=== PATIENT | male | born 1940 | race Caucasian/White ===

== ENCOUNTER 2022-05-06 21:14 | Inpatient (IN) | payer OTHER ==
--- OUTSIDE RECORDS SUMMARY | 2022-05-06 21:21 | XMS REPORT | Continuity of Care Document ---
:1940 Author Organization [facility] t Address [address] [place] [address] Care Team Providers Name Role Phone Wagner YOO, Avi Cabrera Primary Care Physician [phone] William Young Attending Clinician Unavailable AIDAN RUIZ Attending Clinician Unavailable AIDAN RUIZ Attending Clinician Unavailable Aidan Ruiz DO Attending Clinician JASSI FONTAINE Attending Clinician Unavailable Doctor Unassigned, Chidester Attending Clinician Unavailable Nadiya Elmore Attending Clinician Unavailable Therapist, Jim Pulmonary Attending Clinician Unavailable Jassi Fontaine MD Attending Clinician Therapist, Jim Respiratory Attending Clinician Unavailable Meliton-Mbayo_A_AH Attending Clinician Unavailable Meliton-Mbayo_A_AH Admitting Clinician Unavailable Payers Payer Name Policy Type Policy Number Effective Date Expiration Date S ource HUMANA CHOICE [id number] 2021 00:00:00 [facility] [place] - [id number] [facility] 00:00:00 (MEDICARE REPLACEMENT/ADVANT AGE - HMO) Problems Condition Condition Condition Status Onset Resolution Last Treating Co mments Source Name Details Category Date Date Treatment Clinician Date [id number] 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 unspecifie Medica [facility] d COPD Center type Acute COPD with Problem Common exacerbati acute Spirit on of exacerbati - [facility] chronic on obstructiv 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, [facility] unspecifie [facility] d trigger Medical Center No known No known Disease Unive rs active active ity of problems problems [facility] Allergies, Adverse Reactions, Alerts Allergy Allergy Status Severity Reaction(s) Onset Inactive Treating Comm ents Source Name Type Date Date Clinician NO KNOWN Drug Active Univers ALLERGIE Class ity of S [facility] Social History Social Habit Start Date Stop Date Quantity Comments Source History of Tobacco Common Spirit - Use [facility] Sex Assigned At Common Sp carmen - [facility] Exposure to 2022-04-08 2022-04-18 Not sure [facility] SARS-CoV-2 (event) 00:00:00 10:53:00 [facility] Alcohol intake 2022-04-18 2022-04-18 Ex-drinker University 00:00:00 00:00:00 (finding) [facility] Tobacco use and 2022-02-11 2022-02-11 Smokeless Universit y of exposure 00:00:00 00:00:00 tobacco non-user [facility] Cigarettes smoked 2022-02-11 2022-02-11 Univers ity of current (pack per 00:00:00 00:00:00 ) - Reported Branch Cigarette 2022-02-11 2022-02-11 University of pack-years 00:00:00 00:00:00 [facility] Smoking Status Start Date Stop Date Source Former Smoker 2022-05-04 00:00:00 2022-05-04 00:00:00 [facility] S pirit [facility] Medications Ordered Filled Start Stop Current Ordering Indication Dosage Frequency Signature Comments Components Source Medication Medication Date Date Medication? Clinician (SIG) Name Name Formoterol 2021-05 Yes 20ug Inhale 20 Un norberto Fumarate 2-27 mcg 2 ity of (PERFOROMIS 00:00: (two) [place] T) 20 mcg/2 00 times Medical mL Nebu daily. Branch arformotero 2021-05 Yes [id number] 15ug Use 2 mL Univers L (BROVANA) 2-21 as ity of 15 mcg/2 [place] 00:[place] directed [place] nebulizer 00 in the Medical solution morning Branch and 2 mL in the evening. revefenacin 2021-05 Yes [id number] 175ug Inhale 175 Univers (YUPELRI) 2-21 mcg daily. ity of 175 mcg/3 00:00: [place] mL Nebu 00 [facility] Branch budesonide 2021-05 Yes [id number] .25mg Inhale 2 Univers (PULMICORT) 2-21 mL in the ity of 0.25 mg/2 00:00: morning [place] mL 00 and 2 mL Medical nebulizer in the Branch solution evening. revefenacin 2021-05 Yes [id number] 175ug Inhale 175 Univers (YUPELRI) 2-21 mcg daily. ity of 175 mcg/3 00:00: [place] mL Nebu 00 [facility] Branch budesonide 2021-05 Yes [id number] .25mg Inhale 2 Univers (PULMICORT) 2-21 mL in the ity of 0.25 mg/2 00:00: morning [place] mL 00 and 2 mL Medical nebulizer in the Branch solution evening. arformotero 2021-05- No [id number] 15ug Use 2 mL Univers L (BROVANA) 2-21 12-27 as ity of 15 mcg/2 mL 00:00: 00:00 directed [place] nebulizer 00 :00 in the Medical [facility] morning Branch and 2 mL in the evening. doxycycline 2021-05 Yes [id number] 100mg Take 1 Univers 100 mg EC 1-18 tablet by ity o f tablet 00:00: mouth in [place] [address] the [facility] morning Branch and 1 tablet in the evening. doxycycline 2021-05 Yes [id number] 100mg Take 1 Univers 100 mg EC 1-18 tablet by ity o f tablet 00:00: mouth in [place] [address] the [facility] morning Branch and 1 tablet in the evening. doxycycline 2021-05 Yes [id number] 100mg Take 1 Univers 100 mg EC 1-18 tablet by ity o f tablet 00:00: mouth in [place] [address] the [facility] morning Branch and 1 tablet in the evening. doxycycline 2021-05 Yes [id number] 100mg Take 1 Univers 100 mg EC 1-18 tablet by ity o f tablet 00:00: mouth in [place] 00 the Medical morning Branch and 1 tablet in the evening. doxycycline 2021-05 Yes [id number] 100mg Take 1 Univers 100 mg EC 1-18 tablet by ity o f tablet 00:00: mouth in [place] 00 the Medical morning Branch and 1 tablet in the evening. doxycycline 2021-05 Yes [id number] 100mg Take 1 Univers 100 mg EC 1-18 tablet by ity o f tablet 00:00: mouth in [place] 00 the Medical morning Branch and 1 tablet in the evening. doxycycline 2021-05 Yes [id number] 100mg Take 1 Univers 100 mg EC 1-18 tablet by ity o f tablet 00:00: mouth in [place] 00 the Medical morning Branch and 1 tablet in the evening. doxycycline 2021-05 Yes [id number] 100mg Take 1 Univers 100 mg EC 1-18 tablet by ity o f tablet 00:00: mouth in [place] 00 the Medical morning Branch and 1 tablet in the evening. doxycycline 2021-05 Yes [id number] 100mg Take 1 Univers 100 mg EC 1-18 tablet by ity o f tablet 00:00: mouth in [place] 00 the Medical morning Branch and 1 tablet in the evening. doxycycline 2021-05 Yes [id number] 100mg Take 1 Univers 100 mg EC 1-18 tablet by ity o f tablet 00:00: mouth in [place] 00 the Medical morning Branch and 1 tablet in the evening. doxycycline 2021-05 Yes [id number] 100mg Take 1 Univers 100 mg EC 1-18 tablet by ity o f tablet 00:00: mouth in [place] 00 the Medical morning Branch and 1 tablet in the evening. doxycycline 2021-05 Yes [id number] 100mg Take 1 Univers 100 mg EC 1-18 tablet by ity o f tablet 00:00: mouth in [place] 00 the Medical morning Branch and 1 tablet in the evening. doxycycline 2021-05 Yes [id number] 100mg Take 1 Univers 100 mg EC 1-18 tablet by ity o f tablet 00:00: mouth in [place] 00 the Medical morning Branch and 1 tablet in the evening. doxycycline 2021-05 Yes [id number] 100mg Take 1 Univers 100 mg EC 1-18 tablet by ity o f tablet 00:00: mouth in [place] 00 the Medical morning Branch and 1 tablet in the evening. doxycycline 2021-05 Yes [id number] 100mg Take 1 Univers 100 mg EC 1-18 tablet by ity o f tablet 00:00: mouth in [place] 00 the Medical morning Branch and 1 tablet in the evening. doxycycline 2021-05- Yes [id number] 100mg Take 1 Univers 100 mg EC 1-17 11-25 tablet by ity of tablet 00:00: 05:59 mouth in [place] 00 :00 the Medical morning Branch and 1 tablet in the evening. Do all this for 7 days. doxycycline 2021-05- Yes [id number] 100mg Take 1 Univers 100 mg EC 1-17 11-25 tablet by ity of tablet 00:00: 05:59 mouth in [place] 00 :00 the Medical morning Branch and 1 tablet in the evening. Do all this for 7 days. predniSONE 2021-05- Yes [id number] 40mg Take 2 Univers 20 mg 1-17 11-23 tablets by ity of tablet 00:00: 05:59 mouth in [place] 00 :00 the [facility] morning Branch for 5 days. predniSONE 2021-05- Yes [id number] 40mg Take 2 Univers 20 mg 1-17 11-23 tablets by ity of tablet 00:00: 05:59 mouth in [place] 00 :00 the [facility] morning Branch for 5 days. predniSONE 2021-05- Yes [id number] 40mg Take 2 Univers 20 mg 1-17 11-23 tablets by ity of tablet 00:00: 05:59 mouth in [place] 00 :00 the [facility] morning Branch for 5 days. predniSONE 2021-05- Yes [id number] 40mg Take 2 Univers 20 mg 1-17 11-23 tablets by ity of tablet 00:00: 05:59 mouth in [place] 00 :00 the [facility] morning Branch for 5 days. predniSONE 2021-05- Yes [id number] 40mg Take 2 Univers 20 mg 1-17 11-23 tablets by ity of tablet 00:00: 05:59 mouth in [place] 00 :00 the [facility] morning Branch for 5 days. predniSONE 2021-05- Yes [id number] 40mg Take 2 Univers 20 mg 1-17 11-23 tablets by ity of tablet 00:00: 05:59 mouth in [place] 00 :00 the Medical morning Branch for 5 days. doxycycline 2021-05- No [id number] 100mg Take 1 Univers 100 mg EC 1-17 11-18 tablet by ity of tablet 00:00: 00:00 mouth in [place] 00 :00 the Medical morning Branch and 1 tablet in the evening. Do all this for 7 days. doxycycline 2021-05- No [id number] 100mg Take 1 Univers 100 mg EC 1-17 11-18 tablet by ity of tablet 00:00: 00:00 mouth in [place] 00 :00 the Medical morning Branch and 1 tablet in the evening. Do all this for 7 days. furosemide 2021-05 Yes 10mg Take 10 mg U nivers 10 mg 0-07 by mouth ity of 15:54: weekly. [address] furosemide 2021-05 Yes 10mg Take 10 mg U nivers 10 mg 0-07 by mouth ity of 15:54: weekly. [address] furosemide 2021-05 Yes 10mg Take 10 mg U nivers 10 mg 0-07 by mouth ity of 15:54: weekly. [address] furosemide 2021-05 Yes 10mg Take 10 mg U nivers 10 mg 0-07 by mouth ity of 15:54: weekly. [address] furosemide 2021-05 Yes 10mg Take 10 mg U nivers 10 mg 0-07 by mouth ity of 15:54: weekly. [address] furosemide 2021-05 Yes 10mg Take 10 mg U nivers 10 mg 0-07 by mouth ity of 15:54: weekly. [address] furosemide 2021-05 Yes 10mg Take 10 mg U nivers 10 mg 0-07 by mouth ity of 15:54: weekly. [address] furosemide 2021-05 Yes 10mg Take 10 mg U nivers 10 mg 0-07 by mouth ity of 15:54: weekly. [address] furosemide 2021-05 Yes 10mg Take 10 mg U nivers 10 mg 0-07 by mouth ity of 15:54: weekly. [address] furosemide 2021-05 Yes 10mg Take 10 mg U nivers 10 mg 0-07 by mouth ity of 15:54: weekly. [address] furosemide 2021-05 Yes 10mg Take 10 mg U nivers 10 mg 0-07 by mouth ity of 15:54: weekly. [address] furosemide 2021-05 Yes 10mg Take 10 mg U nivers 10 mg 0-07 by mouth ity of 15:54: weekly. [address] furosemide 2021-05 Yes 10mg Take 10 mg U nivers 10 mg 0-07 by mouth ity of 15:54: weekly. [address] furosemide 2021-05 Yes 10mg Take 10 mg U nivers 10 mg 0-07 by mouth ity of 15:54: weekly. [address] furosemide 2021-05 Yes 10mg Take 10 mg U nivers 10 mg 0-07 by mouth ity of 15:54: weekly. [address] furosemide 2021-05 Yes 10mg Take 10 mg U nivers 10 mg 0-07 by mouth ity of 15:54: weekly. [address] furosemide 2021-05 Yes 10mg Take 10 mg U nivers 10 mg 0-07 by mouth ity of 15:54: weekly. [address] furosemide 2021-05 Yes 10mg Take 10 mg U nivers 10 mg 0-07 by mouth ity of 15:54: weekly. [address] furosemide 2021-05 Yes 10mg Take 10 mg U nivers 10 mg 0-07 by mouth ity of 15:54: weekly. [address] furosemide 2021-05 Yes 10mg Take 10 mg U nivers 10 mg 0-07 by mouth ity of 15:54: weekly. [address] furosemide 2021-05 Yes 10mg Take 10 mg U nivers 10 mg 0-07 by mouth ity of 15:54: weekly. [address] furosemide 2021-05 Yes 10mg Take 10 mg U nivers 10 mg 0-07 by mouth ity of 15:54: weekly. [address] furosemide 2021-05 Yes 10mg Take 10 mg U nivers 10 mg 0-07 by mouth ity of 15:54: weekly. [address] furosemide 2021-05 Yes 10mg Take 10 mg U nivers 10 mg 0-07 by mouth ity of 15:54: weekly. [address] furosemide 2021-05 Yes 10mg Take 10 mg U nivers 10 mg 0-07 by mouth ity of 15:54: weekly. [address] furosemide 2021-05 Yes 10mg Take 10 mg U nivers 10 mg 0-07 by mouth ity of 15:54: weekly. [address] furosemide 2021-05 Yes 10mg Take 10 mg U nivers 10 mg 0-07 by mouth ity of 15:54: weekly. [address] furosemide 2021-05 Yes 10mg Take 10 mg U nivers 10 mg 0-07 by mouth ity of 15:54: weekly. [address] furosemide 2021-05 Yes 10mg Take 10 mg U nivers 10 mg 0-07 by mouth ity of 15:54: weekly. [address] furosemide 2021-05 Yes 10mg Take 10 mg U nivers 10 mg 0-07 by mouth ity of 15:54: weekly. [address] furosemide 2021-05 Yes 10mg Take 10 mg U nivers 10 mg 0-07 by mouth ity of 15:54: weekly. [address] furosemide 2021-05 Yes 10mg Take 10 mg U nivers 10 mg 0-07 by mouth ity of 15:54: weekly. [address] tamsulosin Yes Take by Univ ers 0.4 mg 24 8-12 mouth ity of hr capsule 11:44: daily. [address] finasteride Yes 5mg Take 5 mg U nivers 5 mg tablet 8-12 by mouth ity of 11:44: in the [place] 03 morning. [facility] Branch albuterol Yes 2.5mg Inhale 2.5 U nivers 2.5 mg /3 8-12 mg every 4 ity of mL (0.083 11:44: (four) [place] %) 03 hours as Medical nebulizer needed for Bran ch solution Wheezing or Shortness of Breath. Fluticasone Yes 1{puff} Inhale 1 Univers -Salmeterol 8-12 Puff every it y of (ADVAIR 11:44: 12 [place] DISKUS) 03 (twelve) Medical 500-50 hours. Branch mcg/dose inhalation disk fluticasone Yes Use in Univ ers propionate 8-12 each ity of (ALLERGY 11:44: nostril 2 [place], 03 (two) Medical FLUTICASONE times Branch ,) 50 daily. mcg/actuati on nasal spray tamsulosin Yes Take by Univ ers 0.4 mg 24 8-12 mouth ity of hr capsule 11:44: daily. [address] Branch finasteride Yes 5mg Take 5 mg U nivers 5 mg tablet 8-12 by mouth ity of 11:44: in the [place] 03 morning. Medical Branch albuterol 2021-0 Yes 2.5mg Inhale 2.5 U nivers 2.5 mg /3 8-12 mg every 4 ity of mL (0.083 11:44: (four) [place] %) 03 hours as Medical nebulizer needed for Bran ch solution Wheezing or Shortness of Breath. Fluticasone 2021-0 Yes 1{puff} Inhale 1 Univers -Salmeterol 8-12 Puff every it y of (ADVAIR 11:44: 12 [place] DISKUS) 03 (twelve) Medical 500-50 hours. Branch mcg/dose inhalation disk fluticasone 0 Yes Use in Univ ers propionate 8-12 each ity of (ALLERGY 11:44: nostril 2 [place], 03 (two) Medical FLUTICASONE times [place] ,) 50 daily. mcg/actuati on nasal spray tamsulosin 0 Yes Take by [facility] ers 0.4 mg 24 8-12 mouth ity of hr capsule 11:44: daily. [place] [facility] Branch finasteride 2021-0 Yes 5mg Take 5 mg U nivers 5 mg tablet 8-12 by mouth ity of 11:44: in the [place] morning. Medical Branch albuterol 2021-0 Yes 2.5mg Inhale 2.5 U nivers 2.5 mg /3 8-12 mg every 4 ity of mL (0.083 11:44: (four) [place] %) 03 hours as Medical nebulizer needed for Bran ch solution Wheezing or Shortness of Breath. Fluticasone 2021-0 Yes 1{puff} Inhale 1 Univers -Salmeterol 8-12 Puff every it y of (ADVAIR 11:44: 12 [place] DISKUS) 03 (twelve) Medical 500-50 hours. Branch mcg/dose inhalation disk fluticasone 2021-0 Yes Use in Univ ers propionate 8-12 each ity of (ALLERGY 11:44: nostril 2 [place], 03 (two) Medical FLUTICASONE times [place] ,) 50 daily. mcg/actuati on nasal spray tamsulosin 0 Yes Take by Univ ers 0.4 mg 24 8-12 mouth ity of hr capsule 11:44: daily. [place] [facility] Branch finasteride 2021-0 Yes 5mg Take 5 mg U nivers 5 mg tablet 8-12 by mouth ity of 11:44: in the [place] 03 morning. Medical Branch albuterol 2021-0 Yes 2.5mg Inhale 2.5 U nivers 2.5 mg /3 8-12 mg every 4 ity of mL (0.083 11:44: (four) [place] %) 03 hours as Medical nebulizer needed for Bran ch solution Wheezing or Shortness of Breath. Fluticasone 0 Yes 1{puff} Inhale 1 Univers -Salmeterol 8-12 Puff every it y of (ADVAIR 11:44: 12 [place] DISKUS) 03 (twelve) Medical 500-50 hours. Branch mcg/dose inhalation disk fluticasone 0 Yes Use in Univ ers propionate 8-12 each ity of (ALLERGY 11:44: nostril 2 [place], 03 (two) Medical FLUTICASONE times [place] ,) 50 daily. mcg/actuati on nasal spray tamsulosin Yes Take by [facility] ers 0.4 mg 24 8-12 mouth ity of hr capsule 11:44: daily. [place] [facility] Branch finasteride 2021-0 Yes 5mg Take 5 mg U nivers 5 mg tablet 8-12 by mouth ity of 11:44: in the [place] morning. Medical Branch albuterol 0 Yes 2.5mg Inhale 2.5 U nivers 2.5 mg /3 8-12 mg every 4 ity of mL (0.083 11:44: (four) [place] %) 03 hours as Medical nebulizer needed for Bran ch solution Wheezing or Shortness of Breath. Fluticasone 0 Yes 1{puff} Inhale 1 Univers -Salmeterol 8-12 Puff every it y of (ADVAIR 11:44: 12 [place] DISKUS) 03 (twelve) Medical 500-50 hours. Branch mcg/dose inhalation disk fluticasone 0 Yes Use in Univ ers propionate 8-12 each ity of (ALLERGY 11:44: nostril 2 [place], 03 (two) Medical FLUTICASONE [facility] ,) 50 daily. mcg/actuati on nasal spray tamsulosin 0 Yes Take by [facility] ers 0.4 mg 24 8-12 mouth ity of hr capsule 11:44: daily. Medical Branch finasteride 2021-0 Yes 5mg Take 5 mg U nivers 5 mg tablet 8-12 by mouth ity of 11:44: in the [place] morning. Medical Branch albuterol 0 Yes 2.5mg Inhale 2.5 U nivers 2.5 mg /3 8-12 mg every 4 ity of mL (0.083 11:44: (four) [place] %) 03 hours as Medical nebulizer needed for Bran ch solution Wheezing or Shortness of Breath. Fluticasone 0 Yes 1{puff} Inhale 1 Univers -Salmeterol 8-12 Puff every it y of (ADVAIR 11:44: 12 [place] DISKUS) 03 (twelve) Medical 500-50 hours. Branch mcg/dose inhalation disk fluticasone Yes Use in [facility] ers propionate 8-12 each ity of (ALLERGY 11:44: nostril 2 [place], 03 (two) Medical FLUTICASONE times Branch ,) 50 daily. mcg/actuati on nasal spray tamsulosin Yes Take by [facility] ers 0.4 mg 24 8-12 mouth ity of hr capsule 11:44: daily. Medical Branch finasteride 0 Yes 5mg Take 5 mg U nivers 5 mg tablet 8-12 by mouth ity of 11:44: in the [place] morning. Medical Branch albuterol 0 Yes 2.5mg Inhale 2.5 U nivers 2.5 mg /3 8-12 mg every 4 ity of mL (0.083 11:44: (four) [place] %) 03 hours as Medical nebulizer needed for Bran ch solution Wheezing or Shortness of Breath. Fluticasone 0 Yes 1{puff} Inhale 1 Univers -Salmeterol 8-12 Puff every it y of (ADVAIR 11:44: 12 [place] DISKUS) 03 (twelve) Medical 500-50 hours. Branch mcg/dose inhalation disk fluticasone 2021-0 Yes Use in Univ ers propionate 8-12 each ity of (ALLERGY 11:44: nostril 2 [place], 03 (two) Medical FLUTICASONE [facility] ,) 50 daily. mcg/actuati on nasal spray tamsulosin 0 Yes Take by [facility] ers 0.4 mg 24 8-12 mouth ity of hr capsule 11:44: daily. Medical Branch finasteride 2021-0 Yes 5mg Take 5 mg U nivers 5 mg tablet 8-12 by mouth ity of 11:44: in the [place] morning. Medical Branch albuterol 0 Yes 2.5mg Inhale 2.5 U nivers 2.5 mg /3 8-12 mg every 4 ity of mL (0.083 11:44: (four) [place] %) 03 hours as Medical nebulizer needed for Bran ch solution Wheezing or Shortness of Breath. Fluticasone 0 Yes 1{puff} Inhale 1 Univers -Salmeterol 8-12 Puff every it y of (ADVAIR 11:44: 12 [place] DISKUS) 03 (twelve) Medical 500-50 hours. Branch mcg/dose inhalation disk fluticasone 0 Yes Use in [facility] ers propionate 8-12 each ity of (ALLERGY 11:44: nostril 2 [place], 03 (two) Medical FLUTICASONE [facility] ,) 50 daily. mcg/actuati on nasal spray tamsulosin 0 Yes Take by [facility] ers 0.4 mg 24 8-12 mouth ity of hr capsule 11:44: daily. Medical Branch finasteride 0 Yes 5mg Take 5 mg U nivers 5 mg tablet 8-12 by mouth ity of 11:44: in the [place] morning. Medical Branch albuterol 0 Yes 2.5mg Inhale 2.5 U nivers 2.5 mg /3 8-12 mg every 4 ity of mL (0.083 11:44: (four) [place] %) 03 hours as Medical nebulizer needed for Bran ch solution Wheezing or Shortness of Breath. Fluticasone 2021-0 Yes 1{puff} Inhale 1 Univers -Salmeterol 8-12 Puff every it y of (ADVAIR 11:44: 12 [place] DISKUS) 03 (twelve) Medical 500-50 hours. Branch mcg/dose inhalation disk fluticasone 2022-0 Yes Use in Univ ers propionate 8-12 each ity of (ALLERGY 11:44: nostril 2 [place], 03 (two) Medical FLUTICASONE [facility] ,) 50 daily. mcg/actuati on nasal spray tamsulosin 0 Yes Take by [facility] ers 0.4 mg 24 8-12 mouth ity of hr capsule 11:44: daily. Medical Branch finasteride 2021-0 Yes 5mg Take 5 mg U nivers 5 mg tablet 8-12 by mouth ity of 11:44: in the [place] morning. Medical Branch albuterol 2021-0 Yes 2.5mg Inhale 2.5 U nivers 2.5 mg /3 8-12 mg every 4 ity of mL (0.083 11:44: (four) [place] %) 03 hours as Medical nebulizer needed for Bran ch solution Wheezing or Shortness of Breath. Fluticasone 2021-0 Yes 1{puff} Inhale 1 Univers -Salmeterol 8-12 Puff every it y of (ADVAIR 11:44: 12 [place] DISKUS) 03 (twelve) Medical 500-50 hours. Branch mcg/dose inhalation disk fluticasone 0 Yes Use in [facility] ers propionate 8-12 each ity of (ALLERGY 11:44: nostril 2 [place], 03 (two) Medical FLUTICASONE [facility] ,) 50 daily. mcg/actuati on nasal spray tamsulosin 0 Yes Take by [facility] ers 0.4 mg 24 8-12 mouth ity of hr capsule 11:44: daily. [place] [facility] finasteride 2021-0 Yes 5mg Take 5 mg U nivers 5 mg tablet 8-12 by mouth ity of 11:44: in the [place] morning. Medical Branch albuterol 2021-0 Yes 2.5mg Inhale 2.5 U nivers 2.5 mg /3 8-12 mg every 4 ity of mL (0.083 11:44: (four) [place] %) 03 hours as Medical nebulizer needed for Bran ch solution Wheezing or Shortness of Breath. Fluticasone 2021-0 Yes 1{puff} Inhale 1 Univers -Salmeterol 8-12 Puff every it y of (ADVAIR 11:44: 12 [place] DISKUS) 03 (twelve) Medical 500-50 hours. Branch mcg/dose inhalation disk fluticasone 2021-0 Yes Use in [facility] ers propionate 8-12 each ity of (ALLERGY 11:44: nostril 2 [place], 03 (two) Medical FLUTICASONE times [place] ,) 50 daily. mcg/actuati on nasal spray tamsulosin 0 Yes Take by [facility] ers 0.4 mg 24 8-12 mouth ity of hr capsule 11:44: daily. [place] Medical Branch finasteride 2021-0 Yes 5mg Take 5 mg U nivers 5 mg tablet 8-12 by mouth ity of 11:44: in the [place] morning. Medical Branch albuterol 2021-0 Yes 2.5mg Inhale 2.5 U nivers 2.5 mg /3 8-12 mg every 4 ity of mL (0.083 11:44: (four) [place] %) 03 hours as Medical nebulizer needed for Bran ch solution Wheezing or Shortness of Breath. Fluticasone 2021-0 Yes 1{puff} Inhale 1 Univers -Salmeterol 8-12 Puff every it y of (ADVAIR 11:44: 12 [place] DISKUS) 03 (twelve) Medical 500-50 hours. Branch mcg/dose inhalation disk fluticasone 0 Yes Use in [facility] ers propionate 8-12 each ity of (ALLERGY 11:44: nostril 2 [place], 03 (two) Medical FLUTICASONE [facility] ,) 50 daily. mcg/actuati on nasal spray tamsulosin 0 Yes Take by [facility] ers 0.4 mg 24 8-12 mouth ity of hr capsule 11:44: daily. [place] Medical Branch finasteride 2021-0 Yes 5mg Take 5 mg U nivers 5 mg tablet 8-12 by mouth ity of 11:44: in the [place] morning. Medical Branch albuterol 2021-0 Yes 2.5mg Inhale 2.5 U nivers 2.5 mg /3 8-12 mg every 4 ity of mL (0.083 11:44: (four) [place] %) 03 hours as Medical nebulizer needed for Bran ch solution Wheezing or Shortness of Breath. Fluticasone 2021-0 Yes 1{puff} Inhale 1 Univers -Salmeterol 8-12 Puff every it y of (ADVAIR 11:44: 12 [place] DISKUS) 03 (twelve) Medical 500-50 hours. Branch mcg/dose inhalation disk fluticasone 2021-0 Yes Use in [facility] ers propionate 8-12 each ity of (ALLERGY 11:44: nostril 2 [place], 03 (two) Medical FLUTICASONE [facility] ,) 50 daily. mcg/actuati on nasal spray tamsulosin 0 Yes Take by [facility] ers 0.4 mg 24 8-12 mouth ity of hr capsule 11:44: daily. [place] [facility] finasteride 2021-0 Yes 5mg Take 5 mg U nivers 5 mg tablet 8-12 by mouth ity of 11:44: in the [place] morning. Medical [facility] albuterol 2021-0 Yes 2.5mg Inhale 2.5 U nivers 2.5 mg /3 8-12 mg every 4 ity of mL (0.083 11:44: (four) [place] %) 03 hours as Medical nebulizer needed for Bran ch solution Wheezing or Shortness of Breath. Fluticasone 0 Yes 1{puff} Inhale 1 [facility] -Salmeterol 8-12 Puff every it y of (ADVAIR 11:44: 12 [place] DISKUS) 03 (twelve) Medical 500-50 hours. Branch mcg/dose inhalation disk fluticasone 2021-0 Yes Use in [facility] ers propionate 8-12 each ity of (ALLERGY 11:44: [place] 03 (two) Medical FLUTICASONE [facility] ,) 50 daily. mcg/actuati on nasal spray tamsulosin 0 Yes Take by [facility] ers 0.4 mg 24 8-12 mouth ity of hr capsule 11:44: daily. [place] [facility] finasteride 2021-0 Yes 5mg Take 5 mg U nivers 5 mg tablet 8-12 by mouth ity of 11:44: in the [place] morning. [facility] albuterol 2021-0 Yes 2.5mg Inhale 2.5 U nivers 2.5 mg /3 8-12 mg every 4 ity of mL (0.083 11:44: (four) [place] %) 03 hours as Medical nebulizer needed for Bran ch solution Wheezing or Shortness of Breath. Fluticasone 2022-0 Yes 1{puff} Inhale 1 [facility] -Salmeterol 8-12 Puff every it y of (ADVAIR 11:44: 12 [place] DISKUS) 03 (twelve) Medical 500-50 hours. Branch mcg/dose inhalation disk fluticasone 2021-0 Yes Use in [facility] ers propionate 8-12 each ity of (ALLERGY 11:44: [place]ril [place] 03 (two) Medical FLUTICASONE [facility] ,) 50 daily. mcg/actuati on nasal spray tamsulosin 2021-0 Yes Take by [facility] ers 0.4 mg 24 8-12 mouth ity of hr capsule 11:44: daily. [place] [facility] finasteride 2021-0 Yes 5mg Take 5 mg U nivers 5 mg tablet 8-12 by mouth ity of 11:44: in the [place] 03 morning. Medical Branch albuterol 2021-0 Yes 2.5mg Inhale 2.5 U nivers 2.5 mg /3 8-12 mg every 4 ity of mL (0.083 11:44: (four) [place] %) 03 hours as Medical nebulizer needed for Bran ch solution Wheezing or Shortness of Breath. Fluticasone 2021-0 Yes 1{puff} Inhale 1 [facility] -Salmeterol 8-12 Puff every it y of (ADVAIR 11:44: 12 [place] DISKUS) 03 (twelve) Medical 500-50 hours. Branch mcg/dose inhalation disk fluticasone 2021-0 Yes Use in [facility] ers propionate 8-12 each ity of (ALLERGY 11:44: nostril [place], 03 (two) Medical FLUTICASONE [facility] ,) 50 daily. mcg/actuati on nasal spray tamsulosin 2021-0 Yes Take by [facility] ers 0.4 mg 24 8-12 mouth ity of hr capsule 11:44: daily. [place] 03 [facility] finasteride 2021-0 Yes 5mg Take 5 mg U nivers 5 mg tablet 8-12 by mouth ity of 11:44: in the [place] 03 morning. Medical Branch albuterol 2021-0 Yes 2.5mg Inhale 2.5 U nivers 2.5 mg /3 8-12 mg every 4 ity of mL (0.083 11:44: (four) [place] %) 03 hours as Medical nebulizer needed for Bran ch solution Wheezing or Shortness of Breath. Fluticasone 2-0 Yes 1{puff} Inhale 1 [facility] -Salmeterol 8-12 Puff every it y of (ADVAIR 11:44: 12 [place] DISKUS) 03 (twelve) Medical 500-50 hours. Branch mcg/dose inhalation disk fluticasone 2021-0 Yes Use in [facility] ers propionate 8-12 each ity of (ALLERGY 11:44: nostril [place], 03 (two) Medical FLUTICASONE [facility] ,) 50 daily. mcg/actuati on nasal spray tamsulosin 2021-0 Yes Take by [facility] ers 0.4 mg 24 8-12 mouth ity of hr capsule 11:44: daily. [place] [address] Medical Branch finasteride 2021-0 Yes 5mg Take 5 mg U nivers 5 mg tablet 8-12 by mouth ity of 11:44: in the [place] morning. Medical Branch albuterol 2021-0 Yes 2.5mg Inhale 2.5 U nivers 2.5 mg /3 8-12 mg every 4 ity of mL (0.083 11:44: (four) [place] %) 03 hours as Medical nebulizer needed for Bran ch solution Wheezing or Shortness of Breath. Fluticasone 2021-0 Yes 1{puff} Inhale 1 [facility] -Salmeterol 8-12 Puff every it y of (ADVAIR 11:44: 12 [place] DISKUS) 03 (twelve) Medical 500-50 hours. Branch mcg/dose inhalation disk fluticasone 2021-0 Yes Use in [facility] ers propionate 8-12 each ity of (ALLERGY 11:44: nostril 2 [place], 03 (two) Medical FLUTICASONE [facility] ,) 50 daily. mcg/actuati on nasal spray tamsulosin 2021-0 Yes Take by [facility] ers 0.4 mg 24 8-12 mouth ity of hr capsule 11:44: daily. [place] [address] Medical Branch tamsulosin 2021-0 Yes Take by [facility] ers 0.4 mg 24 8-12 mouth ity of hr capsule 11:44: daily. [place] [address] Medical Branch finasteride 2022-0 Yes 5mg Take 5 mg U nivers 5 mg tablet 8-12 by mouth ity of 11:44: in the [place] morning. Medical Branch albuterol 2021-0 Yes 2.5mg Inhale 2.5 U nivers 2.5 mg /3 8-12 mg every 4 ity of mL (0.083 11:44: (four) [place] %) 03 hours as Medical nebulizer needed for Bran ch solution Wheezing or Shortness of Breath. Fluticasone 2021-0 Yes 1{puff} Inhale 1 [facility] -Salmeterol 8-12 Puff every it y of (ADVAIR 11:44: 12 [place] DISKUS) 03 (twelve) Medical 500-50 hours. Branch mcg/dose inhalation disk fluticasone 2021-0 Yes Use in [facility] ers propionate 8-12 each ity of (ALLERGY 11:44: nostril 2 [place], 03 (two) Medical FLUTICASONE times Branch ,) 50 daily. mcg/actuati on nasal spray finasteride 2021-0 Yes 5mg Take 5 mg U nivers 5 mg tablet 8-12 by mouth ity of 11:44: in the [place] morning. Medical Branch tamsulosin 0 Yes Take by [facility] ers 0.4 mg 24 8-12 mouth ity of hr capsule 11:44: daily. [place] [facility] finasteride 2021-0 Yes 5mg Take 5 mg U nivers 5 mg tablet 8-12 by mouth ity of 11:44: in the [place] morning. [facility] Branch albuterol 2021-0 Yes 2.5mg Inhale 2.5 U nivers 2.5 mg /3 8-12 mg every 4 ity of mL (0.083 11:44: (four) [place] %) 03 hours as Medical nebulizer needed for Bran ch solution Wheezing or Shortness of Breath. Fluticasone 2021-0 Yes 1{puff} Inhale 1 [facility] -Salmeterol 8-12 Puff every it y of (ADVAIR 11:44: 12 [place] DISKUS) 03 (twelve) Medical 500-50 hours. Branch mcg/dose inhalation disk albuterol 2021-0 Yes 2.5mg Inhale 2.5 U nivers 2.5 mg /3 8-12 mg every 4 ity of mL (0.083 11:44: (four) [place] %) 03 hours as Medical nebulizer needed for Bran ch solution Wheezing or Shortness of Breath. fluticasone 2-0 Yes Use in [facility] ers propionate 8-12 each ity of (ALLERGY 11:44: nostril [place], 03 (two) Medical FLUTICASONE [facility] ,) 50 daily. mcg/actuati on nasal spray tamsulosin 2021-0 Yes Take by [facility] ers 0.4 mg 24 8-12 mouth ity of hr capsule 11:44: daily. [place] [facility] finasteride 2021-0 Yes 5mg Take 5 mg U nivers 5 mg tablet 8-12 by mouth ity of 11:44: in the [place] morning. [facility] Branch albuterol 2021-0 Yes 2.5mg Inhale 2.5 U nivers 2.5 mg /3 8-12 mg every 4 ity of mL (0.083 11:44: (four) [place] %) 03 hours as Medical nebulizer needed for Bran ch solution Wheezing or Shortness of Breath. Fluticasone 2021-0 Yes 1{puff} Inhale 1 [facility] -Salmeterol 8-12 Puff every it y of (ADVAIR 11:44: 12 [place] DISKUS) 03 (twelve) Medical 500-50 hours. Branch mcg/dose inhalation disk Fluticasone 2021-0 Yes 1{puff} Inhale 1 [facility] -Salmeterol 8-12 Puff every it y of (ADVAIR 11:44: 12 [place] DISKUS) 03 (twelve) Medical 500-50 hours. Branch mcg/dose inhalation disk fluticasone 2021-0 Yes Use in [facility] ers propionate 8-12 each ity of (ALLERGY 11:44: nostril [place], 03 (two) Medical FLUTICASONE [facility] ,) 50 daily. mcg/actuati on nasal spray tamsulosin 2021-0 Yes Take by [facility] ers 0.4 mg 24 8-12 mouth ity of hr capsule 11:44: daily. [place] [facility] finasteride 2021-0 Yes 5mg Take 5 mg U nivers 5 mg tablet 8-12 by mouth ity of 11:44: in the [place] morning. [facility] Branch albuterol 2021-0 Yes 2.5mg Inhale 2.5 U nivers 2.5 mg /3 8-12 mg every 4 ity of mL (0.083 11:44: (four) [place] %) 03 hours as Medical nebulizer needed for Bran ch solution Wheezing or Shortness of Breath. fluticasone 0 Yes Use in [facility] ers propionate 8-12 each ity of (ALLERGY 11:44: nostril 2 [place], 03 (two) Medical FLUTICASONE times [place] ,) 50 daily. mcg/actuati on nasal spray Fluticasone Yes 1{puff} Inhale 1 [facility] -Salmeterol 8-12 Puff every it y of (ADVAIR 11:44: 12 [place] DISKUS) 03 (twelve) Medical 500-50 hours. Branch mcg/dose inhalation disk fluticasone Yes Use in [facility] ers propionate 8-12 each ity of (ALLERGY 11:44: nostril 2 [place], 03 (two) Medical FLUTICASONE times [place] ,) 50 daily. mcg/actuati on nasal spray tamsulosin Yes Take by [facility] ers 0.4 mg 24 8-12 mouth ity of hr capsule 11:44: daily. [place] [facility] finasteride Yes 5mg Take 5 mg U nivers 5 mg tablet 8-12 by mouth ity of 11:44: in the morning. Medical Branch albuterol 0 Yes 2.5mg Inhale 2.5 U nivers 2.5 mg /3 8-12 mg every 4 ity of mL (0.083 11:44: (four) [place] %) 03 hours as Medical nebulizer needed for Bran ch solution Wheezing or Shortness of Breath. Fluticasone 0 Yes 1{puff} Inhale 1 [facility] -Salmeterol 8-12 Puff every it y of (ADVAIR 11:44: 12 [place] DISKUS) 03 (twelve) Medical 500-50 hours. Branch mcg/dose inhalation disk fluticasone 0 Yes Use in [facility] ers propionate 8-12 each ity of (ALLERGY 11:44: nostril 2 [place], 03 (two) Medical FLUTICASONE times [place] ,) 50 daily. mcg/actuati on nasal spray tamsulosin 0 Yes Take by [facility] ers 0.4 mg 24 8-12 mouth ity of hr capsule 11:44: daily. [place] [facility] finasteride 2021-0 Yes 5mg Take 5 mg U nivers 5 mg tablet 8-12 by mouth ity of 11:44: in the [place] morning. [facility] Branch albuterol 2021-0 Yes 2.5mg Inhale 2.5 U nivers 2.5 mg /3 8-12 mg every 4 ity of mL (0.083 11:44: (four) [place] %) 03 hours as Medical nebulizer needed for Bran ch solution Wheezing or Shortness of Breath. Fluticasone 0 Yes 1{puff} Inhale 1 [facility] -Salmeterol 8-12 Puff every it y of (ADVAIR 11:44: 12 [place] DISKUS) 03 (twelve) Medical 500-50 hours. Branch mcg/dose inhalation disk fluticasone 0 Yes Use in [facility] ers propionate 8-12 each ity of (ALLERGY 11:44: nostril 2 [place], 03 (two) Medical FLUTICASONE times Branch ,) 50 daily. mcg/actuati on nasal spray tamsulosin Yes Take by [facility] ers 0.4 mg 24 8-12 mouth ity of hr capsule 11:44: daily. [place] [facility] finasteride 2021-0 Yes 5mg Take 5 mg U nivers 5 mg tablet 8-12 by mouth ity of 11:44: in the [place] morning. [facility] Branch albuterol 0 Yes 2.5mg Inhale 2.5 U nivers 2.5 mg /3 8-12 mg every 4 ity of mL (0.083 11:44: (four) [place] %) 03 hours as Medical nebulizer needed for Bran ch solution Wheezing or Shortness of Breath. Fluticasone 2021-0 Yes 1{puff} Inhale 1 [facility] -Salmeterol 8-12 Puff every it y of (ADVAIR 11:44: 12 [place] DISKUS) 03 (twelve) Medical 500-50 hours. Branch mcg/dose inhalation disk fluticasone 2021-0 Yes Use in [facility] ers propionate 8-12 each ity of (ALLERGY 11:44: nostril 2 [place], 03 (two) Medical FLUTICASONE [facility] ,) 50 daily. mcg/actuati on nasal spray tamsulosin 0 Yes Take by [facility] ers 0.4 mg 24 8-12 mouth ity of hr capsule 11:44: daily. [facility] Branch finasteride 2021-0 Yes 5mg Take 5 mg U nivers 5 mg tablet 8-12 by mouth ity of 11:44: in the [place] morning. Medical Branch albuterol 2021-0 Yes 2.5mg Inhale 2.5 U nivers 2.5 mg /3 8-12 mg every 4 ity of mL (0.083 11:44: (four) [place] %) 03 hours as Medical nebulizer needed for Bran ch solution Wheezing or Shortness of Breath. Fluticasone 2021-0 Yes 1{puff} Inhale 1 [facility] -Salmeterol 8-12 Puff every it y of (ADVAIR 11:44: 12 [place] DISKUS) 03 (twelve) Medical 500-50 hours. Branch mcg/dose inhalation disk fluticasone 0 Yes Use in [facility] ers propionate 8-12 each ity of (ALLERGY 11:44: nostril 2 [place], 03 (two) Medical FLUTICASONE [facility] ,) 50 daily. mcg/actuati on nasal spray tamsulosin 0 Yes Take by [facility] ers 0.4 mg 24 8-12 mouth ity of hr capsule 11:44: daily. Medical Branch finasteride 2021-0 Yes 5mg Take 5 mg U nivers 5 mg tablet 8-12 by mouth ity of 11:44: in the [place] morning. [facility] Branch albuterol 2021-0 Yes 2.5mg Inhale 2.5 U nivers 2.5 mg /3 8-12 mg every 4 ity of mL (0.083 11:44: (four) [place] %) 03 hours as Medical nebulizer needed for Bran ch solution Wheezing or Shortness of Breath. Fluticasone 2021-0 Yes 1{puff} Inhale 1 [facility] -Salmeterol 8-12 Puff every it y of (ADVAIR 11:44: 12 [place] DISKUS) 03 (twelve) Medical 500-50 hours. Branch mcg/dose inhalation disk fluticasone 2022-0 Yes Use in [facility] ers propionate 8-12 each ity of (ALLERGY 11:44: nostril 2 [place], 03 (two) Medical FLUTICASONE [facility] ,) 50 daily. mcg/actuati on nasal spray tamsulosin 0 Yes Take by [facility] ers 0.4 mg 24 8-12 mouth ity of hr capsule 11:44: daily. Medical Branch finasteride 2021-0 Yes 5mg Take 5 mg U nivers 5 mg tablet 8-12 by mouth ity of 11:44: in the [place] 03 morning. Medical Branch albuterol 2021-0 Yes 2.5mg Inhale 2.5 U nivers 2.5 mg /3 8-12 mg every 4 ity of mL (0.083 11:44: (four) [place] %) 03 hours as Medical nebulizer needed for Bran ch solution Wheezing or Shortness of Breath. Fluticasone 2021-0 Yes 1{puff} Inhale 1 [facility] -Salmeterol 8-12 Puff every it y of (ADVAIR 11:44: 12 [place] DISKUS) 03 (twelve) Medical 500-50 hours. Branch mcg/dose inhalation disk fluticasone 0 Yes Use in [facility] ers propionate 8-12 each ity of (ALLERGY 11:44: nostril 2 [place], 03 (two) Medical FLUTICASONE [facility] ,) 50 daily. mcg/actuati on nasal spray tamsulosin 0 Yes Take by [facility] ers 0.4 mg 24 8-12 mouth ity of hr capsule 11:44: daily. [place] [facility] finasteride 2021-0 Yes 5mg Take 5 mg U nivers 5 mg tablet 8-12 by mouth ity of 11:44: in the [place] morning. Medical Branch albuterol 2021-0 Yes 2.5mg Inhale 2.5 U nivers 2.5 mg /3 8-12 mg every 4 ity of mL (0.083 11:44: (four) [place] %) 03 hours as Medical nebulizer needed for Bran ch solution Wheezing or Shortness of Breath. Fluticasone 2021-0 Yes 1{puff} Inhale 1 [facility] -Salmeterol 8-12 Puff every it y of (ADVAIR 11:44: 12 [place] DISKUS) 03 (twelve) Medical 500-50 hours. Branch mcg/dose inhalation disk fluticasone 2021-0 Yes Use in [facility] ers propionate 8-12 each ity of (ALLERGY 11:44: nostril 2 [place], 03 (two) Medical FLUTICASONE times [place] ,) 50 daily. mcg/actuati on nasal spray tamsulosin 0 Yes Take by [facility] ers 0.4 mg 24 8-12 mouth ity of hr capsule 11:44: daily. [place] [facility] finasteride 2021-0 Yes 5mg Take 5 mg U nivers 5 mg tablet 8-12 by mouth ity of 11:44: in the [place] morning. Medical Branch albuterol 2021-0 Yes 2.5mg Inhale 2.5 U nivers 2.5 mg /3 8-12 mg every 4 ity of mL (0.083 11:44: (four) [place] %) 03 hours as Medical nebulizer needed for Bran ch solution Wheezing or Shortness of Breath. Fluticasone 2021-0 Yes 1{puff} Inhale 1 [facility] -Salmeterol 8-12 Puff every it y of (ADVAIR 11:44: 12 [place] DISKUS) 03 (twelve) Medical 500-50 hours. Branch mcg/dose inhalation disk fluticasone 2021-0 Yes Use in [facility] ers propionate 8-12 each ity of (ALLERGY 11:44: nostril 2 [place], 03 (two) Medical FLUTICASONE [facility] ,) 50 daily. mcg/actuati on nasal spray tamsulosin 0 Yes Take by [facility] ers 0.4 mg 24 8-12 mouth ity of hr capsule 11:44: daily. [place] [facility] finasteride 2021-0 Yes 5mg Take 5 mg U nivers 5 mg tablet 8-12 by mouth ity of 11:44: in the [place] morning. [facility] albuterol 2021-0 Yes 2.5mg Inhale 2.5 U nivers 2.5 mg /3 8-12 mg every 4 ity of mL (0.083 11:44: (four) [place] %) 03 hours as Medical nebulizer needed for Bran ch solution Wheezing or Shortness of Breath. Fluticasone 2021-0 Yes 1{puff} Inhale 1 [facility] -Salmeterol 8-12 Puff every it y of (ADVAIR 11:44: 12 [place] DISKUS) 03 (twelve) Medical 500-50 hours. Branch mcg/dose inhalation disk fluticasone 0 Yes Use in [facility] ers propionate 8-12 each ity of (ALLERGY 11:44: nostril 2 [place], 03 (two) Medical FLUTICASONE [facility] ,) 50 daily. mcg/actuati on nasal spray tamsulosin 0 Yes Take by [facility] ers 0.4 mg 24 8-12 mouth ity of hr capsule 11:44: daily. [place] [facility] finasteride 2021-0 Yes 5mg Take 5 mg U nivers 5 mg tablet 8-12 by mouth ity of 11:44: in the [place] morning. [facility] Branch albuterol 2021-0 Yes 2.5mg Inhale 2.5 U nivers 2.5 mg /3 8-12 mg every 4 ity of mL (0.083 11:44: (four) [place] %) 03 hours as Medical nebulizer needed for Bran ch solution Wheezing or Shortness of Breath. Fluticasone 0 Yes 1{puff} Inhale 1 [facility] -Salmeterol 8-12 Puff every it y of (ADVAIR 11:44: 12 [place] DISKUS) 03 (twelve) Medical 500-50 hours. Branch mcg/dose inhalation disk fluticasone 0 Yes Use in [facility] ers propionate 8-12 each ity of (ALLERGY 11:44: nostril 2 [place], 03 (two) Medical FLUTICASONE [facility] ,) 50 daily. mcg/actuati on nasal spray tamsulosin 0 Yes Take by [facility] ers 0.4 mg 24 8-12 mouth ity of hr capsule 11:44: daily. [place] [facility] finasteride 2021-0 Yes 5mg Take 5 mg U nivers 5 mg tablet 8-12 by mouth ity of 11:44: in the [place] morning. [facility] Branch albuterol 2021-0 Yes 2.5mg Inhale 2.5 U nivers 2.5 mg /3 8-12 mg every 4 ity of mL (0.083 11:44: (four) [place] %) 03 hours as Medical nebulizer needed for Bran ch solution Wheezing or Shortness of Breath. Fluticasone 2-0 Yes 1{puff} Inhale 1 [facility] -Salmeterol 8-12 Puff every it y of (ADVAIR 11:44: 12 [place] DISKUS) 03 (twelve) Medical 500-50 hours. Branch mcg/dose inhalation disk fluticasone 2021-0 Yes Use in [facility] ers propionate 8-12 each ity of (ALLERGY 11:44: nostril 2 [place], 03 (two) Medical FLUTICASONE [facility] ,) 50 daily. mcg/actuati on nasal spray tamsulosin 0 Yes Take by [facility] ers 0.4 mg 24 8-12 mouth ity of hr capsule 11:44: daily. [place] [facility] finasteride 2021-0 Yes 5mg Take 5 mg U nivers 5 mg tablet 8-12 by mouth ity of 11:44: in the [place] 03 morning. Medical Branch albuterol 0 Yes 2.5mg Inhale 2.5 U nivers 2.5 mg /3 8-12 mg every 4 ity of mL (0.083 11:44: (four) [place] %) 03 hours as Medical nebulizer needed for Bran ch solution Wheezing or Shortness of Breath. Fluticasone 0 Yes 1{puff} Inhale 1 [facility] -Salmeterol 8-12 Puff every it y of (ADVAIR 11:44: 12 [place] DISKUS) 03 (twelve) Medical 500-50 hours. Branch mcg/dose inhalation disk fluticasone 0 Yes Use in [facility] ers propionate 8-12 each ity of (ALLERGY 11:44: nostril 2 [place], 03 (two) Medical FLUTICASONE [facility] ,) 50 daily. mcg/actuati on nasal spray tamsulosin 0 Yes Take by [facility] ers 0.4 mg 24 8-12 mouth ity of hr capsule 11:44: daily. [place] [facility] finasteride 2021-0 Yes 5mg Take 5 mg U nivers 5 mg tablet 8-12 by mouth ity of 11:44: in the [place] 03 morning. Medical Branch albuterol 2021-0 Yes 2.5mg Inhale 2.5 U nivers 2.5 mg /3 8-12 mg every 4 ity of mL (0.083 11:44: (four) [place] %) 03 hours as Medical nebulizer needed for Bran ch solution Wheezing or Shortness of Breath. Fluticasone 2021-0 Yes 1{puff} Inhale 1 [facility] -Salmeterol 8-12 Puff every it y of (ADVAIR 11:44: 12 [place] DISKUS) 03 (twelve) Medical 500-50 hours. Branch mcg/dose inhalation disk fluticasone 2021-0 Yes Use in [facility] ers propionate 8-12 each ity of (ALLERGY 11:44: nostril 2 [place], 03 (two) Medical FLUTICASONE [facility] ,) 50 daily. mcg/actuati on nasal spray tamsulosin Yes Take by [facility] ers 0.4 mg 24 8-12 mouth ity of hr capsule 11:44: daily. Medical Branch finasteride 0 Yes 5mg Take 5 mg U nivers 5 mg tablet 8-12 by mouth ity of 11:44: in the 03 morning. Medical Branch albuterol 0 Yes 2.5mg Inhale 2.5 U nivers 2.5 mg /3 8-12 mg every 4 ity of mL (0.083 11:44: (four) [place] %) 03 hours as Medical nebulizer needed for Bran ch solution Wheezing or Shortness of Breath. Fluticasone 2021-0 Yes 1{puff} Inhale 1 [facility] -Salmeterol 8-12 Puff every it y of (ADVAIR 11:44: 12 [place] DISKUS) 03 (twelve) Medical 500-50 hours. Branch mcg/dose inhalation disk fluticasone 2021-0 Yes Use in [facility] ers propionate 8-12 each ity of (ALLERGY 11:44: nostril 2 [place], 03 (two) Medical FLUTICASONE [facility] ,) 50 daily. mcg/actuati on nasal spray tiotropium 2021-0 Yes [id number] 18ug Inhale 1 [facility] 18 mcg 8-12 capsule in ity of inhalation 00:00: the [place] 00 morning. Medical Branch tiotropium 2021-0 Yes [id number] 18ug Inhale 1 [facility] 18 mcg 8-12 capsule in ity of inhalation 00:00: the 00 morning. Medical Branch tiotropium 2022-0 Yes [id number] 18ug Inhale 1 [facility] 18 mcg 8-12 capsule in ity of inhalation 00:00: the 00 morning. Medical Branch tiotropium 2-0 Yes [id number] 18ug Inhale 1 [facility] 18 mcg 8-12 capsule in ity of inhalation 00:00: the 00 morning. Medical Branch tiotropium 2-0 Yes [id number] 18ug Inhale 1 [facility] 18 mcg 8-12 capsule in ity of inhalation 00:00: the 00 morning. Medical Branch tiotropium 2-0 Yes [id number] 18ug Inhale 1 [facility] 18 mcg 8-12 capsule in ity of inhalation 00:00: the 00 morning. Medical Branch tiotropium 2-0 Yes [id number] 18ug Inhale 1 [facility] 18 mcg 8-12 capsule in ity of inhalation 00:00: the [place] 00 morning. [facility] tiotropium 2-0 Yes [id number] 18ug Inhale 1 [facility] 18 mcg 8-12 capsule in ity of inhalation 00:00: the morning. [facility] Branch tiotropium 2-0 Yes [id number] 18ug Inhale 1 [facility] 18 mcg 8-12 capsule in ity of inhalation 00:00: the morning. [facility] Branch tiotropium 2-0 Yes [id number] 18ug Inhale 1 [facility] 18 mcg 8-12 capsule in ity of inhalation 00:00: the 00 morning. Medical Branch tiotropium 2-0 Yes [id number] 18ug Inhale 1 [facility] 18 mcg 8-12 capsule in ity of inhalation 00:00: the 00 morning. Medical Branch tiotropium 2-0 Yes [id number] 18ug Inhale 1 [facility] 18 mcg 8-12 capsule in ity of inhalation 00:00: the 00 morning. Medical Branch tiotropium 2-0 Yes [id number] 18ug Inhale 1 [facility] 18 mcg 8-12 capsule in ity of inhalation 00:00: the 00 morning. [facility] Branch tiotropium 2022-0 Yes [id number] 18ug Inhale 1 [facility] 18 mcg 8-12 capsule in ity of inhalation 00:00: the [place] 00 morning. [facility] tiotropium 2-0 Yes [id number] 18ug Inhale 1 [facility] 18 mcg 8-12 capsule in ity of inhalation 00:00: the 00 morning. [facility] Branch tiotropium 2022-0 Yes [id number] 18ug Inhale 1 [facility] 18 mcg 8-12 capsule in ity of inhalation 00:00: the 00 morning. [facility] Branch tiotropium 2022-0 Yes [id number] 18ug Inhale 1 [facility] 18 mcg 8-12 capsule in ity of inhalation 00:00: the 00 morning. [facility] Branch tiotropium 2022-0 Yes [id number] 18ug Inhale 1 [facility] 18 mcg 8-12 capsule in ity of inhalation 00:00: the 00 morning. [facility] Branch tiotropium 2022-0 Yes [id number] 18ug Inhale 1 [facility] 18 mcg 8-12 capsule in ity of inhalation 00:00: the 00 morning. [facility] Branch tiotropium 2022-0 Yes [id number] 18ug Inhale 1 [facility] 18 mcg 8-12 capsule in ity of inhalation 00:00: the morning. [facility] Branch tiotropium 2-0 Yes [id number] 18ug Inhale 1 [facility] 18 mcg 8-12 capsule in ity of inhalation 00:00: the morning. [facility] Branch tiotropium 2-0 Yes [id number] 18ug Inhale 1 [facility] 18 mcg 8-12 capsule in ity of inhalation 00:00: the morning. Medical Branch tiotropium 2-0 Yes [id number] 18ug Inhale 1 [facility] 18 mcg 8-12 capsule in ity of inhalation 00:00: the morning. [facility] Branch tiotropium 2022-0 Yes [id number] 18ug Inhale 1 [facility] 18 mcg 8-12 capsule in ity of inhalation 00:00: the morning. Medical Branch tiotropium 2022-0 Yes [id number] 18ug Inhale 1 Univers 18 mcg 8-12 capsule in ity of inhalation 00:00: the 00 morning. [facility] Branch tiotropium 2022-0 Yes [id number] 18ug Inhale 1 Univers 18 mcg 8-12 capsule in ity of inhalation 00:00: the 00 morning. Medical Branch tiotropium 2022-0 Yes [id number] 18ug Inhale 1 Univers 18 mcg 8-12 capsule in ity of inhalation 00:00: the 00 morning. Medical Branch tiotropium 2022-0 Yes [id number] 18ug Inhale 1 Univers 18 mcg 8-12 capsule in ity of inhalation 00:00: the [place] 00 morning. [facility] tiotropium 2021-0 Yes [id number] 18ug Inhale 1 Univers 18 mcg 8-12 capsule in ity of inhalation 00:00: the [place] 00 morning. [facility] tiotropium 2021-0 Yes [id number] 18ug Inhale 1 Univers 18 mcg 8-12 capsule in ity of inhalation 00:00: the [place] 00 morning. [facility] Branch tiotropium 2021-0 Yes [id number] 18ug Inhale 1 Univers 18 mcg 8-12 capsule in ity of inhalation 00:00: the [place] 00 morning. [facility] Branch tiotropium 2021-0 Yes [id number] 18ug Inhale 1 Univers 18 mcg 8-12 capsule in ity of inhalation 00:00: the [place] 00 morning. [facility] Branch tiotropium 2021-0 Yes [id number] 18ug Inhale 1 Univers 18 mcg 8-12 capsule in ity of inhalation 00:00: the [place] 00 morning. [facility] Branch tiotropium 2021-0 Yes [id number] 18ug Inhale 1 Univers 18 mcg 8-12 capsule in ity of inhalation 00:00: the [place] morning. [facility] tiotropium 2021-0 Yes [id number] 18ug Inhale 1 Univers 18 mcg 8-12 capsule in ity of inhalation 00:00: the [place] morning. [facility] Branch tiotropium 2-0 Yes [id number] 18ug Inhale 1 Univers 18 mcg 8-12 capsule in ity of inhalation 00:00: the [place] morning. [facility] Branch tiotropium 2021-0 Yes [id number] 18ug Inhale 1 Univers 18 mcg 8-12 capsule in ity of inhalation 00:00: the [place] morning. Medical Branch Spiriva Spiriva No QD Spiriva HandiHaler HandiHaler HandiHaler 18 MCG 18 MCG 18 MCG predniSONE predniSONE No QD predniSONE 20 MG 20 MG 20 MG Fluticasone Fluticasone No QD Fluticason Furoate Furoate e Furoate 27.5 27.5 27.5 MCG/SPRAY MCG/SPRAY MCG/SPRAY Benzonatate Benzonatate No 1{capsu Benzonatat 200 MG 200 MG le_as_n e 200 MG eeded} Tamsulosin Tamsulosin No 1{capsu BID Tamsulosin HCl 0.4 MG HCl 0.4 MG le} HCl 0.4 MG Cefdinir Cefdinir No Cefdinir 300 MG 300 MG 300 MG Advair Advair No 1{puff} BID Advair Diskus Diskus Diskus 500-50 500-50 500-50 MCG/ACT MCG/ACT MCG/ACT Claritin-D Claritin-D No 1{table BID Claritin-D 12 Hour 12 Hour t_as_ne 12 Hour 5-120 MG 5-120 MG eded} 5-120 MG Finasteride Finasteride No 1{table QD Finasterid 5 MG 5 MG t} e 5 MG Lumigan Lumigan No 1{drop_ QD Lumigan 0.01 % 0.01 % into_af 0.01 % fected_ eye_in_ the_eve rosalinda} Vital Signs Vital Name Observation Time Observation Value Comments Source height 2022-05-04 68.00 [in_i] [facility] Spirit - 13:00:00 [facility] weight 2022-05-04 170.00 [lb_av] [facility] - 13:00:00 [facility] temperature 2022-05-04 98.1 [degF] [facility] - 13:00:00 [facility] bmi 2022-05-04 25.85 kg/m2 [facility] - 13:00:00 [facility] oximetry 2022-05-04 93 % [facility] - 13:00:00 [facility] respiratory rate 2022-05-04 17 /min Common Spir it - 13:00:00 [facility] blood pressure 2022-05-04 138 mm[Hg] [facility] - systolic 13:00:00 [facility] blood pressure 2022-05-04 60 mm[Hg] [facility] - diastolic 13:00:00 [facility] Systolic blood 2022-04-18 107 mm[Hg] University of pressure 17:12:00 [facility] Diastolic blood 2022-04-18 65 mm[Hg] University o f pressure 17:12:00 [facility] Heart rate 2022-04-18 103 /min University 17:12:00 [facility] Respiratory rate 2022-04-18 22 /min University 17:12:00 [facility] Body height 2022-04-18 172.7 cm University 17:12:00 [place] [facility] Body weight 2022-04-18 75.297 kg University of 17:12:00 [facility] BMI 2022-04-18 25.24 kg/m2 University of 17:12:00 [facility] Oxygen saturation 2022-04-18 90 /min 5L [place] University of in Arterial blood 17:12:00 [facility] mona by Pulse oximetry Branch Systolic blood 2022-03-08 120 mm[Hg] manual University of pressure 20:00:00 [facility] Branch Diastolic blood 2022-03-08 58 mm[Hg] manual University o f pressure 20:00:00 [facility] Branch Heart rate 2022-03-08 91 /min University of 20:00:00 [facility] Branch Respiratory rate 2022-03-08 22 /min University of 20:00:00 [facility] Body weight 2022-03-08 76.295 kg University of 20:00:00 [facility] BMI 2022-03-08 25.57 kg/m2 University of 20:00:00 [facility] Oxygen saturation 2022-03-08 94 /min arrived on 5 University of in Arterial blood 20:00:00 l/m pulsed [place]; [facility] dical by Pulse oximetry exercised on 3 Branch l/m con't [place] Systolic blood 2022-02-11 130 mm[Hg] manual;right University of pressure 18:30:00 arm BP 122/78 [place] [facility] manual Branch Diastolic blood 2022-02-11 60 mm[Hg] manual;right University o f pressure 18:30:00 arm BP 122/78 [place] Medical manual Branch Heart rate 2022-02-11 93 /min University of 18:30:00 [facility] Branch Respiratory rate 2022-02-11 22 /min University of 18:30:00 [facility] Body weight 2022-02-11 79.198 kg University of 18:30:00 [facility] BMI 2022-02-11 26.55 kg/m2 University of 18:30:00 [facility] Oxygen saturation 2022-02-11 98 /min University of in Arterial blood 18:30:00 [facility] mona by Pulse oximetry Branch Systolic blood 2021-12-17 130 mm[Hg] University of pressure 16:34:00 [facility] Branch Diastolic blood 2021-12-17 71 mm[Hg] University o f pressure 16:34:00 [facility] Heart rate 2021-12-17 100 /min University of 16:34:00 [facility] Respiratory rate 2021-12-17 22 /min [facility] 16:34:00 [facility] Body height 2021-12-17 172.7 cm [facility] 16:34:00 [facility] Body weight 2021-12-17 81.421 kg [facility] 16:34:00 [facility] BMI 2021-12-17 27.29 kg/m2 [facility] 16:34:00 [facility] Oxygen saturation 2021-12-17 86 /min 2L [place] 93% when Universi ty of in Arterial blood 16:34:00 bumped up to 3L [facility] edical by Pulse oximetry Branch Procedures Procedure Date / Time Performed Performing Clinician [facility] e PULMONARY REHAB ITP 2022-04-07 17:48:00 Doctor Unassigned, No [facility] [place] REPORT Name Medical Branch PULMONARY REHAB 2022-03-08 05:00:00 Doctor Unassigned, No Univer [facility] [place] SESSION REPORT Name Medical Branch CONSENT/REFUSAL FOR 2022-02-11 05:01:00 Doctor Unassigned, No [facility] [place] DIAGNOSIS AND Name Medical Branch TREATMENT PULMONARY FUNCTION 2022-01-19 16:09:19 Aidan Ruiz [facility] TEST (RESULTS) Medical Branch Encounters Start End Encounter Admission Attending Care Care Encounter Source Date/Time Date/Time Type Type Clinicians Facility Department ID 2022-05-04 Outpatient Young, STLMLC STLMLC [id number] Common 13:09:02 [facility] [id number] [facility] 2022-09-09 2022-09-09 Outpatient R AIDAN RUIZ [facility] [id number] [facility] 11:00:00 11:00:00 AIDAN RUIZ i ty of [facility] 2022-05-04 2022-05-04 OFFICE STLMLC STLC [id number] Co mmon 00:00:00 00:00:00 VISIT [facility] PT LEVEL 4 - [facility] 2022-05-03 2022-05-03 Telephone AMIE Ruiz [id number] Univers 00:00:00 00:00:00 Aidan LINDSEY [id number] i ty [place] [id number] Nv dicnc NAL [address] [place] [address] 2022-04-27 2022-04-27 [facility] [id number] Univers 00:00:00 00:00:00 Shiwan [place] [id number] i [place] [id number] [address] 2022-04-26 2022-04-26 [facility] [id number] Univers 00:00:00 00:00:00 Shiwan [place] [id number] i ty [facility] [id number] [id number] [facility] NAL [address] [place] [address] 2022-04-22 2022-04-22 [facility]phone [facility] [id number] Univers 00:00:00 00:00:00 Shiwan [place] 350.1.13.10 i ty [facility] [id number] [id number] Nv dicnc NAL [address] [place] [address] 2022-04-20 2022-04-20 [facility] [id number] Univers 00:00:00 00:00:00 Shiwan [place] 350.1.13.10 i ty of [place] [id number] Nv dicnc NAL [address] [place] [address] 2022-04-18 2022-04-18 Office [facility] [id number] Univers 11:00:00 11:44:10 Visit Shitrevon DIALLOTON 350.1.13.10 i ty [place] [id number] Nv dical NAL [address] [place] [address] 2022-04-18 2022-04-18 Outpatient R [facility]AN RUIZ [facility] [id number] Univers 11:00:00 11:44:[address] i [address] [facility] 2022-04-18 2022-04-18 Outpatient R [facility]IDAN RUIZ [facility] [id number] Univers 11:00:00 11:00:[address] i ty [facility] 2022-04-07 2022-04-07 Outpatient [facility] [id number] Univers 15:00:00 15:00:[address] [facility] 2022-04-07 2022-04-07 Orders Doctor DIXIE [id number] [id number] Univers 00:00:00 00:00:00 Only Unassigned, CHILO 350.1.13.10 ity [facility] 4.2.7.2.686 Keegan as [id number] [address] 2022-04-05 2022-04-05 Outpatient [facility] [id number] Univers 15:00:00 15:00:[address] [facility] 2022-04-05 2022-04-05 Telephone [facility] [id number] Univers 00:00:00 00:00:00 Nadiya C [place] 350.1.13.10 i ty [place] [id number] Nv dical NAL 296 [facility] 2022-03-29 2022-03-29 Telephone Shadi [facility] 1.2.492.515 [id number] Univers 00:00:00 00:00:00 Nadiya C [place] 350.1.13.10 i ty [place] [id number] Nv dical NAL 296 [facility] 2022-03-25 2022-03-25 [facility]phone [facility] [id number] Univers 00:00:00 00:00:00 Aidan [place] 350.1.13.10 i ty [place] [id number] Nv dical NAL 085 [facility] 2022-03-25 2022-03-25 Telephone [facility] 1.2.501.686 [id number] Univers 00:00:00 00:00:00 Shiwan [place] 350.1.13.10 i ty [place] [id number] Nv dical NAL 085 [facility] 2022-03-24 2022-03-24 [facility] 1.2.840.114 [id number] Univers 00:00:00 00:00:00 Management Shiwan [place] 350.1.13.10 ity [place] 4[place] [id number] Nv dicnc NAL [address] [place] [address] 2022-03-24 2022-03-24 Telephone [facility] 1.2.237.261 [id number] Univers 00:00:00 00:00:00 Nadiya C [place] 350.1.13.10 i ty [place] [id number] Nv dicnc NAL [address] [place] [address] 2022-03-22 2022-03-22 Telephone [facility] [id number] Univers 00:00:00 00:00:00 Nadiya C [place] 350.1.13.10 i ty of [place] [id number] Nv dical NAL [address] [place] [address] 2022-03-17 2022-03-17 Telephone [facility] [id number] Univers 00:00:00 00:00:00 Nadiya C [place] 350.1.13.10 i ty [place] [id number] Nv dical NAL [address] [place] [address] 2022-03-15 2022-03-15 Telephone [facility] 1.2.906.908 [id number] Univers 00:00:00 00:00:00 Nadiya C [place] 350.1.13.10 i ty [place] 4[place] [id number] Nv dical NAL [address] [place] [address] 2022-03-10 2022-03-10 [facility]phone [facility] [id number] Univers 00:00:00 00:00:00 Nadiya C [place] 350.1.13.10 i ty [facility] 4.2.7.2.[place] [id number] Nv dical NAL [address] [place] [address] 2022-03-08 2022-03-08 Ancillary Therapist, Jim Pulmonary [facility] 1.2.840.114 [id number] Univers 15:00:00 16:40:43 Visit Jassi Fontaine 350.1.13. 10 ity of [facility] 4.2.7.2.[place] [id number] Nv dical NAL [address] [place] [address] 2022-03-08 2022-03-08 Telephone [facility] [id number] Univers 00:00:00 00:00:00 Nadiya C [place] 350.1.13.10 i ty [facility] 4.2.7.2.[place] [id number] Nv dical NAL [address] [place] [address] 2022-03-08 2022-03-08 Orders Doctor DIXIE 1.2.840.114 [id number] Univers 00:00:00 00:00:00 Only Unassigned, CHILO 350.1.13.10 ity of [place] [facility] 4.2.7.2.686 Keegan as [id number] [address] 2022-03-03 2022-03-03 Telephone [facility] 1.2.600.508 [id number] Univers 00:00:00 00:00:00 Nadiya C [place] 350.1.13.10 i ty [place] [id number] Nv dical NAL [address] [place] [address] 2022-02-14 2022-02-14 Telephone [facility] [id number] Univers 00:00:00 00:00:00 Nadiya C [place] 350.1.13.10 i ty [place] 4[place] [id number] Nv dic[address] 2022-02-14 2022-02-14 Telephone [facility] 1.2.510.644 [id number] Univers 00:00:00 00:00:00 Nadiya C [place] 350.1.13.10 i ty [facility] 4.2.7.2.[place] [id number] [address] 2022-02-14 2022-02-14 Telephone [facility] 1.2.223.204 [id number] Univers 00:00:00 00:00:00 Nadiya C [place] 350.1.13.10 i ty [place] 4[place] [id number] [address] 2022-02-11 2022-02-11 Outpatient R [facility] [id number] Univers 13:30:00 16:07:27 JASSI hudson of [facility] 2022-02-11 2022-02-11 Ancillary Therapist, Adc Pulmonary [facility] 1.2.840.114 [id number] Univers 13:30:00 16:07:27 Visit Jassi Fontaine 350.1.13. 10 ity [facility] 4.2.7.2.[place] [id number] [address] 2022-02-11 2022-02-11 Orders Doctor DIXIE 1.2.840.114 [id number] Univers 00:00:00 00:00:00 Only Unassigned, CHILO 350.1.13.10 ity of [place] [facility] 4.2.7.2.686 Keegan as [id number] [address] 2022-01-25 2022-01-25 Telephone [facility] 1.2.734.069 [id number] Univers 00:00:00 00:00:00 Nadiya C [place] 350.1.13.10 i ty [place] 4[place] [id number] [address] 2022-01-24 2022-01-24 Telephone [facility] [id number] Univers 00:00:00 00:00:00 Nadiya LINDSEY 350.1.13.10 i ty [place] [id number] Nv dical NAL 296 [facility] 2022-01-19 2022-01-19 Tool Supervisor Therapist, Adc Respiratory [facility] 1.2.840.114 [id number] Univers 11:00:00 12:00:00 Visit Jassi Font[place] 350.1.13. 10 ity [facility] [place]2.[place] [id number] [address] 2022-01-19 2022-01-19 Outpatient R [facility] [id number] Univers 11:00:00 [facility]22-01-19 Outpatient R ZHEN [facility] [id number] Univers 11:00:00 11:00:00 [facility]22-[facility]-19 2022-01-19 Orders JULY Ruiz 1.2.412.783 [id number] Univers 00:00:00 00:00:00 Only Aidan PAWAN 350.1.13.10 i ty of [facility] 4[place]2.7.2.[place] [id number] [address] 2021-12-17 2021-12-17 Outpatient R AIDAN RUIZ [facility] [id number] Univers 11:30:00 12:04:08 AIDAN RUIZ i ty of [facility] 2021-12-17 2021-12-17 Office [facility] 1.2.840.114 [id number] Univers 11:30:00 12:04:08 Visit Aidan LINDSEY 350.1.13.10 i ty of [place] [id number] [facility] NAL 085 [facility] 2019-06-26 2019-06-26 Outpatient Meliton-Mborlandoo P VFP [id number] [facility] 07:22:00 07:22:00 _A_ [id number] Family Practic e Results Test Description Test Time Test Comments Results Result Comments Source PULMONARY FUNCTION TEST (RESULTS) 2022-01-19 16:09:19 Test Item Value Reference Range Interpretation Comme nts FVC Actual (test code = 3994) 2.31 L FEV1 Actual (test code = 3993) 0.51 L FEV1/FVC Actual (test code = 3995) 22 % [facility] [place] [facility]
[2022-05-06 21:46] LABS: Arterial Blood Carboxyhemoglob 1.2 % (0-1.5); Blood Gas Oxyhemoglobin 93.2 % (94-97); Blood O2 Saturation 95.4 % (92-98.5)
[2022-05-06 22:02] LABS: Absolute Lymphocytes (CBC) 1.3 K/uL (0.7-4.9); Hematocrit 37.5 % (39.6-49.0); Lymphocytes % 11.2 % (15.3-44.8); MCV 90.7 fL (80-100); MPV 7.3 fL (7.6-11.3); RBC Red Blood Cell Count 4.13 M/uL (4.33-5.43)
--- NOTE | 2022-05-06 22:05 | ER ---
Nurse's Notes [facility] Name: Sebastian Dennison Age: 81 yrs Sex: Male : 1940 Arrival Date: 05/06/2022 Time: 21:20 Bed 3 Private MD: Diagnosis: COPD/ Chronic obstructive pulmonary disease with (acute) exacerbation;Hypoxemia;Acute and chronic respiratory failure with hypercapnia;Pleural effusion in other conditions classified elsewhere-left moderate;Elevated white blood cell count;Hypo-osmolality and hyponatremia Presentation: 05/06 21:51 Chief complaint: Patient states: Pt was seen at Dr. Young's Office and was told that he kd3 had some wheezing. They didn't do an X-ray, they sent him home with a medication. Now he is having a really hard time breathing. Coronavirus screen: Vaccine status: Patient reports receiving the 2nd dose of the covid vaccine. Ebola Screen: No symptoms or risks identified at this time. Initial Sepsis Screen: Does the patient meet any 2 criteria? RR > 20 per min. HR > 90 bpm. Yes Does the patient have a suspected source of infection? No. Patient's initial sepsis screen is negative. Risk Assessment: Do you want to hurt yourself or someone else? Patient reports no desire to harm self or others. Onset of symptoms was May 06, 2022. 21:51 Method Of Arrival: Wheelchair kd3 21:51 Acuity: TOMAS 3 kd3 Triage Assessment: 21:53 General: Appears uncomfortable, Behavior is calm, cooperative. Pain: Denies pain. kd3 Neuro: Level of Consciousness is awake, alert, obeys commands, Oriented to person, place, time, situation. Respiratory: Reports shortness of breath at rest Airway is patent Respiratory effort is labored, Onset: The symptoms/episode began/occurred gradually, the patient has severe shortness of breath. Historical: - Allergies: 22:38 No Known Allergies; tw5 - PMHx: 21:53 COPD; kd3 - Immunization history:: Adult Immunizations up to date. - Social history:: Smoking status: unknown. - Family history:: not pertinent. Screenin:54 [facility] ED Fall Risk Assessment (Adult) History of falling in the last 3 months, kd3 including since admission No falls in past 3 months (0 pts) Confusion or Disorientation No (0 pts) Intoxicated or Sedated No (0 pts) Impaired Gait No (0 pts) Mobility Assist Device Used No (0 pt) Altered Elimination No (0 pt) Score/Fall Risk Level 0 - 2 = Low Risk. Abuse screen: Denies threats or abuse. Denies injuries from another. Nutritional screening: No deficits noted. Tuberculosis screening: No symptoms or risk factors identified. Assessment: 21:56 Respiratory: Airway is patent Trachea midline Respiratory effort is labored, Breath kd3 sounds are diminished bilaterally. the patient has moderate shortness of breath. 22:42 General: Appears ill, Behavior is calm, cooperative, appropriate for age. Pain: Denies tw5 pain. Neuro: Level of Consciousness is awake, alert, obeys commands, Oriented to person, place, time. Respiratory: Airway is patent Trachea midline Respiratory effort is labored. Derm: Skin is pale. 23:24 Cardiovascular: Rhythm is sinus tachycardia. kd3 Vital Signs: 21:46 BP 150 / 84; Pulse 113; Resp 28; Temp 97.9(A); Pulse Ox 85% on 5 lpm NC; Weight 76.2 kg;kd3 21:55 Pulse Ox 95% on BiPAP; kd3 22:42 BP 145 / 85; Pulse 103; Resp 13; Pulse Ox 99% on Nebulizer Mask; tw5 23:23 BP 144 / 79; Pulse 109; Resp 14; Pulse Ox 99% on Nebulizer Mask; kd3 ED Course: 21:20 Patient arrived in ED. vc1 21:21 Heriberto Lewis MD is Attending Physician. blake 21:46 Alana Brumfield, BRANDO is Primary Nurse. kd3 21:46 Arm band placed on right wrist. kd3 21:53 Triage completed. kd3 21:54 Patient has correct armband on for positive identification. Placed in gown. Bed in low kd3 position. 21:54 No provider procedures requiring assistance completed. Inserted saline lock: 18 gauge kd3 in right forearm, using aseptic technique. Blood collected. 21:55 Inserted saline lock: 18 gauge in left antecubital area, using aseptic technique. Blood kd3 collected. 22:01 XRAY Chest (1 view) In Process Unspecified. EDMS 22:03 Obinna De Leon MD is Hospitalizing Provider. blake 22:07 COVID-19/FLU A+B Sent. kd3 22:07 Lactate w/ 2H reflex if indic. Sent. kd3 22:07 Blood Culture Adult (2) Sent. kd3 22:07 Basic Metabolic Panel Sent. kd3 22:07 LFT's Sent. kd3 22:07 Magnesium Sent. kd3 22:07 NT PRO-BNP Sent. kd3 22:07 PT-INR Sent. kd3 22:07 Troponin HS Sent. kd3 22:29 CT Chest Wo Con In Process Unspecified. EDMS 22:42 Side rails up X2. Adult w/ patient. Client placed on continuous cardiac and pulse tw5 oximetry monitoring. NIBP monitoring applied. Door closed. Noise minimized. Moved to private room. Warm blanket given. Verbal reassurance given. 22:43 CT Abd/Pelvis - Without Contrast In Process Unspecified. EDMS 23:44 Patient admitted, IV remains in place. tw5 Administered Medications: 22:41 Drug: SOLU-Medrol (methylPrednisoLONE) 125 mg Route: IVP; Site: left antecubital; tw5 23:28 Follow up: Response: No adverse reaction; Marked relief of symptoms kd3 22:41 Drug: Zosyn (piperacillin-tazobactam) 3.375 grams Route: IVPB; Infused Over: 60 mins; tw5 Site: left antecubital; 23:27 Follow up: IV Status: Completed infusion; IV Intake: 100ml kd3 22:43 Drug: Xopenex (levalbuterol) 3.75 mg Route: Inhalation; kd3 22:43 Drug: AtroVENT (ipratropium) Aerosol 0.5 mg Route: Inhalation; kd3 Medication: 22:42 VIS not applicable for this client. tw5 Intake: 23:27 IV: 100ml; Total: 100ml. kd3 Outcome: 22:05 Decision to Hospitalize by Provider. blake 23:43 Admitted to Med/surg room 219, with oxygen, with chart, Report called to Jacquelin MICHAELS tw5 23:43 Condition: improved 23:43 Instructed on the need for admit. 23:58 Patient left the ED. rv1 Signatures: Dispatcher [employer] EDMS Heriberto Lewis MD MD cha Wood, Tiffany tw5 Alana Brumfield RN RN kd3 Corrine Claudio RN RN 1 Leonela Alexander rv1 Corrections: (The following items were deleted from the chart) 23:27 21:56 Respiratory: kd3 kd3
--- NOTE | 2022-05-06 22:05 | EDPHYS ---
Physician Documentation [facility] Name: Sebastian Dennison Age: 81 yrs Sex: Male : 1940 Arrival Date: 05/06/2022 Time: 21:20 Bed 3 Private MD: ED Physician Heriberto Lewis HPI: 05/06 21:30 This 81 yrs old Male presents to ER via Unassigned with complaints of blake Breathing Difficulty. 21:30 The patient has shortness of breath at rest, with light activity. Onset: The blake symptoms/episode began/occurred 2 day(s) ago. Duration: The symptoms are continuous, and are steadily getting worse. The patient's shortness of breath has no apparent modifying factors. Associated signs and symptoms: Pertinent positives: non-productive cough. Severity of symptoms: At their worst the symptoms were moderate in the emergency department the symptoms are unchanged. The patient has experienced similar episodes in the past, multiple times, chronically. Historical: - Allergies: 22:38 No Known Allergies; tw5 - PMHx: 21:53 COPD; kd3 - Immunization history:: Adult Immunizations up to date. - Social history:: Smoking status: unknown. - Family history:: not pertinent. ROS: 21:31 Constitutional: Negative for fever, chills, and weight loss, Eyes: Negative for injury, blake pain, redness, and discharge, ENT: Negative for injury, pain, and discharge, Neck: Negative for injury, pain, and swelling, Abdomen/GI: Negative for abdominal pain, nausea, vomiting, diarrhea, and constipation, Back: Negative for injury and pain, : Negative for injury, bleeding, discharge, and swelling, MS/Extremity: Negative for injury and deformity, Skin: Negative for injury, rash, and discoloration, Neuro: Negative for headache, weakness, numbness, tingling, and seizure, Psych: Negative for depression, anxiety, suicide ideation, homicidal ideation, and hallucinations, Allergy/Immunology: Negative for hives, rash, and allergies, Endocrine: Negative for neck swelling, polydipsia, polyuria, polyphagia, and marked weight changes, Hematologic/Lymphatic: Negative for swollen nodes, abnormal bleeding, and unusual bruising. 21:31 Cardiovascular: Positive for palpitations. 21:31 Respiratory: Positive for cough, shortness of breath, wheezing, expiratory. Exam: 21:31 Constitutional: This is a well developed, well nourished patient who is awake, alert, blake and in no acute distress. Head/Face: Normocephalic, atraumatic. Eyes: Pupils equal round and reactive to light, extra-ocular motions intact. Lids and lashes normal. Conjunctiva and sclera are non-icteric and not injected. Cornea within normal limits. Periorbital areas with no swelling, redness, or edema. ENT: Nares patent. No nasal discharge, no septal abnormalities noted. Tympanic membranes are normal and external auditory canals are clear. Oropharynx with no redness, swelling, or masses, exudates, or evidence of obstruction, uvula midline. Mucous membranes moist. Neck: Trachea midline, no thyromegaly or masses palpated, and no cervical lymphadenopathy. Supple, full range of motion without nuchal rigidity, or vertebral point tenderness. No Meningismus. Chest/axilla: Normal chest wall appearance and motion. Nontender with no deformity. No lesions are appreciated. Abdomen/GI: Soft, non-tender, with normal bowel sounds. No distension or tympany. No guarding or rebound. No evidence of tenderness throughout. Back: No spinal tenderness. No costovertebral tenderness. Full range of motion. Male : Normal genitalia with no discharge or lesions. Skin: Warm, dry with normal turgor. Normal color with no rashes, no lesions, and no evidence of cellulitis. 21:31 Cardiovascular: Rate: tachycardic, actual rate is 101 bpm, Rhythm: regular, Pulses: Pulses are 4+ in bilateral radial, brachial, femoral, popliteal, posterior tibial and and dorsalis pedis arteries.. Heart sounds: normal, normal S1and S2, no S3 or S4, no murmur, no rub, no gallop, Edema: is not appreciated, JVD: is noted bilaterally, to 2 cm. 21:44 ECG was reviewed by the Attending Physician. [facility] Vital Signs: 21:46 BP 150 / 84; Pulse 113; Resp 28; Temp 97.9(A); Pulse Ox 85% on 5 lpm NC; Weight 76.2 kg;kd3 21:55 Pulse Ox 95% on BiPAP; kd3 22:42 BP 145 / 85; Pulse 103; Resp 13; Pulse Ox 99% on Nebulizer Mask; tw5 23:23 BP 144 / 79; Pulse 109; Resp 14; Pulse Ox 99% on Nebulizer Mask; kd3 MDM: 21:21 Patient medically screened. blake 21:32 Differential diagnosis: Anemia Anxiety Reaction asthma, Bronchitis Chronic Obstructive blake Pulmonary Disease pneumonia, pulmonary edema, reactive airway disease, Sepsis Unstable Angina. Antibiotic administration: zosyn. The patient's Wells Deep Vein Thrombosis Score was calculated as follows: Heart Rate >100 BPM (1.5 Pts) Total Score: 0-2 Pts- Low Risk. Differential Diagnosis: Obstructed Airway Bronchitis Influenza Upper Respiratory Infection Sinusitis Pharyngitis Otitis Media Asthma Exacerbation Viral Syndrome Pneumonia. The patient's pulmonary embolism risk score was calculated as follows: the patients heart rate is greater than 100 beats per minute (1.5 Pts) Total Score: 0-2 points. This patient was found to be at low risk for a pulmonary embolism by using the Well's assessment criteria. Immunization status: Pneumococcal vaccine: Influenza vaccine: within last 5 years. Data reviewed: vital signs, nurses notes, old medical records, lab test result(s), cardiac enzymes, troponin i, electrolytes, Flu: hepatic panel, EKG, radiologic studies, plain films. 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 Test interpretation: by ED physician or midlevel provider: ECG, plain radiologic studies. Counseling: I had a detailed discussion with the patient and/or guardian regarding: the historical points, exam findings, and any diagnostic results supporting the discharge/admit diagnosis, lab results, radiology results, the need for further work-up and treatment in the hospital. 05/06 21:29 Order name: Basic Metabolic Panel; Complete Time: 22:51 blake 05/06 21: Order name: CBC with Diff; Complete Time: 22:12 blake 05/06 21:29 Order name: LFT's; Complete Time: 22:51 blake 05/06 21:29 Order name: Magnesium; Complete Time: 22:51 blake 05/06 21:29 Order name: NT PRO-BNP; Complete Time: 22:51 blake 05/06 21: Order name: PT-INR; Complete Time: 22:33 blake 05/06 21: Order name: Troponin HS; Complete Time: 22:51 [facility] 05/06 21: Order name: XRAY Chest (1 view); Complete Time: 22:51 [facility] 05/06 21:29 Order name: Blood Culture Adult (2) [facility] 05/06 21:29 Order name: Lactate w/ 2H reflex if indic.; Complete Time: 22:33 [facility] 05/06 21:29 Order name: ABG; Complete Time: 23:46 [facility] 05/06 21:29 Order name: BIPAP [facility] 05/06 21:29 Order name: COVID-19/FLU A+B; Complete Time: 22:51 [facility] 05/06 22:02 Order name: CT Chest Wo Con; Complete Time: 22:51 [facility] 05/06 21:29 Order name: EKG; Complete Time: 21:30 [facility] 05/06 21:29 Order name: Cardiac monitoring; Complete Time: 22:07 [facility] 05/06 21:29 Order name: EKG - Nurse/Tech; Complete Time: 22:07 [facility] 05/06 21:29 Order name: IV Saline Lock; Complete Time: 22:07 [facility] 05/06 21:29 Order name: Labs collected and sent; Complete Time: 22:07 [facility] 05/06 21:29 Order name: O2 Per Protocol; Complete Time: 22:07 [facility] 05/06 21:29 Order name: O2 Sat Monitoring; Complete Time: 22:07 [facility] 05/06 21:29 Order name: IV Saline Lock - Large Bore; Complete Time: 22:07 [facility] 05/06 22:34 Order name: CT Abd/Pelvis - Without Contrast [facility] EC:44 Rate is 118 beats/min. Rhythm is regular. QRS [place] is Normal. NC interval is normal. blake QRS interval is normal. QT interval is normal. No Q waves. T waves are Normal. No ST changes noted. Clinical impression: Sinus tachycardia. Interpreted by me. Administered Medications: 22:41 Drug: SOLU-Medrol (methylPrednisoLONE) 125 mg Route: IVP; Site: left antecubital; tw5 23:28 Follow up: Response: No adverse reaction; Marked relief of symptoms kd3 22:41 Drug: Zosyn (piperacillin-tazobactam) 3.375 grams Route: IVPB; Infused Over: 60 mins; tw5 Site: left antecubital; 23:27 Follow up: IV Status: Completed infusion; IV Intake: 100ml kd3 22:43 Drug: Xopenex (levalbuterol) 3.75 mg Route: Inhalation; kd3 22:43 Drug: AtroVENT (ipratropium) Aerosol 0.5 mg Route: Inhalation; kd3 Disposition Summary: 05/06/22 22:05 Hospitalization Ordered Hospitalization Status: Inpatient Admission blake Provider: Obinna De Leon cha Location: Telemetry/MedSurg (Inpatient) blake Condition: Fair blake Problem: new blake Symptoms: have improved blake Bed/Room Type: Standard blake Room Assignment: 219(05/06/22 23:35) mw Diagnosis - COPD/ Chronic obstructive pulmonary disease with (acute) exacerbation blake - Hypoxemia blake - Acute and chronic respiratory failure with hypercapnia blake - Pleural effusion in other conditions classified elsewhere - left moderate blake - Elevated white blood cell count blake - Hypo-osmolality and hyponatremia blake Forms: - Medication Reconciliation Form blake - SBAR form blake Signatures: Dispatcher [employer] EDAnum Roman RN RN mw Anderson, Corey, MD MD cha Wood, Tiffany tw5 Alana Brumfiled RN RN kd3 Rebeca Ryan PA-C PA-C sb4 Corrections: (The following items were deleted from the chart) 23:35 22:05 blake mw
[2022-05-06] MEDS ORDERED: METHYLPREDNISOLONE 125 MG INJ ONE (22:15)
[2022-05-06] MEDS ORDERED: NA CHLORIDE 0.9% 100 ML IV ONE (22:16)
[2022-05-06] MEDS ORDERED: PIPERACIL/TAZO 3.375 GM VIAL IV ONE (22:16)
[2022-05-06] MEDS ORDERED: IPRATROPIUM BROM 0.5MG/2.5ML ONE (22:16)
[2022-05-06] MEDS ORDERED: LEVALBUTEROL 1.25 MG/3 ML NEB ONE (22:16)
[2022-05-06 22:19] LABS: Protime INR 0.94
[2022-05-06 22:37] LABS: ALT/SGPT 34 U/L (16-61); AST/SGOT 17 U/L (15-37); Albumin 3.3 g/dL (3.4-5.0); Alkaline Phosphatase 102 U/L (45-117); BUN Blood Urea Nitrogen 13 mg/dL (7-18); Bilirubin Total 0.3 mg/dL (0.2-1.0); Glomerular Filtration Rate 103 ml/min (=/>90); Glucose Level 140 mg/dL (74-106); Magnesium 2.4 mg/dL (1.6-2.4); NT PRO-BNP 220 pg/mL (<450); Potassium 4.8 mmol/L (3.5-5.1); Protein, Total 7.5 g/dL (6.4-8.2); Sodium Level 129 mmol/L (136-145); Troponin High Sensitivity 9.3 pg/mL (<58.9)
[2022-05-06 22:38] LABS: SARS-COV-2 RT PCR NEGATIVE (NEGATIVE)
[2022-05-06 22:39] LABS: Bilirubin Direct < 0.1 mg/dL (0-0.2)
[2022-05-06 22:40] LABS: Bicarbonate > 45 mmol/L (21-32)
--- NOTE | 2022-05-06 22:45 | RAD REPORT ---
EXAM DESCRIPTION: Nikolas Single View05/06/2022 9:59 pm CLINICAL HISTORY: Cough COMPARISON: August 2021 FINDINGS: Moderate to large left pleural effusion with basilar atelectasis Right lung appears clear. Heart is normal size. Lungs are hyperaerated IMPRESSION: Moderate to large loculated left pleural effusion COPD
--- NOTE | 2022-05-06 22:45 | RAD REPORT ---
EXAM DESCRIPTION: CT - Thorax Wo Con - 05/06/2022 10:27 pm CLINICAL HISTORY: sob COMPARISON: none TECHNIQUE: Computed axial tomography of the chest was obtained. Contrast was not requested. All CT scans are performed using dose optimization technique as appropriate and may include automated exposure control or mA/KV adjustment according to patient size. FINDINGS: The evaluation of mediastinum, brenda and vessels is limited secondary to lack of IV contras t administration. 1.6 centimeter opacity right upper lobe. Mild scarring left upper lobe. Marked COPD No mediastinal or hilar lymphadenopathy is seen. A moderate to large loculated left pleural effusion. No pericardial effusion IMPRESSION: Moderate to large loculated left pleural effusion 1.6 opacity right upper lobe probably scarring. However, a mass has a similar appearance. Followup CT in 3 months recommended
--- NOTE | 2022-05-06 23:36 | P.HP ---
Certification for Inpatient Patient admitted to: Inpatient With expected LOS: >2 Midnights Patient will require the following post-hospital care: None Practitioner: I am a practitioner with admitting privileges, knowledge of patient current condition, hospital course, and medical plan of care. Services: Services provided to patient in accordance with Admission requirements found in Title 42 Section 412.3 of the Code of Federal Regulations <Rebeca Ryan - Last Filed: 05/06/22 23:50> Patient History Date of Service: 05/06/22 Primary Care Provider: Hector Reason for admission: Acute Respiratory Failure History of Present Illness: Patient is a 81 year old male with past medical history of COPD who presented to the emergency department with complaints of shortness of breath. Patient states that he saw his PCP for this today and prescribed with prednisone and cefdinir. Upon arrival to the emergency department, labored breathing/accessory muscle use noted, saturating 85% on 5L. He was put on BiPAP, given breathing treatment, Solu-Medrol, and Zosyn. His chest x-ray and chest CT showed a "Moderate to large loculated left pleural effusion and 1.6 opacity right upper lobe probably scarring." Patient reports minimal improvement in symptoms. ABG with pH 7.34, CO2 89.2, bicarb 46.3. Labs significant for sodium 129, chloride 83, CO2 greater than 45, WBC 12. Lactate within normal limits. COVID/flu negative. Patient is admitted for further management. Home medications list reviewed: Yes - Past Medical/Surgical History Diabetic: No -: COPD -: BPH -: appy -: tonsillectomy, adenoids removed -: catarect sx Psychosocial/ Personal History: Patient is . - Family History Mother -: Diabetes - Social History Smoking Status: Former smoker Alcohol use: Yes CD- Drugs: No Caffeine use: Yes Place of Residence: Home <Rebeca Ryan - Last Filed: 05/06/22 23:50> Date of Service: 05/07/22 <Tom Gtz - Last Filed: 05/07/22 11:11> Allergies No Known Allergies Allergy (Verified 05/07/22 00:23) Home Medications: Finasteride [Proscar*] 5 mg PO BEDTIME 07/11/16 Fluticasone/Salmeterol [Advair 500/50 Diskus*] 1 puff IH BID 07/11/16 Tamsulosin [Flomax*] 0.4 mg PO BID 07/11/16 Bimatoprost [[place] Opthalmic Drops*] 1 drop OPTH DAILY 05/07/22 Fluticasone Propionate [Flovent Diskus] 1 inh PO DAILY 05/07/22 Tiotropium [place] [Spiriva] 1 inh PO DAILY 05/07/22 Review of Systems Respiratory: Shortness of Breath <Rebeca Ryan - Last Filed: 05/06/22 23:50> Physical Examination - Vital Signs Temperature: 97.9 F Blood Pressure: 144/79 Pulse: 109 Respirations: 14 Pulse Ox (%): 99 (nebulizer mask) - Physical Exam General: Alert, Oriented x3, Mild distress HEENT: Atraumatic, PERRLA, EOMI, Sclerae nonicteric Neck: Supple, 2+ carotid pulse no bruit Respiratory: Diminished Cardiovascular: Edema, Irregular heart rate/rhythm (Tachycardic) Gastrointestinal: Normal bowel sounds, No tenderness Musculoskeletal: No tenderness Integumentary: No rashes Neurological: Normal speech, Normal strength at 5/5 x4 extr, Normal affect - Studies Laboratory Data (last 24 hrs) 05/06/22 21:40: PT 10.3, INR 0.94 05/06/22 21:40: WBC 12.00 H, Hgb 12.2 L, Hct 37.5 L, Plt Count 447 H 05/06/22 21:40: Sodium 129 L, Potassium 4.8, BUN 13, Creatinine 0.52 L, Glucose 140 H, Magnesium 2.4, Total Bilirubin 0.3, AST 17, ALT 34, Alkaline Phosphatase 102 <Rebeca Ryan - Last Filed: 05/06/22 23:50> - Physical Exam Neck: 2+ carotid pulse no bruit - Studies Laboratory Data (last 24 hrs) 05/06/22 21:40: PT 10.3, INR 0.94 05/06/22 21:40: WBC 12.00 H, Hgb 12.2 L, Hct 37.5 L, Plt Count 447 H 05/06/22 21:40: Sodium 129 L, Potassium 4.8, BUN 13, Creatinine 0.52 L, Glucose 140 H, Magnesium 2.4, Total Bilirubin 0.3, AST 17, ALT 34, Alkaline Phosphatase 102 <Tom Gtz - Last Filed: 05/07/22 11:11> Assessment and Plan - Problems (Diagnosis) (1) Acute respiratory failure with hypoxia and hypercapnia Current Visit: Yes Status: Acute (2) Pleural effusion Current Visit: Yes Status: Acute (3) COPD (chronic obstructive pulmonary disease) Current Visit: Yes Status: Chronic Qualifiers: COPD type: emphysema (4) BPH (benign prostatic hyperplasia) Current Visit: Yes Status: Chronic Qualifiers: Lower urinary tract symptom presence: unspecified whether lower urinary tract symptoms present Qualified Code(s): N40.0 - Benign prostatic hyperplasia without lower urinary tract symptoms - Plan Patient is admitted for acute hypoxic and hypercapnic respiratory failure secondary to large left-sided pleural effusion. Pulmonology consult. Spoke with patient and family about likely potential of thoracentesis. Received Zosyn in the ED. Will hold off on additional antibiotics at this time. Continue IV Solu-Medrol, breathing treatments, supplemental oxygen, incentive spirometry. He has been weaned off BiPAP to 4L NC but will likely require bipap while sleeping. 2+ pitting edema on bilateral ankles however patient had negative cardiac work- up. Cardiology did not recommend any further treatment. Repeat ABG and chest x-ray in the morning. Monitor and replete electrolytes per protocol. Reconcile and continue home medications. Lovenox for VTE prophylaxis. Full code. Discharge Plan: Home Plan to discharge in: Greater than 2 days - Advance Directives Does patient have a Living Will: Yes Does patient have a Durable POA for Healthcare: Yes - Code Status/Comfort Care Code Status Assessed: Yes Code Status: Full Code Physician Review: Patient Assessed, Agree with Above Assessment and Plan Critical Care: No Time Spent Managing Pts Care (In Minutes): 50 <Rebeca Ryan - Last Filed: 05/06/22 23:50> - Problems (Diagnosis) (1) Acute respiratory failure with hypoxia and hypercapnia Current Visit: Yes Status: Acute (2) Loculated pleural effusion Current Visit: Yes Status: Acute <Majo Gtzy Jean-Claude - Last Filed: 05/07/22 11:11>
[2022-05-06] MEDS ORDERED: ALBUTEROL 2.5 MG/3 ML NEB SOL NEB PRN (23:43)
[2022-05-06] MEDS ORDERED: ONDANSETRON 4 MG/2 ML VIAL IV PRN (23:43)
[2022-05-06] MEDS ORDERED: IPRATROPIUM BROM 0.5MG/2.5ML NEB PRN (23:43)
[2022-05-07] MEDS: METHYLPREDNISOLONE 40 MG INJ IV SCH ×3 (01:00→17:01)
[2022-05-07] MEDS: ALPRAZOLAM 0.25 MG TABLET PO PRN ×2 (01:01→23:27)
[2022-05-07 01:13] VITALS: BMI 25.2
[2022-05-07] MEDS: GUAIFENESIN 600 MG SA TAB PO PRN ×2 (02:42→21:39)
[2022-05-07 06:30] LABS: Absolute Lymphocytes (CBC) 0.7 K/uL (0.7-4.9); Hematocrit 36.7 % (39.6-49.0); Lymphocytes % 10.8 % (15.3-44.8); MCV 90.7 fL (80-100); MPV 7.1 fL (7.6-11.3); RBC Red Blood Cell Count 4.04 M/uL (4.33-5.43)
[2022-05-07 07:06] LABS: Potassium 4.5 mmol/L (3.5-5.1)
[2022-05-07 07:07] LABS: Magnesium 2.2 mg/dL (1.6-2.4); Phosphorus 3.7 mg/dL (2.5-4.9); Thyroid Stimulating Hormone 0.165 uIU/mL (0.358-3.740)
[2022-05-07] MEDS: ENOXAPARIN 40 MG/0.4 ML SQ SCH (08:45)
--- NOTE | 2022-05-07 09:25 | RAD REPORT ---
EXAM DESCRIPTION: RAD - Chest Pa And Lat (2 Views) - 05/07/2022 9:02 am CLINICAL HISTORY: pleural effusion COMPARISON: Chest Single View dated 05/06/2022; Chest Pa And Lat (2 Views) dated 08/26/2021; Chest Si ngle View dated 07/11/2016; CHEST PA AND LAT 2 VIEW dated 06/15/2015; Abdomen Pelvis Wo Contrast dated 05/06/2022; Thorax Wo Con dated 05/06/2022 FINDINGS: Lines: None. Lungs: Likely atelectasis as a result of the effusion. Left upper lobe nodule as noted on yesterday's chest CT. Apical scarring and emphysema. Pleural: Slight decrease in size of the moderate left pleural effusion. Cardiac: Partially obscured. Mediastinum: Within normal limits. Bones: No acute fractures. Other: None IMPRESSION: Moderate left effusion that appears modestly smaller compared with 05/06/2022. Backgroun d of emphysema and scarring.
--- NOTE | 2022-05-07 11:04 | P.PN ---
Subjective Date of Service: 05/07/22 Primary Care Provider: Hector Chief Complaint: Acute on chronic respiratory failure Patient is 81 years of age with a history of COPD admitted with worsening dyspnea admitted with acute on chronic respiratory failure based on BiPAP this morning he just woke up a little disoriented was able to ambulate to the bathroom was also found to have an effusion Review of Systems is unable to be obtained Physical Examination - Vital Signs Temperature: 97.5 F Blood Pressure: 138/76 Pulse: 110 Respirations: 20 Pulse Ox (%): 94 - Physical Exam General: Alert, Oriented x1 Respiratory: Clear to auscultation bilaterally, Diminished (Condition at the left base) Cardiovascular: Edema Gastrointestinal: Normal bowel sounds, Soft and benign - Studies Laboratory Data (last 24 hrs) 05/06/22 21:40: PT 10.3, INR 0.94 05/06/22 21:40: WBC 12.00 H, Hgb 12.2 L, Hct 37.5 L, Plt Count 447 H 05/06/22 21:40: Sodium 129 L, Potassium 4.8, BUN 13, Creatinine 0.52 L, Glucose 140 H, Magnesium 2.4, Total Bilirubin 0.3, AST 17, ALT 34, Alkaline Phosphatase 102 Assessment And Plan - Current Problems (Diagnosis) (1) Acute respiratory failure with hypoxia and hypercapnia Current Visit: Yes Status: Acute Plan: Patient admitted with acute on chronic respiratory failure chest CT shows severe COPD patient's bicarb is elevated continue with steroids bronchodilators also add Diamox and some IV fluids for his bicarbonate most likely he has chronic cor pulmonale (2) Loculated pleural effusion Current Visit: Yes Status: Acute Plan: Patient appears to have a loculated pleural effusion at the left base to do an ultrasound possible thoracentesis patient on Zosyn and vancomycin white count is also elevated with the possibility of infected pleural effusion Physician Review: Patient Assessed, Agree with Above Assessment and Plan
[2022-05-07] MEDS: acetaZOLAMIDE 250 MG TAB PO SCH ×2 (11:08→21:39)
[2022-05-07] MEDS: PIPER TAZO 4.5 GM in NA CHLORIDE 0.9% 100 ML IV SCH ×2 (11:25→17:01)
[2022-05-07] MEDS ORDERED: VANCOMYCIN 1 GM in NA CHLORIDE 0.9% 250 ML IVPB SCH (12:00)
[2022-05-07] MEDS: VANCOMYCIN 1.25 GM in NA CHLORIDE 0.9% 250 ML IVPB SCH ×2 (12:29→23:27)
[2022-05-07] MEDS: IPRATROPIUM BROM 0.5MG/2.5ML NEB SCH ×2 (14:20→21:40)
--- NOTE | 2022-05-07 21:32 | RAD REPORT ---
EXAM DESCRIPTION: CT - Abdomen Pelvis Wo Contrast - 05/07/2022 6:34 am CLINICAL HISTORY: The patient is 81 years old and is Male; Abdominal pain, acute, nonlocalized TECHNIQUE: Axial computed tomography images of the abdomen and pelvis without intravenous contrast. Sagittal and coronal reformatted images were created and reviewed. This CT exam was performed usi ng one or more of the following dose reduction techniques: automated exposure control, adjustment o f the mA and/or kV according to patient size, and/or use of iterative reconstruction technique. COMPARISON: No relevant prior studies available. FINDINGS: LUNG BASES: Unremarkable. No mass. No consolidation. PLEURAL SPACE: Partially visualized large left pleural effusion is present. ABDOMEN: LIVER: Homogeneous without focal mass. GALLBLADDER AND BILE DUCTS: High density material distending the gallbladder. PANCREAS: Unremarkable. No ductal dilation. SPLEEN: Unremarkable. ADRENALS: Unremarkable. No mass. KIDNEYS AND URETERS: No obstructing stones. No hydronephrosis. No perinephric fluid. STOMACH AND BOWEL: The stomach is distended with fluid and air. The small bowel is relatively no rmal in caliber. A moderate amount stool is present throughout colon, which appears to be liquid. The re is no mucosal thickening or evidence of bowel obstruction. PELVIS: APPENDIX: No findings to suggest acute appendicitis. BLADDER: The bladder is well distended. No stones. REPRODUCTIVE: Unremarkable as visualized. ABDOMEN and PELVIS: INTRAPERITONEAL SPACE: Unremarkable. No free air. No significant fluid collection. BONES/JOINTS: The bones are diffusely osteopenic. No acute fracture. SOFT TISSUES: The soft tissues are normal. VASCULATURE: Atherosclerosis of the aorta is present. No abdominal aortic aneurysm. LYMPH NODES: Unremarkable. No enlarged lymph nodes. IMPRESSION: 1. High density material is present within the gallbladder which may be gallstones. No gallbladder wall thickening. 2. Moderate stool burden without obstruction. 3. Partially visualized large left pleural effusion. Electronically signed by: Flavia Joseph MD 05/06/2022 11:32 PM WHEEL POLISHER Due to temporary technical issues with the PACS/Fluency reporting system, reports are being signed by the in house radiologists without review as a courtesy to insure prompt reporting. The interpreting radiologist is fully responsible for the content of the report.
[2022-05-07] MEDS: FINASTERIDE 5 MG TAB PO SCH (21:39)
[2022-05-07] MEDS: TAMSULOSIN 0.4 MG SR CAP PO SCH (21:39)
[2022-05-07] MEDS: ARFORMOTEROL TARTRATE 15 MCG/2 ML VIAL.NEB NEB SCH (21:40)
[2022-05-08] MEDS: METHYLPREDNISOLONE 40 MG INJ IV SCH ×2 (00:55→08:49)
[2022-05-08] MEDS: PIPER TAZO 4.5 GM in NA CHLORIDE 0.9% 100 ML IV SCH ×3 (00:55→16:00)
[2022-05-08] MEDS: IPRATROPIUM BROM 0.5MG/2.5ML NEB SCH ×4 (02:10→19:30)
[2022-05-08 05:47] LABS: Absolute Lymphocytes (CBC) 0.9 K/uL (0.7-4.9); Hematocrit 38.5 % (39.6-49.0); Lymphocytes % 8.3 % (15.3-44.8); MCV 90.5 fL (80-100); MPV 7.9 fL (7.6-11.3); RBC Red Blood Cell Count 4.26 M/uL (4.33-5.43)
[2022-05-08 05:59] LABS: Potassium 4.3 mmol/L (3.5-5.1)
[2022-05-08] MEDS: ARFORMOTEROL TARTRATE 15 MCG/2 ML VIAL.NEB NEB SCH ×2 (08:30→19:30)
[2022-05-08] MEDS: ENOXAPARIN 40 MG/0.4 ML SQ SCH (08:48)
[2022-05-08] MEDS: TAMSULOSIN 0.4 MG SR CAP PO SCH ×2 (08:49→20:35)
[2022-05-08] MEDS: acetaZOLAMIDE 250 MG TAB PO SCH ×2 (09:00→20:38)
[2022-05-08] MEDS: BIMATOPROST OPTH SCH (09:00)
[2022-05-08] MEDS: VANCOMYCIN 1.25 GM in NA CHLORIDE 0.9% 250 ML IVPB SCH (11:17)
--- NOTE | 2022-05-08 11:46 | P.PN ---
Subjective Date of Service: 05/08/22 Primary Care Provider: Hector Chief Complaint: Acute on chronic respiratory failure/loculated pleural effusion Patient is doing better today he is more alert responsive at the bedside denies any chest pain ReSound of the chest is pending Review of Systems General: Weakness Respiratory: Shortness of Breath Physical Examination - Vital Signs Temperature: 97.6 F Blood Pressure: 117/82 Pulse: 98 Respirations: 20 Pulse Ox (%): 92 - Physical Exam General: Alert, Oriented x3, Cachectic Neck: Supple Respiratory: Diminished (Diminished on the left side) Cardiovascular: No edema, Regular rate/rhythm Assessment And Plan - Current Problems (Diagnosis) (1) Acute respiratory failure with hypoxia and hypercapnia Current Visit: Yes Status: Acute Plan: Patient is improving currently on nasal cannula titrate sat to 90% carbonate has declined labs reviewed bicarbonate corrected changed to p.o. prednisone (2) Loculated pleural effusion Current Visit: Yes Status: Acute Plan: Condition stable white count declining awaiting thoracentesis and ultrasound of the chest possible transfer if unable to do thoracentesis Physician Review: Patient Assessed, Agree with Above Assessment and Plan
[2022-05-08 12:52] LABS: Blood Gas Oxyhemoglobin 71.2 % (94-97); Blood O2 Saturation 72.9 % (92-98.5)
--- NOTE | 2022-05-08 19:07 | EKG ---
Test Date: 2022-05-06 Test Time: 21:30:47 Sales Host: RV MEASUREMENT RESULTS: Intervals: Rate: 118 [place]: 156 QRSD: 60 QT: 264 QTc: 370 [place]: P: 56 [place]: 156 QRS: 32 T: 30 INTERPRETIVE STATEMENTS: Sinus tachycardia with premature supraventricular complexes Low voltage QRS Nonspecific T wave abnormality Abnormal ECG Compared to ECG 07/14/2016 12:43:49 Atrial premature complex(es) now present Low QRS voltage now present T-wave abnormality still present Electronically Signed On 05-08-22 19:06:42 SCRAPER TENDER by Michael Rogel
[2022-05-08] MEDS: FINASTERIDE 5 MG TAB PO SCH (20:35)
[2022-05-08] MEDS: predniSONE 20 MG TAB PO SCH (20:35)
[2022-05-08] MEDS: ALPRAZOLAM 0.25 MG TABLET PO PRN (20:36)
[2022-05-08] MEDS: GUAIFENESIN 600 MG SA TAB PO PRN (20:36)
[2022-05-09] MEDS: VANCOMYCIN 1.25 GM in NA CHLORIDE 0.9% 250 ML IVPB SCH ×2 (00:24→12:35)
[2022-05-09] MEDS: ALPRAZOLAM 0.25 MG TABLET PO PRN ×2 (00:52→21:04)
[2022-05-09] MEDS: FAMOTIDINE 20 MG TAB PO PRN (00:52)
[2022-05-09] MEDS: IPRATROPIUM BROM 0.5MG/2.5ML NEB SCH ×4 (01:50→18:40)
[2022-05-09 06:12] LABS: Absolute Lymphocytes (CBC) 1.6 K/uL (0.7-4.9); MCV 92.1 fL (80-100); MPV 7.5 fL (7.6-11.3); RBC Red Blood Cell Count 4.23 M/uL (4.33-5.43)
[2022-05-09 06:30] LABS: Potassium 4.4 mmol/L (3.5-5.1)
[2022-05-09] MEDS: ARFORMOTEROL TARTRATE 15 MCG/2 ML VIAL.NEB NEB SCH ×2 (08:15→18:40)
[2022-05-09] MEDS: BIMATOPROST OPTH SCH (09:00)
--- NOTE | 2022-05-09 09:41 | RAD REPORT ---
EXAM DESCRIPTION: CT - Head Brain Wo Cont - 05/09/2022 9:31 am CLINICAL HISTORY: AMS COMPARISON: No comparisons TECHNIQUE: Axial 5 mm thick images of the head were obtained without IV contrast. All CT scans are performed using dose optimization technique as appropriate and may include automated exposure control or mA/KV adjustment according to patient size. FINDINGS: No intracranial hemorrhage, mass, edema or shift of mid-line structures. No acute infarcti on changes seen. No abnormal extra-axial fluid collections. Patient has minimal atrophy and chronic i schemic change. Ventricles normal size. Arterial calcifications are present. Asymmetry is created by head tilt within the scanner. No globe or orbital content acute finding seen. Paranasal sinuses are clear. The left side mastoid air cells are clear. There is complete opacificati on of the right-side mastoid air cells. No acute bony findings. IMPRESSION: No acute intracranial finding identified. The patient has minimal atrophy and chronic is chemic change. Complete opacification of the right-side mastoid air cells.
[2022-05-09] MEDS: PIPER TAZO 4.5 GM in NA CHLORIDE 0.9% 100 ML IV SCH ×4 (10:25→16:29)
[2022-05-09] MEDS: ENOXAPARIN 40 MG/0.4 ML SQ SCH (10:26)
[2022-05-09 11:20] LABS: Arterial Blood Carboxyhemoglob 0.7 % (0-1.5); Blood Gas Oxyhemoglobin 95.3 % (94-97); Blood O2 Saturation 97.1 % (92-98.5)
[2022-05-09] MEDS: acetaZOLAMIDE 250 MG TAB PO SCH ×2 (12:35→21:05)
[2022-05-09] MEDS: TAMSULOSIN 0.4 MG SR CAP PO SCH ×2 (12:35→21:04)
[2022-05-09] MEDS: predniSONE 20 MG TAB PO SCH ×2 (12:35→21:05)
[2022-05-09 13:19] LABS: Blood O2 Saturation 98.2 % (92-98.5)
[2022-05-09] MEDS: GUAIFENESIN 600 MG SA TAB PO PRN (14:02)
--- NOTE | 2022-05-09 14:16 | P.PN ---
Subjective Date of Service: 05/09/22 Primary Care Provider: Hector Chief Complaint: Acute on chronic respiratory failure/loculated pleural effusion Rapid Response called this morning around 09:05 AM due to decreased responsiveness. Upon arrival, his eyes were open, but he was not tracking or following commands. His blood pressure and POC glucose were checked, and were satisfactory. He was placed on BiPAP and STAT ABG was obtained. ABG notable for pH of 7.161, PCO2 of 121, and PO2 of 117. CT head revealed, "no acute intracranial finding identified. The patient has minimal atrophy and chronic ischemic change." He was maintained on BiPAP and repeat ABG revealed a pH of 7.32, a PCO2 of 76.2, and a PO2 of 112. Per nursing, his mentation has improved significantly. Review of Systems is unable to be obtained Physical Examination - Vital Signs Temperature: 97.7 F Blood Pressure: 115/69 Pulse: 120 Respirations: 25 Pulse Ox (%): 96 - Physical Exam General: Other (unresponsive) HEENT: Atraumatic Respiratory: Diminished Cardiovascular: No edema, Regular rate/rhythm, Normal S1 S2, No gallops, No rubs, No murmurs Gastrointestinal: Normal bowel sounds, Soft and benign, Non-distended, No tenderness, No rebound, No guarding Musculoskeletal: No clubbing Integumentary: No rashes Neurological: Other (unresponsive) Assessment And Plan - Plan # Acute Hypercapnic Respiratory Failure - likely secondary to Chronic Obstructiv e Pulmonary Disease and Moderate-Large Left Loculated Pleural Effusion # Acute Toxic Metabolic Encephalopathy secondary to above # Right Upper Lung Opacity (1.6 cm) - Evaluation thus far: - ABG during rapid response = pH 7.16, PCO2 121, PO2 117 - Chest x-ray = "moderate to large loculated left pleural effusion. COPD." - CT chest = "moderate to large loculated left pleural effusion. 1.6 opacity right upper lobe probably scarring. However, a mass has a similar appearance. Followup CT in 3 months recommended." - CT head = "no acute intracranial finding identified. The patient has minimal atrophy and chronic ischemic change. Complete opacification of the right-side mastoid air cells." - Management plan: - Consulted Pulmonary Medicine - recommendations appreciated - Bronchodilators and steroids per Pulm - Plan for thoracentesis tomorrow - Consulted Respiratory Therapy - Supplemental oxygen to maintain SpO2 > 92% - Continue empiric vancomycin + piperacillin-tazobactam - Encourage incentive spirometry - Follow-up 1.6 RUL opacity with PCP/Pulm # Benign Prostatic Hyperplasia - Continue home tamsulosin, finasteride # Cholelithiasis - CT abdomen/pelvis = "1. High density material is present within the gallbladder which may be gallstones. No gallbladder wall thickening. 2. Moderate stool burden without obstruction. 3. Partially visualized large left pleural effusion." - Currently not exhibiting abdominal pain or guarding - Follow-up with PCP # Subclinical Hyperthyroidism - TSH 0.165, Free T4 1.05 I spoke with his , Mrs. Naik, who stated that he has expressed multiple times verbally, as well as written, that he would like to be a DNAR. His chart has been updated. Ron Guo M.D.
[2022-05-09] MEDS: FINASTERIDE 5 MG TAB PO SCH (21:05)
[2022-05-10] MEDS: IPRATROPIUM BROM 0.5MG/2.5ML NEB SCH ×4 (00:40→20:10)
[2022-05-10] MEDS: GUAIFENESIN 600 MG SA TAB PO PRN ×2 (00:41→16:03)
[2022-05-10] MEDS: VANCOMYCIN 1.25 GM in NA CHLORIDE 0.9% 250 ML IVPB SCH ×2 (00:41→12:13)
[2022-05-10] MEDS: PIPER TAZO 4.5 GM in NA CHLORIDE 0.9% 100 ML IV SCH ×3 (02:47→16:03)
[2022-05-10 06:05] LABS: Absolute Lymphocytes (CBC) 1.2 K/uL (0.7-4.9); Hematocrit 36.7 % (39.6-49.0); Lymphocytes % 11.8 % (15.3-44.8); MCV 92.3 fL (80-100); MPV 7.8 fL (7.6-11.3); RBC Red Blood Cell Count 3.98 M/uL (4.33-5.43)
[2022-05-10 06:21] LABS: Potassium 4.1 mmol/L (3.5-5.1)
[2022-05-10] MEDS: BIMATOPROST OPTH SCH (07:45)
[2022-05-10] MEDS: TAMSULOSIN 0.4 MG SR CAP PO SCH ×2 (07:46→21:10)
[2022-05-10] MEDS: acetaZOLAMIDE 250 MG TAB PO SCH ×2 (07:46→21:10)
[2022-05-10] MEDS: predniSONE 20 MG TAB PO SCH ×2 (07:46→21:09)
[2022-05-10] MEDS: ENOXAPARIN 40 MG/0.4 ML SQ SCH (07:47)
[2022-05-10] MEDS: ARFORMOTEROL TARTRATE 15 MCG/2 ML VIAL.NEB NEB SCH ×2 (09:52→20:10)
--- NOTE | 2022-05-10 11:37 | RAD REPORT ---
EXAM DESCRIPTION: US - Chest - 05/10/2022 10:46 am CLINICAL HISTORY: Pleural effusion FINDINGS: Moderate to large left pleural effusion is present. Significant loculation not present IMPRESSION: Moderate to large left pleural effusion
--- NOTE | 2022-05-10 12:15 | RAD REPORT ---
EXAM DESCRIPTION: Nikolas Single View05/10/2022 11:48 am CLINICAL HISTORY: Thoracentesis IMPRESSION: Left pneumothorax is not seen status post thoracentesis
--- NOTE | 2022-05-10 12:42 | RAD REPORT ---
EXAM DESCRIPTION: US - Thoracentesis w/ US Guide - 05/10/2022 12:30 pm CLINICAL HISTORY: Left pleural effusion TECHNIQUE: The risks, benefits alternatives to the procedure were explained to the patient and infor med consent obtained. Skiin ,subcutaneous tissues and pleura anesthetized with lidocaine. Under sonographic guidance, an 8 Greek catheter was placed into the posterior lower left pleural spa ce. 1.5 liters yellow fluid removed. Fluid given to the lab. Patient experienced no immediate complication IMPRESSION: Thoracentesis
[2022-05-10 14:47] LABS: Body Fluid Source PLEURAL
[2022-05-10 14:48] LABS: Appearance SLT. TURBID (CLEAR); Body Fluid WBC 410 /mm^3; Color of fluid Yellow (COLORLESS)
[2022-05-10] MEDS ORDERED: ALBUTEROL 2.5 MG/3 ML NEB SOL NEB PRN (16:00)
[2022-05-10] MEDS: ACETAMINOPHEN 500 MG TAB PO PRN (16:03)
--- NOTE | 2022-05-10 20:04 | P.PN ---
Subjective Date of Service: 05/10/22 Primary Care Provider: Hector Chief Complaint: Acute on chronic respiratory failure/loculated pleural effusion This morning, he appears significantly improved compared to yesterday. He is now alert and oriented x 3. He is experiencing shortness of breath and dry cough. He is eager for the thoracentesis scheduled today. Review of Systems 10-point ROS is otherwise unremarkable Respiratory: Cough, Shortness of Breath Physical Examination - Vital Signs Temperature: 98.2 F Blood Pressure: 99/63 Pulse: 102 Respirations: 14 Pulse Ox (%): 97 - Physical Exam General: Alert, In no apparent distress, Oriented x3 HEENT: Atraumatic, Mucous membr. moist/pink, EOMI, Sclerae nonicteric Neck: JVD not distended Respiratory: Diminished, Rhonchi/gurgles (faint) Cardiovascular: No edema, Regular rate/rhythm, Normal S1 S2, No gallops, No rubs, No murmurs Gastrointestinal: Normal bowel sounds, Soft and benign, Non-distended, No tenderness, No rebound, No guarding Musculoskeletal: No clubbing Integumentary: No rashes Neurological: Normal speech, Cranial nerves 3-12 intact, Normal affect Assessment And Plan - Plan # Acute Hypercapnic Respiratory Failure - likely secondary to Chronic Obstructive Pulmonary Disease and Moderate-Large Left Loculated Pleural Effusion # Acute Toxic Metabolic Encephalopathy secondary to above (resolved) # Right Upper Lung Opacity (1.6 cm) - Evaluation thus far: - ABG during rapid response = pH 7.16, PCO2 121, PO2 117 - Repeat: pH 7.32, PCO2 76.2, PO2 112 - Chest x-ray = "moderate to large loculated left pleural effusion. COPD." - CT chest = "moderate to large loculated left pleural effusion. 1.6 opacity right upper lobe probably scarring. However, a mass has a similar appearance. Followup CT in 3 months recommended." - CT head = "no acute intracranial finding identified. The patient has minimal atrophy and chronic ischemic change. Complete opacification of the right-side mastoid air cells." - Management plan: - Consulted Pulmonary Medicine - recommendations appreciated - Bronchodilators and steroids per Pulm - Plan for thoracentesis today with Interventional Radiology - Consulted Respiratory Therapy - Supplemental oxygen to maintain SpO2 > 92% - Continue empiric vancomycin + piperacillin-tazobactam - Encourage incentive spirometry - Follow-up 1.6 RUL opacity with PCP/Pulm # Benign Prostatic Hyperplasia - Continue home tamsulosin, finasteride # Cholelithiasis - CT abdomen/pelvis = "1. High density material is present within the gallbladder which may be gallstones. No gallbladder wall thickening. 2. Moderate stool burden without obstruction. 3. Partially visualized large left pleural effusion." - Currently not exhibiting abdominal pain or guarding - Follow-up with PCP # Subclinical Hyperthyroidism - TSH 0.165, Free T4 1.05 Ron Guo M.D.
[2022-05-10] MEDS: FINASTERIDE 5 MG TAB PO SCH (21:10)
[2022-05-10] MEDS: ALPRAZOLAM 0.25 MG TABLET PO PRN (21:10)
[2022-05-11] MEDS ORDERED: NA CHLORIDE 0.9% 100 ML ONE (00:58)
[2022-05-11] MEDS: GUAIFENESIN 600 MG SA TAB PO PRN ×2 (01:01→13:00)
[2022-05-11] MEDS: PIPER TAZO 4.5 GM in NA CHLORIDE 0.9% 100 ML IV SCH (01:06)
[2022-05-11] MEDS: VANCOMYCIN 1.25 GM in NA CHLORIDE 0.9% 250 ML IVPB SCH (01:06)
[2022-05-11] MEDS: IPRATROPIUM BROM 0.5MG/2.5ML NEB SCH ×4 (02:00→20:00)
[2022-05-11 04:01] LABS: Absolute Lymphocytes (CBC) 1.1 K/uL (0.7-4.9); Hematocrit 37.7 % (39.6-49.0); Lymphocytes % 8.4 % (15.3-44.8); MCV 92.4 fL (80-100); MPV 7.8 fL (7.6-11.3); RBC Red Blood Cell Count 4.08 M/uL (4.33-5.43)
[2022-05-11 04:08] LABS: Potassium 3.9 mmol/L (3.5-5.1)
--- NOTE | 2022-05-11 06:58 | ECHO ---
HEIGHT: 5 ft 8 in WEIGHT: 166 lb 4 oz DATE OF STUDY: 05/10/[address]: Tom Gtz MD 2-DIMENSIONAL: YES M.MODE: YES DOPPLER: YES COLOR FLOW: YES TDS: PORTABLE: YES DEFINITY: BUBBLE STUDY: DIAGNOSIS: CHRONIC RESPIRATORY FAILURE CARDIAC HISTORY: CATHERIZATION: YES SURGERY: NO PROSTHETIC VALVE: NO PACEMAKER: NO MEASUREMENTS (cm) DIASTOLIC (NORMALS) SYSTOLIC (NORMALS) IVSd (0.6-1.2) LA Diam (1.9-4.0) LVEF % LVIDd (3.5-5.7) LVIDs (2.0-3.5) %FS % LVPWd (0.6-1.2) Ao Diam (2.0-3.7) 2 DIMENSIONAL ASSESSMENT: RIGHT ATRIUM: LEFT ATRIUM: RIGHT VENTRICLE: LEFT VENTRICLE: TRICUSPID VALVE: MITRAL VALVE: PULMONIC VALVE: AORTIC VALVE: PERICARDIAL EFFUSION: AORTIC ROOT: LEFT VENTRICULAR WALL MOTION: DOPPLER/COLOR FLOW: COMMENTS: 1. VERY POOR WINDOWS 2. UNABLE TO EVALUATE HEART ON THE POOR STUDY 3. POSSIBLE PERICARIDAL EFFUSION TECHNOLOGIST: SULAIMAN URBANO
[2022-05-11 07:16] LABS: Arterial Blood Carboxyhemoglob 0.9 % (0-1.5); Blood Gas Oxyhemoglobin 94.8 % (94-97); Blood O2 Saturation 97.1 % (92-98.5)
--- NOTE | 2022-05-11 07:41 | P.PN ---
Subjective Date of Service: 05/11/22 Primary Care Provider: Hector Chief Complaint: c resp failure S/p thoracentesis very weak still SOBOE. Review of Systems General: Weakness Respiratory: Shortness of Breath Physical Examination - Vital Signs Temperature: 97.7 F Blood Pressure: 103/54 Pulse: 107 Respirations: 16 Pulse Ox (%): 95 - Physical Exam General: Alert, Mild distress Respiratory: Clear to auscultation bilaterally, Diminished Cardiovascular: No edema, Regular rate/rhythm, Normal S1 S2 Assessment And Plan - Current Problems (Diagnosis) (1) Loculated pleural effusion Current Visit: Yes Status: Acute Plan: S/p thoracentesis Doubt infection. DC Antibiotics. CXRY sevre CODP changes (2) Chronic respiratory failure with hypoxia and hypercapnia Current Visit: Yes Status: Acute Plan: Pt has chronic stable resp failure sec to COPD. will benefit from NIV to prevent hosp readmissions. BIPAP not suitable/ Reduce pred Physician Review: Patient Assessed, Agree with Above Assessment and Plan
[2022-05-11] MEDS ORDERED: POTASSIUM 25 MEQ EFFERV TAB PO ONE (08:00)
[2022-05-11] MEDS: ARFORMOTEROL TARTRATE 15 MCG/2 ML VIAL.NEB NEB SCH ×2 (08:35→20:00)
[2022-05-11] MEDS: BIMATOPROST OPTH SCH (09:00)
[2022-05-11] MEDS: predniSONE 10 MG TAB PO SCH ×2 (09:21→22:24)
[2022-05-11] MEDS: acetaZOLAMIDE 250 MG TAB PO SCH (09:21)
[2022-05-11] MEDS: ENOXAPARIN 40 MG/0.4 ML SQ SCH (09:22)
[2022-05-11] MEDS: TAMSULOSIN 0.4 MG SR CAP PO SCH ×2 (09:22→22:23)
--- NOTE | 2022-05-11 16:09 | EKG ---
Test Date: 2022-05-08 Test Time: 11:55:19 Digester Operator: EVON MEASUREMENT RESULTS: Intervals: Rate: 129 [place]: 166 QRSD: 54 QT: 268 QTc: 392 [place]: P: 35 [place]: 166 QRS: -17 T: 36 INTERPRETIVE STATEMENTS: Sinus tachycardia Low voltage QRS Nonspecific ST and T wave abnormality Abnormal ECG Compared to ECG 05/06/2022 21:30:47 ST (T wave) deviation now present Atrial premature complex(es) no longer present T-wave abnormality no longer present Electronically Signed On 05-11-22 16:06:39 RESTORATIVE COORDINATOR by Michael Rogel
--- NOTE | 2022-05-11 19:45 | P.PN ---
Subjective Date of Service: 05/11/22 Primary Care Provider: Hector Chief Complaint: c resp failure POD# 1 thoracentesis. He is doing well post-operatively and his breathing has improved. We are awaiting arrangement for a non-invasive ventilator. Appreciate CM assistance. Review of Systems 10-point ROS is otherwise unremarkable Respiratory: Shortness of Breath Physical Examination - Vital Signs Temperature: 98.3 F Blood Pressure: 108/61 Pulse: 111 Respirations: 14 Pulse Ox (%): 96 Assessment And Plan - Plan - Physical Exam General: Alert, In no apparent distress, Oriented x3 HEENT: Atraumatic, Mucous membr. moist/pink, EOMI, Sclerae nonicteric Neck: JVD not distended Respiratory: Diminished, with scattered rhonchi/gurgles (faint) Cardiovascular: No edema, Regular rate/rhythm, Normal S1 S2, No gallops, No rubs, No murmurs Gastrointestinal: Normal bowel sounds, Soft and benign, Non-distended, No tenderness, No rebound, No guarding Musculoskeletal: No clubbing Integumentary: No rashes Neurological: Normal speech, Cranial nerves 3-12 intact, Normal affect # Acute Hypercapnic Respiratory Failure - likely secondary to Chronic Obstructive Pulmonary Disease and Moderate-Large Left Loculated Pleural Effusion # Acute Toxic Metabolic Encephalopathy secondary to above (resolved) # Right Upper Lung Opacity (1.6 cm) - Evaluation thus far: - ABG during rapid response = pH 7.16, PCO2 121, PO2 117 - Repeat: pH 7.32, PCO2 76.2, PO2 112 - Chest x-ray = "moderate to large loculated left pleural effusion. COPD." - CT chest = "moderate to large loculated left pleural effusion. 1.6 opacity right upper lobe probably scarring. However, a mass has a similar appearance. Followup CT in 3 months recommended." - CT head = "no acute intracranial finding identified. The patient has minimal atrophy and chronic ischemic change. Complete opacification of the right-side mastoid air cells." - Management plan: - Consulted Pulmonary Medicine - recommendations appreciated - Bronchodilators and steroids per Pulm - CM consulted to assist with non-invasive ventilator - S/P thoracentesis on 05/10 - tolerated procedure well, without apparent complication - Consulted Respiratory Therapy - Supplemental oxygen to maintain SpO2 > 92% - Continue empiric vancomycin + piperacillin-tazobactam - Encourage incentive spirometry - Follow-up 1.6 RUL opacity with PCP/Pulm # Benign Prostatic Hyperplasia - Continue home tamsulosin, finasteride # Cholelithiasis - CT abdomen/pelvis = "1. High density material is present within the g allbladder which may be gallstones. No gallbladder wall thickening. 2. Moderate stool burden without obstruction. 3. Partially visualized large left pleural effusion." - Currently not exhibiting abdominal pain or guarding - Follow-up with PCP # Subclinical Hyperthyroidism - TSH 0.165, Free T4 1.05 Ron Guo M.D.
[2022-05-11] MEDS: ALPRAZOLAM 0.25 MG TABLET PO PRN (22:24)
[2022-05-11] MEDS: FINASTERIDE 5 MG TAB PO SCH (22:24)
[2022-05-12] MEDS: IPRATROPIUM BROM 0.5MG/2.5ML NEB SCH ×4 (02:35→19:25)
[2022-05-12] MEDS: HYDROCODONE/CHLORPHEN 5 ML/OSYR PO PRN (03:13)
[2022-05-12 05:43] LABS: Absolute Lymphocytes (CBC) 1.8 K/uL (0.7-4.9); Hematocrit 37.7 % (39.6-49.0); Lymphocytes % 13.6 % (15.3-44.8); MCV 91.8 fL (80-100); MPV 7.6 fL (7.6-11.3); RBC Red Blood Cell Count 4.11 M/uL (4.33-5.43)
[2022-05-12 05:51] LABS: Potassium 4.2 mmol/L (3.5-5.1)
[2022-05-12] MEDS: ARFORMOTEROL TARTRATE 15 MCG/2 ML VIAL.NEB NEB SCH ×2 (08:21→19:25)
[2022-05-12] MEDS: BIMATOPROST OPTH SCH (09:00)
[2022-05-12] MEDS: TAMSULOSIN 0.4 MG SR CAP PO SCH ×2 (09:50→21:21)
[2022-05-12] MEDS: predniSONE 10 MG TAB PO SCH ×2 (09:50→21:22)
[2022-05-12] MEDS: ENOXAPARIN 40 MG/0.4 ML SQ SCH (09:50)
[2022-05-12] MEDS: acetaZOLAMIDE 250 MG TAB PO SCH (09:50)
[2022-05-12 10:06] LABS: Arterial Blood Carboxyhemoglob 1.2 % (0-1.5); Blood Gas Oxyhemoglobin 95.2 % (94-97); Blood O2 Saturation 97.8 % (92-98.5)
[2022-05-12] MEDS: POLYETHYL GLY 3350 17 GM/DOSE PO PRN (10:54)
--- NOTE | 2022-05-12 12:38 | P.PN ---
Subjective Date of Service: 05/12/22 Primary Care Provider: Hector Chief Complaint: c resp failure Patient is complaining of some left-sided chest pain very weak for him to the he was ambulatory active at home has deteriorated since his hospital admission Review of Systems General: Weakness Respiratory: Shortness of Breath Physical Examination - Vital Signs Temperature: 97.9 F Blood Pressure: 113/71 Pulse: 111 Respirations: 18 Pulse Ox (%): 94 - Physical Exam General: Alert, Mild distress Respiratory: Clear to auscultation bilaterally, Diminished Cardiovascular: No edema, Regular rate/rhythm, Normal S1 S2 - Studies Microbiology Data (last 24 hrs): 05/06/22 21:40 Blood - Blood Aerobic Blood Culture - Final No growth in 5 days. 05/06/22 21:40 Blood - Blood Anaerobic Blood Culture - Final No growth in 5 days. 05/06/22 21:45 Blood - Blood Aerobic Blood Culture - Final No growth in 5 days. 05/06/22 21:45 Blood - Blood Anaerobic Blood Culture - Final No growth in 5 days. Assessment And Plan - Current Problems (Diagnosis) (1) Loculated pleural effusion Current Visit: Yes Status: Acute Plan: S/p thoracentesis Doubt infection. Some atypical cells isolated from the pleural fluid pathology has sent off for further studies (2) Chronic respiratory failure with hypoxia and hypercapnia Current Visit: Yes Status: Acute Plan: Patient has appears to have very severe COPD on the chest x-ray very weak physical therapy also ordered a noninvasive ventilator prognosis is very poor Physician Review: Patient Assessed, Agree with Above Assessment and Plan
--- NOTE | 2022-05-12 13:26 | RAD REPORT ---
EXAM DESCRIPTION: RAD - Chest Single View - 05/12/2022 1:09 pm CLINICAL HISTORY: History of chronic respiratory failure s/p thorace Chest pain. COMPARISON: Chest Single View dated 05/10/2022; Chest Pa And Lat (2 Views) dated 05/07/2022; Chest Sin gle View dated 05/06/2022; Chest Pa And Lat (2 Views) dated 08/26/2021 FINDINGS: Portable technique limits examination quality. Prominent emphysematous changes are noted. Hazy opacity in the left lung base may represent atelectas is or an infiltrate/pneumonia. It appears mildly more prominent than on the comparative study. Small left pleural effusion. No measurable pneumothorax evident.
--- NOTE | 2022-05-12 15:20 | EKG ---
Test Date: 2022-05-12 Test Time: 09:02:29 Systems Protection Technician: SMITA MEASUREMENT RESULTS: Intervals: Rate: 98 CO: 100 QRSD: 76 QT: 336 QTc: 428 [place]: P: 77 CO: 100 QRS: 65 T: 74 INTERPRETIVE STATEMENTS: Sinus rhythm with short CO with fusion complexes Otherwise normal ECG Compared to ECG 05/08/2022 11:55:19 Fusion complex(es) now present Short CO interval now present Sinus tachycardia no longer present ST (T wave) deviation no longer present Electronically Signed On 05-12-22 15:20:06 PLATE PREPARER by Michael Rogel
--- NOTE | 2022-05-12 19:35 | P.PN ---
Subjective Date of Service: 05/12/22 Primary Care Provider: Hector Chief Complaint: c resp failure POD# 2 thoracentesis. Although his breathing has improved, he continues to demonstrate significant weakness. Discussed with Dr. Gtz, he feels that he would be most appropriate for SNF. Appreciate CM assistance. Review of Systems 10-point ROS is otherwise unremarkable General: Weakness (generalized) Physical Examination - Vital Signs Temperature: 98.3 F Blood Pressure: 114/66 Pulse: 98 Respirations: 16 Pulse Ox (%): 97 - Studies Microbiology Data (last 24 hrs): 05/06/22 21:40 Blood - Blood Aerobic Blood Culture - Final No growth in 5 days. 05/06/22 21:40 Blood - Blood Anaerobic Blood Culture - Final No growth in 5 days. 05/06/22 21:45 Blood - Blood Aerobic Blood Culture - Final No growth in 5 days. 05/06/22 21:45 Blood - Blood Anaerobic Blood Culture - Final No growth in 5 days. Assessment And Plan - Plan - Physical Exam General: Alert, In no apparent distress, Oriented x3 HEENT: Atraumatic, Mucous membr. moist/pink, EOMI, Sclerae nonicteric Neck: JVD not distended Respiratory: Diminished, with scattered rhonchi/gurgles (faint) Cardiovascular: No edema, Regular rate/rhythm, Normal S1 S2, No gallops, No rubs, No murmurs Gastrointestinal: Normal bowel sounds, Soft and benign, Non-distended, No tenderness, No rebound, No guarding Musculoskeletal: No clubbing Integumentary: No rashes Neurological: Normal speech, Cranial nerves 3-12 intact, Normal affect # Acute Hypercapnic Respiratory Failure - likely secondary to Chronic Obstructive Pulmonary Disease and Moderate-Large Left Loculated Pleural Effusion # Acute Toxic Metabolic Encephalopathy secondary to above (resolved) # Right Upper Lung Opacity (1.6 cm) - Evaluation thus far: - ABG during rapid response = pH 7.16, PCO2 121, PO2 117 - Repeat: pH 7.32, PCO2 76.2, PO2 112 - Chest x-ray = "moderate to large loculated left pleural effusion. COPD." - CT chest = "moderate to large loculated left pleural effusion. 1.6 opacity right upper lobe probably scarring. However, a mass has a similar appearance. Followup CT in 3 months recommended." - CT head = "no acute intracranial finding identified. The patient has minimal atrophy and chronic ischemic change. Complete opacification of the right-side mastoid air cells." - Management plan: - Consulted Pulmonary Medicine and spoke with Dr. Gtz - recommendations appreciated - Bronchodilators and steroids per Pulm - CM consulted to assist with non-invasive ventilator - Antibiotics discontinued per Pulm - S/P thoracentesis on 05/10 - tolerated procedure well, without apparent complication - Consulted Respiratory Therapy - Supplemental oxygen to maintain SpO2 > 92% - Encourage incentive spirometry - Follow-up 1.6 RUL opacity with PCP/Pulm # Deconditioning - Consulted PT - Appreciate CM assistance with placement # Benign Prostatic Hyperplasia - Continue home tamsulosin, finasteride # Cholelithiasis - CT abdomen/pelvis = "1. High density material is present within the gallbladder which may be gallstones. No gallbladder wall thickening. 2. Moderate stool burden without obstruction. 3. Partially visualized large left pleural effusion." - Currently not exhibiting abdominal pain or guarding - Follow-up with PCP # Subclinical Hyperthyroidism - TSH 0.165, Free T4 1.05 Ron Guo M.D.
[2022-05-12] MEDS: DOCUSATE NA 100 MG CAP PO SCH (21:21)
[2022-05-12] MEDS: FINASTERIDE 5 MG TAB PO SCH (21:22)
[2022-05-12] MEDS: ENSURE ENLIVE 237 ML CAN PO SCH (21:27)
[2022-05-12] MEDS: GUAIFENESIN 600 MG SA TAB PO PRN (21:35)
[2022-05-13] MEDS: IPRATROPIUM BROM 0.5MG/2.5ML NEB SCH ×4 (01:35→20:00)
[2022-05-13] MEDS: FAMOTIDINE 20 MG TAB PO PRN (02:50)
[2022-05-13 06:03] LABS: Potassium 4.1 mmol/L (3.5-5.1)
[2022-05-13] MEDS: ARFORMOTEROL TARTRATE 15 MCG/2 ML VIAL.NEB NEB SCH ×2 (08:00→20:00)
[2022-05-13] MEDS: BIMATOPROST OPTH SCH (09:00)
[2022-05-13] MEDS: TAMSULOSIN 0.4 MG SR CAP PO SCH ×2 (10:20→20:21)
[2022-05-13] MEDS: ACETAMINOPHEN 500 MG TAB PO PRN ×2 (10:20→20:21)
[2022-05-13] MEDS: acetaZOLAMIDE 250 MG TAB PO SCH (10:20)
[2022-05-13] MEDS: predniSONE 10 MG TAB PO SCH ×2 (10:20→20:21)
[2022-05-13] MEDS: ENOXAPARIN 40 MG/0.4 ML SQ SCH (10:20)
[2022-05-13] MEDS: DOCUSATE NA 100 MG CAP PO SCH ×2 (10:20→20:22)
[2022-05-13] MEDS: ENSURE ENLIVE 237 ML CAN PO SCH ×2 (10:21→20:22)
[2022-05-13] MEDS ORDERED: MAGNESIUM HYDROXIDE 8% 30 ML PO ONE (11:04)
[2022-05-13] MEDS: FINASTERIDE 5 MG TAB PO SCH (20:22)
[2022-05-13] MEDS: GUAIFENESIN 600 MG SA TAB PO PRN (20:27)
--- NOTE | 2022-05-13 20:55 | P.PN ---
Subjective Date of Service: 05/13/22 Primary Care Provider: Hector Chief Complaint: c resp failure POD# 3 thoracentesis. Although his breathing has returned to baseline, he continues to demonstrate significant weakness. Working on SNF placement. Appreciate CM assistance. Review of Systems 10-point ROS is otherwise unremarkable General: Weakness (generalized) Physical Examination - Vital Signs Temperature: 97.8 F Blood Pressure: 97/60 Pulse: 96 Respirations: 17 Pulse Ox (%): 92 Assessment And Plan - Plan - Physical Exam General: Alert, In no apparent distress, Oriented x3 HEENT: Atraumatic, Mucous membr. moist/pink, EOMI, Sclerae nonicteric Neck: JVD not distended Respiratory: Diminished, with scattered rhonchi/gurgles (faint) Cardiovascular: No edema, Regular rate/rhythm, Normal S1 S2, No gallops, No rubs, No murmurs Gastrointestinal: Normal bowel sounds, Soft and benign, Non-distended, No tenderness, No rebound, No guarding Musculoskeletal: No clubbing Integumentary: No rashes Neurological: Normal speech, Normal affect # Acute Hypercapnic Respiratory Failure - likely secondary to Chronic Obstructive Pulmonary Disease and Moderate-Large Left Loculated Pleural Effusion # Acute Toxic Metabolic Encephalopathy secondary to above (resolved) # Right Upper Lung Opacity (1.6 cm) - Evaluation thus far: - ABG during rapid response = pH 7.16, PCO2 121, PO2 117 - Repeat: pH 7.32, PCO2 76.2, PO2 112 - Chest x-ray = "moderate to large loculated left pleural effusion. COPD." - CT chest = "moderate to large loculated left pleural effusion. 1.6 opacity right upper lobe probably scarring. However, a mass has a similar appearance. Followup CT in 3 months recommended." - CT head = "no acute intracranial finding identified. The patient has minimal atrophy and chronic ischemic change. Complete opacification of the right-side mastoid air cells." - Management plan: - Consulted Pulmonary Medicine and spoke with Dr. Gtz - recommendations appreciated - Bronchodilators and steroids per Pulm - CM consulted to assist with non-invasive ventilator - Antibiotics discontinued per Pulm - S/P thoracentesis on 05/10 - tolerated procedure well, without apparent compl ication - Consulted Respiratory Therapy - Supplemental oxygen to maintain SpO2 > 92% - Encourage incentive spirometry - Follow-up 1.6 RUL opacity with PCP/Pulm # Deconditioning - Consulted PT - Appreciate CM assistance with placement # Benign Prostatic Hyperplasia - Continue home tamsulosin, finasteride # Cholelithiasis - CT abdomen/pelvis = "1. High density material is present within the gallbladder which may be gallstones. No gallbladder wall thickening. 2. Moderate stool burden without obstruction. 3. Partially visualized large left pleural effusion." - Currently not exhibiting abdominal pain or guarding - Follow-up with PCP # Subclinical Hyperthyroidism - TSH 0.165, Free T4 1.05 Noninvasive ventilator has been delivered. [facility]. Ron Guo M.D.
[2022-05-13 21:36] LABS: TOTAL PROTEIN, PLEURAL FLUID 4.3 g/dL
[2022-05-14] MEDS: IPRATROPIUM BROM 0.5MG/2.5ML NEB SCH ×4 (01:57→19:15)
[2022-05-14] MEDS: ACETAMINOPHEN 500 MG TAB PO PRN ×2 (04:38→20:59)
[2022-05-14] MEDS ORDERED: HYDROCODONE/APAP 5/325 MG TAB PO ONE (05:42)
[2022-05-14] MEDS: KETOROLAC 30 MG/ML INJ IV ONE (05:49)
[2022-05-14] MEDS ORDERED: KETOROLAC 30 MG/ML INJ IV ONE (05:49)
--- NOTE | 2022-05-14 07:39 | RAD REPORT ---
EXAM DESCRIPTION: RAD - Chest Single View - 05/14/2022 7:11 am CLINICAL HISTORY: follow up pleural effusion COMPARISON: Chest Single View dated 05/12/2022; Chest Single View dated 05/10/2022; Chest Pa And Lat (2 Views) dated 05/07/2022; Chest Single View dated 05/06/2022; Thoracentesis w/ US Guide dated 05/10/2022 ; Thorax Wo Con dated 05/06/2022 FINDINGS: Lines: None. Lungs: The right lung is clear. Increased volume loss at the left lung areas of consolidation. Pleural: The pleural effusion has increased in size from prior. Cardiac: Partially obscured. Mediastinum: Within normal limits. Bones: No acute fractures. Other: None IMPRESSION: Re- accumulation of some of the left pleural fluid noted. Increasing left mid lung and l eft basilar airspace disease that may reflect atelectasis as result in increasing pleural fluid or de veloping consolidation.
[2022-05-14] MEDS: ENOXAPARIN 40 MG/0.4 ML SQ SCH (08:23)
[2022-05-14] MEDS: predniSONE 10 MG TAB PO SCH ×2 (08:23→20:59)
[2022-05-14] MEDS: ENSURE ENLIVE 237 ML CAN PO SCH ×2 (08:23→21:02)
[2022-05-14] MEDS: DOCUSATE NA 100 MG CAP PO SCH ×2 (08:23→20:59)
[2022-05-14] MEDS: acetaZOLAMIDE 250 MG TAB PO SCH (08:23)
[2022-05-14] MEDS: TAMSULOSIN 0.4 MG SR CAP PO SCH ×2 (08:23→21:00)
[2022-05-14] MEDS: BIMATOPROST OPTH SCH (08:23)
[2022-05-14] MEDS: ARFORMOTEROL TARTRATE 15 MCG/2 ML VIAL.NEB NEB SCH ×2 (09:38→19:15)
--- NOTE | 2022-05-14 09:55 | P.PN ---
Subjective Date of Service: 05/14/22 Primary Care Provider: Hector Chief Complaint: Respiratory failure possible atelectasis of the left side Patient did ambulate still very weak some discomfort on the left side Review of Systems General: Weakness Respiratory: Shortness of Breath Physical Examination - Vital Signs Temperature: 97.9 F Blood Pressure: 133/70 Pulse: 96 Respirations: 16 Pulse Ox (%): 94 - Physical Exam General: Alert, Oriented x3, Mild distress Respiratory: Diminished (The left side) Cardiovascular: No edema, Normal S1 S2 Assessment And Plan - Current Problems (Diagnosis) (1) Chronic respiratory failure with hypoxia and hypercapnia Current Visit: Yes Status: Acute Plan: Patient has terminal COPD hypoxic hypercapnic NIV has been arranged chest x-ray shows some volume loss on the left side most likely atelectasis we will plan to do some chest percussion for now some mild pleural effusion labs chemistries all reviewed continue with physical therapy otherwise no change in the treatment Physician Review: Patient Assessed, Agree with Above Assessment and Plan
--- NOTE | 2022-05-14 17:53 | P.PN ---
Subjective Date of Service: 05/14/22 Primary Care Provider: Hector Chief Complaint: Respiratory failure possible atelectasis of the left side POD# 4 thoracentesis. He reports that his breathing has improved and he worked well with physical therapy today. Discussed with physical therapy, who now feels that he would be a good candidate for inpatient rehab. Chest x-ray is concerning for potential of reaccumulation of fluid. Appreciated Pulmonary assistance. Consulted case management for assistance with inpatient rehab placement. Review of Systems 10-point ROS is otherwise unremarkable General: Weakness (generalized) Respiratory: Shortness of Breath Physical Examination - Vital Signs Temperature: 96.9 F Blood Pressure: 118/63 Pulse: 105 Respirations: 16 Pulse Ox (%): 94 Assessment And Plan - Plan - Physical Exam General: Alert, In no apparent distress, Oriented x3 HEENT: Atraumatic, Mucous membr. moist/pink, EOMI, Sclerae nonicteric Neck: JVD not distended Respiratory: Diminished, with scattered rhonchi/gurgles (faint) Cardiovascular: No edema, Regular rate/rhythm, Normal S1 S2, No gallops, No rubs, No murmurs Gastrointestinal: Normal bowel sounds, Soft and benign, Non-distended, No tenderness, No rebound, No guarding Musculoskeletal: No clubbing Integumentary: No rashes Neurological: Normal speech, Normal affect # Acute Hypercapnic Respiratory Failure - likely secondary to Chronic Obstructive Pulmonary Disease and Moderate-Large Left Loculated Pleural Effusion # Acute Toxic Metabolic Encephalopathy secondary to above (resolved) # Right Upper Lung Opacity (1.6 cm) - Evaluation thus far: - ABG during rapid response = pH 7.16, PCO2 121, PO2 117 - Repeat: pH 7.32, PCO2 76.2, PO2 112 - Chest x-ray = "moderate to large loculated left pleural effusion. COPD." - CT chest = "moderate to large loculated left pleural effusion. 1.6 opacity right upper lobe probably scarring. However, a mass has a similar appearance. Followup CT in 3 months recommended." - CT head = "no acute intracranial finding identified. The patient has minimal atrophy and chronic ischemic change. Complete opacification of the right-side mastoid air cells." - Chest x-ray (05/14)= "Re- accumulation of some of the left pleural fluid noted. Increasing left mid lung and left basilar airspace disease that may reflect atelectasis as result in increasing pleural fluid or developing consolidation." - Management plan: - Consulted Pulmonary Medicine and spoke with Dr. Gtz - recommendations appreciated - Bronchodilators and steroids per Pulm - CM consulted to assist with non-invasive ventilator - Antibiotics discontinued per Pulm - S/P thoracentesis on 05/10 - tolerated procedure well, without apparent complication - Consulted Respiratory Therapy - Supplemental oxygen to maintain SpO2 > 92% - Encourage incentive spirometry - Follow-up 1.6 RUL opacity with PCP/Pulm # Deconditioning - Consulted PT - Appreciate CM assistance with placement # Benign Prostatic Hyperplasia - Continue home tamsulosin, finasteride # Cholelithiasis - CT abdomen/pelvis = "1. High density material is present within the gallbladder which may be gallstones. No gallbladder wall thickening. 2. Moderate stool burden without obstruction. 3. Partially visualized large left pleural effusion." - Currently not exhibiting abdominal pain or guarding - Follow-up with PCP # Subclinical Hyperthyroidism - TSH 0.165, Free T4 1.05 Noninvasive ventilator has been delivered. Awaiting placement into inpatient rehab. Ron Guo M.D.
[2022-05-14] MEDS: GUAIFENESIN 600 MG SA TAB PO PRN (20:59)
[2022-05-14] MEDS: FINASTERIDE 5 MG TAB PO SCH (21:00)
[2022-05-14] MEDS: BUSPIRONE HCL 5 MG TABLET PO PRN (23:58)
[2022-05-15] MEDS: IPRATROPIUM BROM 0.5MG/2.5ML NEB SCH ×4 (01:35→19:40)
[2022-05-15 06:22] LABS: Absolute Lymphocytes (CBC) 1.3 K/uL (0.7-4.9); Hematocrit 37.1 % (39.6-49.0); Lymphocytes % 9.2 % (15.3-44.8); MCV 90.7 fL (80-100); MPV 7.9 fL (7.6-11.3); RBC Red Blood Cell Count 4.09 M/uL (4.33-5.43)
--- NOTE | 2022-05-15 08:42 | RAD REPORT ---
EXAM DESCRIPTION: RAD - Chest Single View - 05/15/2022 6:46 am CLINICAL HISTORY: Atelectasis Chest pain. COMPARISON: Chest Single View dated 05/14/2022; Chest Single View dated 05/12/2022; Chest Single View da orion 05/10/2022; Chest Pa And Lat (2 Views) dated 05/07/2022 FINDINGS: Portable technique limits examination quality. Moderate left pleural effusion is seen. Moderate opacity is also noted in the inferior right lung. So me of this likely represents areas of atelectasis of the well. Right lung is emphysematous but clear. The heart is mildly enlarged in size.
[2022-05-15] MEDS: BIMATOPROST OPTH SCH (09:00)
[2022-05-15] MEDS: ARFORMOTEROL TARTRATE 15 MCG/2 ML VIAL.NEB NEB SCH ×2 (09:00→19:40)
[2022-05-15] MEDS: acetaZOLAMIDE 250 MG TAB PO SCH (09:38)
[2022-05-15] MEDS: GUAIFENESIN 600 MG SA TAB PO PRN ×2 (09:38→21:27)
[2022-05-15] MEDS: predniSONE 10 MG TAB PO SCH ×2 (09:39→21:27)
[2022-05-15] MEDS: DOCUSATE NA 100 MG CAP PO SCH ×2 (09:39→21:27)
[2022-05-15] MEDS: TAMSULOSIN 0.4 MG SR CAP PO SCH ×2 (09:39→21:27)
[2022-05-15] MEDS: ENOXAPARIN 40 MG/0.4 ML SQ SCH (09:39)
[2022-05-15] MEDS: ENSURE ENLIVE 237 ML CAN PO SCH ×2 (09:40→21:00)
--- NOTE | 2022-05-15 16:17 | P.PN ---
Subjective Date of Service: 05/15/22 Primary Care Provider: Hector Chief Complaint: Respiratory failure possible atelectasis of the left side POD# 5 thoracentesis. He reports that his breathing has improved. This morning, his only concern was a persistent wet cough. He is requesting an additional PRN cough medicine. Physical Therapy recommended inpatient rehab. Appreciate case management assistance with inpatient rehab placement. Review of Systems 10-point ROS is otherwise unremarkable General: Weakness (generalized) Physical Examination - Vital Signs Temperature: 97.4 F Blood Pressure: 97/60 Pulse: 99 Respirations: 18 Pulse Ox (%): 95 Assessment And Plan - Plan - Physical Exam General: Alert, In no apparent distress, Oriented x3 HEENT: Atraumatic, Mucous membr. moist/pink, Sclerae nonicteric Neck: JVD not distended Respiratory: Diminished, with scattered rhonchi/gurgles (faint) Cardiovascular: No edema, Regular rate/rhythm, Normal S1 S2, No gallops, No rubs, No murmurs Gastrointestinal: Normal bowel sounds, Soft and benign, Non-distended, No tenderness, No rebound, No guarding Musculoskeletal: No clubbing Integumentary: No rashes Neurological: Normal speech, Normal affect # Acute Hypercapnic Respiratory Failure - likely secondary to Chronic Obstructive Pulmonary Disease and Moderate-Large Left Loculated Pleural Effusion # Acute Toxic Metabolic Encephalopathy secondary to above (resolved) # Right Upper Lung Opacity (1.6 cm) - Evaluation thus far: - ABG during rapid response = pH 7.16, PCO2 121, PO2 117 - Repeat: pH 7.32, PCO2 76.2, PO2 112 - Chest x-ray = "moderate to large loculated left pleural effusion. COPD." - CT chest = "moderate to large loculated left pleural effusion. 1.6 opacity right upper lobe probably scarring. However, a mass has a similar appearance. Followup CT in 3 months recommended." - CT head = "no acute intracranial finding identified. The patient has minimal atrophy and chronic ischemic change. Complete opacification of the right-side mastoid air cells." - Chest x-ray (05/14)= "Re- accumulation of some of the left pleural fluid noted. Increasing left mid lung and left basilar airspace disease that may reflect atelectasis as result in increasing pleural fluid or developing consolidation." - Management plan: - Consulted Pulmonary Medicine and spoke with Dr. Gtz - recommendations appreciated - Bronchodilators and steroids per Pulm - CM consulted to assist with non-invasive ventilator - Antibiotics discontinued per Pulm - S/P thoracentesis on 05/10 - tolerated procedure well, without apparent complication - Consulted Respiratory Therapy - Supplemental oxygen to maintain SpO2 > 92% - Encourage incentive spirometry - Follow-up 1.6 RUL opacity with PCP/Pulm # Deconditioning - Consulted PT - Appreciate CM assistance with placement # Benign Prostatic Hyperplasia - Continue home tamsulosin, finasteride # Cholelithiasis - CT abdomen/pelvis = "1. High density material is present within the gallbladder which may be gallstones. No gallbladder wall thickening. 2. Moderate stool burden without obstruction. 3. Partially visualized large left pleural effusion." - Currently not exhibiting abdominal pain or guarding - Follow-up with PCP # Subclinical Hyperthyroidism - TSH 0.165, Free T4 1.05 Noninvasive ventilator has been delivered. Awaiting placement into inpatient rehab. Appreciate CM assistance. Ron Guo M.D.
[2022-05-15] MEDS: FINASTERIDE 5 MG TAB PO SCH (21:27)
[2022-05-16] MEDS: ACETAMINOPHEN 500 MG TAB PO PRN (01:55)
[2022-05-16] MEDS: IPRATROPIUM BROM 0.5MG/2.5ML NEB SCH ×4 (02:20→19:22)
[2022-05-16 05:54] LABS: Absolute Lymphocytes (CBC) 1.6 K/uL (0.7-4.9); Hematocrit 34.7 % (39.6-49.0); Lymphocytes % 12.9 % (15.3-44.8); MCV 90.6 fL (80-100); MPV 7.8 fL (7.6-11.3); RBC Red Blood Cell Count 3.83 M/uL (4.33-5.43)
--- NOTE | 2022-05-16 07:16 | RAD REPORT ---
EXAM DESCRIPTION: RAD - Chest Single View - 05/16/2022 5:21 am CLINICAL HISTORY: Atelectasis COMPARISON: Portable 05/15/2022 and 05/14/2022 TECHNIQUE: AP portable chest image was obtained 05/16/2022 5:21 am . FINDINGS: Underlying fibrotic lung pattern again noted. Right lung field is clear of acute infiltrat e or mass. Left base pleural effusion may be slightly improved from the prior examination. Any differ ential is minimal. Left base atelectasis abuts the pleural fluid collection. Heart and vasculature are normal. No measurable pleural effusion and no pneumothorax. No acute bony abnormality seen. No acute aortic findings suspected. IMPRESSION: Stable or fractionally improved left pleural effusion and lung base atelectasis.
[2022-05-16] MEDS: BIMATOPROST OPTH SCH (07:53)
[2022-05-16] MEDS: ARFORMOTEROL TARTRATE 15 MCG/2 ML VIAL.NEB NEB SCH ×2 (08:00→19:22)
[2022-05-16] MEDS: TAMSULOSIN 0.4 MG SR CAP PO SCH ×2 (08:30→21:10)
[2022-05-16] MEDS: acetaZOLAMIDE 250 MG TAB PO SCH (08:30)
[2022-05-16] MEDS: predniSONE 10 MG TAB PO SCH ×2 (08:30→21:09)
[2022-05-16] MEDS: DOCUSATE NA 100 MG CAP PO SCH ×2 (08:30→21:09)
[2022-05-16] MEDS: ENSURE ENLIVE 237 ML CAN PO SCH ×2 (08:31→21:00)
[2022-05-16] MEDS: ENOXAPARIN 40 MG/0.4 ML SQ SCH (08:31)
[2022-05-16] MEDS: MAGNESIUM HYDROXIDE 8% 30 ML PO SCH ×2 (12:16→21:10)
--- NOTE | 2022-05-16 12:32 | P.PN ---
Subjective Date of Service: 05/16/22 Primary Care Provider: Hector Chief Complaint: COPD lung cancer malignant effusion P patient has improved significantly his breathing is better his weakness is improved Review of Systems 10-point ROS is otherwise unremarkable General: Weakness Respiratory: Shortness of Breath Physical Examination - Vital Signs Temperature: 97.5 F Blood Pressure: 109/59 Pulse: 91 Respirations: 18 Pulse Ox (%): 97 - Physical Exam General: Alert, In no apparent distress, Mild distress Respiratory: Clear to auscultation bilaterally, Diminished (On the left side) Cardiovascular: No edema, Regular rate/rhythm Assessment And Plan - Current Problems (Diagnosis) (1) Chronic respiratory failure with hypoxia and hypercapnia Current Visit: Yes Status: Acute Plan: Patient has improved has chronic hypoxic hypercapnic respiratory failure NIV is also improved still to go to rehab continue with present medication titrate sat to 90% (2) Lung cancer Current Visit: Yes Status: Acute Plan: Patient presented with a loculated pleural effusion status postthoracentesis diagnosis of non-small cell cancer lung primary he does have a left upper lobe opacity/lung mass prognosis poor not going to be a candidate for biopsy or any treatment due to poor functional status chest x-ray shows a recurrence of pleural effusion on the left side and up with a Pleurx catheter if his effusion versus Qualifiers: Laterality: left Physician Review: Patient Assessed, Agree with Above Assessment and Plan
--- NOTE | 2022-05-16 15:46 | P.PN ---
Date of Service: 05/16/22 Subjective POD# 6 thoracentesis. Pathology of pleural effusion with adenocarcinoma of the lungs; awaiting for transfer to rehab Review of Systems 10-point ROS is otherwise unremarkable General: Weakness (generalized) Physical Examination - Vital Signs reviewed - Physical Exam General: Alert, In no apparent distress, Oriented x3 Respiratory: Diminished, with scattered rhonchi/gurgles (faint) Cardiovascular: No edema, Regular rate/rhythm, Normal S1 S2, No gallops, No rubs, No murmurs Gastrointestinal: Normal bowel sounds, Soft and benign, Non-distended, No tenderness, No rebound, No guarding Musculoskeletal: No clubbing Neurological: No focal deficits Assessment And Plan - Assessment 1. Acute Hypercapnic Respiratory Failure 2. Chronic Obstructive Pulmonary Disease and Moderate-Large Left Loculated Pleural Effusion 3. Acute Toxic Metabolic Encephalopathy secondary to above (resolved) 4. Right Upper Lung Opacity (1.6 cm) 5. Critical care myopathy 6. Benign Prostatic Hyperplasia 7. Cholelithiasis 8. Subclinical Hyperthyroidism - Plan 1. Continue with IV antibiotics 2. Cx negative 3. Repeat chest x-ray Alirio 4. Outpt Oncology follow-up may be needed; 5. Rehab evaluatiob 6. Continue with nebs as needed 7. O2 per protocol 8. Heplock IV 9. Repeat labs 10. GI and DVT prophylaxis
[2022-05-16] MEDS: GUAIFENESIN 600 MG SA TAB PO PRN (21:10)
[2022-05-16] MEDS: FINASTERIDE 5 MG TAB PO SCH (21:10)
[2022-05-17] MEDS: ACETAMINOPHEN 500 MG TAB PO PRN ×2 (00:15→21:07)
[2022-05-17] MEDS: BUSPIRONE HCL 5 MG TABLET PO PRN (00:16)
[2022-05-17] MEDS: BENZONATATE 100 MG CAP PO PRN (00:17)
[2022-05-17] MEDS: IPRATROPIUM BROM 0.5MG/2.5ML NEB SCH ×4 (02:00→20:55)
--- NOTE | 2022-05-17 06:25 | RAD REPORT ---
EXAM DESCRIPTION: Nikolas Single View05/17/2022 5:20 am CLINICAL HISTORY: Shortness of breath/atelectasis COMPARISON: May 16, 2022 FINDINGS: Mild worsening in moderate left atelectasis. Left pleural effusion probably relatively sm all Right lung appears clear of acute infiltrate heart is normal size
[2022-05-17] MEDS: acetaZOLAMIDE 250 MG TAB PO SCH (08:07)
[2022-05-17] MEDS: ENOXAPARIN 40 MG/0.4 ML SQ SCH (08:07)
[2022-05-17] MEDS: DOCUSATE NA 100 MG CAP PO SCH ×2 (08:08→21:07)
[2022-05-17] MEDS: TAMSULOSIN 0.4 MG SR CAP PO SCH ×2 (08:08→21:07)
[2022-05-17] MEDS: predniSONE 10 MG TAB PO SCH ×2 (08:08→21:06)
[2022-05-17] MEDS: ENSURE ENLIVE 237 ML CAN PO SCH ×2 (08:09→21:00)
[2022-05-17] MEDS: MAGNESIUM HYDROXIDE 8% 30 ML PO SCH ×2 (08:09→21:06)
[2022-05-17] MEDS: BIMATOPROST OPTH SCH (09:00)
[2022-05-17] MEDS: ARFORMOTEROL TARTRATE 15 MCG/2 ML VIAL.NEB NEB SCH ×2 (09:15→20:55)
[2022-05-17] MEDS: FINASTERIDE 5 MG TAB PO SCH (21:07)
[2022-05-17] MEDS: POLYETHYL GLY 3350 17 GM/DOSE PO PRN (21:21)
--- NOTE | 2022-05-17 21:26 | P.PN ---
Date of Service: 05/17/22 Subjective Pathology of pleural effusion with adenocarcinoma of the lungs; patient participating actively with physical therapy-walk about 100 ft today. Arranging for peer to peer for possible rehab placement Physical Examination - Vital Signs reviewed - Physical Exam General: Alert, In no apparent distress, Oriented x3 Respiratory: Diminished, with basilar rhonchi (faint) Cardiovascular: Regular rate/rhythm, Normal S1 S2, No murmurs Gastrointestinal: Normal bowel sounds, Soft and benign, Non-distended, No tenderness Musculoskeletal: No clubbing Neurological: No focal deficits Assessment And Plan - Assessment 1. Acute Hypercapnic Respiratory Failure 2. Chronic Obstructive Pulmonary Disease and Moderate-Large Left Loculated Pleural Effusion 3. Acute Toxic Metabolic Encephalopathy 4. Right Upper Lung Opacity (1.6 cm) 5. Critical care myopathy 6. Benign Prostatic Hyperplasia 7. Cholelithiasis 8. Subclinical Hyperthyroidism - Plan 1. Continue with IV antibiotics; nebs prn; outpt NIV arranged 2. Cx negative 3. Repeat chest x-ray in AM 4. Outpt Oncology follow-up may be needed; 5. Rehab evaluation 6. Continue with nebs as needed 7. O2 per protocol 8. Heplock IV 9. Repeat labs 10. Mental status is stable 11. GI and DVT prophylaxis
[2022-05-18] MEDS: IPRATROPIUM BROM 0.5MG/2.5ML NEB SCH ×4 (02:15→20:00)
[2022-05-18] MEDS: ARFORMOTEROL TARTRATE 15 MCG/2 ML VIAL.NEB NEB SCH ×2 (08:05→20:00)
[2022-05-18] MEDS: TAMSULOSIN 0.4 MG SR CAP PO SCH ×2 (08:40→19:32)
[2022-05-18] MEDS: MAGNESIUM HYDROXIDE 8% 30 ML PO SCH ×2 (08:40→19:32)
[2022-05-18] MEDS: acetaZOLAMIDE 250 MG TAB PO SCH (08:40)
[2022-05-18] MEDS: predniSONE 10 MG TAB PO SCH ×2 (08:41→19:32)
[2022-05-18] MEDS: BIMATOPROST OPTH SCH (08:41)
[2022-05-18] MEDS: DOCUSATE NA 100 MG CAP PO SCH ×2 (08:41→19:32)
[2022-05-18] MEDS: ENOXAPARIN 40 MG/0.4 ML SQ SCH (08:41)
[2022-05-18] MEDS: ENSURE ENLIVE 237 ML CAN PO SCH ×2 (08:42→19:33)
[2022-05-18 14:30] LABS: Absolute Lymphocytes (CBC) 1.7 K/uL (0.7-4.9); Hematocrit 35.3 % (39.6-49.0); Lymphocytes % 14.3 % (15.3-44.8); MCV 91.5 fL (80-100); MPV 7.4 fL (7.6-11.3); RBC Red Blood Cell Count 3.86 M/uL (4.33-5.43)
[2022-05-18 14:37] LABS: Magnesium 2.7 mg/dL (1.6-2.4); Potassium 4.3 mmol/L (3.5-5.1)
[2022-05-18] MEDS: FINASTERIDE 5 MG TAB PO SCH (19:32)
[2022-05-18] MEDS: POLYETHYL GLY 3350 17 GM/DOSE PO PRN (19:32)
[2022-05-18] MEDS: ACETAMINOPHEN 500 MG TAB PO PRN (19:39)
[2022-05-18] MEDS: BENZONATATE 100 MG CAP PO PRN (23:33)
[2022-05-19] MEDS: IPRATROPIUM BROM 0.5MG/2.5ML NEB SCH ×4 (02:30→19:35)
[2022-05-19] MEDS: ARFORMOTEROL TARTRATE 15 MCG/2 ML VIAL.NEB NEB SCH ×2 (08:00→19:35)
[2022-05-19] MEDS: acetaZOLAMIDE 250 MG TAB PO SCH (08:36)
[2022-05-19] MEDS: TAMSULOSIN 0.4 MG SR CAP PO SCH ×2 (08:36→20:43)
[2022-05-19] MEDS: ENOXAPARIN 40 MG/0.4 ML SQ SCH (08:36)
[2022-05-19] MEDS: DOCUSATE NA 100 MG CAP PO SCH ×2 (08:36→20:43)
[2022-05-19] MEDS: MAGNESIUM HYDROXIDE 8% 30 ML PO SCH ×2 (08:36→20:44)
[2022-05-19] MEDS: predniSONE 10 MG TAB PO SCH ×2 (08:37→20:44)
[2022-05-19] MEDS: ENSURE ENLIVE 237 ML CAN PO SCH ×2 (08:37→20:44)
[2022-05-19] MEDS: BIMATOPROST OPTH SCH (09:00)
[2022-05-19] MEDS: FINASTERIDE 5 MG TAB PO SCH (20:43)
[2022-05-19] MEDS: BENZONATATE 100 MG CAP PO PRN (20:43)
[2022-05-19] MEDS: ACETAMINOPHEN 500 MG TAB PO PRN (20:43)
[2022-05-19] MEDS: POLYETHYL GLY 3350 17 GM/DOSE PO PRN (20:44)
[2022-05-20] MEDS: IPRATROPIUM BROM 0.5MG/2.5ML NEB SCH ×4 (01:30→20:15)
[2022-05-20] MEDS: ARFORMOTEROL TARTRATE 15 MCG/2 ML VIAL.NEB NEB SCH ×2 (08:09→20:15)
[2022-05-20] MEDS: ENSURE ENLIVE 237 ML CAN PO SCH ×2 (09:00→20:16)
[2022-05-20] MEDS: BIMATOPROST OPTH SCH (09:00)
[2022-05-20] MEDS: MAGNESIUM HYDROXIDE 8% 30 ML PO SCH ×2 (10:09→20:16)
[2022-05-20] MEDS: TAMSULOSIN 0.4 MG SR CAP PO SCH ×2 (10:10→20:16)
[2022-05-20] MEDS: DOCUSATE NA 100 MG CAP PO SCH ×2 (10:10→20:16)
[2022-05-20] MEDS: ENOXAPARIN 40 MG/0.4 ML SQ SCH (10:10)
[2022-05-20] MEDS: acetaZOLAMIDE 250 MG TAB PO SCH (10:10)
[2022-05-20] MEDS: predniSONE 10 MG TAB PO SCH ×2 (10:10→20:20)
[2022-05-20] MEDS: FINASTERIDE 5 MG TAB PO SCH (20:16)
[2022-05-20] MEDS: ACETAMINOPHEN 500 MG TAB PO PRN (20:20)
[2022-05-20] MEDS: POLYETHYL GLY 3350 17 GM/DOSE PO PRN (20:24)
[2022-05-20] MEDS: HYDROCODONE/CHLORPHEN 5 ML/OSYR PO PRN (23:07)
[2022-05-21] MEDS: IPRATROPIUM BROM 0.5MG/2.5ML NEB SCH ×4 (01:10→19:15)
[2022-05-21] MEDS: ARFORMOTEROL TARTRATE 15 MCG/2 ML VIAL.NEB NEB SCH ×2 (08:54→19:15)
[2022-05-21] MEDS: ENSURE ENLIVE 237 ML CAN PO SCH ×2 (09:00→20:53)
[2022-05-21] MEDS: BIMATOPROST OPTH SCH (09:00)
[2022-05-21] MEDS: ENOXAPARIN 40 MG/0.4 ML SQ SCH (09:12)
[2022-05-21] MEDS: DOCUSATE NA 100 MG CAP PO SCH ×2 (09:13→20:53)
[2022-05-21] MEDS: acetaZOLAMIDE 250 MG TAB PO SCH (09:13)
[2022-05-21] MEDS: predniSONE 10 MG TAB PO SCH ×2 (09:13→20:52)
[2022-05-21] MEDS: MAGNESIUM HYDROXIDE 8% 30 ML PO SCH ×2 (09:13→20:53)
[2022-05-21] MEDS: TAMSULOSIN 0.4 MG SR CAP PO SCH ×2 (09:13→20:52)
[2022-05-21] MEDS: GUAIFENESIN 600 MG SA TAB PO PRN (13:48)
--- NOTE | 2022-05-21 18:10 | P.PN ---
Date of Service: 05/18/22 Subjective Patient continues to improve. Clinical symptoms are much better. Patient discharged to work with physical therapy. We are working on arrangements for inpatient rehab placement. Physical Examination - Vital Signs reviewed - Physical Exam General: Alert, In no apparent distress, Oriented x3 Respiratory: Clear bilaterally except for left basilar crackles but otherwise clear; end-expiratory wheezing Cardiovascular: Regular rate/rhythm, Normal S1 S2, No murmurs Gastrointestinal: Normal bowel sounds, Soft and benign, Non-distended, No tenderness Musculoskeletal: No clubbing; no edema Neurological: No focal deficits Assessment And Plan - Assessment 1. Acute Hypercapnic Respiratory Failure 2. Chronic Obstructive Pulmonary Disease and Moderate-Large Left Loculated Pleural Effusion; metastatic lung adenocarcinoma 3. Acute Toxic Metabolic Encephalopathy-resolved 4. Right Upper Lung Opacity (1.6 cm); lung adenocarcinoma 5. Critical care myopathy 6. Benign Prostatic Hyperplasia 7. Cholelithiasis 8. Subclinical Hyperthyroidism - Plan 1. Continue with IV antibiotics; nebs prn; outpt NIV arranged 2. Cx negative( 3. outpatient chest x-ray follow-up 4. Outpt Oncology follow-up 5. Rehab evaluation; awaiting for insurance approval 6. Continue with nebs as needed 7. O2 per protocol 8. Heplock IV 9. Repeat labs 10. Mental status is stable 11. GI and DVT prophylaxis
--- NOTE | 2022-05-21 18:11 | P.PN ---
Date of Service: 05/19/22 Subjective Patient is stable. Feeling a little weaker today. Waiting for rehab placement. Physical Examination - Vital Signs reviewed - Physical Exam General: Alert, In no apparent distress, Oriented x3 Respiratory: Clear bilaterally except for left basilar crackles but otherwise clear; end-expiratory wheezing Cardiovascular: Regular rate/rhythm, Normal S1 S2, No murmurs Gastrointestinal: Normal bowel sounds, Soft and benign, Non-distended, No tenderness Musculoskeletal: No clubbing; no edema Neurological: No focal deficits Assessment And Plan - Assessment 1. Acute Hypercapnic Respiratory Failure 2. Chronic Obstructive Pulmonary Disease and Moderate-Large Left Loculated Pleural Effusion; metastatic lung adenocarcinoma 3. Acute Toxic Metabolic Encephalopathy-resolved 4. Right Upper Lung Opacity (1.6 cm); lung adenocarcinoma 5. Critical care myopathy 6. Benign Prostatic Hyperplasia 7. Cholelithiasis 8. Subclinical Hyperthyroidism - Plan Continue plan care while we wait for inpatient rehab acceptance: 1. Continue with IV antibiotics; nebs prn; outpt NIV arranged 2. Cx negative 3. Continue with aggressive physical therapy 4. Outpt Oncology follow-up 5. Rehab evaluation; awaiting for insurance approval 6. Continue with nebs as needed 7. O2 per protocol 8. Heplock IV 9. GI and DVT prophylaxis
--- NOTE | 2022-05-21 18:14 | P.PN ---
Date of Service: 05/20/22 Subjective Patient continues to improve. Clinical symptoms are improving. No new complaints. Awaiting for inpatient rehab approval by insurance company. Expedited appeal pending Physical Examination - Vital Signs reviewed - Physical Exam General: Alert, In no apparent distress, Oriented x3 Respiratory: Clear bilaterally except for left basilar crackles but otherwise clear; end-expiratory wheezing Cardiovascular: Regular rate/rhythm, Normal S1 S2, No murmurs Gastrointestinal: Normal bowel sounds, Soft and benign, Non-distended, No tenderness Musculoskeletal: No clubbing; no edema Neurological: No focal deficits Assessment And Plan - Assessment 1. Acute Hypercapnic Respiratory Failure 2. Chronic Obstructive Pulmonary Disease and Moderate-Large Left Loculated Pleural Effusion; metastatic lung adenocarcinoma 3. Acute Toxic Metabolic Encephalopathy-resolved 4. Right Upper Lung Opacity (1.6 cm); lung adenocarcinoma 5. Critical care myopathy 6. Benign Prostatic Hyperplasia 7. Cholelithiasis 8. Subclinical Hyperthyroidism - Plan Continue plan care while we wait for inpatient rehab acceptance: 1. Continue with IV antibiotics; nebs prn; outpt NIV arranged 2. pain control as needed 3. Continue with aggressive physical therapy 4. Outpt Oncology follow-up 5. Rehab evaluation; awaiting for insurance approval 6. Continue with nebs as needed 7. O2 per protocol 8. Heplock IV 9. GI and DVT prophylaxis
--- NOTE | 2022-05-21 18:15 | P.PN ---
Date of Service: 05/21/22 Subjective Patient is doing well with no new complaints. Clinical symptoms continue to improve. Patient denies any abnormalities. Physical Examination - Vital Signs reviewed - Physical Exam General: Alert, In no apparent distress, Oriented x3 Respiratory: Clear bilaterally except for left basilar crackles but otherwise clear; end-expiratory wheezing Cardiovascular: Regular rate/rhythm, Normal S1 S2, No murmurs Gastrointestinal: Normal bowel sounds, Soft and benign, Non-distended, No tenderness Musculoskeletal: No clubbing; no edema Neurological: No focal deficits Assessment And Plan - Assessment 1. Acute Hypercapnic Respiratory Failure 2. Chronic Obstructive Pulmonary Disease and Moderate-Large Left Loculated Pleural Effusion; metastatic lung adenocarcinoma 3. Acute Toxic Metabolic Encephalopathy-resolved 4. Right Upper Lung Opacity (1.6 cm); lung adenocarcinoma 5. Critical care myopathy 6. Benign Prostatic Hyperplasia 7. Cholelithiasis 8. Subclinical Hyperthyroidism - Plan Continue plan care while we wait for inpatient rehab acceptance: 1. Oral antibiotics; nebs prn; outpt NIV arranged 2. pain control as needed 3. Continue with aggressive physical therapy 4. Outpt Oncology follow-up 5. Rehab evaluation; awaiting for insurance approval 6. Continue with nebs as needed 7. O2 per protocol 8. Heplock IV 9. GI and DVT prophylaxis
--- NOTE | 2022-05-21 18:24 | P.DS ---
Discharge Date: 05/21/22 Primary Care Provider: Hector Reason for Admission: COPD lung cancer malignant effusion Brief History of Present Illness: Patient is a 81 year old male with past medical history of COPD who presented to the emergency department with complaints of shortness of breath. Patient states that he saw his PCP for this today and prescribed with prednisone and cefdinir. Upon arrival to the emergency department, labored breathing/accessory muscle use noted, saturating 85% on 5L. He was put on BiPAP, given breathing treatment, Solu-Medrol, and Zosyn. His chest x-ray and chest CT showed a "Moderate to large loculated left pleural effusion and 1.6 opacity right upper lobe probably scarring." Patient reports minimal improvement in symptoms. ABG with pH 7.34, CO2 89.2, bicarb 46.3. Labs significant for sodium 129, chloride 83, CO2 greater than 45, WBC 12. Lactate within normal limits. COVID/flu negative. Patient is admitted for further management. Hospital Course: Patient had a prolonged hospitalization. Thoracentesis was performed. Pleural fluid revealed lung adenocarcinoma. We are trying to get patient set up for inpatient rehab. However patient was denied inpatient rehab. We did appear to be here and patient was denied rehab once again. We did an expedited appeal and insurance denied inpatient rehab once again. We recommended outpatient follow-up with Oncology. Outpatient PCP follow-up with Dr. Young. Return to hospital if clinical symptoms worsen. Patient will need repeat chest x-ray in 1-2 weeks to make sure fluid is not reaccumulating. Repeat lab data would be suggested as well. We did arrange for a noninvasive ventilator and will go ahead and arrange for home oxygen and nebulizer therapy. Patient is stable for discharge home. Vital Signs/Physical Exam: Temp Pulse Resp BP Pulse Ox 98.1 F 100 H 16 123/63 93 05/21/22 15:36 05/21/22 15:36 05/21/22 15:36 05/21/22 15:36 05/21/22 15:36 General: Alert, In no apparent distress, Oriented x3 Respiratory: Clear to auscultation bilaterally ( Except for left basilar crackles which are minimal; end-expiratory wheezing) Laboratory Data at Discharge: WBC 11.80 K/uL (4.3-10.9) H 05/18/22 14:10 Hgb 11.3 g/dL (13.6-17.9) L 05/18/22 14:10 Hct 35.3 % (39.6-49.0) L 05/18/22 14:10 Plt Count 330 K/uL (152-406) 05/18/22 14:10 PT 10.3 SECONDS (9.5-12.5) 05/06/22 21:40 INR 0.94 05/06/22 21:40 Sodium 142 mmol/L (136-145) 05/18/22 14:10 Potassium 4.3 mmol/L (3.5-5.1) 05/18/22 14:10 BUN 20 mg/dL (7-18) H 05/18/22 14:10 Creatinine 0.54 mg/dL (0.70-1.30) L 05/18/22 14:10 Glucose 102 mg/dL (74-106) 05/18/22 14:10 Phosphorus 3.7 mg/dL (2.5-4.9) 05/07/22 06:21 Magnesium 2.7 mg/dL (1.6-2.4) H 05/18/22 14:10 Total Bilirubin 0.3 mg/dL (0.2-1.0) 05/06/22 21:40 AST 17 U/L (15-37) 05/06/22 21:40 ALT 34 U/L (16-61) 05/06/22 21:40 Alkaline Phosphatase 102 U/L (45-117) 05/06/22 21:40 Triglycerides 62 mg/dL (<150) 05/07/22 06:21 Cholesterol Cancelled 05/10/22 10:00 HDL Cholesterol 101 mg/dL (40-60) H 05/07/22 06:21 Cholesterol/HDL Ratio 1.97 05/07/22 06:21 Home Medications: Finasteride [Proscar*] 5 mg PO BEDTIME 07/11/16 Fluticasone/Salmeterol [Advair 500/50 Diskus*] 1 puff IH BID 07/11/16 Tamsulosin [Flomax*] 0.4 mg PO BID 07/11/16 Bimatoprost [[place] Opthalmic Drops*] 1 drop OPTH DAILY 05/07/22 Fluticasone Propionate [Flovent Diskus] 1 inh PO DAILY 05/07/22 Tiotropium [place] [Spiriva] 1 inh PO DAILY 05/07/22 Albuterol Neb [Proventil 0.083% Neb Soln] 2.5 mg NEB [id number] PRN #60 amp 05/21/22 Arformoterol Tartrate [Brovana] 15 mcg NEB BIDRESP #60 vial.neb 05/21/22 Benzonatate [Tessalon Perle*] 100 mg PO TID PRN #60 cap 05/21/22 Buspirone HCl [Buspar*] 10 mg PO TID PRN #120 tab 05/21/22 Docusate [Colace Cap*] 100 mg PO BID #60 cap 05/21/22 Ensure Enlive 237 ml PO BID #60 can 05/21/22 Famotidine [Pepcid*] 20 mg PO BID PRN #60 tab 05/21/22 Hydrocodone/Chlorphen Polis [Tussionex Oral Susp*] 5 ml PO BID PRN #100 ml 05/21/22 Ipratropium Neb [Atrovent*] 0.5 mg NEB [id number] #60 amp 05/21/22 acetaZOLAMIDE [Diamox*] 250 mg PO DAILY #30 tab 05/21/22 predniSONE [Deltasone*] 10 mg PO BID #20 tab 05/21/22 New Medications: Ipratropium Neb [Atrovent*] 0.5 mg NEB [id number] #60 amp Arformoterol Tartrate [Brovana] 15 mcg NEB BIDRESP #60 vial.neb Buspirone HCl [Buspar*] 10 mg PO TID PRN #120 tab PRN Reason: Anxiety Docusate [Colace Cap*] 100 mg PO BID #60 cap predniSONE [Deltasone*] 10 mg PO BID #20 tab acetaZOLAMIDE [Diamox*] 250 mg PO DAILY #30 tab Ensure Enlive 237 ml PO BID #60 can Famotidine [Pepcid*] 20 mg PO BID PRN #60 tab PRN Reason: Indigestion Albuterol Neb [Proventil 0.083% Neb Soln] 2.5 mg NEB [id number] PRN #60 amp PRN Reason: Shortness Of Breath Benzonatate [Tessalon Perle*] 100 mg PO TID PRN #60 cap PRN Reason: Cough Hydrocodone/Chlorphen Polis [Tussionex Oral Susp*] 5 ml PO BID PRN #100 ml PRN Reason: Cough Physician Discharge Instructions: OK TO DC IV AND DC HOME FOLLOW-UP WITH PRIMARY CARE PROVIDER IN 1-2 WEEKS FOLLOW-UP WITH PULMONARY IN 1-2 WEEKS FOLLOW-UP WITH ONCOLOGY IN 1-2 WEEKS RETURN TO THE ER IF SYMPTOMS WORSENS CALL DR. WALTERS AT [phone] IF ANY QUESTIONS REGARDING HOSPITAL STAY. PLEASE CALL THE FLOOR AT [phone] IF ANY MEDICATION OR NURSING QUESTIONS. PLEASE MAKE SURE HOME HEALTH IS ARRANGED PRIOR TO DISCHARGE. PATIENT WILL NEED PHYSICAL THERAPY AND NURSING CARE PATIENT SHOULD HAVE NONINVASIVE VENTILATOR AT HOME; PLEASE MAKE SURE PATIENT ALSO HAS TRANSPORTATION SET UP AT DISCHARGE Diet: Regular Activity: Fall precautions Followup: William Young DO [Primary Care Provider] -
[2022-05-21] MEDS: FINASTERIDE 5 MG TAB PO SCH (20:52)
[2022-05-21] MEDS: ACETAMINOPHEN 500 MG TAB PO PRN (20:52)
[2022-05-21] MEDS: POLYETHYL GLY 3350 17 GM/DOSE PO PRN (20:53)
[2022-05-22] MEDS: IPRATROPIUM BROM 0.5MG/2.5ML NEB SCH ×2 (01:20→09:23)
[2022-05-22] MEDS: HYDROCODONE/CHLORPHEN 5 ML/OSYR PO PRN (01:33)
[2022-05-22] MEDS: ENSURE ENLIVE 237 ML CAN PO SCH (08:19)
[2022-05-22] MEDS: ENOXAPARIN 40 MG/0.4 ML SQ SCH (08:19)
[2022-05-22] MEDS: DOCUSATE NA 100 MG CAP PO SCH (08:19)
[2022-05-22] MEDS: BIMATOPROST OPTH SCH (08:19)
[2022-05-22] MEDS: predniSONE 10 MG TAB PO SCH (08:19)
[2022-05-22] MEDS: acetaZOLAMIDE 250 MG TAB PO SCH (08:19)
[2022-05-22] MEDS: MAGNESIUM HYDROXIDE 8% 30 ML PO SCH (08:19)
[2022-05-22] MEDS: TAMSULOSIN 0.4 MG SR CAP PO SCH (08:19)
[2022-05-22] MEDS: ARFORMOTEROL TARTRATE 15 MCG/2 ML VIAL.NEB NEB SCH (09:23)
[2022-05-22 09:52] VITALS: O2SAT 95
[2022-05-22 11:49] VITALS: BP 116/60; TEMP 97.9
== END 2022-05-22 14:00 | disposition home health service (06) | DRG 180 ==
LOC: ER 21:14 → ERHOLD 23:24 → 2ND 23:45
PROVIDERS: ADMIT Hospitalist; ATTEND Hospitalist
PROC: 5A09557 Assistance with Respiratory Ventilation, Greater than 96 Consecutive Hours, Continuous Positive Airway Pressure (ICD-10-PCS; 2022-05-07)
PROC: 0W9B3ZX Drainage of Left Pleural Cavity, Percutaneous Approach, Diagnostic (ICD-10-PCS; principal; 2022-05-10)
DX: C34.90 Malignant neoplasm of unspecified part of unspecified bronchus or lung (principal); G92.8 Other toxic encephalopathy; J96.21 Acute and chronic respiratory failure with hypoxia; J96.22 Acute and chronic respiratory failure with hypercapnia; E87.1 Hypo-osmolality and hyponatremia; J90 Pleural effusion, not elsewhere classified; G72.81 Critical illness myopathy; R64 Cachexia; N40.0 Benign prostatic hyperplasia without lower urinary tract symptoms; J44.9 Chronic obstructive pulmonary disease, unspecified; K80.20 Calculus of gallbladder without cholecystitis without obstruction; E05.90 Thyrotoxicosis, unspecified without thyrotoxic crisis or storm; D72.829 Elevated white blood cell count, unspecified; Z66 Do not resuscitate; Z68.25 Body mass index [BMI] 25.0-25.9, adult; Z79.52 Long term (current) use of systemic steroids; Z79.899 Other long term (current) drug therapy; Z20.822 Contact with and (suspected) exposure to COVID-19
CPT/HCPCS: 0240U; 32555; 36415; 70450; 71045; 71046; 71250; 74176; 76604; 80048; 80061; 80076; 80202; 82805; 82945; 82947; 83605; 83615; 83735; 83880; 84100; 84157; 84311; 84439; 84443; 84484; 85025; 85610; 87015; 87040; 87102; 87116; 87205; 87206; 88108; 88305; 89050; 93005; 93306; 94010; 94660; 94668; 94760; 96365; 96375; 97110; 97116; 97161; 97165; 97530; 99285; J1650; J2543; J2920; J2930; J3370; J7050; J7512; J7605; J7613; J7614; J7644

== ENCOUNTER 2022-06-16 18:03 | Emergency (ER) | payer OTHER ==
--- OUTSIDE RECORDS SUMMARY | 2022-06-16 18:09 | XMS REPORT | Continuity of Care Document ---
:1940 Author Organization [facility] t Address [address] [place] [address] Care Team Providers Name Role Phone Wagner YOO, Avi Cabrera Primary Care Physician [phone] William Young Attending Clinician Unavailable AIDAN RUIZ Attending Clinician Unavailable AIDAN RUIZ Attending Clinician Unavailable Aidan Ruiz DO Attending Clinician Doctor Unassigned, [place] Attending Clinician Unavailable JASSI FONTAINE Attending Clinician Unavailable Nadiya Elmore Attending Clinician Unavailable Therapist, Jim Pulmonary Attending Clinician Unavailable Jassi Fontaine MD Attending Clinician Therapist, Jim Respiratory Attending Clinician Unavailable Meliton-Mbayo_A_AH Attending Clinician Unavailable Meliton-Mbayo_A_AH Admitting Clinician Unavailable Payers Payer Name Policy Type Policy Number Effective Date Expiration Date S ource HUMANA CHOICE [id number] 2021 00:00:00 [facility] [facility] [place] - [id number] [facility] (MEDICARE REPLACEMENT/ADVANT AGE - HMO) Problems Condition Condition Condition Status Onset Resolution Last Treating Co mments Source Name Details Category Date Date Treatment Clinician Date [id number] 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, - [facility] [id number] Benign Problem Commo n 101 prostatic [facility] hyperplasi - [facility] symptoms 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, [facility] trigger [facility] No known No known Disease Unive rs active active ity of problems problems [facility] Allergies, Adverse Reactions, Alerts Allergy Allergy Status Severity Reaction(s) Onset Inactive Treating Comm ents Source Name Type Date Date Clinician NO KNOWN Drug Active Univers ALLERGIE Class ity of S [facility] Social History Social Habit Start Date Stop Date Quantity Comments Source History of Tobacco Common [facility] - Use [facility] Sex Assigned At Common Sp carmen - [facility] Exposure to 2022-04-08 2022-04-18 Not sure [facility] SARS-CoV-2 (event) 00:00:00 10:53:00 [facility] Alcohol intake 2022-04-18 2022-04-18 Ex-drinker University 00:00:00 00:00:00 (finding) [facility] Tobacco use and 2022-02-11 2022-02-11 Smokeless Universit y of exposure 00:00:00 00:00:00 tobacco non-user [facility] dical Branch Cigarettes smoked 2022-02-11 2022-02-11 Univers ity of current (pack per 00:00:00 00:00:00 ) - Reported Branch Cigarette 2022-02-11 2022-02-11 University of pack-years 00:00:00 00:00:00 [facility] Smoking Status Start Date Stop Date Source Former Smoker 2022-05-04 00:00:00 2022-05-04 00:00:00 Common S pirit - [facility] Medications Ordered Filled Start Stop Current Ordering Indication Dosage Frequency Signature Comments Components Source Medication Medication Date Date Medication? Clinician (SIG) Name Name Formoterol 2021-05 Yes 20ug Inhale 20 Un norberto Fumarate 2-27 mcg 2 ity of (PERFOROMIS 00:00: (two) [place] T) 20 mcg/2 00 times Medical mL Nebu daily. Branch arformotero 2021-05 Yes [id number] 15ug Use 2 mL Univers L (BROVANA) 2-21 as ity of 15 mcg/2 mL 00:[place] nebulizer 00 in the Medical solution morning Branch and 2 mL in the evening. revefenacin 2021-05 Yes [id number] 175ug Inhale 175 Univers (YUPELRI) 2-21 mcg daily. ity of 175 mcg/3 00:00: [place] mL Nebu 00 Medical Branch budesonide 2021-05 Yes [id number] .25mg Inhale 2 Univers (PULMICORT) 2-21 mL in the ity of 0.25 mg/2 00:00: morning [place] mL 00 and 2 mL Medical nebulizer in the Branch solution evening. revefenacin 2021-05 Yes [id number] 175ug Inhale 175 Univers (YUPELRI) 2-21 mcg daily. ity of 175 mcg/3 00:00: [place] mL Nebu 00 Medical Branch budesonide 2021-05 Yes [id number] .25mg Inhale 2 Univers (PULMICORT) 2-21 mL in the it y of 0.25 mg/2 00:00: morning [place] mL 00 and 2 mL Medical nebulizer in the Branch solution evening. revefenacin 2021-05 Yes [id number] 175ug Inhale 175 Univers (YUPELRI) 2-21 mcg daily. ity of 175 mcg/3 00:00: [place] mL Nebu 00 Medical Branch budesonide 2021-05 Yes [id number] .25mg Inhale 2 Univers (PULMICORT) 2-21 mL in the ity of 0.25 mg/2 00:00: morning [place] mL 00 and 2 mL Medical nebulizer in the Branch solution evening. arformotero 2021-05- No [id number] 15ug Use 2 mL Univers L (BROVANA) 2-21 12-27 as ity of 15 mcg/2 mL 00:00: 00:00 directed [place] nebulizer 00 :00 in the Medical solution morning Branch and 2 mL in the evening. doxycycline 2021-05 Yes [id number] 100mg Take 1 Univers 100 mg EC 1-18 tablet by ity o f tablet 00:00: mouth in [place] 00 the Medical morning Branch and 1 tablet in the evening. doxycycline 2021-05 Yes [id number] 100mg Take 1 Univers 100 mg EC 1-18 tablet by ity o f tablet 00:00: mouth in [place] 00 the Medical morning Branch and 1 tablet in the evening. doxycycline 2021-05 Yes [id number] 100mg Take 1 Univers 100 mg EC 1-18 tablet by ity o f tablet 00:00: mouth in [place] 00 the Medical morning Branch and 1 tablet in the evening. doxycycline 2021-05 Yes [id number] 100mg Take 1 Univers 100 mg EC 1-18 tablet by ity o f tablet 00:00: mouth in [place] [address] the Medical morning Branch and 1 tablet in the evening. doxycycline 2021-05 Yes [id number] 100mg Take 1 Univers 100 mg EC 1-18 tablet by ity o f tablet 00:00: mouth in [place] 00 the Medical morning Branch and 1 tablet in the evening. doxycycline 2021-05 Yes [id number] 100mg Take 1 Univers 100 mg EC 1-18 tablet by ity o f tablet 00:00: mouth in [place] 00 the Medical morning Branch and 1 tablet in the evening. doxycycline 2021-05 Yes [id number] 100mg Take 1 Univers 100 mg EC 1-18 tablet by ity o f tablet 00:00: mouth in [place] [address] the Medical morning Branch and 1 tablet in the evening. doxycycline 2021-05 Yes [id number] 100mg Take 1 Univers 100 mg EC 1-18 tablet by ity o f tablet 00:00: mouth in [place] 00 the Medical morning Branch and 1 tablet in the evening. doxycycline 2021-05 Yes [id number] 100mg Take 1 Univers 100 mg EC 1-18 tablet by ity o f tablet 00:00: mouth in [place] [address] the Medical morning Branch and 1 tablet in the evening. doxycycline 2021-05 Yes [id number] 100mg Take 1 Univers 100 mg EC 1-18 tablet by ity o f tablet 00:00: mouth in [place] 00 the Medical morning Branch and 1 tablet in the evening. doxycycline 2021-05 Yes [id number] 100mg Take 1 Univers 100 mg EC 1-18 tablet by ity o f tablet 00:00: mouth in [place] 00 the Medical morning Branch and 1 tablet in the evening. doxycycline 2021-05 Yes [id number] 100mg Take 1 Univers 100 mg EC 1-18 tablet by ity o f tablet 00:00: mouth in [place] 00 the Medical morning Branch and 1 tablet in the evening. doxycycline 2021-05 Yes [id number] 100mg Take 1 Univers 100 mg EC 1-18 tablet by ity o f tablet 00:00: mouth in [place] 00 the Medical morning Branch and 1 tablet in the evening. doxycycline 2021-05 Yes [id number] 100mg Take 1 Univers 100 mg EC 1-18 tablet by ity o f tablet 00:00: mouth in [place] 00 the Medical morning Branch and 1 tablet in the evening. doxycycline 2021-05 Yes [id number] 100mg Take 1 Univers 100 mg EC 1-18 tablet by ity o f tablet 00:00: mouth in [place] 00 the Medical morning Branch and 1 tablet in the evening. doxycycline 2021-05 Yes [id number] 100mg Take 1 Univers 100 mg EC 1-18 tablet by ity o f tablet 00:00: mouth in [place] 00 the Medical morning Branch and 1 tablet in the evening. doxycycline 2021-05 Yes [id number] 100mg Take 1 Univers 100 mg EC 1-18 tablet by ity o f tablet 00:00: mouth in [place] 00 the Medical morning Branch and 1 tablet in the evening. doxycycline 2021-05- Yes [id number] 100mg Take 1 Univers 100 mg EC 1-17 11-25 tablet by ity of tablet 00:00: 05:59 mouth in [place] 00 :00 the Medical morning Branch and 1 tablet in the evening. Do all this for 7 days. doxycycline 2021-05- Yes [id number] 100mg Take 1 Univers 100 mg EC 1-17 11-25 tablet by ity of tablet 00:00: 05:59 mouth in [place] 00 :00 the Medical morning Branch and 1 tablet in the evening. Do all this for 7 days. predniSONE 2021-05- Yes [id number] 40mg Take 2 Univers 20 mg 1-17 11-23 tablets by ity of tablet 00:00: 05:59 mouth in [place] 00 :00 the Medical morning Branch for 5 days. predniSONE 2021-05- Yes [id number] 40mg Take 2 Univers 20 mg 1-17 11-23 tablets by ity of tablet 00:00: 05:59 mouth in [place] 00 :00 the Medical morning Branch for 5 days. predniSONE 2021-05- Yes [id number] 40mg Take 2 Univers 20 mg 1-17 11-23 tablets by ity of tablet 00:00: 05:59 mouth in [place] 00 :00 the [facility] Branch for 5 days. predniSONE 2021-05- Yes [id number] 40mg Take 2 Univers 20 mg 1-17 11-23 tablets by ity of tablet 00:00: 05:59 mouth in [place] 00 :00 the [facility] Branch for 5 days. predniSONE 2021-05- Yes [id number] 40mg Take 2 Univers 20 mg 1-17 11-23 tablets by ity of tablet 00:00: 05:59 mouth in [place] 00 :00 the [facility] for 5 days. predniSONE 2021-05- Yes [id number] 40mg Take 2 Univers 20 mg 1-17 11-23 tablets by ity of tablet 00:00: 05:59 mouth in [place] 00 :00 the [facility] for 5 days. doxycycline 2021-05- No [id number] 100mg Take 1 Univers 100 mg EC 1-17 11-18 tablet by ity of tablet 00:00: 00:00 mouth in [place] 00 :00 the [facility] morning Branch and 1 tablet in the evening. Do all this for 7 days. doxycycline 2021-05- No [id number] 100mg Take 1 Univers 100 mg EC 1-17 11-18 tablet by ity of tablet 00:00: 00:00 mouth in [place] 00 :00 the [facility] morning [place] and 1 tablet in the evening. Do all this for 7 days. furosemide 2021-05 Yes 10mg Take 10 mg U nivers 10 mg 0-07 by mouth ity of 15:54: weekly. [address] furosemide 2021-05 Yes 10mg Take 10 mg U nivers 10 mg 0-07 by mouth ity of 15:54: weekly. [address] furosemide 2021-05 Yes 10mg Take 10 mg U nivers 10 mg 0-07 by mouth ity of 15:54: weekly. [address] furosemide 2021-05 Yes 10mg Take 10 mg U nivers 10 mg 0-07 by mouth ity of 15:54: weekly. [address] furosemide 2021-05 Yes 10mg Take 10 mg U nivers 10 mg 0-07 by mouth ity of 15:54: weekly. [address] furosemide 2021-05 Yes 10mg Take 10 mg U nivers 10 mg 0-07 by mouth ity of 15:54: weekly. [address] furosemide 2021-05 Yes 10mg Take 10 mg U nivers 10 mg 0-07 by mouth ity of 15:54: weekly. [address] furosemide 2021-05 Yes 10mg Take 10 mg U nivers 10 mg 0-07 by mouth ity of 15:54: weekly. [address] furosemide 2021-05 Yes 10mg Take 10 mg U nivers 10 mg 0-07 by mouth ity of 15:54: weekly. [address] furosemide 2021-05 Yes 10mg Take 10 mg U nivers 10 mg 0-07 by mouth ity of 15:54: weekly. [address] furosemide 2021-05 Yes 10mg Take 10 mg U nivers 10 mg 0-07 by mouth ity of 15:54: weekly. [address] furosemide 2021-05 Yes 10mg Take 10 mg U nivers 10 mg 0-07 by mouth ity of 15:54: weekly. [address] furosemide 2021-05 Yes 10mg Take 10 mg U nivers 10 mg 0-07 by mouth ity of 15:54: weekly. [address] furosemide 2021-05 Yes 10mg Take 10 mg U nivers 10 mg 0-07 by mouth ity of 15:54: weekly. [address] furosemide 2021-05 Yes 10mg Take 10 mg U nivers 10 mg 0-07 by mouth ity of 15:54: weekly. [address] furosemide 2021-05 Yes 10mg Take 10 mg U nivers 10 mg 0-07 by mouth ity of 15:54: weekly. [address] furosemide 2021-05 Yes 10mg Take 10 mg U nivers 10 mg 0-07 by mouth ity of 15:54: weekly. [address] furosemide 2021-05 Yes 10mg Take 10 mg U nivers 10 mg 0-07 by mouth ity of 15:54: weekly. [address] furosemide 2021-05 Yes 10mg Take 10 mg U nivers 10 mg 0-07 by mouth ity of 15:54: weekly. [address] furosemide 2021-05 Yes 10mg Take 10 mg U nivers 10 mg 0-07 by mouth ity of 15:54: weekly. [address] furosemide 2021-05 Yes 10mg Take 10 mg U nivers 10 mg 0-07 by mouth ity of 15:54: weekly. [address] furosemide 2021-05 Yes 10mg Take 10 mg U nivers 10 mg 0-07 by mouth ity of 15:54: weekly. [address] furosemide 2021-05 Yes 10mg Take 10 mg U nivers 10 mg 0-07 by mouth ity of 15:54: weekly. [address] furosemide 2021-05 Yes 10mg Take 10 mg U nivers 10 mg 0-07 by mouth ity of 15:54: weekly. [address] furosemide 2021-05 Yes 10mg Take 10 mg U nivers 10 mg 0-07 by mouth ity of 15:54: weekly. [address] furosemide 2021-05 Yes 10mg Take 10 mg U nivers 10 mg 0-07 by mouth ity of 15:54: weekly. [address] furosemide 2021-05 Yes 10mg Take 10 mg U nivers 10 mg 0-07 by mouth ity of 15:54: weekly. [address] furosemide 2021-05 Yes 10mg Take 10 mg U nivers 10 mg 0-07 by mouth ity of 15:54: weekly. [address] furosemide 2021-05 Yes 10mg Take 10 mg U nivers 10 mg 0-07 by mouth ity of 15:54: weekly. [address] furosemide 2021-05 Yes 10mg Take 10 mg U nivers 10 mg 0-07 by mouth ity of 15:54: weekly. [address] furosemide 2021-05 Yes 10mg Take 10 mg U nivers 10 mg 0-07 by mouth ity of 15:54: weekly. [address] furosemide 2021-05 Yes 10mg Take 10 mg U nivers 10 mg 0-07 by mouth ity of 15:54: weekly. [address] furosemide 2021-05 Yes 10mg Take 10 mg U nivers 10 mg 0-07 by mouth ity of 15:54: weekly. [place] [address] Medical Branch furosemide 2021-05 Yes 10mg Take 10 mg U nivers 10 mg 0-07 by mouth ity of 15:54: weekly. [place] [address] Medical Branch tamsulosin Yes Take by [facility] ers 0.4 mg 24 8-12 mouth ity of hr capsule 11:44: daily. [place] [address] Medical Branch finasteride Yes 5mg Take 5 mg U nivers 5 mg tablet 8-12 by mouth ity of 11:44: in the [place] morning. Medical Branch albuterol Yes 2.5mg Inhale 2.5 U [...] mcg/dose inhalation disk fluticasone Yes Use in [facility] ers propionate 8-12 each ity of (ALLERGY 11:44: [place]ril 2 [place] 03 (two) Medical FLUTICASONE times Branch ,) 50 daily. mcg/actuati on nasal spray tamsulosin Yes Take by [facility] ers 0.4 mg 24 8-12 mouth ity of hr capsule 11:44: daily. [place] [address] Medical Branch finasteride Yes 5mg Take 5 mg U nivers 5 mg tablet 8-12 by mouth ity of 11:44: in the [place] morning. Medical Branch albuterol Yes 2.5mg Inhale 2.5 U [...] inhalation disk fluticasone 2021-0 Yes Use in [facility] ers propionate 8-12 each ity of (ALLERGY 11:44: nostril 2 [place] 03 (two) Medical FLUTICASONE times [place] ,) 50 daily. mcg/actuati on nasal spray tamsulosin 2021-0 Yes Take by [facility] ers 0.4 mg 24 8-12 mouth ity [...] inhalation disk fluticasone 2021-0 Yes Use in [facility] ers propionate 8-12 each ity of (ALLERGY 11:44: nostril 2 [place], 03 (two) Medical FLUTICASONE times [place] ,) 50 daily. mcg/actuati on nasal spray tamsulosin 0 Yes Take by [facility] ers 0.4 mg 24 8-12 mouth ity [...] inhalation disk fluticasone 0 Yes Use in [facility] ers propionate 8-12 each ity of (ALLERGY 11:44: nostril 2 [place] 03 (two) Medical FLUTICASONE [facility] ,) 50 daily. mcg/actuati on nasal spray tamsulosin Yes Take by [facility] ers 0.4 mg 24 8-12 mouth ity of hr capsule 11:44: daily. [place] Medical Branch finasteride 0 Yes 5mg Take 5 mg U nivers 5 mg tablet 8-12 by mouth ity of 11:44: in the [place] 03 morning. Medical Branch albuterol Yes 2.5mg Inhale 2.5 U [...] mcg/dose inhalation disk fluticasone Yes Use in [facility] ers propionate 8-12 each ity of (ALLERGY 11:44: nostril 2 [place], 03 (two) Medical FLUTICASONE [facility] ,) 50 daily. mcg/actuati on nasal spray tamsulosin Yes Take by [facility] ers 0.4 mg 24 8-12 mouth ity of hr capsule 11:44: daily. [place] Medical Branch finasteride 0 Yes 5mg Take 5 mg U nivers 5 mg tablet 8-12 by mouth ity of 11:44: in the [place] 03 morning. Medical Branch albuterol 0 Yes [...] inhalation disk fluticasone 2021-0 Yes Use in [facility] ers propionate 8-12 each ity of (ALLERGY 11:44: nostril 2 [place] 03 (two) Medical FLUTICASONE [facility] ,) 50 daily. mcg/actuati on nasal spray tamsulosin 2021-0 Yes Take by [facility] ers 0.4 mg 24 8-12 mouth ity [...] inhalation disk fluticasone 2021-0 Yes Use in [facility] ers propionate 8-12 each ity of (ALLERGY 11:44: nostril 2 [place], 03 (two) Medical FLUTICASONE [facility] ,) 50 daily. mcg/actuati on nasal spray tamsulosin 2021-0 Yes Take by [facility] ers 0.4 mg 24 8-12 mouth ity of hr capsule 11:44: daily. [place] 03 Medical Branch finasteride 2021-0 Yes 5mg Take 5 mg U nivers 5 mg tablet 8-12 by mouth ity of 11:44: in the morning. Medical Branch albuterol 2021-0 Yes 2.5mg [...] inhalation disk fluticasone 2021-0 Yes Use in [facility] ers propionate 8-12 each ity of (ALLERGY 11:44: nostril 2 [place] 03 (two) Medical FLUTICASONE [facility] ,) 50 daily. mcg/actuati on nasal spray tamsulosin 0 Yes Take by [facility] ers 0.4 mg 24 8-12 mouth ity [...] inhalation disk fluticasone 0 Yes Use in [facility] ers propionate 8-12 each ity of (ALLERGY 11:44: nostril 2 [place], 03 (two) Medical FLUTICASONE times [place] ,) 50 daily. mcg/actuati on nasal spray tamsulosin 0 Yes Take by [facility] ers 0.4 mg 24 8-12 mouth ity [...] [place] 03 (two) Medical FLUTICASONE [facility] ,) 50 daily. mcg/actuati on nasal spray tamsulosin 0 Yes Take by Univ ers 0.4 mg 24 8-12 mouth ity of hr capsule 11:44: daily. Medical Branch finasteride 0 Yes 5mg Take 5 mg U nivers 5 mg tablet 8-12 by mouth ity of 11:44: in the [place] morning. Medical Branch albuterol 0 Yes 2.5mg [...] [place] 03 (two) Medical FLUTICASONE [facility] ,) 50 daily. mcg/actuati on nasal spray tamsulosin 2021-0 Yes Take by Univ ers 0.4 mg [...] s RELIEF, 03 (two) Medical FLUTICASONE times [place] ,) 50 daily. mcg/actuati on nasal spray [...] s RELIEF, 03 (two) Medical FLUTICASONE times [place] ,) 50 daily. mcg/actuati on nasal spray [...] [place] (two) Medical FLUTICASONE [facility] ,) 50 daily. mcg/actuati on nasal spray tamsulosin 0 Yes Take by [facility] ers 0.4 mg 24 8-12 mouth ity [...] [place] 03 (two) Medical FLUTICASONE [facility] ,) 50 daily. mcg/actuati on nasal spray tamsulosin 0 Yes Take by [facility] ers 0.4 mg 24 8-12 mouth ity [...] inhalation disk fluticasone 0 Yes Use in [facility] ers propionate 8-12 each ity of (ALLERGY 11:44: nostril 2 [place] 03 (two) Medical FLUTICASONE times Branch ,) 50 daily. mcg/actuati on nasal spray tamsulosin Yes Take by [facility] ers 0.4 mg 24 8-12 mouth ity [...] [place] 03 (two) Medical FLUTICASONE [facility] ,) 50 daily. mcg/actuati on nasal spray tamsulosin 2021-0 Yes Take by [facility] ers 0.4 mg 24 8-12 mouth ity [...] inhalation disk fluticasone 0 Yes Use in [facility] ers propionate 8-12 each ity of (ALLERGY 11:44: nostril 2 [place], 03 (two) Medical FLUTICASONE [facility] ,) 50 daily. mcg/actuati on nasal spray tamsulosin 0 Yes Take by [facility] ers 0.4 mg 24 8-12 mouth ity of hr capsule 11:44: daily. [place] Medical Branch tamsulosin 2021-0 Yes Take by [facility] ers 0.4 mg 24 8-12 mouth ity [...] s RELIEF, 03 (two) Medical FLUTICASONE times [place] ,) 50 daily. mcg/actuati on nasal spray finasteride 2021-0 Yes 5mg Take 5 mg U nivers 5 mg tablet 8-12 by mouth ity of 11:44: in the [place] 03 morning. Medical Branch tamsulosin 2021-0 Yes Take by Univ ers 0.4 mg 24 8-12 mouth ity of hr capsule 11:44: daily. [place] [address] Medical Branch finasteride 2021-0 Yes 5mg Take [...] solution Wheezing or Shortness of Breath. fluticasone 2021-0 Yes Use in Univ ers propionate 8-12 each ity of (ALLERGY 11:44: nostril 2 [place], 03 (two) Medical FLUTICASONE times [place] ,) 50 daily. mcg/actuati on nasal spray tamsulosin 2021-0 Yes Take by Univ ers 0.4 mg 24 8-12 mouth ity of hr capsule 11:44: daily. [place] [address] Medical Branch finasteride Yes 5mg Take 5 [...] 500-50 hours. Branch mcg/dose inhalation disk Fluticasone Yes 1{puff} Inhale 1 Univers -Salmeterol 8-12 Puff every it y of (ADVAIR 11:44: 12 [place] DISKUS) 03 (twelve) Medical 500-50 hours. Branch mcg/dose inhalation disk fluticasone Yes Use in [facility] ers propionate 8-12 each ity of (ALLERGY 11:44: nostril 2 [place] 03 (two) Medical FLUTICASONE [facility] ,) 50 daily. mcg/actuati on nasal spray tamsulosin Yes Take by [facility] ers 0.4 mg 24 8-12 mouth ity of hr capsule 11:44: daily. [place] Medical Branch finasteride Yes 5mg Take 5 mg U nivers 5 mg tablet 8-12 by mouth ity of 11:44: in the [place] morning. Medical Branch albuterol Yes 2.5mg Inhale 2.5 U nivers 2.5 mg /3 8-12 mg every 4 ity of mL (0.083 11:44: (four) [place] %) 03 hours as Medical nebulizer needed for Bran ch solution Wheezing or Shortness of Breath. fluticasone 0 Yes Use in [facility] ers propionate 8-12 each ity of (ALLERGY 11:44: nostril 2 [place] 03 (two) Medical FLUTICASONE [facility] ,) 50 daily. mcg/actuati on nasal spray Fluticasone 2022-0 Yes 1{puff} Inhale 1 Univers -Salmeterol 8-12 Puff every it y of (ADVAIR 11:44: 12 [place] DISKUS) 03 (twelve) Medical 500-50 hours. Branch mcg/dose inhalation disk fluticasone 2021-0 Yes Use in [facility] ers propionate 8-12 each ity of (ALLERGY 11:44: nostril 2 [place] 03 (two) Medical FLUTICASONE [facility] ,) 50 daily. mcg/actuati on nasal spray tamsulosin 0 Yes Take by [facility] ers 0.4 mg 24 8-12 mouth ity [...] inhalation disk fluticasone 0 Yes Use in [facility] ers propionate 8-12 each ity of (ALLERGY 11:44: nostril 2 [place] 03 (two) Medical FLUTICASONE [facility] ,) 50 daily. mcg/actuati on nasal spray tamsulosin 0 Yes Take by [facility] ers 0.4 mg 24 8-12 mouth ity [...] inhalation disk fluticasone 2021-0 Yes Use in [facility] ers propionate 8-12 each ity of (ALLERGY 11:44: nostril 2 [place] 03 (two) Medical FLUTICASONE [facility] ,) 50 daily. mcg/actuati on nasal spray tamsulosin 2021-0 Yes Take by [facility] ers 0.4 mg 24 8-12 mouth ity [...] inhalation disk fluticasone 2021-0 Yes Use in [facility] ers propionate 8-12 each ity of (ALLERGY 11:44: nostril 2 [place], 03 (two) Medical FLUTICASONE [facility] ,) 50 daily. mcg/actuati on nasal spray tamsulosin 2021-0 Yes Take by [facility] ers 0.4 mg 24 8-12 mouth ity [...] inhalation disk fluticasone 2021-0 Yes Use in [facility] ers propionate 8-12 each ity of (ALLERGY 11:44[place] 2 [place] 03 (two[place] Medical FLUTICASONE [facility] ,) 50 daily. mcg/actuati on nasal spray tamsulosin 2021-0 Yes Take by [facility] ers 0.4 mg 24 8-12 mouth ity [...] inhalation disk fluticasone 2021-0 Yes Use in [facility] ers propionate 8-12 each ity of (ALLERGY 11:44: [place]ril [place] 03 (two) Medical FLUTICASONE [facility] ,) 50 daily. mcg/actuati on nasal spray tamsulosin 2021-0 Yes Take by [facility] ers 0.4 mg 24 8-12 mouth ity [...] [place] 03 (two) Medical FLUTICASONE [facility] ,) 50 daily. mcg/actuati on nasal spray tamsulosin Yes Take by Univ ers 0.4 mg 24 8-12 mouth ity of hr capsule 11:44: daily. Medical Branch finasteride 0 Yes 5mg Take 5 mg U nivers 5 mg tablet 8-12 by mouth ity of 11:44: in the [place] morning. Medical Branch albuterol 0 Yes 2.5mg [...] [place] 03 (two[place] Medical FLUTICASONE [facility] ,) 50 daily. mcg/actuati on nasal spray [...] s RELIEF, 03 (two) Medical FLUTICASONE [facility] [place] ,) 50 daily. mcg/actuati on nasal spray tamsulosin 0 Yes Take by [facility] ers 0.4 mg 24 8-12 mouth ity [...] s RELIEF, 03 (two) Medical FLUTICASONE [facility] [place] ,) 50 daily. mcg/actuati on nasal spray [...] s RELIEF, 03 (two) Medical FLUTICASONE times [place] ,) 50 daily. mcg/actuati on nasal spray tamsulosin Yes Take by [facility] ers 0.4 mg 24 8-12 mouth ity [...] [place] 03 (two) Medical FLUTICASONE [facility] ,) 50 daily. mcg/actuati on nasal spray tamsulosin 0 Yes Take by [facility] ers 0.4 mg 24 8-12 mouth ity [...] mcg/dose inhalation disk fluticasone Yes Use in [facility] ers propionate 8-12 each ity of (ALLERGY 11:44: nostril [place] 03 (two) Medical FLUTICASONE times Branch ,) 50 daily. mcg/actuati on nasal spray tamsulosin Yes Take by [facility] ers 0.4 mg 24 8-12 mouth ity [...] [place] 03 (two) Medical FLUTICASONE [facility] ,) 50 daily. mcg/actuati on nasal spray tamsulosin 0 Yes Take by [facility] ers 0.4 mg 24 8-12 mouth ity [...] inhalation disk fluticasone 0 Yes Use in [facility] ers propionate 8-12 each ity of (ALLERGY 11:44: nostril [place] 03 (two) Medical FLUTICASONE [facility] ,) 50 daily. mcg/actuati on nasal spray tamsulosin 0 Yes Take by [facility] ers 0.4 mg 24 8-12 mouth ity [...] [place] 03 (two) Medical FLUTICASONE [facility] ,) 50 daily. mcg/actuati on nasal spray tamsulosin Yes Take by [facility] ers 0.4 mg 24 8-12 mouth ity of hr capsule 11:44: daily. [place] [facility] finasteride Yes 5mg Take 5 mg U nivers 5 mg tablet 8-12 by mouth ity of 11:44: in the [place] 03 morning. Medical Branch albuterol Yes 2.5mg Inhale 2.5 U [...] mcg/dose inhalation disk fluticasone Yes Use in [facility] ers propionate 8-12 each ity of (ALLERGY 11:44: nostril [place] 03 (two) Medical FLUTICASONE [facility] ,) 50 daily. mcg/actuati on nasal spray tiotropium Yes [id number] 18ug Inhale 1 Univers 18 mcg 8-12 capsule in ity of inhalation 00:00: the 00 morning. Medical Branch tiotropium 0 Yes [id number] 18ug Inhale 1 Univers 18 mcg 8-12 capsule in ity of inhalation 00:00: the [place] 00 morning. Medical Branch tiotropium 0 Yes [id number] 18ug Inhale 1 Univers 18 mcg 8-12 capsule in ity of inhalation 00:00: the 00 morning. Medical Branch tiotropium 0 Yes [id number] 18ug Inhale 1 Univers 18 mcg 8-12 capsule in ity of inhalation 00:00: the [place] 00 morning. Medical Branch tiotropium 0 Yes [id number] 18ug Inhale 1 Univers 18 mcg 8-12 capsule in ity of inhalation 00:00: the 00 morning. Medical Branch tiotropium 2022-0 Yes [id number] 18ug Inhale 1 Univers 18 mcg 8-12 capsule in ity of inhalation 00:00: the 00 morning. Medical Branch tiotropium 2022-0 Yes [id number] 18ug Inhale 1 Univers 18 mcg 8-12 capsule in ity of inhalation 00:00: the 00 morning. Medical Branch tiotropium 2022-0 Yes [id number] 18ug Inhale 1 Univers 18 mcg 8-12 capsule in ity of inhalation 00:00: the 00 morning. Medical Branch tiotropium 2022-0 Yes [id number] 18ug Inhale 1 Univers 18 mcg 8-12 capsule in ity of inhalation 00:00: the [place] 00 morning. Medical Branch tiotropium 2022-0 Yes [id number] 18ug Inhale 1 Univers 18 mcg 8-12 capsule in ity of inhalation 00:00: the [place] 00 morning. Medical Branch tiotropium 2022-0 Yes [id number] 18ug Inhale 1 Univers 18 mcg 8-12 capsule in ity of inhalation 00:00: the morning. Medical Branch tiotropium 2-0 Yes [id number] 18ug Inhale 1 Univers 18 mcg 8-12 capsule in ity of inhalation 00:00: the [place] 00 morning. Medical Branch tiotropium 2-0 Yes [id number] 18ug Inhale 1 Univers 18 mcg 8-12 capsule in ity of inhalation 00:00: the [place] 00 morning. Medical Branch tiotropium 2022-0 Yes [id number] 18ug Inhale 1 Univers 18 mcg 8-12 capsule in ity of inhalation 00:00: the morning. Medical Branch tiotropium 2022-0 Yes [id number] 18ug Inhale 1 Univers 18 mcg 8-12 capsule in ity of inhalation 00:00: the [place] 00 morning. Medical Branch tiotropium 2022-0 Yes [id number] 18ug Inhale 1 Univers 18 mcg 8-12 capsule in ity of inhalation 00:00: the [place] 00 morning. Medical Branch tiotropium 2022-0 Yes [id number] 18ug Inhale 1 Univers 18 mcg 8-12 capsule in ity of inhalation 00:00: the [place] 00 morning. Medical Branch tiotropium 2022-0 Yes [id number] 18ug Inhale 1 Univers 18 mcg 8-12 capsule in ity of inhalation 00:00: the 00 morning. Medical Branch tiotropium 2-0 Yes [id number] 18ug Inhale 1 Univers 18 mcg 8-12 capsule in ity of inhalation 00:00: the 00 morning. Medical Branch tiotropium 2-0 Yes [id number] 18ug Inhale 1 Univers 18 mcg 8-12 capsule in ity of inhalation 00:00: the 00 morning. Medical Branch tiotropium 2022-0 Yes [id number] 18ug Inhale 1 Univers 18 mcg 8-12 capsule in ity of inhalation 00:00: the 00 morning. Medical Branch tiotropium 2-0 Yes [id number] 18ug Inhale 1 Univers 18 mcg 8-12 capsule in ity of inhalation 00:00: the 00 morning. Medical Branch tiotropium 2-0 Yes [id number] 18ug Inhale 1 Univers 18 mcg 8-12 capsule in ity of inhalation 00:00: the 00 morning. Medical Branch tiotropium 2-0 Yes [id number] 18ug Inhale 1 Univers 18 mcg 8-12 capsule in ity of inhalation 00:00: the morning. Medical Branch tiotropium 2-0 Yes [id number] 18ug Inhale 1 Univers 18 mcg 8-12 capsule in ity of inhalation 00:00: the morning. Medical Branch tiotropium 2-0 Yes [id number] 18ug Inhale 1 Univers 18 mcg 8-12 capsule in ity of inhalation 00:00: the 00 morning. Medical Branch tiotropium 2-0 Yes [id number] 18ug Inhale 1 Univers 18 mcg 8-12 capsule in ity of inhalation 00:00: the morning. Medical Branch tiotropium 2-0 Yes [id number] 18ug Inhale 1 Univers 18 mcg 8-12 capsule in ity of inhalation 00:00: the 00 morning. Medical Branch tiotropium 2022-0 Yes [id number] 18ug Inhale 1 Univers 18 mcg 8-12 capsule in ity of inhalation 00:00: the 00 morning. Medical Branch tiotropium 2022-0 Yes [id number] 18ug Inhale 1 Univers 18 mcg 8-12 capsule in ity of inhalation 00:00: the [place] 00 morning. Medical Branch tiotropium 2-0 Yes [id number] 18ug Inhale 1 Univers 18 mcg 8-12 capsule in ity of inhalation 00:00: the [place] 00 morning. Medical Branch tiotropium 2021-0 Yes [id number] 18ug Inhale 1 Univers 18 mcg 8-12 capsule in ity of inhalation 00:00: the [place] 00 morning. Medical Branch tiotropium 2021-0 Yes [id number] 18ug Inhale 1 Univers 18 mcg 8-12 capsule in ity of inhalation 00:00: the [place] 00 morning. Medical Branch tiotropium 2021-0 Yes [id number] 18ug Inhale 1 Univers 18 mcg 8-12 capsule in ity of inhalation 00:00: the [place] 00 morning. Medical Branch tiotropium 2021-0 Yes [id number] 18ug Inhale 1 Univers 18 mcg 8-12 capsule in ity of inhalation 00:00: the [place] 00 morning. Medical Branch tiotropium 2021-0 Yes [id number] 18ug Inhale 1 Univers 18 mcg 8-12 capsule in ity of inhalation 00:00: the [place] morning. Medical Branch tiotropium 2021-0 Yes [id number] 18ug Inhale 1 Univers 18 mcg 8-12 capsule in ity of inhalation 00:00: the [place] morning. Medical Branch tiotropium 2021-0 Yes [id number] 18ug Inhale 1 Univers 18 mcg 8-12 capsule in ity of inhalation 00:00: the [place] morning. Medical Branch tiotropium 2021-0 Yes [id number] 18ug Inhale 1 Univers 18 mcg 8-12 [...] into_af 0.01 % fected_ eye_in_ the_eve rosalinda} Spiriva Spiriva No QD Spiriva HandiHaler HandiHaler [...] Value Comments Source height 2022-05-04 68.00 [in_i] [facility] 13:[facility]:00 [facility] weight 2022-05-04 170.00 [lb_av] [facility] - 13:00:00 [facility] temperature 2022-05-04 98.1 [degF] [facility] - 13:00:00 [facility] bmi 2022-05-04 25.85 kg/m2 [facility] - 13:00:00 [facility] oximetry 2022-05-04 93 % [facility] - 13:00:00 [facility] respiratory rate 2022-05-04 17 /min [facility] - 13:[facility]00 [facility] blood pressure 2022-05-04 138 mm[Hg] [facility] - systolic 13:00:00 [facility] blood pressure 2022-05-04 60 mm[Hg] [facility] - diastolic 13:00:00 [facility] Systolic blood 2022-04-18 107 mm[Hg] University of pressure 17:12:00 [facility] Diastolic blood 2022-04-18 65 mm[Hg] University o f pressure 17:12:00 [facility] Heart rate 2022-04-18 103 /min University of 17:12:00 [facility] Respiratory rate 2022-04-18 22 /min University of 17:12:00 [facility] Body height 2022-04-18 172.7 cm University of 17:12:00 [facility] Body weight 2022-04-18 75.297 kg University of 17:12:00 [facility] BMI 2022-04-18 25.24 kg/m2 University of 17:12:00 [facility] Oxygen saturation 2022-04-18 90 /min 5L [facility] in Arterial blood 17:12:00 [facility] Pulse oximetry Branch Systolic blood 2022-03-08 120 mm[Hg] manual University of pressure 20:00:00 [facility] Diastolic blood 2022-03-08 58 mm[Hg] manual University o f pressure 20:00:00 [facility] Heart rate 2022-03-08 91 /min University of 20:00:00 [facility] Respiratory rate 2022-03-08 22 /min University of 20:00:00 [facility] Body weight 2022-03-08 76.295 kg University of 20:00:00 [facility] BMI 2022-03-08 25.57 kg/m2 University of 20:00:00 [facility] Oxygen saturation 2022-03-08 94 /min arrived on 5 University of in Arterial blood 20:00:00 l/m pulsed [place]; [place] Me dical by Pulse oximetry exercised on 3 Branch l/m con't [place] Systolic blood 2022-02-11 130 mm[Hg] manual;right University of pressure 18:30:00 arm BP 122/78 [facility] manual Branch Diastolic blood 2022-02-11 60 mm[Hg] manual;right University o f pressure 18:30:00 arm BP 122/78 [place] Medical manual Branch Heart rate 2022-02-11 93 /min University of 18:30:00 [facility] Respiratory rate 2022-02-11 22 /min University of 18:30:00 [facility] Body weight 2022-02-11 79.198 kg University of 18:30:00 [facility] BMI 2022-02-11 26.55 kg/m2 University of 18:30:00 [facility] Oxygen saturation 2022-02-11 98 /min [facility] in Arterial blood 18:30:00 [facility] by Pulse oximetry Branch Systolic blood 2021-12-17 130 mm[Hg] University of pressure 16:34:00 [facility] Diastolic blood 2021-12-17 71 mm[Hg] University o f pressure 16:34:00 [facility] Heart rate 2021-12-17 100 /min University of 16:34:00 [facility] Respiratory rate 2021-12-17 22 /min University of 16:34:00 [facility] Body height 2021-12-17 172.7 cm University of 16:34:00 [facility] Body weight 2021-12-17 81.421 kg University of 16:34:00 [facility] BMI 2021-12-17 27.29 kg/m2 University of 16:34:00 [facility] Oxygen saturation 2021-12-17 86 /min 2L [place] 93% when Universi ty of in Arterial blood 16:34:00 bumped up to 3L [place] edical by Pulse oximetry Branch Procedures Procedure Date / Time Performing Clinician Source Performed MEDICATION CORRESPONDENCE 2022-04-27 06:01:00 Doctor Unassigned, [facility] [place] DME/SUPPLY JUSTIFICATION 2022-04-18 06:01:00 Doctor Unassigned, [facility] PULMONARY REHAB ITP 2022-04-07 17:48:00 Doctor Unassigned, [facility] REPORT [facility] PULMONARY REHAB SESSION 2022-03-08 05:00:00 Therese Alston [facility] REPORT [facility] CONSENT/REFUSAL FOR 2022-02-11 05:01:00 January Alston [facility] DIAGNOSIS AND TREATMENT [facility] PULMONARY FUNCTION TEST 2022-01-19 16:09:19 Aidan Ruiz [facility] (RESULTS) Medical Branch Encounters Start End Encounter Admission Attending Care Care Encounter Source Date/Time Date/Time Type Type Clinicians Facility Department ID 2022-05-04 Outpatient Young, STLMLC STLMLC [id number] Common 13:09:02 [facility] [id number] [facility] 2022-09-09 2022-09-09 Outpatient R AIDAN RUIZ [facility] 10 [id number] Univers 11:00:00 11:00:00 AIDAN RUIZ i ty of [facility] 2022-05-30 2022-05-30 (TEL) STLMLC STLMLC [id number] Co mmon 00:00:00 00:00:00 [facility] 2022-05-04 2022-05-04 OFFICE STLMLC STLMLC [id number] Co mmon 00:00:00 00:00:00 VISIT [facility] it PT LEVEL 4 [facility] 2022-05-03 2022-05-03 Telephone AMIE Ruiz [id number] Univers 00:00:00 00:00:00 Aidan LINDSEY 350.1.13.10 i ty of [place] [phone] Or dical NAL [address] [place] [address] 2022-04-27 2022-04-27 Telephone Joseph WYSAMIRA 1.2.414.654 [id number] Univers 00:00:00 00:00:00 Aidan LINDSEY 350.1.13.10 i ty of [place] 4[place] [phone] Or dical NAL [address] [place] [address] 2022-04-27 2022-04-27 Orders Doctor COLIN 1.2.840.114 [id number] Univers 00:00:00 00:00:00 Only Unassigned, CHILO 350.1.13.10 ity of [place] [facility] 4.2.7.2.686 Keegan as [phone] [address] 2022-04-26 2022-04-26 [facility] 1.2.661.049 [id number] Univers 00:00:00 00:00:00 Shiwan [place] 350.1.13.10 i ty of [place] 4[place] [id number] Or dic[address] 2022-04-22 2022-04-22 [facility]phone [facility] 1.2.325.342 [id number] Univers 00:00:00 00:00:00 Shiwan [place] 350.1.13.10 i ty [place] 4[place].2.[place] [id number] Or dic[address] 2022-04-20 2022-04-20 [facility] 1.2.261.891 [id number] Univers 00:00:00 00:00:00 Shiwan [place] 350.1.13.10 i ty [place] 4[place]2.[place].2.[place] [phone] Or dic[address] 2022-04-18 2022-04-18 [facility] 1.2.840.114 [id number] Univers 11:00:00 11:44:10 Visit Aidan DIALLOTON 350.1.13.10 i ty of [place] 4[place]2.7.2.[place] [phone] Or dic[address] 2022-04-18 2022-04-18 Outpatient R AIDAN RUIZ [facility] 10 [id number] Univers 11:00:00 11:44:10 AIDAN RUIZ i ty of [facility] 2022-04-18 2022-04-18 Outpatient R AIDAN RUIZ [facility] 10 [id number] Univers 11:00:00 11:00:00 AIDAN RUIZ i ty of [facility] 2022-04-18 2022-04-18 Orders Doctor DIXIE 1.2.840.114 [id number] Univers 00:00:00 00:00:00 Only Unassigned, [place] 350.1.13.[address] [facility] 4.2.7.2.686 Keegan as [phone] [address] 2022-04-07 2022-04-07 [facility]patient [facility] [id number] Univers 15:00:00 15:00:00 JASSI ity [facility] 2022-04-07 2022-04-07 Orders Doctor DIXIE 1.2.840.114 [id number] Univers 00:00:00 00:00:00 Only Unassigned, CHILO 350.1.13.[address] [facility] 4.2.7.2.686 Keegan as [phone] [address] 2022-04-05 2022-04-05 Outpatient Rick FONTAINE [facility] [id number] Univers 15:00:00 15:00:00 [facility] 2022-04-05 2022-04-05 Telephone [facility] 1.2.372.950 [id number] Univers 00:00:00 00:00:00 Nadiya C [place] 350.1.13.10 i ty [place] [phone] Or dical NAL 296 [facility] 2022-03-29 2022-03-29 Telephone [facility] 1.2.501.523 [id number] Univers 00:00:00 00:00:00 Nadiya C [place] 350.1.13.10 i ty [place] 4[place] [phone] Or dical NAL 296 [facility] 2022-03-25 2022-03-25 Telephone [facility] [id number] Univers 00:00:00 00:00:00 Маринаwan [place] 350.1.13.10 i ty [place] 4[place]2.[place] [id number] Me dical [address] 2022-03-25 2022-03-25 Telephone [facility] 1.2.206.584 [id number] Univers 00:00:00 00:00:00 Shiwan [place] 350.1.13.10 i ty of [place] 4[place] [phone] [address] 2022-03-24 2022-03-24 Case [facility] 1.2.840.114 [id number] Univers 00:00:00 00:00:00 Management Shiwan [place] 350.1.13.10 ity of [place] 4[place] [phone] [address] 2022-03-24 2022-03-24 Telephone [facility] 1.2.683.739 [id number] Univers 00:00:00 00:00:00 Nadiya C [place] 350.1.13.10 i ty of [place] 4.2.[place].2.[place] [phone] [address] 2022-03-22 2022-03-22 Telephone [facility] 1.2.918.974 [id number] Univers 00:00:00 00:00:00 Nadiya C [place] 350.1.13.10 i ty of [place] 4[place]2.[place].2.[place] [phone] [facility] [address] 2022-03-17 2022-03-17 Telephone [facility] 1.2.458.092 [id number] Univers 00:00:00 00:00:00 Nadiya C [place] 350.1.13.10 i ty of [place] 4.2.[place].2.[place] [phone] Or dical NAL [address] [place] [address] 2022-03-15 2022-03-15 Telephone [facility] 1.2.038.006 [id number] Univers 00:00:00 00:00:00 Nadiya C [place] 350.1.13.10 i ty of [place] 4[place]2.7.2.[place] [phone] Or dical [address] 2022-03-10 2022-03-10 Telephone [facility] [id number] Univers 00:00:00 00:00:00 Nadiya C [place] 350.1.13.10 i ty [place] 4[place] [id number] Or dic[address] 2022-03-08 2022-03-08 Ancillary Therapist, Adc Pulmonary [facility] 1.2.840.114 [id number] Univers 15:00:00 16:40:43 Visit Jassi Fontaine 350.1.13. 10 ity of [place] 4[place] [phone] [address] 2022-03-08 2022-03-08 Telephone [facility] 1.2.855.434 [id number] Univers 00:00:00 00:00:00 Nadiya C [place] 350.1.13.10 i ty [place] 4[place] [id number] [address] 2022-03-08 2022-03-08 Orders Doctor DIXIE 1.2.840.114 [id number] Univers 00:00:00 00:00:00 Only Unassigned, CHILO 350.1.13.10 ity of [place] [facility] 4.2.7.2.686 Keegan as [phone] [address] 2022-03-03 2022-03-03 Telephone [facility] 1.2.736.096 [id number] Univers 00:00:00 00:00:00 Nadiya C [place] 350.1.13.10 i ty [facility] 4.2.7.2.[place] [phone] Or dic[address] 2022-02-14 2022-02-14 Telephone [facility] 1.2.236.907 [id number] Univers 00:00:00 00:00:00 Nadiya C [place] 350.1.13.10 i ty of [place] 4[place]2.[place].2.[place] [id number] Or dical NAL [address] [place] [address] 2022-02-14 2022-02-14 Telephone [facility] 1.2.011.241 [id number] Univers 00:00:00 00:00:00 Nadiya C [place] 350.1.13.10 i ty of [facility] 4.2.7.2.[place] [phone] Or dical [address] 2022-02-14 2022-02-14 Telephone [facility] 1.2.407.501 [id number] Univers 00:00:00 00:00:00 Nadiya C [place] 350.1.13.10 i ty [place] 4[place] [phone] Or dic[address] 2022-02-11 2022-02-11 Outpatient R ZHEN [facility] [id number] Univers 13:30:00 16:07:27 JASSI itjong of [facility] 2022-02-11 2022-02-11 Ancillary Therapist, Adc Pulmonary [facility] 1.2.840.114 [id number] Univers 13:30:00 16:07:27 Visit Jassi Fontaine 350.1.13. 10 ity of [facility] 4.2.7.2.[place] [phone] Or dic[address] 2022-02-11 2022-02-11 Orders Doctor DIXIE 1.2.840.114 [id number] Univers 00:00:00 00:00:00 Only Unassigned, CHIL[place] 350.1.13.10 ity of [place] [facility] 4.2.7.2.686 Keegan as [phone] [address] 2022-01-25 2022-01-25 Telephone [facility] 1.2.566.749 [id number] Univers 00:00:00 00:00:00 Nadiya C [place] 350.1.13.10 i ty of [place] 4[place]2.[place].2.[place] [id number] Or dical NAL 296 [facility] 2022-01-24 2022-01-24 Telephone Shadi [facility] 1.2.927.384 [id number] Univers 00:00:00 00:00:00 Nadiya LINDSE[place] 350.1.13.10 i ty of [place] 4[place] [phone] Or dical NAL 296 [facility] 2022-01-19 2022-01-19 Instrument Tester Therapist, Adc Respiratory [facility] 1.2.840.114 [id number] Univers 11:00:00 12:00:00 Visit Jassi Fontaine 350.1.13. 10 ity [place] [id number] [address] 2022-01-19 2022-01-19 Outpatient R [facility] [id number] Univers 11:00:00 11:00:00 ity [facility] 2022-01-19 2022-01-19 [facility] [id number] Univers 11:00:00 11:00:00 [facility] 2022-01-19 Orders YESICA Ruiz 1.2.825.998 [id number] Univers 00:00:00 00:00:00 Only [facility] 350.1.13.10 i ty of [facility] 4.2.7.2.[place] [id number] [address] 2021-12-17 2021-12-17 Outpatient R AIDAN RUIZ [facility] 10 [id number] Univers 11:30:00 12:04:08 AIDAN RUIZ i ty of [facility] 2021-12-17 2021-12-17 Office Joseph [facility] 1.2.840.114 [id number] Univers 11:30:00 12:04:08 Visit Aidan LINDSEY 350.1.13.10 i ty of [place] [phone] Or dical NAL 085 [facility] 2019-06-26 2019-06-26 Outpatient Meliton-Mbayo VFP VFP [id number] [facility] 07:22:00 07:22:00 _A_ [id number] Family Practic e Results Test Description Test Time Test Comments Results Result Comments Source PULMONARY FUNCTION TEST (RESULTS) 2022-01-19 16:09:19 Test Item Value Reference Range Interpretation Comme nts FVC Actual (test code = 3994) 2.31 L FEV1 Actual (test code = 3993) 0.51 L FEV1/FVC Actual (test code = 3995) 22 % [facility]
[2022-06-16 18:53] LABS: Arterial Blood Carboxyhemoglob 1.1 % (0-1.5); Blood Gas Oxyhemoglobin 88.8 % (94-97)
[2022-06-16 19:10] LABS: Absolute Lymphocytes (CBC) 1.1 K/uL (0.7-4.9); Hematocrit 33.8 % (39.6-49.0); MCV 92.8 fL (80-100); MPV 7.1 fL (7.6-11.3); RBC Red Blood Cell Count 3.64 M/uL (4.33-5.43)
[2022-06-16] MEDS ORDERED: LEVALBUTEROL 1.25 MG/3 ML NEB ONE (19:12)
[2022-06-16 19:18] LABS: Protime INR 0.99
--- NOTE | 2022-06-16 19:18 | RAD REPORT ---
EXAM DESCRIPTION: RAD - Chest Single View - 06/16/2022 6:57 pm CLINICAL HISTORY: SOB Chest pain. COMPARISON: Chest Single View dated 05/17/2022; Chest Single View dated 05/16/2022; Chest Single View d ated 05/15/2022; Chest Single View dated 05/14/2022; Ct Skull/Thigh dated 06/02/2022 FINDINGS: Portable technique limits examination quality. Left lung volume loss is noted. Large left pleural effusion likely present. Emphysematous changes vag ue areas of nodularity seen right apex.Cardiac size cannot be accurately evaluated.
[2022-06-16 19:29] LABS: Magnesium 2.1 mg/dL (1.6-2.4); Potassium 3.9 mmol/L (3.5-5.1); Troponin High Sensitivity 11.4 pg/mL (<58.9)
--- NOTE | 2022-06-16 20:01 | EDPHYS ---
Physician Documentation [facility] Name: Sebastian Dennison Age: 81 yrs Sex: Male : 1940 Arrival Date: 06/16/2022 Time: 18:14 Bed 17 Private MD: ED Physician Regis Ramsay HPI: 06/16 19:00 This 81 yrs old Male presents to ER via EMS with complaints of Shortness Of Breath. cp 19:00 The patient has shortness of breath at rest. Onset: The symptoms/episode began/occurred cp gradually, and became worse today. Duration: The symptoms are continuous, and are steadily getting worse. Associated signs and symptoms: Pertinent positives: chest pain, Pertinent negatives: fever. 19:00 Severity of symptoms: in the emergency department the symptoms are unchanged despite EMS interventions. Historical: - Allergies: 18:20 No Known Allergies; ll1 - PMHx: 18:20 COPD; ll1 18:36 stage 4 lung CA; ll1 - Immunization history:: Client reports receiving the 2nd dose of the Covid vaccine. - Social history:: Smoking status: Patient/guardian denies using tobacco. ROS: 19:05 Constitutional: Negative for body aches, chills, fever, poor PO intake. cp 19:05 Eyes: Negative for injury, pain, redness, and discharge. cp 19:05 ENT: Negative for drainage from ear(s), ear pain, sore throat, difficulty swallowing, difficulty handling secretions. 19:05 Cardiovascular: Positive for chest pain, Negative for palpitations. 19:05 Respiratory: Positive for shortness of breath, at rest. Negative for cough, wheezing. 19:05 Abdomen/GI: Negative for abdominal pain, vomiting, diarrhea, constipation. 19:05 Skin: Negative for rash. 19:05 Neuro: Negative for altered mental status, dizziness, headache, loss of consciousness, syncope, weakness. 19:05 All other systems are negative. Exam: 18:42 ECG was reviewed by the Attending Physician. cp 19:10 Constitutional: The patient appears in no acute distress, alert, awake, cp non-diaphoretic, non-toxic, well developed, well nourished. 19:10 Head/Face: Normocephalic, atraumatic. cp 19:10 Eyes: Periorbital structures: appear normal, Conjunctiva: normal, no exudate, no injection, Sclera: no appreciated abnormality, Lids and lashes: appear normal, bilaterally. 19:10 ENT: External ear(s): are unremarkable, Nose: is normal, Mouth: Lips: moist, Oral mucosa: pink and intact, moist, Posterior pharynx: is normal, airway is patent, no erythema, no exudate. 19:10 Neck: ROM/movement: is normal, is supple, without pain, no range of motions limitations, no meningismus. 19:10 Chest/axilla: Inspection: normal, Palpation: is normal, no crepitus, no tenderness. 19:10 Cardiovascular: Rate: tachycardic, Rhythm: regular, Edema: ankle edema, that is mild, JVD: is not appreciated. 19:10 Respiratory: the patient does not display signs of respiratory distress, Respirations: labored breathing, that is mild, Breath sounds: decreased breath sounds, that are severe, are heard in the left posterior upper lobe and left posterior lower lobe, stridor, is not appreciated, wheezing: is not appreciated. 19:10 Abdomen/GI: Inspection: abdomen appears normal, Bowel sounds: active, all quadrants, Palpation: abdomen is soft and non-tender, in all quadrants. 19:10 Back: pain, is absent, ROM is normal. 19:10 Neuro: Orientation: to person, place \T\ time. Mentation: able to follow commands, slow to respond, Motor: moves all fours, strength is normal, Sensation: is normal. Vital Signs: 18:31 BP 125 / 68; Pulse 114; Resp 22; Temp 98.3; Pulse Ox 96% on 5 lpm NC; Weight 74.84 kg; ll1 Height 5 ft. 8 in. (172.72 cm); Pain 0/10; 19:48 BP 132 / 88; Pulse 119; Resp 18 S; Pulse Ox 100% on Nebulizer Mask; aa9 20:27 BP 134 / 71; Pulse 130; Resp 22 S; Pulse Ox 92% on 4 lpm NC; aa9 06/17 00:18 BP 116 / 70; Pulse 115; Resp 20 S; Pulse Ox 92% on 4 lpm NC; aa9 06/16 18:31 Body Mass Index 25.09 (74.84 kg, 172.72 cm) ll1 MDM: 06/16 18:32 Patient medically screened. cp 21:53 Differential diagnosis: pneumonia, Pneumothorax pulmonary edema, Pulmonary Embolism rn reactive airway disease, Sepsis loculated pleural effusion, atelectasis. Data reviewed: vital signs, nurses notes, lab test result(s), EKG, radiologic studies, CT scan, plain films, and as a result, I will admit patient. Counseling: I had a detailed discussion with the patient and/or guardian regarding: the historical points, exam findings, and any diagnostic results supporting the discharge/admit diagnosis, lab results, radiology results, the need to transfer to another facility, for higher level of care, [facility] does not immediately have the required specialist. Response to treatment: the patient's symptoms have mildly improved after treatment, and as a result, I will admit patient. ED course: Pt's CT shows loculated pleural effusion with lung entrapment, consulted with Dr. Gtz, states patient will need to be transferred. Transfer initiated. . 06/16 18:41 Order name: Basic Metabolic Panel; Complete Time: 19:51 cp 06/16 19:51 Interpretation: Normal except: CL 95; CO2 40; GLUC 139; CRE 0.56. cp 06/16 18:41 Order name: CBC with Diff; Complete Time: 19:51 cp 06/16 19:51 Interpretation: Normal except: RBC 3.64; HGB 10.9; HCT 33.8; MPV 7.1; JATINDER% 81.6; LYM% cp 10.0; NEUT A 8.7. 06/16 18:41 Order name: Magnesium; Complete Time: 19:51 cp 06/16 18:41 Order name: NT PRO-BNP; Complete Time: 19:51 cp 06/16 18:41 Order name: PT-INR; Complete Time: 19:51 cp 06/16 18:41 Order name: Troponin HS; Complete Time: 19:51 cp 06/16 18:30 Order name: EKG; Complete Time: 18:31 ll1 06/16 18:41 Order name: XRAY Chest (1 view); Complete Time: 19:51 cp 06/16 18:41 Order name: ABG; Complete Time: 19:51 cp 06/16 19:57 Order name: CT Chest For PE Angio cp 06/16 20:14 Order name: SARS RAPID; Complete Time: 21:19 kl 06/16 20:55 Order name: CT; Complete Time: 21:19 EDMS 06/16 18:30 Order name: EKG - Nurse/Tech; Complete Time: 18:30 ll1 06/16 18:41 Order name: Cardiac monitoring; Complete Time: 19:18 cp 06/16 18:41 Order name: IV Saline Lock; Complete Time: 18:55 cp 06/16 18:41 Order name: Labs collected and sent; Complete Time: 18:55 cp 06/16 18:41 Order name: O2 Per Protocol; Complete Time: 18:55 cp 06/16 18:41 Order name: O2 Sat Monitoring; Complete Time: 18:55 cp EC:42 Rate is 114 beats/min. Rhythm is regular. HI interval is normal. QRS interval is cp normal. QT interval is normal. Interpreted by me. Reviewed by me. Administered Medications: 19:18 Drug: Xopenex (levalbuterol) (3) 1.25 mg Route: Inhalation; aa9 20:12 Drug: Lasix (furosemide) 40 mg Route: IVP; Site: right antecubital; aa9 02 00:30 Follow up: Response: No adverse reaction aa9 Disposition: 05:03 Co-signature as Attending Physician, Regis Ramsay MD. 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 rn - Dyspnea, unspecified rn Forms: - Medication Reconciliation Form rn - SBAR form rn Signatures: Dispatcher [employer] EDME Vonnie Alejandre RN RN kl Nieto, Roman, MD MD rn Page, Corey, PA PA cp Lewis, Lynsay, RN RN ll1 Anaid Castillo RN RN aa9 Rebeca Ryan PAMarcie PA-C sb4 Corrections: (The following items were deleted from the chart) 06/16 21:00 20:00 jairon walden 21:55 20:00 Inpatient Admission cp rn 21:55 20:00 Obinna De Leon cp rn :55 20:00 Telemetry/MedSurg (Inpatient) cp rn 21:55 20:00 Fair cp rn 21: 20:00 an acute exacerbation cp rn 21: 20:00 are unchanged cp rn : 20:00 Standard cp rn 21: 20:00 Respiratory failure, unspecified with hypercapnia cp rn : 20:00 Pleural effusion, not elsewhere classified cp rn : 21:00 409 kl rn 06/17 00:30 06/16 21:56 rn aa9
--- NOTE | 2022-06-16 20:01 | ER ---
Nurse's Notes [facility] Name: Sebastian Dennison Age: 81 yrs Sex: Male : 1940 Arrival Date: 06/16/2022 Time: 18:14 Bed 17 Private MD: Diagnosis: Malignant pleural effusion-Loculated with lung entrapment;Dyspnea, unspecified Presentation: 06/16 18:18 Chief complaint: Patient states: SOB. Stage 4 lung CA diagnosed recently. O2 84% 5L NC ll1 long tubing. 95% 6L NC A\T\A en route. 18 R AC. Solu-Medrol 125 mg IV, sinus tach on monitor. Coronavirus screen: Client denies travel out of the [place] in the last 14 days. congestion, cough unrelated to allergies, Client presents with at least one sign or symptom that may indicate coronavirus-19. Standard/surgical mask placed on the client. Ebola Screen: Patient denies travel to an Ebola-affected area in the 21 days before illness onset. Initial Sepsis Screen: Does the patient meet any 2 criteria? No. Patient's initial sepsis screen is negative. Does the patient have a suspected source of infection? Yes: Productive cough/pneumonia. Risk Assessment: Do you want to hurt yourself or someone else? Patient reports no desire to harm self or others. Onset of symptoms was June 16, 2022. 18:18 Method Of Arrival: EMS: [facility] ll1 18:18 Acuity: TOMAS 3 ll1 18:36 Chief complaint: Patient states: SOB and malaise. ll1 Triage Assessment: 18:21 General: Appears ill, Behavior is calm, cooperative, appropriate for age. Pain: Denies ll1 pain. Neuro: Reports weakness. Cardiovascular: Reports fatigue, shortness of breath. Respiratory: Reports shortness of breath labored breathing. Historical: - Allergies: 18:20 No Known Allergies; ll1 - PMHx: 18:20 COPD; ll1 18:36 stage 4 lung CA; ll1 - Immunization history:: Client reports receiving the 2nd dose of the Covid vaccine. - Social history:: Smoking status: Patient/guardian denies using tobacco. Screenin:57 [facility] ED Fall Risk Assessment (Adult) Impaired Gait Yes (1 pt) Score/Fall Risk Level ll1 3 or more points = High Risk Oriented to surroundings, Maintained a safe environment, Educated pt \T\ family on fall prevention, incl call for assistance when getting out of bed, Provided non-skid footwear, Hourly rounding (assess needs \T\ fall precautionary measures) done, Used ambulatory aids as needed (educated on \T\ assisted with). Abuse screen: Denies threats or abuse. Nutritional screening: No deficits noted. Tuberculosis screening: No symptoms or risk factors identified. Assessment: 18:57 Reassessment: No changes from previously documented assessment. Patient and/or family ll1 updated on plan of care and expected duration. Pain level reassessed. Patient is alert, oriented x 3, equal unlabored respirations, skin warm/dry/pink. 19:19 General: Appears uncomfortable, Behavior is calm, cooperative. Pain: Denies pain. aa9 Neuro: Level of Consciousness is awake, alert, obeys commands, Oriented to person, place, time, situation. Respiratory: Reports chest congestion Airway is patent Respiratory effort is even. GI: Abdomen is round distended. Derm: Skin is intact, is fragile. 23:44 Reassessment: Ana M Dennison, [place]; . aa9 23:45 Reassessment: Report called to Martha MICHAELS. 9 06/17 00:14 Reassessment: Patient appears in no apparent distress at this time. [facility] aa9 Service EMT received report, EMT at bedside. Cardiovascular: Patient's skin is warm and dry. Respiratory: Airway is patent Respiratory effort is even, labored. Derm: Skin is intact, is fragile, Skin is clammy. Vital Signs: 06/16 18:31 BP 125 / 68; Pulse 114; Resp 22; Temp 98.3; Pulse Ox 96% on 5 lpm NC; Weight 74.84 kg; ll1 Height 5 ft. 8 in. (172.72 cm); Pain 0/10; 19:48 BP 132 / 88; Pulse 119; Resp 18 S; Pulse Ox 100% on Nebulizer Mask; aa9 20:27 BP 134 / 71; Pulse 130; Resp 22 S; Pulse Ox 92% on 4 lpm NC; aa9 06/17 00:18 BP 116 / 70; Pulse 115; Resp 20 S; Pulse Ox 92% on 4 lpm NC; aa9 06/16 18:31 Body Mass Index 25.09 (74.84 kg, 172.72 cm) ll1 ED Course: 06/16 18:14 Patient arrived in ED. em1 18:20 Triage completed. ll1 18:20 Arm band placed on Patient placed in an exam room, on a stretcher. ll1 18:20 Maintain EMS IV. Dressing intact. Good blood return noted. Site clean \T\ dry. Gauge \T\ ll 1 site: 18 G R FA. Oxygen administration via nasal cannula \T\ 5L/min. 18:28 Heriberto Whittington PA is PHCP. cp 18:28 Fabricio Multani MD is Attending Physician. cp 18:30 Hakeem Alejandre RN is Primary Nurse. ll1 18:57 Patient has correct armband on for positive identification. Bed in low position. Call ll1 light in reach. Client placed on continuous cardiac and pulse oximetry monitoring. NIBP monitoring applied. secured entrance monitor on. 18:59 XRAY Chest (1 view) In Process Unspecified. EDMS 19:57 Obinna De Leon MD is Hospitalizing Provider. cp 20:26 SARS RAPID Sent. aa9 21:40 Attending Physician role handed off by Fabricio Multani MD rn 21:40 Regis Ramsay MD is Attending Physician. rn 22:00 Initiated transfer to [facility], spoke with Arian Anderson. wm 23:09 Accepted for transfer by Dr. Clayton Levin \T\ [id number] per Arian Anderson. wm 23:33 No provider procedures requiring assistance completed. Patient transferred, IV remains aa9 in place. 06/17 00:14 Inserted saline lock: 20 gauge in left forearm, using aseptic technique. aa9 Administered Medications: 06/16 19:18 Drug: Xopenex (levalbuterol) (3) 1.25 mg Route: Inhalation; aa9 20:12 Drug: Lasix (furosemide) 40 mg Route: IVP; Site: right antecubital; aa9 06/17 00:30 Follow up: Response: No adverse reaction aa9 Medication: 06/16 18:57 VIS not applicable for this client. ll1 Output: 06/17 00:18 Urine: 1300ml (Voided); Total: 1300ml. aa9 Outcome: 06/16 20:00 Decision to Hospitalize by Provider. cp 21:56 ER care complete, transfer ordered by . rn 23:45 Condition: stable aa9 06/17 00:14 Transferred by ground EMS to [facility], Transfer form completed. aa9 Instructed on the need for transfer. 00:30 Patient left the ED. aa9 Signatures: Dispatcher [employer] EDMS Regis Ramsay MD MD rn Martinez, Eric 1 Heriberto Whittington PA PA Hakeem Vickers RN RN 1 Glenda Arroyo Aylin, RN RN aa9 Corrections: (The following items were deleted from the chart) 06/16 18:32 18:31 BP 125 / 68; Pulse 114bpm; Resp 22bpm; Pulse Ox 96% 5 lpm Nasal Cannula; Temp ll1 98.3F; ll1
[2022-06-16] MEDS ORDERED: FUROSEMIDE 40 MG/4 ML VIAL ONE (20:06)
--- NOTE | 2022-06-16 20:36 | P.HP ---
Certification for Inpatient Patient admitted to: Inpatient With expected LOS: >2 Midnights Patient will require the following post-hospital care: None Practitioner: I am a practitioner with admitting privileges, knowledge of patient current condition, hospital course, and medical plan of care. Services: Services provided to patient in accordance with Admission requirements found in Title 42 Section 412.3 of the Code of Federal Regulations Patient History Date of Service: 06/16/22 Reason for admission: Acute Respiratory Failure Allergies No Known Allergies Allergy (Verified 05/07/22 00:23) Home medications list reviewed: Yes Home Medications: Finasteride [Proscar*] 5 mg PO BEDTIME 07/11/16 Fluticasone/Salmeterol [Advair 500/50 Diskus*] 1 puff IH BID 07/11/16 Tamsulosin [Flomax*] 0.4 mg PO BID 07/11/16 Bimatoprost [[place] Opthalmic Drops*] 1 drop OPTH DAILY 05/07/22 Fluticasone Propionate [Flovent Diskus] 1 inh PO DAILY 05/07/22 Tiotropium [place] [Spiriva] 1 inh PO DAILY 05/07/22 Albuterol Neb [Proventil 0.083% Neb Soln] 2.5 mg NEB [id number] PRN #60 amp 05/21/22 Arformoterol Tartrate [Brovana] 15 mcg NEB BIDRESP #60 vial.neb 05/21/22 Benzonatate [Tessalon Perle*] 100 mg PO TID PRN #60 cap 05/21/22 Buspirone HCl [Buspar*] 10 mg PO TID PRN #120 tab 05/21/22 Docusate [Colace Cap*] 100 mg PO BID #60 cap 05/21/22 Ensure Enlive 237 ml PO BID #60 can 05/21/22 Famotidine [Pepcid*] 20 mg PO BID PRN #60 tab 05/21/22 Hydrocodone/Chlorphen Polis [Tussionex Oral Susp*] 5 ml PO BID PRN #100 ml 05/21/22 Hydrocodone/Chlorphen Polis [Tussionex Oral Susp] 5 ml PO Q12HR PRN 30 Days #100 ml 05/21/22 Ipratropium Neb [Atrovent*] 0.5 mg NEB [id number] #60 amp 05/21/22 acetaZOLAMIDE [Diamox*] 250 mg PO DAILY #30 tab 05/21/22 predniSONE [Deltasone*] 10 mg PO BID #20 tab 05/21/22 - Past Medical/Surgical History Diabetic: No -: COPD -: BPH -: Metastatic Lung Cancer -: appy -: tonsillectomy, adenoids removed -: catarect sx Psychosocial/ Personal History: Patient is . - Family History Mother -: Diabetes - Social History Smoking Status: Current every day smoker Alcohol use: Yes CD- Drugs: No Caffeine use: Yes Place of Residence: Home Review of Systems Respiratory: Shortness of Breath Physical Examination - Physical Exam General: Alert, In no apparent distress HEENT: Atraumatic, PERRLA, EOMI, Sclerae nonicteric Neck: Supple, 2+ carotid pulse no bruit, No LAD, Without JVD or thyroid abnormality Respiratory: Crackles/rales, Expiratory wheezes Cardiovascular: Regular rate/rhythm, Normal S1 S2 Gastrointestinal: Normal bowel sounds, No tenderness Musculoskeletal: No tenderness Integumentary: No rashes Neurological: Normal speech, Normal affect - Studies Laboratory Data (last 24 hrs) 06/16/22 18:50: PT 10.9, INR 0.99 06/16/22 18:50: WBC 10.70, Hgb 10.9 L, Hct 33.8 L, Plt Count 356 06/16/22 18:50: Sodium 138, Potassium 3.9, BUN 13, Creatinine 0.56 L, Glucose 1 39 H, Magnesium 2.1 Assessment and Plan - Problems (Diagnosis) (1) Acute respiratory failure with hypoxia and hypercapnia Current Visit: Yes Status: Acute (2) Chronic respiratory failure with hypoxia and hypercapnia Current Visit: Yes Status: Chronic (3) Lung cancer Current Visit: Yes Status: Chronic (4) BPH (benign prostatic hyperplasia) Current Visit: Yes Status: Chronic Qualifiers: Lower urinary tract symptom presence: unspecified whether lower urinary tract symptoms present (5) COPD (chronic obstructive pulmonary disease) Current Visit: Yes Status: Chronic Qualifiers: COPD type: unspecified COPD Qualified Code(s): J44.9 - Chronic obstructive pulmonary disease, unspecified (6) Hypertension Current Visit: No Status: Chronic Qualifiers: Discharge Plan: Home Plan to discharge in: Greater than 2 days - Advance Directives Does patient have a Living Will: No Does patient have a Durable POA for Healthcare: Yes - Code Status/Comfort Care Code Status Assessed: Yes Code Status: Full Code Physician Review: Patient Assessed, Agree with Above Assessment and Plan Critical Care: No Time Spent Managing Pts Care (In Minutes): 50
[2022-06-16 20:37] LABS: SARS-CoV-2 Antigen Rapid Res Negative (Negative)
--- NOTE | 2022-06-16 20:54 | RAD REPORT ---
EXAM DESCRIPTION: CT - Chest For Pe Angio - 06/16/2022 8:39 pm CLINICAL HISTORY: Chest pain. SOB COMPARISON: Chest Single View dated 05/15/2022; Thorax Wo Con dated 05/06/2022 TECHNIQUE: CT angiogram of the pulmonary arteries was performed with MIP. All CT scans are performed using dose optimization technique as appropriate and may include automated exposure control or mA/KV adjustment according to patient size. FINDINGS: No evidence of pulmonary thromboembolism. No acute aortic finding demonstrated. Right lung is significantly emphysematous. 14 mm spiculated area of nodularity posterior right upper lobe is unchanged since prior study. Large loculated left pleural effusion is seen with significant left lung atelectasis present, particu larly in the left lower lobe. This may indicate lung entrapment. No significant pericardial effusion. No right-sided pleural effusion. No concerning bony finding. IMPRESSION: No evidence of pulmonary thromboembolism. Loculated large left pleural effusion is seen with significant left lung atelectasis present. This dotson ggests lung entrapment.
[2022-06-17] MEDS ORDERED: DIPHENHYDRAMINE 50 MG/ML VIAL ONE (00:44)
[2022-06-17] MEDS ORDERED: PROMETHAZINE INJ 25 MG/ML AMP ONE (00:44)
[2022-06-17 00:45] VITALS: TEMP 98.3
[2022-06-17] MEDS ORDERED: NA CHLORIDE 0.9% 1,000 ML ONE (00:45)
[2022-06-17] MEDS ORDERED: KETOROLAC 30 MG/ML INJ ONE (00:45)
[2022-06-17 00:57] VITALS: O2SAT 92
[2022-06-17 00:58] VITALS: BP 116/70
== END 2022-06-17 00:30 | disposition short-term general hospital (02) ==
LOC: ER 18:03 → UNDOADMIN 20:18 → ERHOLD 20:18 → 4TH 21:19 → ERHOLD 21:19 → 4TH 21:58 → ER 06-17 00:30
DX: C34.91 Malignant neoplasm of unspecified part of right bronchus or lung (principal); J91.0 Malignant pleural effusion; J44.9 Chronic obstructive pulmonary disease, unspecified; Z20.822 Contact with and (suspected) exposure to COVID-19
CPT/HCPCS: 93005 ×2; 85025; 80048; 36415; 83735; 85610; 84484; 83880; 71275; 71045; 82805; 96374; 99285; 87811; Q9967; J2550; J1200; J7614; J1940; J7030

== ENCOUNTER 2022-10-13 10:50 | Inpatient (IN) | payer OTHER ==
--- OUTSIDE RECORDS SUMMARY | 2022-10-13 10:57 | XMS REPORT | Continuity of Care Document ---
:1940 Author Organization [facility] t Address [address] [place] [address] [address] [place] [address] Care Team Providers Name Role Phone PUJA CISNEROS Primary Care Physician Unavailable William Young Attending Clinician Unavailable AIDAN WEBB Attending Clinician Unavailable AIDAN WEBB Attending Clinician Unavailable CELENA BRICEÑO Attending Clinician Unavailable JUAN DELGADO Attending Clinician Unavailable Aidan Webb DO Attending Clinician Doctor Unassigned, [place] Attending Clinician Unavailable JASSI FONTAINE Attending Clinician Unavailable Nadiya Elmore Attending Clinician Unavailable Therapist, Jim Pulmonary Attending Clinician Unavailable Jassi Fontaine MD Attending Clinician Therapist, Jim Respiratory Attending Clinician Unavailable Meliton-Radha_A_AH Attending Clinician Unavailable JUAN DELGADO Admitting Clinician Unavailable Christiana_Paula_ROSEMARY Admitting Clinician Unavailable Payers Payer Name Policy Type Policy Number Effective Date Expiration Date S ource HUMANA CHOICE [id number] 2021 00:00:00 HU[employer]NA MEDICARE [id number] 2022 ADV 00:00:00 [place] [place] - [id number] [place] 00:00:00 (MEDICARE REPLACEMENT/ADVANT AGE - HMO) Problems Condition Condition Condition Status Onset Resolution Last Treating Co mments Source Name Details Category Date Date Treatment Clinician Date No known No known Disease Unive rs active active ity of problems problems [facility] [id number] 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, - [facility] un[facility] glaucoma [facility] [id number] Benign Problem Commo n 101 prostatic Spirit hyperplasi - [facility] a with lower 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 obstructio urinary Medic al n tract Center symptoms [id number] Chronic Problem Common obstructiv Spirit e - [facility] pulmonary [facility] disease, kes unspecifie Medica l d COPD Center type Acute COPD with Problem Common exacerbati acute Spirit on of exacerbati - [facility] chronic on obstructiv 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 d trigger Medical Center Allergies, Adverse Reactions, Alerts Allergy Allergy Status Severity Reaction(s) Onset Inactive Treating Comm ents Source Name Type Date Date Clinician NO KNOWN Drug Active Univers ALLERGIE Class ity of [facility] NO KNOWN Allergy [facility] Social History Social Habit Start Date Stop Date Quantity Comments Source History of Tobacco Common Spirit - Use [facility] Sex Assigned At Common Sp carmen - [facility] Exposure to 2022-04-08 2022-04-18 Not sure [facility] SARS-CoV-2 (event) 00:00:00 10:53:00 [facility] Alcohol intake 2022-04-18 2022-04-18 Ex-drinker [facility] 00:00:00 00:00:00 (finding) [facility] Tobacco use and 2022-02-11 2022-02-11 Smokeless Universit y of exposure 00:00:00 00:00:00 tobacco non-user [facility] Cigarettes smoked 2022-02-11 2022-02-11 Univers ity of current (pack per 00:00:00 00:00:00 [facility] [place] [facility] ) - Reported [place] Cigarette 2022-02-11 2022-02-11 University of pack-years 00:00:00 00:00:00 [facility] Smoking Status Start Date Stop Date Source Former Smoker 2022-05-04 00:00:00 2022-05-04 00:00:00 Common S pirit - [facility] Medications Ordered Filled Start Stop Current Ordering Indication Dosage Frequency Signature Comments Components Source Medication Medication Date Date Medication? Clinician (SIG) Name Name Formoterol 2021-05 Yes 20ug Inhale 20 Un norberto Fumarate 2-27 mcg 2 ity of (PERFOROMIS 00:00: (two) [place] T) 20 mcg/2 00 times Medical mL Nebu daily. [place] arformotero 2021-05 Yes [id number] 15ug Use 2 mL Univers L (BROVANA) 2-21 as ity of 15 mcg/2 [place] 00:[place] nebulizer 00 in the Medical solution morning Branch and 2 mL in the evening. revefenacin 2021-05 Yes [id number] 175ug Inhale 175 Univers (YUPELRI) 2-21 mcg daily. ity of 175 mcg/3 00:00: [place] mL Nebu 00 [facility] budesonide 2021-05 Yes [id number] .25mg Inhale 2 Univers (PULMICORT) 2-21 mL in the ity of 0.25 mg/2 00:00: morning [place] mL 00 and 2 mL Medical nebulizer in the Branch solution evening. revefenacin 2021-05 Yes [id number] 175ug Inhale 175 Univers (YUPELRI) 2-21 mcg daily. ity of 175 mcg/3 00:00: [place] mL Nebu 00 [facility] budesonide 2021-05 Yes [id number] .25mg Inhale 2 Univers (PULMICORT) 2-21 mL in the ity of 0.25 mg/2 00:00: morning [place] mL 00 and 2 mL Medical nebulizer in the Branch solution evening. revefenacin 2021-05 Yes [id number] 175ug Inhale 175 Univers (YUPELRI) 2-21 mcg daily. ity of 175 mcg/3 00:00: [place] mL Nebu 00 [facility] budesonide 2021-05 Yes [id number] .25mg Inhale 2 Univers (PULMICORT) 2-21 mL in the ity of 0.25 mg/2 00:00: morning [place] mL 00 and 2 mL Medical nebulizer in the Branch solution evening. arformotero 2021-05- No [id number] 15ug Use 2 mL Univers L (BROVANA) 2-21 05-03 as ity of 15 mcg/2 mL 00:00: 00:00 directed [place] nebulizer 00 :00 in the Medical solution morning Branch and 2 mL in the evening. doxycycline 2021-05 Yes [id number] 100mg Take 1 Univers 100 mg EC 1-18 tablet by ity o f tablet 00:00: mouth in [place] 00 the Medical morning Branch and 1 tablet in the evening. doxycycline 2021-05 Yes [id number] 100mg Take 1 Univers 100 mg EC 1-18 tablet by ity o f tablet 00:00: mouth in [place] 00 the Medical morning Branch and 1 tablet in the evening. doxycycline 2021-05 Yes [id number] 100mg Take 1 Univers 100 mg EC 1-18 tablet by ity o f tablet 00:00: mouth in [place] 00 the Medical morning Branch and 1 tablet in the evening. doxycycline 2021-05 Yes [id number] 100mg Take 1 Univers 100 mg EC 1-18 tablet by ity o f tablet 00:00: mouth in [place] 00 the Medical morning Branch and 1 tablet in the evening. doxycycline 2021-05 Yes [id number] 100mg Take 1 Univers 100 mg EC 1-18 tablet by ity o f tablet 00:00: mouth in [place] 00 the Medical morning Branch and 1 tablet in the evening. doxycycline 2021-05 Yes [id number] 100mg Take 1 Univers 100 mg EC 1-18 tablet by ity o f tablet 00:00: mouth in [place] 00 the Medical morning Branch and 1 tablet in the evening. doxycycline 2021-05 Yes [id number] 100mg Take 1 Univers 100 mg EC 1-18 tablet by ity o f tablet 00:00: mouth in [place] 00 the Medical morning Branch and 1 tablet in the evening. doxycycline 2021-05 Yes [id number] 100mg Take 1 Univers 100 mg EC 1-18 tablet by ity o f tablet 00:00: mouth in [place] 00 the Medical morning Branch and 1 tablet in the evening. doxycycline 2021-05 Yes [id number] 100mg Take 1 Univers 100 mg EC 1-18 tablet by ity o f tablet 00:00: mouth in [place] 00 the Medical morning Branch and 1 tablet in the evening. doxycycline 2021-05 Yes [id number] 100mg Take 1 Univers 100 mg EC 1-18 tablet by ity o f tablet 00:00: mouth in [place] 00 the Medical morning Branch and 1 tablet in the evening. doxycycline 2021-05 Yes [id number] 100mg Take 1 Univers 100 mg EC 1-18 tablet by ity o f tablet 00:00: mouth in [place] 00 the Medical morning Branch and 1 tablet in the evening. doxycycline 2021-05 Yes [id number] 100mg Take 1 Univers 100 mg EC 1-18 tablet by ity o f tablet 00:00: mouth in [place] 00 the Medical morning Branch and 1 tablet in the evening. doxycycline 2021-05 Yes [id number] 100mg Take 1 Univers 100 mg EC 1-18 tablet by ity o f tablet 00:00: mouth in [place] 00 the Medical morning Branch and 1 tablet in the evening. doxycycline 2021-05 Yes [id number] 100mg Take 1 Univers 100 mg EC 1-18 tablet by ity o f tablet 00:00: mouth in [place] 00 the Medical morning Branch and 1 tablet in the evening. doxycycline 2021-05 Yes [id number] 100mg Take 1 Univers 100 mg EC 1-18 tablet by ity o f tablet 00:00: mouth in [place] 00 the Medical morning Branch and 1 tablet in the evening. doxycycline 2021-05 Yes [id number] 100mg Take 1 Univers 100 mg EC 1-18 tablet by ity o f tablet 00:00: mouth in [place] 00 the Medical morning Branch and 1 tablet in the evening. doxycycline 2021-05 Yes [id number] 100mg Take 1 Univers 100 mg EC 1-18 tablet by ity o f tablet 00:00: mouth in [place] 00 the Medical morning Branch and 1 tablet in the evening. doxycycline 2021-05- No [id number] 100mg Take 1 Univers 100 mg EC 1-17 11-25 tablet by ity of tablet 00:00: 05:59 mouth in [place] 00 :00 the Medical morning Branch and 1 tablet in the evening. Do all this for 7 days. doxycycline 2021-05- No [id number] 100mg Take 1 Univers 100 mg EC 1-17 11-25 tablet by ity of tablet 00:00: 05:59 mouth in [place] 00 :00 the Medical morning Branch and 1 tablet in the evening. Do all this for 7 days. predniSONE 2021-05- No [id number] 40mg Take 2 Univers 20 mg 1-17 11-23 tablets by ity of tablet 00:00: 05:59 mouth in [place] 00 :00 the [facility] morning [place] for 5 days. predniSONE 2021-05- No [id number] 40mg Take 2 Univers 20 mg 1-17 11-23 tablets by ity of tablet 00:00: 05:59 mouth in [place] 00 :00 the [facility] for 5 days. predniSONE 2021-05- No [id number] 40mg Take 2 Univers 20 mg 1-17 11-23 tablets by ity of tablet 00:00: 05:59 mouth in [place] 00 :00 the [facility] for 5 days. predniSONE 2021-05- No [id number] 40mg Take 2 Univers 20 mg 1-17 11-23 tablets by ity of tablet 00:00: 05:59 mouth in [place] 00 :00 the [facility] for 5 days. predniSONE 2021-05- No [id number] 40mg Take 2 Univers 20 mg 1-17 11-23 tablets by ity of tablet 00:00: 05:59 mouth in [place] 00 :00 the [facility] for 5 days. predniSONE 2021-05- No [id number] 40mg Take 2 Univers 20 mg 1-17 11-23 tablets by ity of tablet 00:00: 05:59 mouth in [place] 00 :00 the [facility] for 5 days. doxycycline 2021-05- No [id number] 100mg Take 1 Univers 100 mg EC 1-17 11-18 tablet by ity of tablet 00:00: 00:00 mouth in [place] 00 :00 the [facility] Branch and 1 tablet in the evening. Do all this for 7 days. doxycycline 2021-05- No [id number] 100mg Take 1 Univers 100 mg EC 1-17 11-18 tablet by ity of tablet 00:00: 00:00 mouth in [place] 00 :00 the [facility] and 1 tablet in the evening. Do all this for 7 days. furosemide 2021-05 Yes 10mg Take 10 mg U nivers 10 mg 0-07 by mouth ity of 15:54: weekly. [address] furosemide 2021-05 Yes 10mg Take 10 mg U nivers 10 mg 0-07 by mouth ity of 15:54: weekly. [address] furosemide 2021-05 Yes 10mg Take 10 mg U nivers 10 mg 0-07 by mouth ity of 15:54: weekly. [address] furosemide 2021-05 Yes 10mg Take 10 mg U nivers 10 mg 0-07 by mouth ity of 15:54: weekly. [address] furosemide 2021-05 Yes 10mg Take 10 mg U nivers 10 mg 0-07 by mouth ity of 15:54: weekly. [address] furosemide 2021-05 Yes 10mg Take 10 mg U nivers 10 mg 0-07 by mouth ity of 15:54: weekly. [address] furosemide 2021-05 Yes 10mg Take 10 mg U nivers 10 mg 0-07 by mouth ity of 15:54: weekly. [address] furosemide 2021-05 Yes 10mg Take 10 mg U nivers 10 mg 0-07 by mouth ity of 15:54: weekly. [address] furosemide 2021-05 Yes 10mg Take 10 mg U nivers 10 mg 0-07 by mouth ity of 15:54: weekly. [address] furosemide 2021-05 Yes 10mg Take 10 mg U nivers 10 mg 0-07 by mouth ity of 15:54: weekly. [address] furosemide 2021-05 Yes 10mg Take 10 mg U nivers 10 mg 0-07 by mouth ity of 15:54: weekly. [address] furosemide 2021-05 Yes 10mg Take 10 mg U nivers 10 mg 0-07 by mouth ity of 15:54: weekly. [address] furosemide 2021-05 Yes 10mg Take 10 mg U nivers 10 mg 0-07 by mouth ity of 15:54: weekly. [address] furosemide 2021-05 Yes 10mg Take 10 mg U nivers 10 mg 0-07 by mouth ity of 15:54: weekly. [address] furosemide 2021-05 Yes 10mg Take 10 mg U nivers 10 mg 0-07 by mouth ity of 15:54: weekly. [address] furosemide 2021-05 Yes 10mg Take 10 mg U nivers 10 mg 0-07 by mouth ity of 15:54: weekly. [address] furosemide 2021-05 Yes 10mg Take 10 mg U nivers 10 mg 0-07 by mouth ity of 15:54: weekly. [address] furosemide 2021-05 Yes 10mg Take 10 mg U nivers 10 mg 0-07 by mouth ity of 15:54: weekly. [address] furosemide 2021-05 Yes 10mg Take 10 mg U nivers 10 mg 0-07 by mouth ity of 15:54: weekly. [address] furosemide 2021-05 Yes 10mg Take 10 mg U nivers 10 mg 0-07 by mouth ity of 15:54: weekly. [address] furosemide 2021-05 Yes 10mg Take 10 mg U nivers 10 mg 0-07 by mouth ity of 15:54: weekly. [address] furosemide 2021-05 Yes 10mg Take 10 mg U nivers 10 mg 0-07 by mouth ity of 15:54: weekly. [address] furosemide 2021-05 Yes 10mg Take 10 mg U nivers 10 mg 0-07 by mouth ity of 15:54: weekly. [address] furosemide 2021-05 Yes 10mg Take 10 mg U nivers 10 mg 0-07 by mouth ity of 15:54: weekly. [address] furosemide 2021-05 Yes 10mg Take 10 mg U nivers 10 mg 0-07 by mouth ity of 15:54: weekly. [address] furosemide 2021-05 Yes 10mg Take 10 mg U nivers 10 mg 0-07 by mouth ity of 15:54: weekly. [address] furosemide 2021-05 Yes 10mg Take 10 mg U nivers 10 mg 0-07 by mouth ity of 15:54: weekly. [address] furosemide 2021-05 Yes 10mg Take 10 mg U nivers 10 mg 0-07 by mouth ity of 15:54: weekly. [address] furosemide 2021-05 Yes 10mg Take 10 mg U nivers 10 mg 0-07 by mouth ity of 15:54: weekly. [address] furosemide 2021-05 Yes 10mg Take 10 mg U nivers 10 mg 0-07 by mouth ity of 15:54: weekly. [address] furosemide 2021-05 Yes 10mg Take 10 mg U nivers 10 mg 0-07 by mouth ity of 15:54: weekly. [address] furosemide 2021-05 Yes 10mg Take 10 mg U nivers 10 mg 0-07 by mouth ity of 15:54: weekly. [address] Branch furosemide 2021-05 Yes 10mg Take 10 mg U nivers 10 mg 0-07 by mouth ity of 15:54: weekly. [address] furosemide 2021-05 Yes 10mg Take 10 mg U nivers 10 mg 0-07 by mouth ity of 15:54: weekly. [address] Branch tamsulosin Yes Take by [facility] ers 0.4 mg 24 8-12 mouth ity of hr capsule 11:44: daily. [address] Branch finasteride Yes 5mg Take 5 mg U nivers 5 mg tablet 8-12 by mouth ity of 11:44: in the [place] morning. Medical Branch albuterol Yes 2.5mg Inhale [...] mcg/dose inhalation disk fluticasone Yes Use in [facility] ers propionate 8-12 each ity of (ALLERGY 11:44: nostril 2 [place] (two) Medical FLUTICASONE times Branch ,) 50 daily. mcg/actuati on nasal spray tamsulosin Yes Take by [facility] ers 0.4 mg 24 8-12 mouth ity of hr capsule 11:44: daily. [place] [address] Medical Branch finasteride Yes 5mg Take 5 mg U nivers 5 mg tablet 8-12 by mouth ity of 11:44: in the [place] 03 morning. Medical Branch albuterol Yes 2.5mg [...] inhalation disk fluticasone 2021-0 Yes Use in [facility] ers propionate 8-12 each ity of (ALLERGY 11:44: nostril 2 [place] 03 (two) Medical FLUTICASONE [facility] ,) 50 daily. mcg/actuati on nasal spray tamsulosin 2021-0 Yes Take by [facility] ers 0.4 mg 24 8-12 mouth ity of hr capsule 11:44: daily. [place] Medical Branch finasteride 2021-0 Yes 5mg Take 5 mg U nivers 5 mg tablet 8-12 by mouth ity of 11:44: in the [place] 03 morning. Medical Branch albuterol 2021-0 Yes [...] inhalation disk fluticasone 2021-0 Yes Use in [facility] ers propionate 8-12 each ity of (ALLERGY 11:44: nostril 2 [place] 03 (two) Medical FLUTICASONE [facility] ,) 50 daily. mcg/actuati on nasal spray tamsulosin 2021-0 Yes Take by [facility] ers 0.4 mg 24 8-12 mouth ity of hr capsule 11:44: daily. [place] 03 Medical Branch finasteride 2021-0 Yes 5mg [...] inhalation disk fluticasone 2021-0 Yes Use in [facility] ers propionate 8-12 each ity of (ALLERGY 11:44: nostril 2 [place], 03 (two) Medical FLUTICASONE [facility] ,) 50 daily. mcg/actuati on nasal spray tamsulosin 2021-0 Yes Take by [facility] ers 0.4 mg 24 8-12 mouth ity of hr capsule 11:44: daily. Medical Branch finasteride 2021-0 Yes 5mg Take 5 mg U nivers 5 mg tablet 8-12 by mouth ity of 11:44: in the [place] morning. Medical Branch albuterol 2021-0 Yes 2.5mg [...] inhalation disk fluticasone 2021-0 Yes Use in [facility] ers propionate 8-12 each ity of (ALLERGY 11:44: nostril 2 [place], 03 (two) Medical FLUTICASONE [facility] ,) 50 daily. mcg/actuati on nasal spray tamsulosin 2021-0 Yes Take by [facility] ers 0.4 mg 24 8-12 mouth ity of hr capsule 11:44: daily. [place] Medical Branch finasteride 2021-0 Yes 5mg Take 5 mg U nivers 5 mg tablet 8-12 by mouth ity of 11:44: in the morning. Medical Branch albuterol 2022-0 Yes 2.5mg Inhale 2.5 U nivers 2.5 [...] [place] (two) Medical FLUTICASONE [facility] ,) 50 daily. mcg/actuati on nasal spray tamsulosin 0 Yes Take by Univ ers 0.4 mg 24 8-12 mouth ity of hr capsule 11:44: daily. Medical Branch finasteride 2021-0 Yes 5mg Take 5 mg U nivers 5 mg tablet 8-12 by mouth ity of 11:44: in the [place] morning. Medical Branch albuterol 2021-0 Yes 2.5mg [...] [place] 03 (two) Medical FLUTICASONE [facility] ,) 50 daily. mcg/actuati on nasal spray tamsulosin 2021-0 Yes Take by Univ ers 0.4 mg 24 8-12 mouth ity of hr capsule 11:44: daily. Medical Branch finasteride 2021-0 Yes 5mg Take 5 mg U nivers 5 mg tablet 8-12 by mouth ity of 11:44: in the [place] 03 morning. Medical Branch albuterol 2021-0 Yes [...] s RELIEF, 03 (two) Medical FLUTICASONE times [place] ,) 50 daily. mcg/actuati on nasal spray tamsulosin 0 Yes Take by Univ ers 0.4 mg 24 8-12 mouth ity of hr capsule 11:44: daily. [place] Medical Branch finasteride 2021-0 Yes 5mg Take 5 mg U nivers 5 mg tablet 8-12 by mouth ity of 11:44: in the [place] morning. Medical Branch albuterol 2021-0 Yes 2.5mg [...] mouth ity of hr capsule 11:44: daily. [place] Medical Branch finasteride 2021-0 Yes 5mg Take 5 mg U nivers 5 mg tablet 8-12 by mouth ity of 11:44: in the [place] 03 morning. Medical Branch albuterol 2021-0 Yes [...] s RELIEF, 03 (two) Medical FLUTICASONE times [place] ,) 50 daily. mcg/actuati on nasal spray tamsulosin 0 Yes Take by Univ ers 0.4 mg 24 8-12 mouth ity of hr capsule 11:44: daily. [place] Medical Branch finasteride 2021-0 Yes 5mg Take 5 mg U nivers 5 mg tablet 8-12 by mouth ity of 11:44: in the [place] morning. Medical Branch albuterol 2021-0 Yes 2.5mg [...] [place] (two) Medical FLUTICASONE [facility] ,) 50 daily. mcg/actuati on nasal spray tamsulosin Yes Take by [facility] ers 0.4 mg 24 8-12 mouth ity of hr capsule 11:44: daily. [place] Medical Branch finasteride 2021-0 Yes 5mg Take 5 mg U nivers 5 mg tablet 8-12 by mouth ity of 11:44: in the [place] morning. Medical Branch albuterol 0 Yes 2.5mg [...] mcg/dose inhalation disk fluticasone Yes Use in [facility] ers propionate 8-12 each ity of (ALLERGY 11:44: nostril 2 [place] 03 (two) Medical FLUTICASONE times Branch ,) 50 daily. mcg/actuati on nasal spray tamsulosin Yes Take by [facility] ers 0.4 mg 24 8-12 mouth ity of hr capsule 11:44: daily. [place] Medical Branch finasteride Yes 5mg Take 5 mg U nivers 5 mg tablet 8-12 by mouth ity of 11:44: in the [place] morning. Medical Branch albuterol 0 Yes 2.5mg [...] [place] 03 (two) Medical FLUTICASONE [facility] ,) 50 daily. mcg/actuati on nasal spray tamsulosin 0 Yes Take by [facility] ers 0.4 mg 24 8-12 mouth ity of hr capsule 11:44: daily. Medical Branch finasteride 2021-0 Yes 5mg Take 5 mg U nivers 5 mg tablet 8-12 by mouth ity of 11:44: in the [place] morning. Medical Branch albuterol 2021-0 Yes 2.5mg [...] inhalation disk fluticasone 0 Yes Use in [facility] ers propionate 8-12 each ity of (ALLERGY 11:44: nostril 2 [place] 03 (two) Medical FLUTICASONE [facility] ,) 50 daily. mcg/actuati on nasal spray tamsulosin 0 Yes Take by [facility] ers 0.4 mg 24 8-12 mouth ity of hr capsule 11:44: daily. Medical Branch finasteride 2021-0 Yes 5mg Take 5 mg U nivers 5 mg tablet 8-12 by mouth ity of 11:44: in the [place] morning. Medical Branch albuterol 2021-0 Yes 2.5mg [...] inhalation disk fluticasone 2022-0 Yes Use in [facility] ers propionate 8-12 each ity of (ALLERGY 11:44: nostril 2 [place] 03 (two) Medical FLUTICASONE [facility] ,) 50 daily. mcg/actuati on nasal spray tamsulosin 0 Yes Take by [facility] ers 0.4 mg 24 8-12 mouth [...] mcg/dose inhalation disk fluticasone Yes Use in [facility] ers propionate 8-12 each ity of (ALLERGY 11:44: nostril 2 [place] 03 (two) Medical FLUTICASONE [facility] ,) 50 daily. mcg/actuati on nasal spray tamsulosin Yes Take by [facility] ers 0.4 mg 24 8-12 mouth [...] inhalation disk fluticasone 2021-0 Yes Use in [facility] ers propionate 8-12 each ity of (ALLERGY 11:44: nostril 2 [place] 03 (two) Medical FLUTICASONE times [place] ,) 50 daily. mcg/actuati on nasal spray tamsulosin 2021-0 Yes Take by [facility] ers 0.4 mg 24 8-12 mouth ity of hr capsule 11:44: daily. [place] [address] Medical Branch finasteride 2021-0 Yes 5mg Take 5 mg U nivers 5 mg tablet 8-12 by mouth ity of 11:44: in the [place] morning. Medical Branch albuterol 2021-0 Yes 2.5mg [...] inhalation disk fluticasone 2021-0 Yes Use in [facility] ers propionate 8-12 each ity of (ALLERGY 11:44: nostril 2 [place] 03 (two) Medical FLUTICASONE times [place] ,) 50 daily. mcg/actuati on nasal spray tamsulosin 0 Yes Take by [facility] ers 0.4 mg 24 8-12 mouth ity of hr capsule 11:44: daily. [place] Medical Branch tamsulosin 2021-0 Yes Take by [facility] ers 0.4 mg 24 8-12 mouth ity of hr capsule 11:44: daily. [place] [address] Medical Branch finasteride 2021-0 Yes 5mg Take 5 mg U nivers 5 mg tablet 8-12 by mouth ity of 11:44: in the [place] morning. Medical Branch albuterol 2021-0 Yes 2.5mg [...] [place] 03 (two) Medical FLUTICASONE [facility] ,) 50 daily. mcg/actuati on nasal spray finasteride 2021-0 Yes 5mg Take 5 mg U nivers 5 mg tablet 8-12 by mouth ity of 11:44: in the [place] morning. Medical Branch tamsulosin 2021-0 Yes Take by [facility] ers 0.4 mg 24 8-12 mouth ity of hr capsule 11:44: daily. Medical Branch finasteride 2021-0 Yes 5mg Take 5 mg U nivers 5 mg tablet 8-12 by mouth ity of 11:44: in the [place] morning. Medical Branch albuterol 2021-0 Yes 2.5mg [...] [place] 03 (two) Medical FLUTICASONE [facility] ,) 50 daily. mcg/actuati on nasal spray tamsulosin 2021-0 Yes Take by [facility] ers 0.4 mg 24 8-12 mouth ity of hr capsule 11:44: daily. [place] Medical Branch finasteride 2021-0 Yes 5mg Take 5 mg U nivers 5 mg tablet 8-12 by mouth ity of 11:44: in the [place] 03 morning. Medical Branch albuterol 2021-0 Yes [...] inhalation disk fluticasone 2021-0 Yes Use in [facility] ers propionate 8-12 each ity of (ALLERGY 11:44: nostril 2 [place] 03 (two) Medical FLUTICASONE times [place] ,) 50 daily. mcg/actuati on nasal spray tamsulosin 0 Yes Take by [facility] ers 0.4 mg 24 8-12 mouth ity of hr capsule 11:44: daily. [place] [facility] finasteride 2021-0 Yes 5mg Take 5 mg U nivers 5 mg tablet 8-12 by mouth ity of 11:44: in the [place] morning. Medical Branch albuterol 2021-0 Yes 2.5mg Inhale 2.5 U nivers 2.5 mg /3 8-12 mg every 4 ity of mL (0.083 11:44: (four) [place] %) 03 hours as Medical nebulizer needed for Bran ch solution Wheezing or Shortness of Breath. fluticasone 2021-0 Yes Use in [facility] ers propionate 8-12 each ity of (ALLERGY 11:44: [place]ril [place] 03 (two) Medical FLUTICASONE [facility] ,) 50 daily. mcg/actuati on nasal spray Fluticasone 0 Yes 1{puff} Inhale 1 Univers -Salmeterol 8-12 Puff every it y of (ADVAIR 11:44: 12 [place] DISKUS) 03 (twelve) Medical 500-50 hours. Branch mcg/dose inhalation disk fluticasone 0 Yes Use in [facility] ers propionate 8-12 each ity of (ALLERGY 11:44: nostril [place] 03 (two) Medical FLUTICASONE [facility] ,) 50 daily. mcg/actuati on nasal spray tamsulosin 0 Yes Take by [facility] ers 0.4 mg 24 8-12 mouth [...] inhalation disk fluticasone 0 Yes Use in [facility] ers propionate 8-12 each ity of (ALLERGY 11:44: [place]ril [place] 03 (two) Medical FLUTICASONE [facility] ,) 50 daily. mcg/actuati on nasal spray tamsulosin 0 Yes Take by [facility] ers 0.4 mg 24 8-12 mouth ity of hr capsule 11:44: daily. [place] [facility] finasteride 2021-0 Yes 5mg Take [...] inhalation disk fluticasone 0 Yes Use in [facility] ers propionate 8-12 each ity of (ALLERGY 11:44: nostril [place] 03 (two) Medical FLUTICASONE [facility] ,) 50 daily. mcg/actuati on nasal spray tamsulosin 0 Yes Take by [facility] ers 0.4 mg 24 8-12 mouth [...] [place] 03 (two) Medical FLUTICASONE [facility] ,) 50 daily. mcg/actuati on nasal spray tamsulosin 0 Yes Take by Univ ers 0.4 mg 24 8-12 mouth ity of hr capsule 11:44: daily. [place] [facility] finasteride 2021-0 Yes 5mg Take 5 mg U nivers 5 mg tablet 8-12 by mouth ity of 11:44: in the [place] morning. Medical Branch albuterol 2021-0 Yes 2.5mg [...] s RELIEF, 03 (two) Medical FLUTICASONE times [facility] ,) 50 daily. mcg/actuati on nasal spray tamsulosin Yes Take by [facility] ers 0.4 mg 24 8-12 mouth ity of hr capsule 11:44: daily. [place] [facility] finasteride 0 Yes 5mg Take 5 mg U nivers 5 mg tablet 8-12 by mouth ity of 11:44: in the [place] morning. Medical Branch albuterol 0 Yes 2.5mg [...] s RELIEF, 03 (two) Medical FLUTICASONE times [place] ,) 50 daily. mcg/actuati on nasal spray tamsulosin 0 Yes Take by Univ ers 0.4 mg 24 8-12 mouth ity of hr capsule 11:44: daily. [place] [facility] finasteride 2021-0 Yes 5mg Take 5 mg U nivers 5 mg tablet 8-12 by mouth ity of 11:44: in the [place] morning. Medical Branch albuterol 2021-0 Yes 2.5mg [...] s RELIEF, 03 (two) Medical FLUTICASONE times [place] ,) 50 daily. mcg/actuati on nasal spray tamsulosin Yes Take by [facility] ers 0.4 mg 24 8-12 mouth ity of hr capsule 11:44: daily. [place] [facility] finasteride 2021-0 Yes 5mg Take 5 mg U nivers 5 mg tablet 8-12 by mouth ity of 11:44: in the [place] morning. Medical Branch albuterol 0 Yes 2.5mg [...] s RELIEF, 03 (two) Medical FLUTICASONE times [place] ,) 50 daily. mcg/actuati on nasal spray tamsulosin 0 Yes Take by [facility] ers 0.4 mg 24 8-12 mouth ity of hr capsule 11:44: daily. [place] [facility] finasteride 2021-0 Yes 5mg Take 5 mg U nivers 5 mg tablet 8-12 by mouth ity of 11:44: in the [place] morning. Medical Branch albuterol 2021-0 Yes 2.5mg [...] inhalation disk fluticasone 0 Yes Use in [facility] ers propionate 8-12 each ity of (ALLERGY 11:44: [place]ril [place] 03 (two) Medical FLUTICASONE times Branch ,) 50 daily. mcg/actuati on nasal spray tamsulosin 0 Yes Take by [facility] ers 0.4 mg 24 8-12 mouth ity of hr capsule 11:44: daily. [place] [facility] finasteride 2021-0 Yes 5mg Take 5 mg U nivers 5 mg tablet 8-12 by mouth ity of 11:44: in the [place] morning. [facility] albuterol 0 Yes 2.5mg [...] [place] 03 (two) Medical FLUTICASONE [facility] ,) 50 daily. mcg/actuati on nasal spray tamsulosin 0 Yes Take by [facility] ers 0.4 mg 24 8-12 mouth ity of hr capsule 11:44: daily. Medical Branch finasteride 2021-0 Yes 5mg Take 5 mg U nivers 5 mg tablet 8-12 by mouth ity of 11:44: in the [place] morning. Medical Branch albuterol 2021-0 Yes 2.5mg [...] inhalation disk fluticasone 0 Yes Use in [facility] ers propionate 8-12 each ity of (ALLERGY 11:44: nostril [place] 03 (two) Medical FLUTICASONE [facility] ,) 50 daily. mcg/actuati on nasal spray tamsulosin 0 Yes Take by [facility] ers 0.4 mg 24 8-12 mouth ity of hr capsule 11:44: daily. Medical Branch finasteride 2021-0 Yes 5mg Take 5 mg U nivers 5 mg tablet 8-12 by mouth ity of 11:44: in the [place] morning. Medical Branch albuterol 2021-0 Yes 2.5mg [...] inhalation disk fluticasone 2021-0 Yes Use in [facility] ers propionate 8-12 each ity of (ALLERGY 11:44: nostril [place] 03 (two) Medical FLUTICASONE [facility] ,) 50 daily. mcg/actuati on nasal spray tamsulosin 0 Yes Take by [facility] ers 0.4 mg 24 8-12 mouth ity of hr capsule 11:44: daily. [place] [facility] finasteride 2021-0 Yes 5mg Take [...] inhalation disk fluticasone 0 Yes Use in [facility] ers propionate 8-12 each ity of (ALLERGY 11:44: nostril 2 [place] 03 (two) Medical FLUTICASONE [facility] ,) 50 daily. mcg/actuati on nasal spray tamsulosin 0 Yes Take by [facility] ers 0.4 mg 24 8-12 mouth ity of hr capsule 11:44: daily. [place] [facility] finasteride 2021-0 Yes 5mg Take 5 mg U nivers 5 mg tablet 8-12 by mouth ity of 11:44: in the [place] morning. Medical Branch albuterol 2021-0 Yes 2.5mg [...] inhalation disk fluticasone 2021-0 Yes Use in [facility] ers propionate 8-12 each ity of (ALLERGY 11:44: nostril [place], 03 (two) Medical FLUTICASONE times [place] ,) 50 daily. mcg/actuati on nasal spray tamsulosin 2021-0 Yes Take by [facility] ers 0.4 mg 24 8-12 mouth ity of hr capsule 11:44: daily. [place] [facility] finasteride 2021-0 Yes 5mg Take 5 mg U nivers 5 mg tablet 8-12 by mouth ity of 11:44: in the [place] morning. Medical Branch albuterol 2021-0 Yes 2.5mg [...] inhalation disk fluticasone 2021-0 Yes Use in [facility] ers propionate 8-12 each ity of (ALLERGY 11:44: nostril [place], 03 (two) Medical FLUTICASONE times [place] ,) 50 daily. mcg/actuati on nasal spray tamsulosin 0 Yes Take by [facility] ers 0.4 mg 24 8-12 mouth ity of hr capsule 11:44: daily. [place] [facility] finasteride 2021-0 Yes 5mg Take 5 mg U nivers 5 mg tablet 8-12 by mouth ity of 11:44: in the [place] 03 morning. Medical Branch albuterol 2021-0 Yes [...] mcg/dose inhalation disk fluticasone Yes Use in [facility] ers propionate 8-12 each ity of (ALLERGY 11:44: nostril [place], 03 (two) Medical FLUTICASONE [facility] ,) 50 daily. mcg/actuati on nasal spray tamsulosin Yes Take by [facility] ers 0.4 mg 24 8-12 mouth ity of hr capsule 11:44: daily. [place] [facility] finasteride Yes 5mg Take 5 mg U nivers 5 mg tablet 8-12 by mouth ity of 11:44: in the morning. Medical Branch albuterol Yes 2.5mg Inhale [...] mcg/dose inhalation disk fluticasone Yes Use in [facility] ers propionate 8-12 each ity of (ALLERGY 11:44: nostril [place] 03 (two) Medical FLUTICASONE [facility] ,) 50 daily. mcg/actuati on nasal spray tiotropium Yes [id number] 18ug Inhale 1 Univers 18 mcg 8-12 capsule in ity of inhalation 00:00: the [place] 00 morning. Medical Branch tiotropium 0 Yes [id number] 18ug Inhale 1 Univers 18 mcg 8-12 capsule in ity of inhalation 00:00: the 00 morning. Medical Branch tiotropium 0 Yes [id number] 18ug Inhale 1 Univers 18 mcg 8-12 capsule in ity of inhalation 00:00: the [place] 00 morning. Medical Branch tiotropium 0 Yes [id number] 18ug Inhale 1 Univers 18 mcg 8-12 capsule ity of inhalation 00:00: in the 00 morning. Medical Branch tiotropium 2-0 Yes [id number] 18ug Inhale 1 Univers 18 mcg 8-12 capsule in ity of inhalation 00:00: the 00 morning. Medical Branch tiotropium 2-0 Yes [id number] 18ug Inhale 1 Univers 18 mcg 8-12 capsule in ity of inhalation 00:00: the 00 morning. Medical Branch tiotropium 2022-0 Yes [id number] 18ug Inhale 1 Univers 18 mcg 8-12 capsule in ity of inhalation 00:00: the 00 morning. Medical Branch tiotropium 2021-0 Yes [id number] 18ug Inhale 1 Univers 18 mcg 8-12 capsule in ity of inhalation 00:00: the [place] 00 morning. Medical Branch tiotropium 2021-0 Yes [id number] 18ug Inhale 1 Univers 18 mcg 8-12 capsule in ity of inhalation 00:00: the [place] 00 morning. Medical Branch tiotropium 2-0 Yes [id number] 18ug Inhale 1 Univers 18 mcg 8-12 capsule in ity of inhalation 00:00: the [place] morning. [facility] Branch tiotropium 2-0 Yes [id number] 18ug Inhale 1 Univers 18 mcg 8-12 capsule in ity of inhalation 00:00: the [place] 00 morning. Medical Branch tiotropium 2-0 Yes [id number] 18ug Inhale 1 Univers 18 mcg 8-12 capsule in ity of inhalation 00:00: the [place] 00 morning. Medical Branch tiotropium 2-0 Yes [id number] 18ug Inhale 1 Univers 18 mcg 8-12 capsule in ity of inhalation 00:00: the 00 morning. Medical Branch tiotropium 2-0 Yes [id number] 18ug Inhale 1 Univers 18 mcg 8-12 capsule in ity of inhalation 00:00: the [place] 00 morning. Medical Branch tiotropium 2022-0 Yes [id number] 18ug Inhale 1 Univers 18 mcg 8-12 capsule in ity of inhalation 00:00: the [place] 00 morning. Medical Branch tiotropium 2022-0 Yes [id number] 18ug Inhale 1 Univers 18 mcg 8-12 capsule in ity of inhalation 00:00: the [place] 00 morning. Medical Branch tiotropium 2-0 Yes [id number] 18ug Inhale 1 Univers 18 mcg 8-12 capsule in ity of inhalation 00:00: the 00 morning. Medical Branch tiotropium 2-0 Yes [id number] 18ug Inhale 1 Univers 18 mcg 8-12 capsule in ity of inhalation 00:00: the 00 morning. Medical Branch tiotropium 2-0 Yes [id number] 18ug Inhale 1 Univers 18 mcg 8-12 capsule in ity of inhalation 00:00: the 00 morning. Medical Branch tiotropium 2-0 Yes [id number] 18ug Inhale 1 Univers 18 mcg 8-12 capsule in ity of inhalation 00:00: the 00 morning. Medical Branch tiotropium 2-0 Yes [id number] 18ug Inhale 1 Univers 18 mcg 8-12 capsule in ity of inhalation 00:00: the 00 morning. Medical Branch tiotropium 2-0 Yes [id number] 18ug Inhale 1 Univers 18 mcg 8-12 capsule in ity of inhalation 00:00: the 00 morning. Medical Branch tiotropium 2-0 Yes [id number] 18ug Inhale 1 Univers 18 mcg 8-12 capsule in ity of inhalation 00:00: the morning. Medical Branch tiotropium 2-0 Yes [id number] 18ug Inhale 1 Univers 18 mcg 8-12 capsule in ity of inhalation 00:00: the morning. Medical Branch tiotropium 2-0 Yes [id number] 18ug Inhale 1 Univers 18 mcg 8-12 capsule in ity of inhalation 00:00: the 00 morning. Medical Branch tiotropium 2-0 Yes [id number] 18ug Inhale 1 Univers 18 mcg 8-12 capsule in ity of inhalation 00:00: the morning. Medical Branch tiotropium 2-0 Yes [id number] 18ug Inhale 1 Univers 18 mcg 8-12 capsule in ity of inhalation 00:00: the 00 morning. Medical Branch tiotropium 2022-0 Yes [id number] 18ug Inhale 1 Univers 18 mcg 8-12 capsule in ity of inhalation 00:00: the [place] 00 morning. [facility] Branch tiotropium 2-0 Yes [id number] 18ug Inhale 1 Univers 18 mcg 8-12 capsule in ity of inhalation 00:00: the 00 morning. Medical Branch tiotropium 2022-0 Yes [id number] 18ug Inhale 1 Univers 18 mcg 8-12 capsule in ity of inhalation 00:00: the [place] 00 morning. Medical Branch tiotropium 2021-0 Yes [id number] 18ug Inhale 1 Univers 18 mcg 8-12 capsule in ity of inhalation 00:00: the [place] 00 morning. Medical Branch tiotropium 2021-0 Yes [id number] 18ug Inhale 1 Univers 18 mcg 8-12 capsule in ity of inhalation 00:00: the [place] 00 morning. Medical Branch tiotropium 2021-0 Yes [id number] 18ug Inhale 1 Univers 18 mcg 8-12 capsule in ity of inhalation 00:00: the [place] 00 morning. Medical Branch tiotropium 2021-0 Yes [id number] 18ug Inhale 1 Univers 18 mcg 8-12 capsule in ity of inhalation 00:00: the [place] morning. [facility] Branch tiotropium 2021-0 Yes [id number] 18ug Inhale 1 Univers 18 mcg 8-12 capsule in ity of inhalation 00:00: the [place] morning. [facility] Branch tiotropium 2021-0 Yes [id number] 18ug Inhale 1 Univers 18 mcg 8-12 capsule in ity of inhalation 00:00: the [place] morning. [facility] Branch tiotropium 2021-0 Yes [id number] 18ug Inhale 1 Univers 18 mcg 8-12 capsule in ity of inhalation 00:00: the [place] morning. [facility] Branch tiotropium 2021-0 Yes [id number] 18ug Inhale 1 Univers 18 mcg 8-12 capsule in ity of inhalation 00:00: the [place] morning. [facility] Branch tiotropium 2021-0 Yes [id number] 18ug Inhale 1 Univers 18 mcg 8-12 capsule in ity of inhalation 00:00: the [place] morning. Medical Branch Spiriva Spiriva No QD [...] Name Observation Time Observation Value Comments Source WEIGHT 2022-06-23 70.9 kg 06:00:00 WEIGHT 2022-06-22 69.1 kg 05:41:00 WEIGHT 2022-06-21 68.1 kg 06:00:00 WEIGHT 2022-06-18 67 kg 06:00:00 WEIGHT 2022-06-17 69.4 kg 06:00:00 HEIGHT 2022-06-17 172.7 cm 02:00:00 WEIGHT 2022-06-17 69.4 kg 02:00:00 WEIGHT 2022-06-23 70.9 kg 06:00:00 WEIGHT 2022-06-22 69.1 kg 05:41:00 WEIGHT 2022-06-21 68.1 kg 06:00:00 WEIGHT 2022-06-18 67 kg 06:00:00 WEIGHT 2022-06-17 69.4 kg 06:00:00 HEIGHT 2022-06-17 172.7 cm 02:00:00 WEIGHT 2022-06-17 69.4 kg 02:00:00 height 2022-05-04 68.00 [in_i] [facility] 13:00:00 [facility] weight 2022-05-04 170.00 [lb_av] [facility] - 13:00:00 [facility] temperature 2022-05-04 98.1 [degF] [facility] - 13:00:00 [facility] bmi 2022-05-04 25.85 kg/m2 [facility] - 13:00:00 [facility] oximetry 2022-05-04 93 % [facility] - 13:00:00 [facility] respiratory rate 2022-05-04 17 /min [facility] - 13:00:00 [facility] blood pressure 2022-05-04 138 mm[Hg] [facility] - systolic 13:00:00 [facility] blood pressure 2022-05-04 60 mm[Hg] [facility] - diastolic 13:00:00 [facility] Systolic blood 2022-04-18 107 mm[Hg] University of pressure 17:12:00 [facility] Diastolic blood 2022-04-18 65 mm[Hg] University o f pressure 17:12:00 [facility] Heart rate 2022-04-18 103 /min University of 17:12:00 [facility] Respiratory rate 2022-04-18 22 /min University of 17:12:00 [facility] Body height 2022-04-18 172.7 cm University of 17:12:00 [facility] Body weight 2022-04-18 75.297 kg University of 17:12:00 [facility] BMI 2022-04-18 25.24 kg/m2 University of 17:12:00 [facility] Oxygen saturation 2022-04-18 90 /min 5L [place] University of in Arterial blood 17:12:00 [place] [facility] by Pulse oximetry Branch Systolic blood 2022-03-08 120 mm[Hg] manual University of pressure 20:00:00 [facility] Branch Diastolic blood 2022-03-08 58 mm[Hg] manual University o f pressure 20:00:00 [facility] Heart rate 2022-03-08 91 /min University of 20:00:00 [facility] Respiratory rate 2022-03-08 22 /min University of 20:00:00 [facility] Body weight 2022-03-08 76.295 kg University of 20:00:00 [facility] BMI 2022-03-08 25.57 kg/m2 University of 20:00:00 [facility] Oxygen saturation 2022-03-08 94 /min arrived on 5 University of in Arterial blood 20:00:00 l/m pulsed [place]; [facility] dical by Pulse oximetry exercised on 3 Branch l/m con't [place] Systolic blood 2022-02-11 130 mm[Hg] manual;right University of pressure 18:30:00 arm BP 122/78 [place] [facility] manual Branch Diastolic blood 2022-02-11 60 mm[Hg] manual;right University o f pressure 18:30:00 arm BP 122/78 [place] [facility] manual Branch Heart rate 2022-02-11 93 /min University of 18:30:00 [facility] Branch Respiratory rate 2022-02-11 22 /min University of 18:30:00 [facility] Body weight 2022-02-11 79.198 kg University of 18:30:00 [facility] BMI 2022-02-11 26.55 kg/m2 University of 18:30:00 [facility] Oxygen saturation 2022-02-11 98 /min University of in Arterial blood 18:30:00 [place] [facility] by Pulse oximetry Branch Systolic blood 2021-12-17 130 mm[Hg] University of pressure 16:34:00 [facility] Diastolic blood 2021-12-17 71 mm[Hg] University o f pressure 16:34:00 [facility] Heart rate 2021-12-17 100 /min [facility] 16:34:00 [facility] Respiratory rate 2021-12-17 22 /min [facility] 16:34:00 [facility] Body height 2021-12-17 172.7 cm [facility] 16:34:00 [facility] Body weight 2021-12-17 81.421 kg [facility] 16:34:00 [facility] BMI 2021-12-17 27.29 kg/m2 [facility] 16:34:00 [facility] Oxygen saturation 2021-12-17 86 /min 2L [place] 93% when Universi ty of in Arterial blood 16:34:00 bumped up to 3L [facility] by Pulse oximetry Branch Procedures Procedure Date / Time Performing Clinician Source Performed MEDICATION CORRESPONDENCE 2022-04-27 06:01:00 Doctor Linda, [facility] DME/SUPPLY JUSTIFICATION 2022-04-18 06:01:00 Doctor Linda [facility] PULMONARY REHAB ITP 2022-04-07 17:48:00 Doctor Linda, [facility] REPORT [facility] PULMONARY REHAB SESSION 2022-03-08 05:00:00 Doctor Linda [facility] REPORT [facility] CONSENT/REFUSAL FOR 2022-02-11 05:01:00 Doctor Linda [facility] DIAGNOSIS AND TREATMENT [facility] PULMONARY FUNCTION TEST 2022-01-19 16:09:19 Aidan Webb [facility] (RESULTS) Medical Branch Encounters Start End Encounter Admission Attending Care Care Encounter Source Date/Time Date/Time Type Type Clinicians Facility Department ID 2022-06-20 Outpatient Young, STLMLC STLC [id number] Common 14:47:01 William [id number] [facility] 2022-05-04 Outpatient Young, STLMLC STLMLC [id number] Common 13:09:02 William [id number] [facility] 2022-09-09 2022-09-09 Outpatient R AIDAN WEBB [facility] [id number] Univers 11:00:00 11:00:00 AIDAN WEBB i ty of [facility] 2022-06-17 2022-06-24 Inpatient ER [facility] Medical ICU 2 [id number] [facility] 01:27:00 12:17:00 CELENA 2022-05-30 2022-05-30 (TEL) STLMLC STLMLC [id number] Co mmon 00:00:00 00:00:00 [facility] - [facility] 2022-05-04 2022-05-04 OFFICE STLMLC STLMLC [id number] Co mmon 00:00:00 00:00:00 VISIT [facility] PT LEVEL 4 - [facility] 2022-05-03 2022-05-03 Telephone AMIE Webb [id number] Univers 00:00:00 00:00:00 Aidan LINDSEY [id number] i ty of [id number] [phone] Co dical NAL [address] [place] [address] 2022-04-27 2022-04-27 Telephone AMEI eWbb [id number] Univers 00:00:00 00:00:00 Aidan LINDSEY [id number] i ty of [id number] [id number] Co dical NAL [address] [place] [address] 2022-04-27 2022-04-27 Orders Doctor DIXIE [id number] Univers 00:00:00 00:00:00 Only Unassigned, CHILO [id number] ity of [place] [facility] [id number] [place] as [phone] [address] 2022-04-26 2022-04-26 Telephone AMIE Webb [id number] Univers 00:00:00 00:00:00 Aidan LINDSEY [id number] i ty of [id number] [id number] Co dical NAL [address] [place] [address] 2022-04-22 2022-04-22 Telephone Joseph [facility] [id number] Univers 00:00:00 00:00:00 Aidan LINDSEY [id number] i ty [id number] [phone] Co dical NAL [address] [place] [address] 2022-04-20 2022-04-20 [facility] [id number] Univers 00:00:00 00:00:00 Aidan LINDSEY [id number] i ty [id number] [id number] Co dicnh NAL [address] [place] [address] 2022-04-18 2022-04-18 [facility] [id number] Univers 11:00:00 11:44:10 Visit Aidan LINDSEY [id number] i ty [id number] [id number] Co dicnh NAL [address] [place] [address] 2022-04-18 2022-04-18 Outpatient R AIDAN WEBB [facility] [id number] Univers 11:00:00 11:44:10 AIDAN WEBB i ty [facility] 2022-04-18 2022-04-18 Outpatient R AIDAN WEBB [facility] 10 [id number] Univers 11:00:00 11:00:00 AIDAN WEBB i ty [facility] 2022-04-18 2022-04-18 Orders Doctor DIXIE [id number] Univers 00:00:00 00:00:00 Only Unassigned, CHILO [id number] ity of [place] [facility] [id number] [place] as [phone] [address] 2022-04-07 2022-04-07 Outpatient R ZHEN [facility] [id number] Univers 15:00:00 15:00:00 JASSI h[place] of [facility] 2022-04-07 2022-04-07 Orders Doctor COLIN [id number] Univers 00:00:00 00:00:00 Only Unassigned, CHILO 350.1.13.10 ity of [place] [facility] [id number] [place] as [id number] [address] 2022-04-05 2022-04-05 Outpatient R ZHEN [facility] [id number] Univers 15:00:00 15:00:00 JSASI ity of [facility] 2022-04-05 2022-04-05 Telephone [facility] [id number] Univers 00:00:00 00:00:00 Nadiya C [place] [id number] i ty [facility] [id number] [phone] Co dic[address] 2022-03-29 2022-03-29 [facility] [id number] Univers 00:00:00 00:00:00 Nadiya C [place] [id number] i ty [id number] [id number] Co dical NAL [address] [place] [address] 2022-03-25 2022-03-25 Telephone [facility] [id number] Univers 00:00:00 00:00:00 Shiwan [place] [id number] i ty [id number] [id number] Co dical NAL [address] [place] [address] 2022-03-25 2022-03-25 Telephone [facility] [id number] Univers 00:00:00 00:00:00 Shiwan [place] [id number] i ty of [id number] [id number] Co dical NAL [address] [place] [address] 2022-03-24 2022-03-24 Case [facility] [id number] Univers 00:00:00 00:00:00 Management Shiwan [place] [id number] [facility] [id number] [id number] Co dicnh NAL [address] [facility] 2022-03-24 2022-03-24 Telephone [facility] [id number] Univers 00:00:00 00:00:00 Nadiya C [place] [id number] i ty of [id number] [id number] Co dical NAL [address] [place] [address] 2022-03-22 2022-03-22 Telephone [facility] [id number] Univers 00:00:00 00:00:00 Nadiya C [place] 350.1.13.10 i [place] of [place] [phone] Co dical NAL [address] [place] [address] 2022-03-17 2022-03-17 Telephone [facility] [id number] Univers 00:00:00 00:00:00 Nadiya C [place] 350.1.13.10 i ty of [place] [id number] Co dical NAL [address] [place] [address] 2022-03-15 2022-03-15 Telephone [facility] 1.2.856.444 [id number] Univers 00:00:00 00:00:00 Nadiya C [place] 350.1.13.10 i ty of [place] [id number] Co dical NAL [address] [place] [address] 2022-03-10 2022-03-10 Telephone [facility] 1.2.338.552 [id number] Univers 00:00:00 00:00:00 Nadiya C [place] 350.1.13.10 i [place] [id number] Co dical NAL [address] [place] [address] 2022-03-08 2022-03-08 Ancillary Therapist, Jim Castelan [facility] 1.2.840.114 [id number] Univers 15:00:00 16:40:43 Visit Jassi Fontaine 350.1.13. 10 [facility] [place] [phone] Co dic[address] 2022-03-08 2022-03-08 Telephone [facility] 1.2.026.505 [id number] Univers 00:00:00 00:00:00 Nadiya C [place] 350.1.13.10 i ty [facility] [place] [id number] [address] 2022-03-08 2022-03-08 Orders Doctor DIXIE 1.2.840.114 [id number] Univers 00:00:00 00:00:00 Only Unassigned, CHILO 350.1.13.10 ity [place] [facility] 4.2.7.2.686 Keegan as [phone] [address] 2022-03-03 2022-03-03 Telephone [facility] 1.2.454.742 [id number] Univers 00:00:00 00:00:00 Nadiya C [place] 350.1.13.10 i ty [facility] [place] [id number] Co dic[address] 2022-02-14 2022-02-14 Telephone [facility] [id number] [id number] Univers 00:00:00 00:00:00 Nadiya C [place] 350.1.13.10 i [place] [id number] Co dic[address] 2022-02-14 2022-02-14 Telephone [facility] 1.2.862.106 [id number] Univers 00:00:00 00:00:00 Nadiya C [place] 350.1.13.10 i [place] [id number] Co dic[address] 2022-02-14 2022-02-14 Telephone [facility] 1.2.650.160 [id number] Univers 00:00:00 00:00:00 Nadiya C [place] 350.1.13.10 i ty [facility] 4[place] [id number] [address] 2022-02-11 2022-02-11 Outpatient R ZHEN [facility] [id number] [facility] 13:30:00 16:07:27 JASSI ity of [facility] 2022-02-11 2022-02-11 Ancillary Therapist, [facility] Pulmonary [facility] 1.2.840.114 [id number] [facility] 13:30:00 16:07:27 Visit Jassi Fontaine 350.1.13. 10 ity of [place] [id number] [address] 2022-02-11 2022-02-11 Orders Doctor DIXIE 1.2.840.114 [id number] Univers 00:00:00 00:00:00 Only Unassigned, CHILO 350.1.13.10 ity of [place] [facility] 4.2.7.2.686 Keegan as [phone] [address] 2022-01-25 2022-01-25 Telephone [facility] 1.2.742.567 [id number] [facility] 00:00:00 00:00:00 Nadiya C [place] 350.1.13.10 i ty of [place] [id number] [address] 2022-01-24 2022-01-24 Telephone [facility] 1.2.720.899 [id number] Univers 00:00:00 00:00:00 Nadiya C [place] 350.1.13.10 i ty of [place] [id number] [address] 2022-01-19 2022-01-19 Circle [place]er Therapist, [facility] Respiratory [facility] 1.2.840.114 [id number] Univers 11:00:00 12:00:00 Visit Jassi Fontaine 350.1.13. 10 ity [facility] [place]7.2.[place] [id number] [place] [id number] [place] 2022-01-19 2022-01-19 Outpatient R [facility] [id number] Univers 11:00:00 11:00:00 ity [facility] 2022-01-19 2022-01-19 [facility] [id number] Univers 11:00:00 11:00:00 JASSI ity [facility] 2022-01-19 2022-01-19 Orders YESICA Webb 1.2.330.828 [id number] Univers 00:00:00 00:00:00 Only [facility] 350.1.13.10 i ty of [facility] 4[place]2.[place].2.[place] [id number] [address] 2021-12-17 2021-12-17 Outpatient R AIDAN WEBB [facility] 10 [id number] Univers 11:30:00 12:04:08 AIDAN WEBB i ty of [facility] 2021-12-17 2021-12-17 [facility] 1.2.840.114 [id number] Univers 11:30:00 12:04:08 Visit [facility] 350.1.13.10 i ty of [place] [id number] [address] 2019-06-26 2019-06-26 [facility]patient [facility]202 [facility] 07:22:00 07:22:00 _A_ 45701 Family Practic e Results Test Description Test Time Test Comments Results Result Comments Source AFB CULTURE + SMEAR (NON-SPUTUM) 2022-08-04 09:13:50 Test Item Value Reference Range Interpretation Comme nts CULTURE (BEAKER) (test code = 1095) No acid-fast bacilli isolated i n 42 days AFB SMEAR (BEAKER) (test code = 994) No acid fast bacilli seen FUNGUS CULTURE + [id number] 09:37:53 Test Item Value Reference Range Interpretation Comments CULTURE (BEAKER) (test No fungus isolated in code = 1095) 28 days FUNGUS SMEAR (BEAKER) No fungi seen (test code = 1406) RAD, CHEST, 1 VIEW, NON [id number] 06:44:00Reason for exam:->post pleurexShould this be performed at the bedside?->Yes [facility] : 1940 Sex: MFINALREPORT RAD, CHEST, 1 VIEW, NON DEPT INDICATION: post pleurex COMPARISON: 06/20/2022 TECHNIQUE: Portable frontal view(s) of the chest. FINDINGS: Support Lines and Devices: A left-sided pleural drainage catheter is present. Lungs and pleura: Unchanged airspace and pleural opacities. No pneumothorax identified. Heart and mediastinum: Stable contours. Stable surgical changes. Additional findings: None. IMPRESSION: 1.Small left pleural effusion with left-sided pleural drainage catheter in place.2.Bilateral interstitial and airspace opacities, which may represent pneumonia, pulmonary edema, or pneumonitis/fibrotic changes. Signed: Don Bishop [facility] Verified Date/Time: 306:44:23 Reading Location: [address] Reading Room [id number] 05:32:57 Test Item Value Reference Range Interpretation Comments MAGNESIUM (BEAKER) 2.1 mg/dL 1.6-2.6 Specimen slightly (test code = 627) hemolyzed Technical Specialist ID - MARCOBASIC METABOLIC [id number] 05:32:57 Test Item Value Reference Range Interpretation Comments SODIUM (BEAKER) 136 meq/L 136-145 (test code = 381) POTASSIUM 5.0 meq/L 3.5-5.1 Specimen slight ly (BEAKER) (test hemolyzed code = 379) CHLORIDE (BEAKER) 101 meq/L 98-107 (test code = 382) CO2 (BEAKER) 29 meq/L 22-29 (test code = 355) BLOOD UREA 15 mg/dL 7-21 NITROGEN (BEAKER) (test code = 354) CREATININE 0.51 mg/dL 0.57-1.25 L Specimen slight ly (BEAKER) (test hemolyzed code = 358) GLUCOSE RANDOM 87 mg/dL 70-105 (BEAKER) (test code = 652) CALCIUM (BEAKER) 8.2 mg/dL 8.4-10.2 L (test code = 697) EGFR (BEAKER) 101 Interpretatio n of eGFR (test code = mL/min/1.73 values Stage D escription 1092) sq m Result G1 Sindhu l or high >=90 G2 Mildly decreased 60-89 G3a Mildl y to moderately 45-5 9 G3b Moderately to s everely 30-44 G4 Severl y decreased 15-29 G5 Kidney failure <15Reported eGF R is based on the CKD-EPI 2020 equation that d oes not use a race coefficientEsti mated GFR is not as accur ate as Creatinine Joan cook in predicting glom erular filtration rate . Estimated GFR is not appl icable for dialysis patien ts Technical Specialist ID - MARCOPOCT-GLUCOSE [id number] 21:51:24 Test Item Value Reference Range Interpretation Comments POC-GLUCOSE METER 118 mg/dL 70-110 H : TESTED A T [facility] 6720 ([employer]) (test code = [facility], 1538) 21493: Technical Specialist/Techni wiyl ID = [id number] for Ar enmoy, Isaiah POCT-GLUCOSE [id number] 18:24:50 Test Item Value Reference Range Interpretation Comments POC-GLUCOSE METER 187 mg/dL 70-110 H : TESTED A T [facility] 6720 (BEAKER) (test code = [facility], 1538) 55867: Technical Specialist/Techni wily ID = [id number] for Pe Cristina anderson POCT-GLUCOSE [id number] 07:55:32 Test Item Value Reference Range Interpretation Comments POC-GLUCOSE METER 94 mg/dL 70-110 : TESTED A T [facility] 6720 (BEAKER) (test code = [facility] [place], 1538) 22791: Technical Specialist/Techni wily ID = [id number] for Cristina Reina (CELLAVISION MANUAL DIFF)2022-06-23 07:22:19 Test Item Value Reference Range Interpretation Comments NEUTROPHILS - REL 82 % (CELLAVISION)(BEAKER) (test code = 2816) LYMPHOCYTES - REL 10 % (CELLAVISION)(BEAKER) (test code = 2817) MONOCYTES - REL 7 % (CELLAVISION)(BEAKER) (test code = 2818) MYELOCYTES - REL 1 % 0-0 H (CELLAVISION)(BEAKER) (test code = 2822) NEUTROPHILS - ABS 13.28 K/ul 1.78-5.38 H (CELLAVISION)(BEAKER) (test code = 2830) LYMPHOCYTES - ABS 1.62 K/ul 1.32-3.57 (CELLAVISION)(BEAKER) (test code = 2831) MONOCYTES - ABS 1.13 K/uL 0.30-0.82 H (CELLAVISION)(BEAKER) (test code = 2832) MYELOCYTES-ABS 0.16 K/uL 0.00-0.00 H (CELLAVISION)(BEAKER) (test code = 2837) TOTAL COUNTED (BEAKER) (test code 100 = 1351) WBC MORPHOLOGY (BEAKER) (test code Normal = 487) PLT MORPHOLOGY (BEAKER) (test code Normal = 486) POIKILOCYTES (BEAKER) (test code = 1+ few 966) OVALOCYTES (BEAKER) (test code = 1+ few 477) ARTIFACT (CELLAVISION)(BEAKER) Present (test code = 3432) PLATELET CONCENTRATION Adequate (CELLAVISION)(BEAKER) (test code = 3438) Technical Specialist ID - namnguyenUser comments: Slide comments:CBC W/PLT COUNT & AUTO [id number] 07:22:18 Test Item Value Reference Range Interpretation Comments WHITE BLOOD CELL COUNT (BEAKER) 16.2 K/ L 3.5-10.5 H (test code = 775) RED BLOOD CELL COUNT (BEAKER) 3.76 M/ L 4.63-6.08 L (test code = 761) HEMOGLOBIN (BEAKER) (test code = 11.0 GM/DL 13.7-17.5 L 410) HEMATOCRIT (BEAKER) (test code = 35.7 % 40.1-51.0 L 411) MEAN CORPUSCULAR VOLUME (BEAKER) 95 fL 79-92 H (test code = 753) MEAN CORPUSCULAR HEMOGLOBIN 29.3 pg 25.7-32.2 (BEAKER) (test code = 751) MEAN CORPUSCULAR HEMOGLOBIN CONC 30.8 GM/DL 32.3-36.5 L (BEAKER) (test code = 752) RED CELL DISTRIBUTION WIDTH 15.1 % 11.6-14.4 H (BEAKER) (test code = 412) PLATELET COUNT (BEAKER) (test 373 K/CU MM 150-450 code = 756) MEAN PLATELET VOLUME (BEAKER) 9.6 fL 9.4-12.4 (test code = 754) NUCLEATED RED BLOOD CELLS 0 /100 WBC 0-0 (BEAKER) (test code = 413) BASIC METABOLIC [id number] 05:06:36 Test Item Value Reference Range Interpretation Comments SODIUM (BEAKER) 137 meq/L 136-145 (test code = 381) POTASSIUM 4.3 meq/L 3.5-5.1 (BEAKER) (test code = 379) CHLORIDE (BEAKER) 99 meq/L 98-107 (test code = 382) CO2 (BEAKER) 32 meq/L 22-29 H (test code = 355) BLOOD UREA 19 mg/dL 7-21 NITROGEN (BEAKER) (test code = 354) CREATININE 0.57 mg/dL 0.57-1.25 (BEAKER) (test code = 358) GLUCOSE RANDOM 128 mg/dL 70-105 H (BEAKER) (test code = 652) CALCIUM (BEAKER) 8.7 mg/dL 8.4-10.2 (test code = 697) EGFR (BEAKER) 98 Interpretatio n of eGFR (test code = mL/min/1.73 values Stage De scription 1092) sq m Result G1 Sindhu l or high >=90 G2 Mildly decreased 60-89 G3a Mildl y to moderately 45-5 9 G3b Moderately to s everely 30-44 G4 Severl y decreased 15-29 G5 Kidney failure <15Reported eGF R is based on the CKD-EPI 2020 equation that d oes not use a race coefficientEsti mated GFR is not as accur ate as Creatinine Joan joyce in predicting glom erular filtration rate . Estimated GFR is not appl icable for dialysis patien ts Technical Specialist ID - [id number] 05:06:36 Test Item Value Reference Range Interpretation Comments MAGNESIUM (BEAKER) (test code = 1.9 mg/dL 1.6-2.6 627) Technical Specialist ID - MARCOPOCT-GLUCOSE [id number] 22:07:12 Test Item Value Reference Range Interpretation Comments POC-GLUCOSE METER 122 mg/dL 70-110 H : TESTED A T [facility] 6720 (BEAKER) (test code = [facility], 1538) 77428: Technical Specialist/Techni wily ID = [id number] for CONSTANZA MARTÍNEZ BLOOD [id number] 20:01:10 Test Item Value Reference Range Interpretation Comments CULTURE (BEAKER) (test No growth in 5 days code = 1095) BLOOD [id number] 20:01:10 Test Item Value Reference Range Interpretation Comments CULTURE (BEAKER) (test No growth in 5 days code = 1095) POCT-GLUCOSE [id number] 17:14:15 Test Item Value Reference Range Interpretation Comments POC-GLUCOSE METER 159 mg/dL 70-110 H : TESTED A T [facility] 6720 (BEAKER) (test code = [facility], 1538) 70977: Technical Specialist/Techni wily ID = [id number] for FE RNANDO, LAMONT POCT-GLUCOSE [id number] 11:44:49 Test Item Value Reference Range Interpretation Comments POC-GLUCOSE METER 149 mg/dL 70-110 H : TESTED A T [facility] 6720 (BEAKER) (test code = [facility], 1538) 55199: Technical Specialist/Techni wily ID = [id number] for FE RNANDO, LAMONT POCT-GLUCOSE [id number] 08:27:43 Test Item Value Reference Range Interpretation Comments POC-GLUCOSE METER 90 mg/dL 70-110 : [facility] (BE[facility]ER[facility] (test code = [facility] [place], 1538) 61881: Technical Specialist/Techni wily ID = [id number] for LAMONT HARTLEY (CELLAVISION MANUAL DIFF)2022-06-22 07:17:54 Test Item Value Reference Range Interpretation Comments NEUTROPHILS - REL 73 % (CELLAVISION)(BEAKER) (test code = 2816) LYMPHOCYTES - REL 17 % (CELLAVISION)(BEAKER) (test code = 2817) MONOCYTES - REL 9 % (CELLAVISION)(BEAKER) (test code = 2818) MYELOCYTES - REL 1 % 0-0 H (CELLAVISION)(BEAKER) (test code = 2822) NEUTROPHILS - ABS 8.25 K/ul 1.78-5.38 H (CELLAVISION)(BEAKER) (test code = 2830) LYMPHOCYTES - ABS 1.92 K/ul 1.32-3.57 (CELLAVISION)(BEAKER) (test code = 2831) MONOCYTES - ABS 1.02 K/uL 0.30-0.82 H (CELLAVISION)(BEAKER) (test code = 2832) MYELOCYTES-ABS 0.11 K/uL 0.00-0.00 H (CELLAVISION)(BEAKER) (test code = 2837) TOTAL COUNTED (BEAKER) (test code 100 = 1351) WBC MORPHOLOGY (BEAKER) (test Normal code = 487) CLUMPED PLATELETS (BEAKER) (test Present code = 436) GIANT PLATELETS (BEAKER) (test Present code = 313) ANISOCYTOSIS (BEAKER) (test code 1+ few = 961) POIKILOCYTES (BEAKER) (test code 2+ moderate = 966) ELLIPTOCYTES (BEAKER) (test code 1+ few = 962) OVALOCYTES (BEAKER) (test code = 1+ few 477) ARTIFACT (CELLAVISION)(BEAKER) Present (test code = 3432) PLATELET CONCENTRATION Adequate (CELLAVISION)(BEAKER) (test code = 3438) Technical Specialist ID - shannon Almazan comments: Slide comments:[id number] 05:06:18 Test Item Value Reference Range Interpretation Comments MAGNESIUM (BEAKER) 1.9 mg/dL 1.6-2.6 Specimen slightly (test code = 627) hemolyzed Technical Specialist ID - YADIEL GBASIC METABOLIC [id number] 05:06:18 Test Item Value Reference Range Interpretation Comments SODIUM (BEAKER) 135 meq/L 136-145 L (test code = 381) POTASSIUM 4.3 meq/L 3.5-5.1 Specimen slight ly (BEAKER) (test hemolyzed code = 379) CHLORIDE (BEAKER) 98 meq/L 98-107 (test code = 382) CO2 (BEAKER) 33 meq/L 22-29 H (test code = 355) BLOOD UREA 20 mg/dL 7-21 NITROGEN (BEAKER) (test code = 354) CREATININE 0.55 mg/dL 0.57-1.25 L Specimen slight ly (BEAKER) (test hemolyzed code = 358) GLUCOSE RANDOM 82 mg/dL 70-105 (BEAKER) (test code = 652) CALCIUM (BEAKER) 8.5 mg/dL 8.4-10.2 (test code = 697) EGFR (BEAKER) 99 Interpretatio n of eGFR (test code = mL/min/1.73 values Stage De scription 1092) sq m Result G1 Sindhu l or high >=90 G2 Mildly decreased 60-89 G3a Mildl y to moderately 45-5 9 G3b Moderately to s everely 30-44 G4 Severl y decreased 15-29 G5 Kidney failure <15Reported eGF R is based on the CKD-EPI 2020 equation that d oes not use a race coefficientEsti mated GFR is not as accur ate as Creatinine Joan joyce in predicting glom erular filtration rate . Estimated GFR is not appl icable for dialysis patien ts Technical Specialist ID - YADIEL GCBC W/PLT COUNT & AUTO [id number] 04:26:05 Test Item Value Reference Range Interpretation Comments WHITE BLOOD CELL COUNT (BEAKER) 11.3 K/ L 3.5-10.5 H (test code = 775) RED BLOOD CELL COUNT (BEAKER) 3.58 M/ L 4.63-6.08 L (test code = 761) HEMOGLOBIN (BEAKER) (test code = 10.5 GM/DL 13.7-17.5 L 410) HEMATOCRIT (BEAKER) (test code = 33.3 % 40.1-51.0 L 411) MEAN CORPUSCULAR VOLUME (BEAKER) 93 fL 79-92 H (test code = 753) MEAN CORPUSCULAR HEMOGLOBIN 29.3 pg 25.7-32.2 (BEAKER) (test code = 751) MEAN CORPUSCULAR HEMOGLOBIN CONC 31.5 GM/DL 32.3-36.5 L (BEAKER) (test code = 752) RED CELL DISTRIBUTION WIDTH 15.3 % 11.6-14.4 H (BEAKER) (test code = 412) PLATELET COUNT (BEAKER) (test 344 K/CU MM 150-450 code = 756) MEAN PLATELET VOLUME (BEAKER) 9.6 fL 9.4-12.4 (test code = 754) NUCLEATED RED BLOOD CELLS 0 /100 WBC 0-0 (AKER) (test code = 413) POCT-GLUCOSE [id number] 21:50:32 Test Item Value Reference Range Interpretation Comments POC-GLUCOSE METER 127 mg/dL 70-110 H : Notified RN/MD: ([facility]) (test code = TESTED AT [facility] 6720 1538) [facility], [address]: Technical Specialist/Techni wily ID = [id number] for Vianney Barrett POCT-GLUCOSE [id number] 13:28:09 Test Item Value Reference Range Interpretation Comments POC-GLUCOSE METER 191 mg/dL 70-110 H : TESTED A T [facility] 6720 ([facility]) ([facility], 1538) [address]: Technical Specialist/Techni wily ID = [id number] for Pe Cristina anderson [id number] 11:26:17Medical Cytology Report Case: [id number] Authorizing Provider: Leonardo Leblanc MD Collected: 06/17/2022 01:09 PM Ordering Location: [place] [address] ICU Received: 06/17/2022 02:26 PM Pathologist: Alex Saldaña MD Specimen: Pleural, Left LEFT PLEURAL FLUID (CYTOSPINS AND CELL BLOCK): - POSITIVE FOR MALIGNANT CELLS. - ADENOCARCINOMA, CONSISTENT WITH LUNG PRIMARY. Signing Pathologist Direct PhoneLine: [phone] signed by Alex Saldaña MD on 06/21/2022 at 11:26 AMTumor cells are positive for CK7, TTF-1, Napsin A and MOC-31. This immunoprofile supports the above diagnosis.94924, 36777, 51465, 07701 x 89 yo M with recently diagnosed NSCLC, L sided pleural effusion. Underwent thoracentesis which had cytology positive for NSCLC., imaging shows recurrence of pleural effusion. Now appears loculated.LEFT PLEURAL FLUIDA. Pleural, Left.Received 1200 mls bloody fluid; prepared 4 cytospins and cell block(A2)(collodion bag) was fixed in formalin at 15:33 on 3Performed.SatisfactoryThe interpretation of this case included the use of immunohistochemistry or special stains.Control Slides Examined: In-house known positive controls were evaluated along with the test tissue. These control slides run alongside of the patients sample show appropriate staining. Internal positive and negative controls when available are evaluated Immunohistochemistry technical testing was performedat [facility], Pathology Laboratory where it was developed and its performancecharacteristics were determined. It has not been cleared or approved by the U.S. Food and Drug Administration. The FDA has determined that such clearance or approval is not necessary. The test is used for clinical purposes. It should not be regarded as investigational or for research. This laboratory is certified under the Clinical Laboratory Improvement Amendments of 1988 (CLIA- 88) as qualified to perform high complexity clinical laboratory testing.[facility], Department of Pathology, [address] [place] [address], [facility], [address] [place] [address], [facility], Department of [facility], [address] [place] [address], (CELLAVISION MANUAL DIFF)2022-06-21 07:11:11 Test Item Value Reference Range Interpretation Comments NEUTROPHILS - REL 77 % (CELLAVISION)(BEAKER) (test code = 2816) LYMPHOCYTES - REL 13 % (CELLAVISION)(BEAKER) (test code = 2817) MONOCYTES - REL 10 % (CELLAVISION)(BEAKER) (test code = 2818) NEUTROPHILS - ABS 9.47 K/ul 1.78-5.38 H (CELLAVISION)(BEAKER) (test code = 2830) LYMPHOCYTES - ABS 1.60 K/ul 1.32-3.57 (CELLAVISION)(BEAKER) (test code = 2831) MONOCYTES - ABS 1.23 K/uL 0.30-0.82 H (CELLAVISION)(BEAKER) (test code = 2832) TOTAL COUNTED (BEAKER) (test code = 100 1351) RBC MORPHOLOGY (BEAKER) (test code Normal = 762) WBC MORPHOLOGY (BEAKER) (test code Normal = 487) PLT MORPHOLOGY (BEAKER) (test code Normal = 486) ARTIFACT (CELLAVISION)(BEAKER) Present (test code = 3432) PLATELET CONCENTRATION Adequate (CELLAVISION)(BEAKER) (test code = 3438) Technical Specialist ID - Jane Polanco comments: Slide comments:CBC W/PLT COUNT & AUTO [id number] 07:11:10 Test Item Value Reference Range Interpretation Comments WHITE BLOOD CELL COUNT (BEAKER) 12.3 K/ L 3.5-10.5 H (test code = 775) RED BLOOD CELL COUNT (BEAKER) 3.48 M/ L 4.63-6.08 L (test code = 761) HEMOGLOBIN (BEAKER) (test code = 10.5 GM/DL 13.7-17.5 L 410) HEMATOCRIT (BEAKER) (test code = 32.8 % 40.1-51.0 L 411) MEAN CORPUSCULAR VOLUME (BEAKER) 94 fL 79-92 H (test code = 753) MEAN CORPUSCULAR HEMOGLOBIN 30.2 pg 25.7-32.2 (BEAKER) (test code = 751) MEAN CORPUSCULAR HEMOGLOBIN CONC 32.0 GM/DL 32.3-36.5 L (BEAKER) (test code = 752) RED CELL DISTRIBUTION WIDTH 15.5 % 11.6-14.4 H (BEAKER) (test code = 412) PLATELET COUNT (BEAKER) (test 338 K/CU MM 150-450 code = 756) MEAN PLATELET VOLUME (BEAKER) 9.7 fL 9.4-12.4 (test code = 754) NUCLEATED RED BLOOD CELLS 0 /100 WBC 0-0 (BEAKER) (test code = 413) BASIC METABOLIC [id number] 04:40:24 Test Item Value Reference Range Interpretation Comments SODIUM (BEAKER) 134 meq/L 136-145 L (test code = 381) POTASSIUM 3.9 meq/L 3.5-5.1 (BEAKER) (test code = 379) CHLORIDE (BEAKER) 96 meq/L 98-107 L (test code = 382) CO2 (BEAKER) 34 meq/L 22-29 H (test code = 355) BLOOD UREA 22 mg/dL 7-21 H NITROGEN (BEAKER) (test code = 354) CREATININE 0.62 mg/dL 0.57-1.25 (BEAKER) (test code = 358) GLUCOSE RANDOM 86 mg/dL 70-105 (BEAKER) (test code = 652) CALCIUM (BEAKER) 8.4 mg/dL 8.4-10.2 (test code = 697) EGFR (BEAKER) 96 Interpretatio n of eGFR (test code = mL/min/1.73 values Stage De scription 1092) sq m Result G1 Sindhu l or high >=90 G2 Mildly decreased 60-89 G3a Mildl y to moderately 45-5 9 G3b Moderately to s everely 30-44 G4 Sever ly decreased 15-29 G5 Kidney failure <15Repo rted eGFR is based on the CKD-EPI 2020 equation t hat does not use a race coefficientEsti mated GFR is not as accur ate as Creatinine Joan cook in predicting glom erular filtration rate . Estimated GFR is not appl icable for dialysis patien ts Technical Specialist ID - [id number] 04:40:24 Test Item Value Reference Range Interpretation Comments MAGNESIUM (BEAKER) (test code = 1.8 mg/dL 1.6-2.6 627) Technical Specialist ID - MARCOPOCT-GLUCOSE [id number] 22:59:28 Test Item Value Reference Range Interpretation Comments POC-GLUCOSE METER 113 mg/dL 70-110 H : Notified RN/MD: (BRIANNA) (test code = TESTED AT [facility] [id number]) [facility], [address]: Technical Specialist/Techni wily ID = [id number] for Vianney Barrett POCT-GLUCOSE [id number] 16:31:50 Test Item Value Reference Range Interpretation Comments POC-GLUCOSE METER 203 mg/dL 70-110 H : TESTED A T [facility] 6720 ([facility]) (test code = [facility], 1538) [id number]: Technical Specialist/Techni wily ID = [id number] for Rufus(contract )Faith MRSA [id number] 12:14:37 Test Item Value Reference Range Interpretation Comments CULTURE ([facility]) (test code No MRSA isolated = 1095) POCT-GLUCOSE [id number] 11:56:23 Test Item Value Reference Range Interpretation Comments POC-GLUCOSE METER 123 mg/dL 70-110 H : [facility] (test code = YVONNE Cabrera [facility], 1538) [address]: Technical Specialist/Techni wily ID = [id number] for Rufus(contract )Faith RAD, CHEST, 1 VIEW, NON [id number] 10:46:00Reason for exam:->f/u effusionShould this be performed at the bedside?->Yes [facility] 1940 Sex: MFINALREPORT RAD, CHEST, 1 VIEW, NON DEPT INDICATION: f/u effusion COMPARISON: 06/18/2022 TECHNIQUE: Portable frontal view(s) of the chest. FINDINGS: Support Lines and Devices: Stable. Lungs and pleura: Unchanged airspace and pleural opacities. No pneumothorax identified. Heart and mediastinum: Stable contours. Stable surgical changes. Additional findings: None. IMPRESSION: 1.No significant change from prior exam.2. Volume loss in the left lung.3.Left retrocardiac opacity, representingsingly or in combination pneumonia, atelectasis, or pleural effusion. Signed: Don Bishop MDReportVerified Date/Time: 06/20/2022 10:46:02 Reading Location: [address] Reading Room POCT-GLUCOSE [id number] 09:31:28 Test Item Value Reference Range Interpretation Comments POC-GLUCOSE METER 97 mg/dL 70-110 : TESTED A T [facility] 6720 (BEAKER) (test code = Y[place]ONNE [place], 1538) [address]: Technical Specialist/Techni wily ID = [id number] for Rufus(contract ) Faith (CELLAVISION MANUAL DIFF)2022-06-20 05:32:00 Test Item Value Reference Range Interpretation Comments NEUTROPHILS - REL 81 % (CELLAVISION)(BEAKER) (test code = 2816) LYMPHOCYTES - REL 13 % (CELLAVISION)(BEAKER) (test code = 2817) MONOCYTES - REL 6 % (CELLAVISION)(BEAKER) (test code = 2818) NEUTROPHILS - ABS 13.28 K/ul 1.78-5.38 H (CELLAVISION)(BEAKER) (test code = 2830) LYMPHOCYTES - ABS 2.13 K/ul 1.32-3.57 (CELLAVISION)(BEAKER) (test code = 2831) MONOCYTES - ABS 0.98 K/uL 0.30-0.82 H (CELLAVISION)(BEAKER) (test code = 2832) TOTAL COUNTED (BEAKER) (test code 100 = 1351) RBC MORPHOLOGY (BEAKER) (test code Normal = 762) PLT MORPHOLOGY (BEAKER) (test code Normal = 486) SMUDGE CELLS (BEAKER) (test code = Present 1371) ARTIFACT (CELLAVISION)(BEAKER) Present (test code = 3432) PLATELET CONCENTRATION Adequate (CELLAVISION)(BEAKER) (test code = 3438) Technical Specialist ID - Kailey comments: Slide comments:CBC W/PLT COUNT & AUTO [id number] 05:31:50 Test Item Value Reference Range Interpretation Comments WHITE BLOOD CELL COUNT (BEAKER) 16.4 K/ L 3.5-10.5 H (test code = 775) RED BLOOD CELL COUNT (BEAKER) 3.78 M/ L 4.63-6.08 L (test code = 761) HEMOGLOBIN (BEAKER) (test code = 11.4 GM/DL 13.7-17.5 L 410) HEMATOCRIT (BEAKER) (test code = 35.2 % 40.1-51.0 L 411) MEAN CORPUSCULAR VOLUME (BEAKER) 93 fL 79-92 H (test code = 753) MEAN CORPUSCULAR HEMOGLOBIN 30.2 pg 25.7-32.2 (BEAKER) (test code = 751) MEAN CORPUSCULAR HEMOGLOBIN CONC 32.4 GM/DL 32.3-36.5 (BEAKER) (test code = 752) RED CELL DISTRIBUTION WIDTH 15.2 % 11.6-14.4 H (BEAKER) (test code = 412) PLATELET COUNT (BEAKER) (test 381 K/CU MM 150-450 code = 756) MEAN PLATELET VOLUME (BEAKER) 9.9 fL 9.4-12.4 (test code = 754) NUCLEATED RED BLOOD CELLS 0 /100 WBC 0-0 (BEAKER) (test code = 413) [id number] 04:22:47 Test Item Value Reference Range Interpretation Comments PHOSPHORUS (BEAKER) 1.6 mg/dL 2.3-4.7 L Specimen slightly (test code = 604) hemolyzed Technical Specialist MARY Roman CORTEZ LBASIC METABOLIC [id number] 04:22:47 Test Item Value Reference Range Interpretation Comments SODIUM (BEAKER) 137 meq/L 136-145 (test code = 381) POTASSIUM 3.8 meq/L 3.5-5.1 Specimen slight ly (BEAKER) (test hemolyzed code = 379) CHLORIDE (BEAKER) 93 meq/L 98-107 L (test code = 382) CO2 (BEAKER) 39 meq/L 22-29 H (test code = 355) BLOOD UREA 20 mg/dL 7-21 NITROGEN (BEAKER) (test code = 354) CREATININE 0.60 mg/dL 0.57-1.25 Specimen slight ly (BEAKER) (test hemolyzed code = 358) GLUCOSE RANDOM 91 mg/dL 70-105 (BEAKER) (test code = 652) CALCIUM (BEAKER) 9.1 mg/dL 8.4-10.2 (test code = 697) EGFR (BEAKER) 97 Interpretatio n of eGFR (test code = mL/min/1.73 values Stage D escription 1092) sq m Result G1 Sindhu l or high >=90 G2 Mildly decreased 60-89 G3a Mildl y to moderately 45-5 9 G3b Moderately to s everely 30-44 G4 Severl y decreased 15-29 G5 Kidney failure <15Reported eGF R is based on the CKD-EPI 2020 equation that d oes not use a race coefficientEsti mated GFR is not as accur ate as Creatinine Joan joyce in predicting glom erular filtration rate . Estimated GFR is not appl icable for dialysis patien ts Technical Specialist ID - DIEGO [id number] 04:22:46 Test Item Value Reference Range Interpretation Comments MAGNESIUM (BEAKER) 1.9 mg/dL 1.6-2.6 Specimen slightly (test code = 627) hemolyzed Technical Specialist ID - DIEGO LPOCT-GLUCOSE [id number] 22:55:10 Test Item Value Reference Range Interpretation Comments POC-GLUCOSE METER 112 mg/dL 70-110 H : TESTED A T [facility] 6720 (BEAKER) (test code = [facility], 1538) [address]: Technical Specialist/Techni wily ID = [id number] for Gilbert hillman Brittany [id number] 16:49:23 Test Item Value Reference Range Interpretation Comments MAGNESIUM (BEAKER) (test code = 2.2 mg/dL 1.6-2.6 627) Technical Specialist ID - DIEGO LBASIC METABOLIC [id number] 16:47:04 Test Item Value Reference Range Interpretation Comments SODIUM (BEAKER) 139 meq/L 136-145 (test code = 381) POTASSIUM 3.9 meq/L 3.5-5.1 (BEAKER) (test code = 379) CHLORIDE (BEAKER) 94 meq/L 98-107 L (test code = 382) CO2 (BEAKER) 41 meq/L 22-29 HH (test code = 355) BLOOD UREA 19 mg/dL 7-21 NITROGEN (BEAKER) (test code = 354) CREATININE 0.61 mg/dL 0.57-1.25 (BEAKER) (test code = 358) GLUCOSE RANDOM 97 mg/dL 70-105 (BEAKER) (test code = 652) CALCIUM (BEAKER) 9.2 mg/dL 8.4-10.2 (test code = 697) EGFR (BEAKER) 97 Interpretatio n of eGFR (test code = mL/min/1.73 values Stage De scription 1092) sq m Result G1 Sindhu l or high >=90 G2 Mildly decreased 60-89 G3a Mildl y to moderately 45-5 9 G3b Moderately to s everely 30-44 G4 Severl y decreased 15-29 G5 Kidney failure <15Reported eGF R is based on the CKD-EPI 2020 equation that d oes not use a race coefficientEsti mated GFR is not as accur ate as Creatinine Joan joyce in predicting glom erular filtration rate . Estimated GFR is not appl icable for dialysis patien ts Technical Specialist ID - PIALANNA [id number] 16:46:05 Test Item Value Reference Range Interpretation Comments PHOSPHORUS (BRIANNA) (test code = 1.2 mg/dL 2.3-4.7 LL 604) Technical Specialist ID - DIEGO LPOCT-GLUCOSE [id number] 15:43:29 Test Item Value Reference Range Interpretation Comments POC-GLUCOSE METER 99 mg/dL 70-110 : TESTED A T [facility] 6720 ([facility]) (test code = [facility] [employer] [facility], 153) [address]: Technical Specialist/Techni wily ID = [id number] for TANJA ARMSTRONG BODY FLUID CULTURE + GRAM [id number] 12:53:27 Test Item Value Reference Range Interpretation Comments CULTURE ([facility]) (test code = 1095) No growth POCT-GLUCOSE [id number] 11:02:54 Test Item Value Reference Range Interpretation Comments POC-GLUCOSE METER 227 mg/dL 70-110 H : TESTED A T [facility] 6720 ([employer]) (test code = [facility], 153) [address]: Technical Specialist/Techni wily ID = [id number] for AG UILAR, TANJA POCT-GLUCOSE [id number] 08:07:03 Test Item Value Reference Range Interpretation Comments POC-GLUCOSE METER 138 mg/dL 70-110 H : TESTED A T [facility] 6720 (BEAKER) (test code = [place], 1538) [address]: Technical Specialist/Techni wily ID = [id number] for AG UILAR, TANJA VANCOMYCIN LEVEL, [id number] 05:37:34 Test Item Value Reference Range Interpretation Comments VANCOMYCIN TROUGH (BEAKER) (test 10.3 ug/mL 10.0-20.0 code = 522) Technical Specialist ID - PIALANNA LT4, [id number] 03:34:43 Test Item Value Reference Range Interpretation Comments FREE T4 (BEAKER) (test code = 655) 0.93 ng/dL 0.70-1.48 Technical Specialist ID - DIEGO [id number] 03:34:02 Test Item Value Reference Range Interpretation Comments MAGNESIUM (BEAKER) 1.7 mg/dL 1.6-2.6 Specimen slightly (test code = 627) hemolyzed Technical Specialist ID - DIEGO [id number] 03:34:02 Test Item Value Reference Range Interpretation Comments PHOSPHORUS (BEAKER) 2.3 mg/dL 2.3-4.7 Specimen slightly (test code = 604) hemolyzed Technical Specialist ID - DIEGO LBASIC METABOLIC [id number] 03:34:02 Test Item Value Reference Range Interpretation Comments SODIUM (BEAKER) 135 meq/L 136-145 L (test code = 381) POTASSIUM 4.2 meq/L 3.5-5.1 Specimen slight ly (BEAKER) (test hemolyzed code = 379) CHLORIDE (BEAKER) 91 meq/L 98-107 L (test code = 382) CO2 (BEAKER) 35 meq/L 22-29 H (test code = 355) BLOOD UREA 19 mg/dL 7-21 NITROGEN (BEAKER) (test code = 354) CREATININE 0.53 mg/dL 0.57-1.25 L Specimen slight ly (BEAKER) (test hemolyzed code = 358) GLUCOSE RANDOM 148 mg/dL 70-105 H (BEAKER) (test code = 652) CALCIUM (BEAKER) 8.9 mg/dL 8.4-10.2 (test code = 697) EGFR (BEAKER) 100 Interpretati on of eGFR (test code = mL/min/1.73 values Stage De scription 1092) sq m Result G1 Sindhu l or high >=90 G2 Mildly decreased 60-89 G3a Mildl y to moderately 45- 59 G3b Moderately to s everely 30-44 G4 Severl y decreased 15-29 G5 Kidney failure <15Reported eGF R is based on the CKD-EPI 2020 equation that d oes not use a race coefficientEsti mated GFR is not as accur ate as Creatinine Joan joyce in predicting glom erular filtration rate . Estimated GFR is not appl icable for dialysis patien ts Technical Specialist ID - PIAYA LCBC W/PLT COUNT & AUTO [id number] 02:44:06 Test Item Value Reference Range Interpretation Comments WHITE BLOOD CELL COUNT (BEAKER) 15.1 K/ L 3.5-10.5 H (test code = 775) RED BLOOD CELL COUNT (BEAKER) 3.72 M/ L 4.63-6.08 L (test code = 761) HEMOGLOBIN (BEAKER) (test code = 11.2 GM/DL 13.7-17.5 L 410) HEMATOCRIT (BEAKER) (test code = 35.0 % 40.1-51.0 L 411) MEAN CORPUSCULAR VOLUME (BEAKER) 94 fL 79-92 H (test code = 753) MEAN CORPUSCULAR HEMOGLOBIN 30.1 pg 25.7-32.2 (BEAKER) (test code = 751) MEAN CORPUSCULAR HEMOGLOBIN CONC 32.0 GM/DL 32.3-36.5 L (BEAKER) (test code = 752) RED CELL DISTRIBUTION WIDTH 15.0 % 11.6-14.4 H (BEAKER) (test code = 412) PLATELET COUNT (BEAKER) (test 337 K/CU MM 150-450 code = 756) MEAN PLATELET VOLUME (BEAKER) 9.7 fL 9.4-12.4 (test code = 754) NUCLEATED RED BLOOD CELLS 0 /100 WBC 0-0 (BEAKER) (test code = 413) NEUTROPHILS RELATIVE PERCENT 92 % (BEAKER) (test code = 429) LYMPHOCYTES RELATIVE PERCENT 4 % (BEAKER) (test code = 430) MONOCYTES RELATIVE PERCENT 4 % (BEAKER) (test code = 431) EOSINOPHILS RELATIVE PERCENT 0 % (BEAKER) (test code = 432) BASOPHILS RELATIVE PERCENT 0 % (BEAKER) (test code = 437) NEUTROPHILS ABSOLUTE COUNT 13.82 K/ L 1.78-5.38 H (BEAKER) (test code = 670) LYMPHOCYTES ABSOLUTE COUNT 0.65 K/ L 1.32-3.57 L (BEAKER) (test code = 414) MONOCYTES ABSOLUTE COUNT (BEAKER) 0.54 K/ L 0.30-0.82 (test code = 415) EOSINOPHILS ABSOLUTE COUNT 0.00 K/ L 0.04-0.54 L (BEAKER) (test code = 416) BASOPHILS ABSOLUTE COUNT (BEAKER) 0.01 K/ L 0.01-0.08 (test code = 417) IMMATURE GRANULOCYTES-RELATIVE 0.50 % 0.00-1.00 PERCENT (BEAKER) (test code = 2801) STREP PNEUMONIAE [id number] 23:08:25 Test Item Value Reference Range Interpretation Comments STREP PNEUMONIAE Presumptive negative Presumptive negative ANTIGEN (BEAKER) for pneumococcal for pneumococcal (test code = 1615) pneumonia - see pneumonia - see comment commen Presumptive negative for pneumococcal pneumonia, suggesting no current or recent pneumococcal infection. Infection due to S. pneumoniae cannot be ruled out since the antigen present in the sample may be below the detection limit of the test.LEGIONELLA ANTIGEN, [id number] 22:58:34 Test Item Value Reference Range Interpretation Comments L. PNEUMOPHILA Negative - see Negative Negative fo r L. SEROGP 1 UR AG comment pneumophila (BEAKER) (test code serogrou p 1 antigen, = 1156) suggesting no r ecent or current infe ction with this serog roup. Legionellosis c annot be ruled out si nce other serogroup s and species may cau se disease. POCT-GLUCOSE [id number] 22:57:06 Test Item Value Reference Range Interpretation Comments POC-GLUCOSE METER 162 mg/dL 70-110 H : TESTED A T [facility] 6720 (BEAKER) (test code = [place], 1538) [address]: Technical Specialist/Techni wily ID = [id number] for Al asLizzy POCT-GLUCOSE [id number] 19:04:46 Test Item Value Reference Range Interpretation Comments POC-GLUCOSE METER 169 mg/dL 70-110 H : TESTED A [facility] 6720 (BRIANNA) (test code = YVONNE [place], 1538) [address]: Technical Specialist/Techni wily ID = [id number] for Dave Michel CT, CHEST WITH IV CONTRAST- PE TEST [id number] 14:14:00Unlisted Reason for Exam - Click Yes and Enter Reason Below->No [facility]IM[facility]LEY DENNISON : 1940 Sex: M[address] CT Chest with contrast (PE protocol) History: Pulmonary embolism suspected, high pretest probability Comparison: none Technique: serial axial imaging was performed followingup to 100cc of non ionic iodinated intravenous contrast as per departmental protocol. Multiplanar, and maximum intensity projection images are reconstructed and reviewed. This CT examination is performed using one or more of the following dose reduction techniques: Automated exposure control, adjustment of the mA and /or kV according to patient size, and/or use of iterative reconstruction technique. Findings:Mildly enlarged middle mediastinal lymph nodes are likely reactive. Normal size heart. No pericardial effusion. No thoracic aortic aneurysm or dissection. No pulmonary arterial filling defect. Patent central airways. A small loculated appearing left pleural effusion is noted. Severe underlyingpulmonary emphysema. A calcified granuloma is seen within the right lower lobe, which is consistent w ith previous granulomatous disease. A focal irregular opacity within the right upper lobe measures 1.4 cm in size. Dependent airspace disease is visualized within the lingula and left upper lobe. Thereare multiple irregularly shaped opacities within the left upper lobe which measure up to 1.8 cm in size. No significant findings in the partially imaged abdomen. No aggressive osseous lesion. Impression: 1. No evidence of pulmonary embolus.2. Small loculated appearing left pleural effusion.2. Severe underlying pulmonary emphysema.4. Bilateral upper lobe (left greater than right) irregularly-shaped focal opacities measuring up to 1.8 cm in size. Recommend comparison to any previously performed chest CT examinations, if available. Otherwise, these would be amenable to further characterization with PET/CT or 3 month follow-up chest CT. Signed: Terence Menjivar [facility] Verified Date/Time: 06/18/2022 14:14:28 Reading Location: [facility] B1 C013W Consult Reading Room POCT-GLUCOSE [id number] 13:43:57 Test Item Value Reference Range Interpretation Comments POC-GLUCOSE METER 137 mg/dL 70-110 H : TESTED A T [facility] 6720 (BEAKER) (test code = YESS[place]AREN [place], 1538) [address]: Technical Specialist/Techni wily ID = [id number] for Dave Michel, CHEST, 1 VIEW, NON [id number] 09:52:00Reason for exam:->pleural effusionShould this be performed at the bedside?->Yes [facility] : 1940 Sex: MFINALREPORT Chest dated 06/18/2022 COMPARISON: Partial distal Comment: Since prior examination, there is no significant interval change in the appearance of chest. Heart is in upper limits of normal margin in size. 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 Right lung is clear. There is trace left pleural effusion present. Signed: Elisa BuenrostroMDReport Verified Date/Time: 06/18/2022 09:52:56 POCT-GLUCOSE [id number] 08:52:29 Test Item Value Reference Range Interpretation Comments POC-GLUCOSE METER 111 mg/dL 70-110 H : TESTED A T [facility] 6720 (BEAKER) (test code = [place], 1538) [address]: Technical Specialist/Techni wily ID = [id number] for Ga Dave costello (CELLAVISION MANUAL DIFF)2022-06-18 08:30:26 Test Item Value Reference Range Interpretation Comments NEUTROPHILS - REL 77 % (CELLAVISION)(BEAKER) (test code = 2816) LYMPHOCYTES - REL 11 % (CELLAVISION)(BEAKER) (test code = 2817) MONOCYTES - REL 3 % (CELLAVISION)(BEAKER) (test code = 2818) BANDS - REL (CELLAVISION)(BEAKER) 6 % 0-10 (test code = 2826) ATYPICAL LYMPHOCYTES - REL 3 % 0-0 H (CELLAVISION)(BEAKER) (test code = 2829) NEUTROPHILS - ABS 19.10 K/ul 1.78-5.38 H (CELLAVISION)(BEAKER) (test code = 2830) LYMPHOCYTES - ABS 2.73 K/ul 1.32-3.57 (CELLAVISION)(BEAKER) (test code = 2831) MONOCYTES - ABS 0.74 K/uL 0.30-0.82 (CELLAVISION)(BEAKER) (test code = 2832) BANDS - ABS (CELLAVISION)(BEAKER) 1.49 K/uL 0.00-0.80 H (test code = 2840) ATYPICAL LYMPHOCYTES - ABS 0.74 K/uL 0.00-0.00 H (CELLAVISION)(BEAKER) (test code = 2858) TOTAL COUNTED (BEAKER) (test code 100 = 1351) WBC MORPHOLOGY (BEAKER) (test code Normal = 487) PLT MORPHOLOGY (BEAKER) (test code Normal = 486) POIKILOCYTES (BEAKER) (test code = 1+ few 966) OVALOCYTES (BEAKER) (test code = 1+ few 477) ARTIFACT (CELLAVISION)(BEAKER) Present (test code = 3432) PLATELET CONCENTRATION Adequate (CELLAVISION)(BEAKER) (test code = 3438) Technical Specialist ID - Juan OverholtUser comments: Slide comments:CBC W/PLT COUNT & AUTO [id number] 08:30:23 Test Item Value Reference Range Interpretation Comments WHITE BLOOD CELL COUNT (BEAKER) 24.8 K/ L 3.5-10.5 H (test code = 775) RED BLOOD CELL COUNT (BEAKER) 3.79 M/ L 4.63-6.08 L (test code = 761) HEMOGLOBIN (BEAKER) (test code = 11.4 GM/DL 13.7-17.5 L 410) HEMATOCRIT (BEAKER) (test code = 35.4 % 40.1-51.0 L 411) MEAN CORPUSCULAR VOLUME (BEAKER) 93 fL 79-92 H (test code = 753) MEAN CORPUSCULAR HEMOGLOBIN 30.1 pg 25.7-32.2 (BEAKER) (test code = 751) MEAN CORPUSCULAR HEMOGLOBIN CONC 32.2 GM/DL 32.3-36.5 L (BEAKER) (test code = 752) RED CELL DISTRIBUTION WIDTH 15.0 % 11.6-14.4 H (BEAKER) (test code = 412) PLATELET COUNT (BEAKER) (test 359 K/CU MM 150-450 code = 756) MEAN PLATELET VOLUME (BEAKER) 9.6 fL 9.4-12.4 (test code = 754) NUCLEATED RED BLOOD CELLS 0 /100 WBC 0-0 (BEAKER) (test code = 413) BASIC METABOLIC [id number] 07:07:39 Test Item Value Reference Range Interpretation Comments SODIUM (BEAKER) 136 meq/L 136-145 (test code = 381) POTASSIUM 4.4 meq/L 3.5-5.1 Specimen slight ly (BEAKER) (test hemolyzed code = 379) CHLORIDE (BEAKER) 94 meq/L 98-107 L (test code = 382) CO2 (BEAKER) 36 meq/L 22-29 H (test code = 355) BLOOD UREA 15 mg/dL 7-21 NITROGEN (BEAKER) (test code = 354) CREATININE 0.53 mg/dL 0.57-1.25 L Specimen slight ly (BEAKER) (test hemolyzed code = 358) GLUCOSE RANDOM 130 mg/dL 70-105 H (BEAKER) (test code = 652) CALCIUM (BEAKER) 9.0 mg/dL 8.4-10.2 (test code = 697) EGFR (BEAKER) 100 Interpretatio n of eGFR (test code = mL/min/1.73 values Stage De scription 1092) sq m Result G1 Norm al or high >=90 G2 Mildly decreased 60-89 G3a Mildl y to moderately 45-5 9 G3b Moderately to s everely 30-44 G4 Severl y decreased 15-29 G5 Kidney failure <15Reported eGF R is based on the CKD-EPI 2020 equation that d oes not use a race coefficientEsti mated GFR is not as accur ate as Creatinine Joan joyce in predicting glom erular filtration rate . Estimated GFR is not appl icable for dialysis patien ts Technical Specialist ID - DIEGO [id number] 07:07:38 Test Item Value Reference Range Interpretation Comments MAGNESIUM (BEAKER) 1.8 mg/dL 1.6-2.6 Specimen slightly (test code = 627) hemolyzed Technical Specialist ID - DIEGO [id number] 07:07:38 Test Item Value Reference Range Interpretation Comments PHOSPHORUS (BEAKER) 2.5 mg/dL 2.3-4.7 Specimen slightly (test code = 604) hemolyzed Technical Specialist ID - DIEGO LSPUTUM CULTURE + GRAM [id number] 23:12:04 Test Item Value Reference Range Interpretation Comments CULTURE (BEAKER) Oropharyngeal (test code = 1095) contamination, specimen rejected. Recollect requested. GRAM STAIN RESULT <1+ WBCs (BEAKER) (test code = 1123) GRAM STAIN RESULT 10-15 epithelial cells (BEAKER) (test code = 87709) GRAM STAIN RESULT 4+ gram positive cocci in (BEAKER) (test code chains, pairs and = 24358) clusters GRAM STAIN RESULT 4+ gram variable rods (BEAKER) (test code = 645293) POCT-GLUCOSE [id number] 22:09:57 Test Item Value Reference Range Interpretation Comments POC-GLUCOSE METER 137 mg/dL 70-110 H : TESTED A T [facility] 6720 (BEAKER) (test code = YVONNE Cabrera [place], 1538) [address]: Technical Specialist/Techni wily ID = [id number] for Al Lizzy winter RESPIRATORY [id number] 20:11:25 Test Item Value Reference Range Interpretation Comments HUMAN METAPNEUMOVIRUS Not detected Not detected, (BEAKER) (test code = 2683) Equivocal RHINOVIRUS (BEAKER) (test Not detected Not detected, code = 2684) Equivocal INFLUENZA A (BEAKER) (test Not detected Not detected, code = 2685) Equivocal INFLUENZA A (NO SUBTYPE) (test code = 3606) INFLUENZA A SUBTYPE H1 (BEAKER) (test code = 2686) INFLUENZA A SUBTYPE H3 (BEAKER) (test code = 2687) INFLUENZA A SUBTYPE H1-2009 (BEAKER) (test code = 3198) INFLUENZA B (BEAKER) (test Not detected Not detected, code = 2688) Equivocal RESPIRATORY SYNCYTIAL VIRUS Not detected Not detected, (BEAKER) (test code = 3199) Equivocal PARAINFLUENZA VIRUS 1 Not detected Not detected, (BEAKER) (test code = 2691) Equivocal PARAINFLUENZA VIRUS 2 Not detected Not detected, (BEAKER) (test code = 2692) Equivocal PARAINFLUENZA VIRUS 3 Not detected Not detected, (BEAKER) (test code = 2693) Equivocal PARAINFLUENZA VIRUS 4 Not detected Not detected, (BEAKER) (test code = 3200) Equivocal ADENOVIRUS (BEAKER) (test Not detected Not detected, code = 2694) Equivocal CORONAVIRUS 229E (BEAKER) Not detected Not detected, (test code = 3201) Equivocal CORONAVIRUS HKU1 (BEAKER) Not detected Not detected, (test code = 3202) Equivocal CORONAVIRUS NL63 (BEAKER) Not detected Not detected, (test code = 3203) Equivocal CORONAVIRUS OC43 (BEAKER) Not detected Not detected, (test code = 3204) Equivocal BORDETELLA PERTUSSIS Not detected Not detected, (BEAKER) (test code = 3205) Equivocal CHLAMYDOPHILA PNEUMONIAE Not detected Not detected, (BEAKER) (test code = 3206) Equivocal MYCOPLASMA PNEUMONIAE Not detected Not detected, (BEAKER) (test code = 3207) Equivocal SEVERE ACUTE RESPIRATORY Not detected Not detected, [id number] Equivocal (test code = 6521437) BORDETELLA PARAPERTUSSIS Not detected Not detected, (BKR) (test code = 8460853) Equivocal Other viruses and bacteria not targeted by this PCR panel cannot be excluded; therefore clinical correlation and follow up of serology, culture results, and other molecular studies is required. The results are not intended to be used as the sole means for clinical diagnosis or patient management decisions. This sample was tested at the [facility] using the EnticeLabsArray Respiratory Panel. It is FDA cleared and has been verified and approved by the [facility] for clinical use on nasopharyngeal swab specimens.The performance of the FilmArrayRP has not been established in individuals who received influenza vaccine. Recent administration of a nasal influenza vaccine may cause false positive results for Influenza A and/orInfluenza B.POCT-GLUCOSE [id number] 18:26:58 Test Item Value Reference Range Interpretation Comments POC-GLUCOSE METER 164 mg/dL 70-110 H : TESTED A T [facility] 6720 (BEAKER) (test code = [facility], 1538) [address]779: Technical Specialist/Techni wily ID = [id number] for Kate Roberts HIGH SENSITIVITY TROPONIN [id number] 15:24:40 Test Item Value Reference Range Interpretation Comments HIGH SENSITIVITY TROPONIN I (test 11 pg/ml <=35 code = [id number]) Technical Specialist ID - BSThe DIRECTOR SPECIAL EDUCATION STAT High Sensitivity Troponin-I results should be used in conjunctionwith other diagnostic information such as ECG, clinical observations and information, and patient symptoms to aid in the diagnosis of CO.B-TYPE NATRIURETIC FACTOR (BNP)2022-06-17 15:24:22 Test Item Value Reference Range Interpretation Comments B-TYPE NATRIURETIC PEPTIDE (BEAKER) 117 pg/mL 0-100 H (test code = 700) Technical Specialist ID - BSBASIC METABOLIC [id number] 15:18:20 Test Item Value Reference Range Interpretation Comments SODIUM (BEAKER) 136 meq/L 136-145 (test code = 381) POTASSIUM 5.1 meq/L 3.5-5.1 Specimen modera tely (BEAKER) (test hemolyzed code = 379) CHLORIDE (BEAKER) 94 meq/L 98-107 L (test code = 382) CO2 (BEAKER) 34 meq/L 22-29 H (test code = 355) BLOOD UREA 12 mg/dL 7-21 NITROGEN (BEAKER) (test code = 354) CREATININE 0.56 mg/dL 0.57-1.25 L Specimen modera tely (BEAKER) (test hemolyzed code = 358) GLUCOSE RANDOM 109 mg/dL 70-105 H (BEAKER) (test code = 652) CALCIUM (BEAKER) 9.6 mg/dL 8.4-10.2 (test code = 697) EGFR (BEAKER) 99 Interpretatio n of eGFR (test code = mL/min/1.73 values Stage De scription 1092) sq m Result G1 Sindhu l or high >=90 G2 Mildly decreased 60-89 G3a Mildl y to moderately 45-5 9 G3b Moderately to s everely 30-44 G4 Severl y decreased 15-29 G5 Kidney failure <15Reported eGF R is based on the CKD-EPI 2020 equation that d oes not use a race coefficientEsti mated GFR is not as accur ate as Creatinine Joan joyce in predicting glom erular filtration rate . Estimated GFR is not appl icable for dialysis patien ts Technical Specialist ID - BSBODY FLUID CELL COUNT WITH [id number] 14:38:16 Test Item Value Reference Range Interpretation Comments APPEARANCE FLUID (BEAKER) Bloody Clear A (test code = 510) COLOR FLUID (BEAKER) (test Red Colorless, Straw A code = 511) RBC FLUID (BEAKER) (test code 265050 /cu mm <=1 H = 513) TOTAL NUCLEATED CELL COUNT 798 /cu mm <=5 H (BEAKER) (test code = 1442) LINING CELLS/OTHERS DIFF'D 9 (BEAKER) (test code = 1589) ADJUSTED WBC FLUID (BEAKER) 732 /cu mm <=5 H (test code = 1691) LINING CELLS/OTHERS, 66 /cu mm <=1 H CALCULATED (BEAKER) (test code = 1590) NEUTROPHILS FLUID (BEAKER) 13 % (test code = 1656) LYMPHS FLUID (BEAKER) (test 28 % code = 488) MONO/MACROPHAGE FLUID (BEAKER) 59 % (test code = 489) EOSINOPHILS FLUID (BEAKER) 0 % (test code = 491) BASO FLUID (BEAKER) (test code 0 % = 492) CONTAINER BODY FLUID (BEAKER) Sterile Vial (test code = 2873) POCT-GLUCOSE [id number] 14:27:04 Test Item Value Reference Range Interpretation Comments POC-GLUCOSE METER 115 mg/dL 70-110 H : TESTED A T [facility] (BEAKER) (test code = YVONNE Cabrera [place], 1538) [address]: Technical Specialist/Techni wily ID = [id number] for Kate Roberts RAD, CHEST, 1 VIEW, NON [id number] 14:24:00Reason for exam:->Post ThoracentesisShould this be performed at the bedside?->Yes [facility] : 1940 Sex: MFINALREPORT RAD, CHEST, 1 VIEW, NON DEPT INDICATION: Post Thoracentesis COMPARISON: Earlier same day FINDINGS: Portable frontal view of the chest. IMPRESSION: Support Lines: Overlying leads/monitors. Lungs and pleura: Decreased left effusion. No significant pneumothorax. Heart and mediastinum: Stable contours. Additional findings: None. Signed: Khadra Smith Verified Date/Time: 06/17/2022 14:24:25 Reading Location: [address] Reading Room Electronically signedby: KHADRA SMITH MD on 06/17/2022 02:24 PMPOCT-GLUCOSE [id number] 10:35:07 Test Item Value Reference Range Interpretation Comments POC-GLUCOSE METER 111 mg/dL 70-110 H : TESTED A T [facility] (BEAKER) (test code = [place], 1538) [address]: Technical Specialist/Techni wily ID = [id number] for SELENA NUÑEZ BLOOD GAS, [id number] 05:28:25 Test Item Value Reference Range Interpretation Comments PH VENOUS (BEAKER) (test code = 7.38 7.32-7.42 701) PCO2 VENOUS (BEAKER) (test code = 63 mm Hg 41-51 H 755) PO2 VENOUS (BEAKER) (test code = 93 mm Hg 25-40 H 702) O2 SATURATION VENOUS (BEAKER) 96.7 % 40.0-70.0 H (test code = 703) HCO3 VENOUS (BEAKER) (test code = 36 mmol/L 21-29 H 705) BASE EXCESS VENOUS (BEAKER) (test 9.2 mmol/L -2.0-3.0 H code = 704) PATIENT TEMPERATURE (BEAKER) (test 37.0 code = 1818) FIO2 (BEAKER) (test code = 1819) 21.0 [id number] 05:18:57 Test Item Value Reference Range Interpretation Comments THYROID STIMULATING HORMONE 0.182 uIU/mL 0.350-4.940 L (BEAKER) (test code = 772) Technical Specialist ID - DIEGO [id number] 05:00:27 Test Item Value Reference Range Interpretation Comments PHOSPHORUS (BEAKER) (test code = 1.9 mg/dL 2.3-4.7 L 604) Technical Specialist ID - MARCOCOMPREHENSIVE METABOLIC [id number] 05:00:26 Test Item Value Reference Range Interpretation Comments TOTAL PROTEIN 6.2 gm/dL 6.0-8.3 (BEAKER) (test code = 770) ALBUMIN (BEAKER) 3.2 g/dL 3.5-5.0 L (test code = 1145) ALKALINE 102 U/L 40-150 PHOSPHATASE (BEAKER) (test code = 346) BILIRUBIN TOTAL 0.3 mg/dL 0.2-1.2 (BEAKER) (test code = 377) SODIUM (BEAKER) 138 meq/L 136-145 (test code = 381) POTASSIUM (BEAKER) 4.0 meq/L 3.5-5.1 (test code = 379) CHLORIDE (BEAKER) 95 meq/L 98-107 L (test code = 382) CO2 (BEAKER) (test 34 meq/L 22-29 H code = 355) BLOOD UREA 11 mg/dL 7-21 NITROGEN (BEAKER) (test code = 354) CREATININE 0.56 mg/dL 0.57-1.25 L (BEAKER) (test code = 358) GLUCOSE RANDOM 147 mg/dL 70-105 H (BEAKER) (test code = 652) CALCIUM (BEAKER) 9.4 mg/dL 8.4-10.2 (test code = 697) AST (SGOT) 20 U/L 5-34 (BEAKER) (test code = 353) ALT (SGPT) 30 U/L 6-55 (BEAKER) (test code = 347) EGFR (BEAKER) 99 Interpretatio n of eGFR (test code = 1092) mL/min/1.[address] age Description sq m Result G1 Sindhu l or high >=90 G2 Mildly decreased 60-89 G3a Mildl y to moderately 45-5 9 G3b Moderately to s everely 30-44 G4 Severl y decreased 15-29 G5 Kidney failure <15Reported eGF R is based on the CKD-EPI 2020 equation that d oes not use a race coefficientEsti mated GFR is not as accur ate as Creatinine Joan cook in predicting glom erular filtration rate . Estimated GFR is not appl icable for dialysis patien ts Technical Specialist ID - [id number] 05:00:26 Test Item Value Reference Range Interpretation Comments MAGNESIUM (BEAKER) (test code = 1.7 mg/dL 1.6-2.6 627) Technical Specialist ID - GRETCHENIGH SENSITIVITY TROPONIN [id number] 04:58:25 Test Item Value Reference Range Interpretation Comments HIGH SENSITIVITY TROPONIN I (test 8 pg/ml <=35 code = 9552932) Technical Specialist ID - DIEGO LThe DIRECTOR SPECIAL EDUCATION STAT High Sensitivity Troponin-I results should be used in conjunction with other diagnostic information such as ECG, clinical observations and information, and patient symptoms to aid in the diagnosis of CO.LACTIC ACID, [id number] 04:51:41 Test Item Value Reference Range Interpretation Comments LACTATE BLOOD VENOUS (2) (BEAKER) 0.92 mmol/L 0.50-2.20 (test code = 2872) Technical Specialist ID - [id number] 04:43:38 Test Item Value Reference Range Interpretation Comments PARTIAL THROMBOPLASTIN TIME 30.0 seconds 22.5-36.0 (BEAKER) (test code = 760) PROTHROMBIN [id number] 04:42:59 Test Item Value Reference Range Interpretation Comments PROTIME (BEAKER) (test code = 13.2 seconds 11.9-14.2 759) INR (BEAKER) (test code = 370) 1.06 <=5.90 RECOMMENDED COUMADIN/WARFARIN INR THERAPY RANGESSTANDARD DOSE: 2.0 - 3.0 Includes: PROPHYLAXIS for venous thrombosis, systemic embolization; TREATMENT for venous thrombosis and/or pulmonary embolus.HIGH RISK: Target INR is 2.5-3.5 for patients with mechanical heart valves.CBC W/PLT COUNT & AUTO [id number] 04:28:45 Test Item Value Reference Range Interpretation Comments WHITE BLOOD CELL COUNT (BEAKER) 10.2 K/ L 3.5-10.5 (test code = 775) RED BLOOD CELL COUNT (BEAKER) 3.93 M/ L 4.63-6.08 L (test code = 761) HEMOGLOBIN (BEAKER) (test code = 11.4 GM/DL 13.7-17.5 L 410) HEMATOCRIT (BEAKER) (test code = 37.7 % 40.1-51.0 L 411) MEAN CORPUSCULAR VOLUME (BEAKER) 96 fL 79-92 H (test code = 753) MEAN CORPUSCULAR HEMOGLOBIN 29.0 pg 25.7-32.2 (BEAKER) (test code = 751) MEAN CORPUSCULAR HEMOGLOBIN CONC 30.2 GM/DL 32.3-36.5 L (BEAKER) (test code = 752) RED CELL DISTRIBUTION WIDTH 14.4 % 11.6-14.4 (BEAKER) (test code = 412) PLATELET COUNT (BEAKER) (test 369 K/CU MM 150-450 code = 756) MEAN PLATELET VOLUME (BEAKER) 9.5 fL 9.4-12.4 (test code = 754) NUCLEATED RED BLOOD CELLS 0 /100 WBC 0-0 (BEAKER) (test code = 413) NEUTROPHILS RELATIVE PERCENT 89 % (BEAKER) (test code = 429) LYMPHOCYTES RELATIVE PERCENT 8 % (BEAKER) (test code = 430) MONOCYTES RELATIVE PERCENT 3 % (BEAKER) (test code = 431) EOSINOPHILS RELATIVE PERCENT 0 % (BEAKER) (test code = 432) BASOPHILS RELATIVE PERCENT 0 % (BEAKER) (test code = 437) NEUTROPHILS ABSOLUTE COUNT 9.01 K/ L 1.78-5.38 H (BEAKER) (test code = 670) LYMPHOCYTES ABSOLUTE COUNT 0.80 K/ L 1.32-3.57 L (BEAKER) (test code = 414) MONOCYTES ABSOLUTE COUNT (BEAKER) 0.32 K/ L 0.30-0.82 (test code = 415) EOSINOPHILS ABSOLUTE COUNT 0.00 K/ L 0.04-0.54 L (BEAKER) (test code = 416) BASOPHILS ABSOLUTE COUNT (BEAKER) 0.01 K/ L 0.01-0.08 (test code = 417) IMMATURE GRANULOCYTES-RELATIVE 0.30 % 0.00-1.00 PERCENT (BEAKER) (test code = 2801) RAD, CHEST, 1 VIEW, NON [id number] 02:57:00Post-intubationReason for exam:- >SOBShould this be performed at the bedside?->Yes [facility] : 1940 Sex: MFINALREPORT INDICATION: SOB COMPARISON: None TECHNIQUE: Single frontal view of the chest. IMPRESSION: Lungs and pleura: There is near complete opacification of the left hemithorax concerning for a large pleural effusion or postobstructive atelectasis possibly due to mucous plugging or other obstruction. Right lung is clear. Heart and mediastinum: Normal heart size. Unremarkable mediastinal contours. Osseous structures: No acute abnormality. Other: None. Signed: Elisa Stringer MDReport Verified Date/Time: 06/17/2022 02:57:59 ONARY FUNCTION TEST (RESULTS)2022-01-19 16:09:19 Test Item Value Reference Range Interpretation Comments FVC Actual (test code = 3994) 2.31 L FEV1 Actual (test code = 3993) 0.51 L FEV1/FVC Actual (test code = 3995) 22 % [facility]
[2022-10-13 11:51] LABS: Absolute Lymphocytes (CBC) 2.3 K/uL (0.7-4.9); Lymphocytes % 13.6 % (15.3-44.8); MCV 95.2 fL (80-100); MPV 7.3 fL (7.6-11.3); RBC Red Blood Cell Count 3.04 M/uL (4.33-5.43)
[2022-10-13 12:09] LABS: Potassium 3.9 mEq/L (3.5-5.1); Troponin High Sensitivity 12.3 pg/mL (<58.9)
--- NOTE | 2022-10-13 12:14 | RAD REPORT ---
EXAM DESCRIPTION: CT - Chest For Pe Angio - 10/13/2022 11:48 am CLINICAL HISTORY: shortness of breath COMPARISON: Chest For Pe Angio dated 06/16/2022; Thorax Wo Con dated 05/06/2022 TECHNIQUE: Thin axial CT images of the chest were obtained following administration of 100 mL Isovue 370 IV contrast. Multiplanar reconstructions, and maximum intensity projection reconstructions were generated and reviewed. Exam utilizes a protocol for optimal evaluation of pulmonary arterial tree. All CT scans are performed using dose optimization technique as appropriate and may include automated exposure control or mA/KV adjustment according to patient size. FINDINGS: Suboptimal evaluation due to suboptimal contrast timing. No evidence of acute central pulm onary emboli indication. No other suspicious finding. Stable upper limit of normal caliber of the ascending thoracic aorta measuring 4.1 centimeter. No shaylee dence of dissection. Stable moderate burden of calcified atherosclerotic plaque. [id number]-fdtygkfh pericardial effusion. A left pleural drainage catheter has been placed, with improvement of left pleural effusion. Small re sidual effusion remains. Biapical scarring with a spiculated right apical 1.4 centimeter nodule, stab le. Background advanced centrilobular emphysematous changes. Patchy central predominant irregular air space opacities with interlobular and interlobular septal thickening noted within the upper and lower lobes, were previously obscured by the degree of ongoing atelectasis. No pleural thickening or pleur al effusion on the right. No pneumothorax. No abnormal mediastinal or hilar masses or lymphadenopathy seen. Left paratracheal 11 millimeter shor t axis lymph node is stable. No chest wall mass or abnormal axilliary lymphadenopathy. No suspicious osseous abnormality. Diffuse osteopenia limits evaluation. IMPRESSION: No evidence of acute central pulmonary emboli, although evaluation is somewhat suboptima l given contrast timing. Improvement of left pleural effusion and left lung aeration, following placement of a left pleural dr ainage catheter. Patchy central predominant left lung airspace opacities as above, could reflect scarring or incomplet alexis resolved atelectasis. Possibility of superimposed infarct mass or inflammatory process cannot be entirely excluded. Other stable findings as above.
--- NOTE | 2022-10-13 12:16 | RAD REPORT ---
EXAM DESCRIPTION: RADChest Single View10/13/2022 11:57 am CLINICAL HISTORY: shortness of breath COMPARISON: Chest Single View dated 06/16/2022; Chest Single View dated 05/17/2022; Chest Single View d ated 05/16/2022; Chest Single View dated 05/15/2022 TECHNIQUE: Portable AP view of the chest. FINDINGS: Chronic parenchymal interstitial changes. Improvement of aeration throughout the left lung . Pleural drainage catheter at the left base is not present. No pneumothorax. . The cardiomediastinal contours are unremarkable. IMPRESSION: Chronic parenchymal changes and improvement of left-sided effusion. Please refer to CT c hest of the same day for more detailed assessment.
--- NOTE | 2022-10-13 13:13 | ER ---
Nurse's Notes [facility] Name: Sebastian Dennison Age: 81 yrs Sex: Male : 1940 Arrival Date: 10/13/2022 Time: 10:50 Bed 24 Private MD: Diagnosis: Pneumonia, unspecified organism;Acute respiratory failure with hypoxia Presentation: 10/13 11:16 Chief complaint: EMS states: SOB, Stage IV lung cancer and chemo Monday, AMS today with db SOB 90% on home O2 4L Pt received 125 ml Solumedrol by EMS. Has Out of hospital DNR. Pleurix Catheter on left side. Coronavirus screen: Vaccine status: Patient reports receiving the 2nd dose of the covid vaccine. Client denies travel out of the [place] in the last 14 days. At this time, the client does not indicate any symptoms associated with coronavirus-19. Ebola Screen: Patient negative for fever greater than or equal to 101.5 degrees Fahrenheit, and additional compatible Ebola Virus Disease symptoms Patient denies exposure to infectious person. Patient denies travel to an Ebola-affected area in the 21 days before illness onset. No symptoms or risks identified at this time. Initial Sepsis Screen: Does the patient meet any 2 criteria? Altered Mental Status. HR > 90 bpm. Yes Does the patient have a suspected source of infection? No. Patient's initial sepsis screen is negative. Risk Assessment: Do you want to hurt yourself or someone else? Patient reports no desire to harm self or others. Onset of symptoms was October 13, 2022. 11:16 Method Of Arrival: EMS: [facility] db 11:16 Acuity: TOMAS 2 db Triage Assessment: 11:20 General: Appears in no apparent distress. comfortable, Behavior is calm, cooperative. db Pain: Denies pain. Historical: - Allergies: 11:20 No Known Allergies; db - PMHx: 11:20 COPD; stage 4 lung CA; db - Immunization history:: Adult Immunizations unknown, Client reports receiving the 2nd dose of the Covid vaccine. - Social history:: Smoking status: Patient denies any tobacco usage or history of. Assessment: 11:30 Reassessment: Patient appears in no apparent distress at this time. Patient and/or db family updated on plan of care and expected duration. Pain level reassessed. Patient is alert, oriented x 3, equal unlabored respirations, skin warm/dry/pink. General: Appears in no apparent distress. comfortable, Behavior is calm, cooperative. Neuro: Level of Consciousness is awake, alert, obeys commands, Oriented to person, place, time, situation. Respiratory: Airway is patent Respiratory effort is even, unlabored, Respiratory pattern is regular, symmetrical. :. 13:36 Reassessment: Patient appears in no apparent distress at this time. Patient and/or db family updated on plan of care and expected duration. Pain level reassessed. Patient is alert, oriented x 3, equal unlabored respirations, skin warm/dry/pink. family is at bedside. Vital Signs: 11:16 BP 119 / 76; Pulse 108; Resp 18; Temp 98.5(O); Pulse Ox 100% on 4 lpm NC; Weight 63.5 db kg; Height 5 ft. 9 in. ; 12:30 BP 133 / 80; Pulse 111; Resp 18; Pulse Ox 100% on NC; db 13:38 BP 143 / 78; Pulse 105; Resp 18; Pulse Ox 96% on NC; db 11:16 Body Mass Index 20.67 (63.50 kg, 175.26 cm) db ED Course: 11:04 Patient arrived in ED. zm 11:05 Gen Arvizu PA is PHCP. jmm 11:05 Matt Persaud MD is Attending Physician. jmm 11:06 Bart Morin DO is Attending Physician. ms3 11:16 Miya French, RN is Primary Nurse. db 11:20 Triage completed. db 11:20 Arm band placed on Patient placed in an exam room. db 11:26 EKG done, by ED staff, reviewed by Bart Morin DO. jw7 11:41 Basic Metabolic Panel Sent. ss 11:41 CBC with Diff Sent. ss 11:41 Troponin HS Sent. ss 11:50 CT Chest For PE Angio In Process Unspecified. EDMS 11:59 XRAY Chest (1 view) In Process Unspecified. EDMS 13:12 Justin Ramsay MD is Hospitalizing Provider. ms3 Administered Medications: 13:34 Drug: Lactated Ringers Solution IV 500 ml Route: IV; Rate: bolus; Site: left db antecubital; 17:34 Not Given (Physician Discretion): Rocephin IV 1 grams IV at calculated rate once; Given ss slow IV push per pharmacy instructions 17:34 Not Given (Physician Discretion): AZITHromycin IVPB 500 mg IVPB once over 1 hrs; (mix ss in 250 mL NS) Outcome: 13:13 Decision to Hospitalize by Provider. ms3 18:53 Patient left the ED. ss Signatures: Dispatcher [employer] EDMS Gen Arvizu PA PA jmm Smirch, Shelby, RN RN ss Bart Morin DO DO ms3 Cami Greenberg jw7 Lisa Martin Danielle, RN RN db Corrections: (The following items were deleted from the chart) 13:39 12:30 BP 133 / 80; Pulse 111bpm; Resp 18bpm; Pulse Ox 100% RA; db db
--- NOTE | 2022-10-13 13:13 | EDPHYS ---
Physician Documentation [facility] Name: Sebastian Dennison Age: 81 yrs Sex: Male : 1940 Arrival Date: 10/13/2022 Time: 10:50 Bed 24 Private MD: ED Physician Bart Morin HPI: 10/13 11:57 This 81 yrs old Male presents to ER via EMS with complaints of Shortness Of Breath. ms3 11:57 81-year-old male with past medical history of COPD, stage IV lung cancer presents via [address] [facility] for shortness of breath and disorientation. EMS notes patient was on concentrated oxygen at 4 L saturating 90%. Patient typically has breathing treatments, however, patient has not had a breathing treatment since Monday. EMS administered albuterol and Atrovent, and gave Solu-Medrol. Patient's states patient has been disoriented since Monday. Patient endorses shortness of breath. Patient denies alleviating or inciting factors. Historical: - Allergies: 11:20 No Known Allergies; db - PMHx: 11:20 COPD; stage 4 lung CA; db - Immunization history:: Adult Immunizations unknown, Client reports receiving the 2nd dose of the Covid vaccine. - Social history:: Smoking status: Patient denies any tobacco usage or history of. ROS: 11:57 Constitutional: Negative for fever, and chills. Neck: Negative for injury, pain, and ms3 swelling, Cardiovascular: Negative for chest pain, and palpitations. 11:57 Abdomen/GI: Negative for abdominal pain, nausea, vomiting, diarrhea, and constipation, MS/Extremity: Negative for injury and deformity, Skin: Negative for injury, rash, and discoloration. 11:57 Respiratory: Positive for shortness of breath. 11:57 All other systems are negative. Exam: 11:57 Constitutional: This is a well developed, well nourished patient who is awake, alert, ms3 and in no acute distress. Head/Face: Normocephalic, atraumatic. Neck: Trachea midline, no cervical lymphadenopathy. Supple, full range of motion without nuchal rigidity, or vertebral point tenderness. No Meningismus. Chest/axilla: Normal chest wall appearance and motion. Nontender with no deformity. 11:57 Cardiovascular: Rate: tachycardic, Rhythm: regular, Pulses: no pulse deficits are appreciated, Heart sounds: normal, normal S1and S2. 11:57 ECG was reviewed by the Attending Physician. Vital Signs: 11:16 BP 119 / 76; Pulse 108; Resp 18; Temp 98.5(O); Pulse Ox 100% on 4 lpm NC; Weight 63.5 db kg; Height 5 ft. 9 in. ; 12:30 BP 133 / 80; Pulse 111; Resp 18; Pulse Ox 100% on NC; db 13:38 BP 143 / 78; Pulse 105; Resp 18; Pulse Ox 96% on NC; db 11:16 Body Mass Index 20.67 (63.50 kg, 175.26 cm) db MDM: 11:15 Patient medically screened. ms3 11:58 Differential diagnosis: Chronic Obstructive Pulmonary Disease Myocardial Infarction ms3 pneumonia, pulmonary edema, Pulmonary Embolism. 16:12 Data reviewed: vital signs, nurses notes, lab test result(s), EKG, radiologic studies, ms3 and as a result, I will admit patient. Consideration of Admission/Observation Patient was admitted/placed on observation. Management of patient was discussed with the following: Hospitalist: Dr Ramsay. I considered the following discharge prescriptions or medication management in the emergency department Medications were administered in the Emergency Department. See MAR. Independent interpretation of the following test(s) in the Emergency Department EKG: See my EKG interpretation above peoplesoft taleo manager:. Counseling: I had a detailed discussion with the patient and/or guardian regarding: the historical points, exam findings, and any diagnostic results supporting the discharge/admit diagnosis, lab results, radiology results, the need for further work-up and treatment in the hospital. 10/13 11:17 Order name: Basic Metabolic Panel; Complete Time: 12:22 ms3 10/13 11:17 Order name: CBC with Diff; Complete Time: 12:22 ms3 10/13 11:17 Order name: Troponin HS; Complete Time: 12:22 ms3 10/13 11:17 Order name: Urinalysis w/ reflexes ms3 10/13 12:24 Order name: Blood Culture Adult (2) ms3 10/13 12:24 Order name: CMP ms3 10/13 12:24 Order name: Lactate w/ 2H reflex if indic. ms3 10/13 12:24 Order name: Protime (+inr) ms3 12:24 Order name: Ptt, Activated ms3 10/13 15:03 Order name: ABG Arterial Blood Gas EDMS 10/13 15:06 Order name: CBC with Automated Diff EDMS 10/13 15:06 Order name: CBC with Automated Diff EDMS 10/13 15:06 Order name: Comprehensive Metabolic Panel EDMS 10/13 15:06 Order name: Comprehensive Metabolic Panel EDMS 10/13 15:06 Order name: Magnesium EDMS 10/13 15:06 Order name: Magnesium EDMS 10/13 15:06 Order name: Phosphorus EDMS 10/13 15:06 Order name: Phosphorus EDMS 10/13 15:19 Order name: C-Reactive Protein EDMS 10/13 15:19 Order name: Procalcitonin EDMS 10/13 15:19 Order name: Sputum Culture EDMS 10/13 15:19 Order name: Sputum Gram Stain EDMS 10/13 11:17 Order name: XRAY Chest (1 view); Complete Time: 12:22 ms3 10/13 11:20 Order name: CT Chest For PE Angio; Complete Time: 12:22 ms3 10/13 11:17 Order name: EKG; Complete Time: 11:18 ms3 10/13 15:04 Order name: CONS Physician Consult EDMS 10/13 15:06 Order name: Physical Therapy Consult EDMS 10/13 15:06 Order name: Regular EDMS 10/13 11:17 Order name: Cardiac monitoring; Complete Time: 11:26 ms3 10/13 11:17 Order name: EKG - Nurse/Tech; Complete Time: 11:26 ms3 10/13 11:17 Order name: IV Saline Lock; Complete Time: 11:41 ms3 10/13 11:17 Order name: Labs collected and sent; Complete Time: 11:41 ms3 10/13 11:17 Order name: O2 Per Protocol; Complete Time: 11:26 ms3 10/13 11:17 Order name: O2 Sat Monitoring; Complete Time: 11:26 ms3 10/13 12:24 Order name: Accucheck; Complete Time: 13:35 ms3 10/13 12:24 Order name: IV Saline Lock - Large Bore; Complete Time: 12:57 ms3 10/13 12:24 Order name: Vital Signs; Complete Time: 13:35 ms3 EC:57 Rate is 108 beats/min. Rhythm is regular. QRS Yarnell is Normal. MT interval is normal. ms3 QRS interval is normal. Clinical impression: Sinus tachycardia. Interpreted by me. Reviewed by me. Administered Medications: 13:34 Drug: Lactated Ringers Solution IV 500 ml Route: IV; Rate: bolus; Site: left db antecubital; 17:34 Not Given (Physician Discretion): Rocephin IV 1 grams IV at calculated rate once; Given ss slow IV push per pharmacy instructions 17:34 Not Given (Physician Discretion): AZITHromycin IVPB 500 mg IVPB once over 1 hrs; (mix ss in 250 mL NS) Disposition Summary: 10/13/22 13:13 Hospitalization Ordered Hospitalization Status: Inpatient Admission ms3 Provider: Justin Ramsay ms3 Location: Telemetry/MedSurg (Inpatient) ms3 Condition: Stable ms3 Problem: new ms3 Symptoms: are unchanged ms3 Bed/Room Type: [place] ms3 Room Assignment: 228(10/13/22 17:53) ja1 Diagnosis - Pneumonia, unspecified organism ms3 - Acute respiratory failure with hypoxia ms3 Forms: - Medication Reconciliation Form ms3 - SBAR form ms3 Signatures: Dispatcher [employer] EDMS Dave Francis RN RN ja1 Bart Morin DO DO ms3 Miya French RN RN db Erika Mcclain RN ss Corrections: (The following items were deleted from the chart) 17:53 13:13 ms3 ja1
[2022-10-13 13:19] LABS: Specific Gravity 1.018 (1.005-1.030); Urine Bilirubin NEGATIVE (Negative); Urine Blood Negative (Negative); Urine Clarity Clear (Clear); Urine Color Light-Yellow (Yellow); Urine Glucose NEGATIVE (Negative); Urine Protein NEGATIVE (Negative); Urine Urobilinogen Normal (Normal)
[2022-10-13 13:26] LABS: Protime INR 1.03
[2022-10-13] MEDS ORDERED: Ringers Lactate 1,000 ML IV ONE ×2 (13:36→16:56)
[2022-10-13 13:41] LABS: Albumin 2.8 g/dL (3.4-5.0); Bilirubin Total 0.2 mg/dL (0.2-1.0); Potassium 4.3 mEq/L (3.5-5.1); Protein, Total 7.1 g/dL (6.4-8.2)
[2022-10-13] MEDS ORDERED: predniSONE 20 MG TAB PO SCH (15:30)
[2022-10-13] MEDS ORDERED: DOCUSATE NA 100 MG CAP PO SCH (15:30)
[2022-10-13] MEDS ORDERED: FAMOTIDINE 20 MG TAB PO SCH (15:30)
[2022-10-13] MEDS ORDERED: TAMSULOSIN 0.4 MG SR CAP PO SCH (15:30)
[2022-10-13] MEDS ORDERED: VANCOMYCIN 1.5 GM in NA CHLORIDE 0.9% 500 ML IVPB ONE (16:00)
[2022-10-13] MEDS ORDERED: VANCOMYCIN 1.25 GM in NA CHLORIDE 0.9% 250 ML IVPB SCH (16:00)
[2022-10-13 16:23] LABS: Arterial Blood Carboxyhemoglob 1.4 % (0-1.5); Blood Gas Oxyhemoglobin 88.9 % (94-97); Blood O2 Saturation 91.4 % (92-98.5)
[2022-10-13 16:28] VITALS: BMI 20.5
[2022-10-13] MEDS: Levofloxacin 750mg IV 750 MG/150 ML BAG IV SCH (16:51)
[2022-10-13] MEDS: Ringers Lactate 1,000 ML IV SCH (16:52)
[2022-10-13] MEDS ORDERED: Levofloxacin 750mg IV 750 MG/150 ML BAG IV ONE (16:56)
--- NOTE | 2022-10-13 17:00 | P.HP ---
Certification for Inpatient Patient admitted to: Inpatient With expected LOS: >2 Midnights Practitioner: I am a practitioner with admitting privileges, knowledge of patient current condition, hospital course, and medical plan of care. Services: Services provided to patient in accordance with Admission requirements found in Title 42 Section 412.3 of the Code of Federal Regulations Patient History Date of Service: 10/13/22 Reason for admission: hypoxia, pneumonia, copd History of Present Illness: 81yo M, PMH: recent diagnosis of stage IV lung cancer, BPH, COPD, on chronic 4L NC, undergoing chemotherapy and pleurx cath for weekly drainage of left pleural effusion. Presents to ED due to 3-4 days of progressively worsening generalized weakness, shortness of breath, cough, and confusion (forgetful and staring off into space). Denies any fever at home. Last chemo was last monday (~10 days ago). No recent steroid use. Last hospitalized in July, in [facility] for loculated pleural effusion and underwent drain placement. Amount of fluid drained weekly has steadily decreased. No nausea/vomiting , no diarrhea, reports h/o chronic constipation. In the ED, noted to have a leukocytosis of 16,000, afebrile, tachycardic and tachypneic. ED physician reports hypoxia down to lowmid 80s on his usual 4 L nasal cannula. CTA negative for PE, noted a nonspecific left central opacity, possible infection/inflammation ED physician requests admission for further management. Allergies No Known Allergies Allergy (Verified 05/07/22 00:23) Home Medications: Finasteride [Proscar*] 5 mg PO BEDTIME 07/11/16 Tamsulosin [Flomax*] 0.4 mg PO DAILY 07/11/16 Tiotropium [place] [Spiriva] 1 inh PO DAILY 05/07/22 acetaZOLAMIDE [Diamox*] 250 mg PO DAILY #30 tab 05/21/22 Folic Acid 1 mg PO DAILY 10/13/22 Loratadine/Pseudoephedrine Sul [Claritin-D 12 Hour Tablet] 1 tab PO Q12H 10/13/22 Tiotropium [Spiriva Handihaler] 18 mcg IH DAILY 10/13/22 Zolpidem Tartrate [Ambien] 5 mg PO BEDTIME PRN 10/13/22 dexAMETHasone [Dexamethasone] 4 mg PO DAILY 10/13/22 - Past Medical/Surgical History Has patient received pneumonia vaccine in the past: No Diabetic: No -: COPD -: BPH -: Stage IV lung cancer -: Appendectomy -: tonsillectomy, adenoids removed -: Bilateral cataract surgery Psychosocial/ Personal History: Patient is . - Family History Mother -: Diabetes - Social History Smoking Status: Former smoker Alcohol use: No CD- Drugs: No Caffeine use: No Place of Residence: Home Review of Systems 10-point ROS is otherwise unremarkable Physical Examination - Vital Signs Blood Pressure: 135/80 Pulse: 111 Respirations: 20 Pulse Ox (%): 94 - Physical Exam General: Alert, Oriented x3, Mild distress, Other (Mild confusion, hard of hearing) HEENT: PERRLA, Other (Temporal wasting bilaterally), EOMI Respiratory: Diminished, Expiratory wheezes Cardiovascular: No edema, Regular rate/rhythm, No murmurs Capillary refill: <2 Seconds Gastrointestinal: Soft and benign, Non-distended, No tenderness Musculoskeletal: No erythema, No tenderness Integumentary: No rashes, No significant lesion Neurological: Normal speech, Normal strength at 5/5 x4 extr, Normal affect, Other (hard of hearing) - Studies Laboratory Data (last 24 hrs) 10/13/22 13:00: PT 11.3, INR 1.03, APTT 34.7 10/13/22 13:00: Sodium 139, Potassium 4.3, BUN 8, Creatinine 0.57 L, Glucose 122 H, Total Bilirubin 0.2, AST 10 L, ALT 14 L, Alkaline Phosphatase 126 H 10/13/22 11:38: WBC 16.80 H, Hgb 8.9 L, Hct 29.0 L, Plt Count 598 H 10/13/22 11:38: Sodium 140, Potassium 3.9, BUN 8, Creatinine 0.60 L, Glucose 116 H Assessment and Plan - Advance Directives Does patient have a Living Will: Yes Does patient have a Durable POA for Healthcare: Yes Physician Review Additional Text: Problem List Acute on chronic hypoxemic hypercapnic respiratory failure Pneumonia Acute on chronic COPD exacerbation BPH Pneumonia Concern for infection, COPD exacerbation Steroids, nebs, continue home inhalers for COPD exacerbation Wean oxygen as tolerated Check ABG, concern for component of hypercapnia leading to symptoms Pulmonology consulted Empiric antibiotics with Levaquin and vancomycin, cover for Pseudomonas and MRSA risk, recent hospitalization 2-3 months ago Site of pleural drain without infectious signs confirm home meds, restart as appropriate Dispo: home, has home health, ~2-3 days Code: DNR Time Spent Managing Pts Care (In Minutes): 70
[2022-10-13] MEDS: ENOXAPARIN 40 MG/0.4 ML SQ SCH (17:02)
[2022-10-13] MEDS ORDERED: ENOXAPARIN 40 MG/0.4 ML SQ ONE (17:07)
[2022-10-13] MEDS: ARFORMOTEROL TARTRATE 15 MCG/2 ML VIAL.NEB NEB SCH (19:25)
[2022-10-13] MEDS: ALBUTEROL 2.5 MG/3 ML NEB SOL NEB PRN (19:25)
[2022-10-13] MEDS: IPRATROPIUM BROM 0.5MG/2.5ML NEB PRN (19:25)
[2022-10-13] MEDS: TAMSULOSIN 0.4 MG SR CAP PO SCH (21:27)
[2022-10-13] MEDS: predniSONE 20 MG TAB PO SCH (21:27)
[2022-10-13] MEDS: FAMOTIDINE 20 MG TAB PO SCH (21:27)
[2022-10-13] MEDS: DOCUSATE NA 100 MG CAP PO SCH (21:28)
[2022-10-13] MEDS: FINASTERIDE 5 MG TAB PO SCH (22:06)
[2022-10-14] MEDS: ZOLPIDEM TARTRATE 5 MG TABLET PO PRN ×2 (00:21→23:36)
[2022-10-14] MEDS: Ringers Lactate 1,000 ML IV SCH ×2 (00:22→23:46)
[2022-10-14 03:44] LABS: Absolute Lymphocytes (CBC) 1.1 K/uL (0.7-4.9); Lymphocytes % 6.7 % (15.3-44.8); MCV 94.5 fL (80-100); MPV 7.7 fL (7.6-11.3); RBC Red Blood Cell Count 2.75 M/uL (4.33-5.43)
[2022-10-14 04:05] LABS: Albumin 2.4 g/dL (3.4-5.0); Bilirubin Total 0.2 mg/dL (0.2-1.0); Magnesium 1.7 mg/dL (1.6-2.4); Potassium 3.9 mEq/L (3.5-5.1); Protein, Total 6.2 g/dL (6.4-8.2); Thyroid Stimulating Hormone 0.202 uIU/mL (0.358-3.740)
[2022-10-14] MEDS: VANCOMYCIN 1 GM in NA CHLORIDE 0.9% 250 ML IVPB SCH ×2 (04:38→16:46)
--- NOTE | 2022-10-14 07:08 | P.PN ---
Date of Service: 10/14/22 Subjective: feels better today mentation improving, less confused today per ambulated in room, some dyspnea noted on exertion appetite slowly improving afebrile ROS: 10 point ROS as noted above, otherwise negative Physical Exam: GEN: Alert, oriented, NAD, hard of hearing HEENT: PERRL, Temporal wasting bilaterally, EOMI CV: Regular rate and rhythm, no edema Pulm: Nonlabored respirations on 4L NC, diminished at bases b/l, Expiratory wheezes ABD: Soft, nontender, nondistended MSK: No joint tenderness Integumentary: no skin breakdown, erythema near sacrum Neuro: Normal speech, normal affect, Other hard of hearing vitals reviewed Problem List Acute on chronic hypoxemic hypercapnic respiratory failure Pneumonia Acute on chronic COPD exacerbation BPH Pneumonia Concern for infection, acute on chroninc COPD exacerbation h/o severe COPD Steroids, nebs, continue home inhalers for COPD exacerbation Wean oxygen as tolerated Check ABG, concern for component of hypercapnia leading to symptoms CTA chest/thorax (10/13): No evidence of acute central pulmonary emboli, although evaluation is somewhat suboptimal given contrast timing. Improvement of left pleural effusion and left lung aeration, following placement of a left pleural drainage catheter. Site of pleural drain without infectious signs Pulmonology consulted Empiric antibiotics with Levaquin and vancomycin, cover for Pseudomonas and MRSA risk, recent hospitalization 2-3 months ago likely DC on p.o. levofloxacin and doxycycline pending final cultures Blood cultures: NGTD sputum culture pending Cardiology consulted given PAC, PVC troponin negative x1 echo pending - prelim report with small pericardial effusion PT consult BPH confirm home meds, restart as appropriate VTE: lovenox Code: DNR Dispo: home, has home health, ~1-2 days pending improved leukocytosis, afebrile; culture results
[2022-10-14] MEDS ORDERED: POTASSIUM 25 MEQ EFFERV TAB PO ONE (08:00)
[2022-10-14] MEDS: ALBUTEROL 2.5 MG/3 ML NEB SOL NEB PRN (08:40)
[2022-10-14] MEDS: IPRATROPIUM BROM 0.5MG/2.5ML NEB PRN (08:40)
[2022-10-14] MEDS: ARFORMOTEROL TARTRATE 15 MCG/2 ML VIAL.NEB NEB SCH ×2 (08:40→19:20)
[2022-10-14] MEDS: ENOXAPARIN 40 MG/0.4 ML SQ SCH (08:59)
[2022-10-14] MEDS: DOCUSATE NA 100 MG CAP PO SCH ×2 (08:59→20:50)
[2022-10-14] MEDS: FAMOTIDINE 20 MG TAB PO SCH ×2 (08:59→20:51)
[2022-10-14] MEDS: TIOTROPIUM IH SCH (09:00)
[2022-10-14] MEDS: TAMSULOSIN 0.4 MG SR CAP PO SCH ×2 (09:00→20:50)
[2022-10-14] MEDS ORDERED: MAGNESIUM SULFATE 1 gm IVPB 1 GM/100 ML BAG IV ONE (09:00)
[2022-10-14] MEDS: predniSONE 20 MG TAB PO SCH ×2 (09:00→20:51)
--- NOTE | 2022-10-14 13:15 | P.CNS ---
Date of Consult: 10/14/22 Reason for Consult: Pneumonia stage IV cancer Chief Complaint: hypoxia, pneumonia, copd History of Present Illness: Patient is 81 years of age she was doing well patient is on Keytruda for stage IV lung cancer became disoriented confused started on Monday also has a Pleurx catheter to that he was doing well ambulatory functioning well feels weak admitted with an elevated white white count and pneumonia He has baseline hypoxemia hypercarbia Allergies No Known Allergies Allergy (Verified 05/07/22 00:23) Home Medications: Finasteride [Proscar*] 5 mg PO BEDTIME 07/11/16 Tamsulosin [Flomax*] 0.4 mg PO DAILY 07/11/16 Tiotropium [place] [Spiriva] 1 inh PO DAILY 05/07/22 acetaZOLAMIDE [Diamox*] 250 mg PO DAILY #30 tab 05/21/22 Folic Acid 1 mg PO DAILY 10/13/22 Loratadine/Pseudoephedrine Sul [Claritin-D 12 Hour Tablet] 1 tab PO Q12H 10/13/22 Tiotropium [Spiriva Handihaler] 18 mcg IH DAILY 10/13/22 Zolpidem Tartrate [Ambien] 5 mg PO BEDTIME PRN 10/13/22 dexAMETHasone [Dexamethasone] 4 mg PO DAILY 10/13/22 - Past Medical/Surgical History Diabetic: No -: COPD -: BPH -: Stage IV lung cancer -: Appendectomy -: tonsillectomy, adenoids removed -: Bilateral cataract surgery Psychosocial/ Personal History: Patient is . - Family History Mother Medical History: Diabetes - Social History Smoking Status: Unknown if ever smoked Alcohol use: No CD- Drugs: No Caffeine use: No Place of Residence: Home Review of Systems 10-point ROS is otherwise unremarkable General: Weakness Respiratory: Shortness of Breath Physical Examination Temp Pulse Resp BP Pulse Ox 96.9 F 90 16 127/71 100 10/14/22 08:00 10/14/22 08:00 10/14/22 08:00 10/14/22 08:00 10/14/22 08:00 General: Alert, In no apparent distress, Oriented x3 Respiratory: Clear to auscultation bilaterally, Diminished Cardiovascular: No edema, Regular rate/rhythm, Normal S1 S2 Gastrointestinal: Normal bowel sounds, Non-distended Laboratory Data (last 24 hrs) 10/13/22 13:00: PT 11.3, INR 1.03, APTT 34.7 10/13/22 13:00: Sodium 139, Potassium 4.3, BUN 8, Creatinine 0.57 L, Glucose 122 H, Total Bilirubin 0.2, AST 10 L, ALT 14 L, Alkaline Phosphatase 126 H - Problems (1) Pneumonia Current Visit: Yes Status: Acute Plan: Patient is 81 years of age history of metastatic lung cancer on Keytruda therapy past 3 to 4 days started complaining of weakness lethargy admitted with possible pneumonia on the left side he has severe COPD changes limb loss on the left side elevated white count patient has home O2 patient has a Pleurx catheter on the left side continue with present antibiotics await for blood cultures once his white count is down and can discharge on p.o. levofloxacin and doxycycline patient is on prednisone vital signs oxygenation stable he has home O2 there is no drainage from the Pleurx catheter the past month we will asked floresita to remove the tube Qualifiers: Pneumonia type: due to unspecified organism Laterality: left
--- NOTE | 2022-10-14 14:47 | EKG ---
Test Date: 2022-10-13 Test Time: 17:43:05 Manager Target: MG MEASUREMENT RESULTS: Intervals: Rate: 133 [place]: QRSD: 72 QT: 320 QTc: 476 [place]: P: 88 W[place]: QRS: 41 T: 96 INTERPRETIVE STATEMENTS: Sinus tachycardia with 2nd degree AV block (Mobitz I) with occasional premature ventricular complexes and fusion complexes Abnormal ECG Compared to ECG 10/13/2022 17:40:57 Fusion complex(es) now present Ventricular premature complex(es) now present Electronically Signed On 10-14-22 14:44:33 CDT by Ko Lea
--- NOTE | 2022-10-14 14:47 | EKG ---
Test Date: 2022-10-13 Test Time: 17:40:57 Automatic Typewriter Inspector: MEASUREMENT RESULTS: Intervals: Rate: 121 [place]: QRSD: 70 QT: 262 QTc: 372 [place]: P: 70 [place]: QRS: 38 T: 82 INTERPRETIVE STATEMENTS: Undetermined rhythm Otherwise normal ECG Compared to ECG 10/13/2022 11:23:09 Sinus tachycardia no longer present Fusion complex(es) no longer present Ventricular premature complex(es) no longer present Electronically Signed On 10-14-22 14:44:34 CDT by Ko Lea
--- NOTE | 2022-10-14 14:49 | EKG ---
Test Date: 2022-10-13 Test Time: 11:23:09 Jumbo Operator: JENNIFER MEASUREMENT RESULTS: Intervals: Rate: 108 NJ: 146 QRSD: 76 QT: 318 QTc: 426 Rena Lara: P: 83 NJ: 146 QRS: 55 T: 80 INTERPRETIVE STATEMENTS: Sinus tachycardia with occasional and consecutive premature ventricular complexes and fusion complexes Abnormal ECG Compared to ECG 06/16/2022 18:35:19 Fusion complex(es) now present Ventricular premature complex(es) now present T-wave abnormality no longer present Electronically Signed On 10-14-22 14:44:46 CDT by Ko Lea
[2022-10-14] MEDS: Levofloxacin 750mg IV 750 MG/150 ML BAG IV SCH (16:47)
[2022-10-14] MEDS: JUVEN PACKET PO SCH (20:50)
[2022-10-14] MEDS: ENSURE ENLIVE 237 ML CAN PO SCH (20:50)
[2022-10-14] MEDS: FINASTERIDE 5 MG TAB PO SCH (20:51)
[2022-10-15 03:14] LABS: Absolute Lymphocytes (CBC) 1.3 K/uL (0.7-4.9); Hematocrit 26.3 % (39.6-49.0); Lymphocytes % 7.4 % (15.3-44.8); MCV 94.1 fL (80-100); MPV 7.8 fL (7.6-11.3)
[2022-10-15 03:35] LABS: Magnesium 1.8 mg/dL (1.6-2.4); Potassium 4.3 mEq/L (3.5-5.1)
[2022-10-15] MEDS: VANCOMYCIN 1 GM in NA CHLORIDE 0.9% 250 ML IVPB SCH ×2 (04:36→15:03)
--- NOTE | 2022-10-15 07:09 | P.PN ---
Date of Service: 10/15/22 Subjective: doing okay today, some trouble sleeping overnight tolerating PO intake, no nausea/diarrhea strength improving, +afebrile clinically improving, but leukocytosis worsening ROS: 10 point ROS as noted above, otherwise negative Physical Exam: GEN: Alert, oriented, NAD, hard of hearing HEENT: PERRL, Temporal wasting bilaterally, EOMI CV: Regular rate and rhythm, no edema Pulm: Nonlabored respirations on 4L NC, diminished at bases b/l, Expiratory wheezes ABD: Soft, nontender, nondistended Integumentary: no skin breakdown, erythema near sacrum Neuro: Normal speech, normal affect, hard of hearing vitals reviewed Problem List Acute on chronic hypoxemic hypercapnic respiratory failure Pneumonia Acute on chronic COPD exacerbation BPH Pneumonia Concern for infection, acute on chroninc COPD exacerbation h/o severe COPD Steroids, nebs, continue home inhalers for COPD exacerbation Wean oxygen as tolerated Check ABG, concern for component of hypercapnia leading to symptoms mildly elevated pCO2. (58.8) 10/15 likely cause of acute metabolic encephalopathy CTA chest/thorax (10/13): No evidence of acute central pulmonary emboli, although evaluation is somewhat suboptimal given contrast timing. Improvement of left pleural effusion and left lung aeration, following placement of a left pleural drainage catheter. CXR (10/15) ordered Site of pleural drain without infectious signs Pulmonology consulted Empiric antibiotics with Levaquin and vancomycin, cover for Pseudomonas and MRSA risk, recent hospitalization 2-3 months ago likely DC on p.o. levofloxacin and doxycycline pending final cultures Blood cultures: NGTD sputum culture pending WBC 16.3 -> 17.8 (10/15), infectious vs. reactive to steroids, recheck in AM afebrile IVF DCd Cardiology consulted given PAC, PVC troponin negative x1 echo pending - prelim report with small pericardial effusion PT consult BPH confirm home meds, restart as appropriate VTE: lovenox Code: DNR Dispo: home, has home health, ~1 day pending improved leukocytosis, afebrile; culture results
[2022-10-15] MEDS: ALBUTEROL 2.5 MG/3 ML NEB SOL NEB PRN ×2 (07:40→20:12)
[2022-10-15] MEDS: ARFORMOTEROL TARTRATE 15 MCG/2 ML VIAL.NEB NEB SCH ×2 (07:40→20:02)
[2022-10-15] MEDS: IPRATROPIUM BROM 0.5MG/2.5ML NEB PRN (07:40)
[2022-10-15] MEDS: ENOXAPARIN 40 MG/0.4 ML SQ SCH (08:47)
[2022-10-15] MEDS: FAMOTIDINE 20 MG TAB PO SCH ×2 (08:47→21:17)
[2022-10-15] MEDS: predniSONE 20 MG TAB PO SCH (08:47)
[2022-10-15] MEDS: DOCUSATE NA 100 MG CAP PO SCH ×2 (08:48→21:16)
[2022-10-15] MEDS: ENSURE ENLIVE 237 ML CAN PO SCH ×2 (08:48→21:00)
[2022-10-15] MEDS: TAMSULOSIN 0.4 MG SR CAP PO SCH ×2 (08:48→21:17)
[2022-10-15] MEDS: JUVEN PACKET PO SCH ×2 (08:48→21:00)
[2022-10-15] MEDS: TIOTROPIUM IH SCH (09:00)
[2022-10-15] MEDS ORDERED: MAGNESIUM SULFATE 1 gm IVPB 1 GM/100 ML BAG IV ONE (09:00)
--- NOTE | 2022-10-15 09:49 | RAD REPORT ---
EXAM DESCRIPTION: RAD - Chest Single View - 10/15/2022 9:36 am CLINICAL HISTORY: hypoxia, f/u opacities, h/o recurrent effusion COMPARISON: Chest Single View dated 10/13/2022; Chest Single View dated 06/16/2022; Chest Single View da orion 05/17/2022; Chest Single View dated 05/16/2022; Chest Pa And Lat (2 Views) dated 08/26/2021; Chest Fo r Pe Angio dated 10/13/2022; Ct Skull/Thigh dated 06/02/2022 FINDINGS: Lines: None. Lungs: Irregular opacities scattered throughout the left lung with blunting of the left costophrenic angle . Advanced emphysema. Pleural: Blunted left costophrenic angle. Cardiac: The heart size is within normal limits. Mediastinum: Within normal limits. Bones: No acute fractures. Other: None IMPRESSION: Left-sided tunneled pleural catheter in place with at most a small residual pleural effu abimael. Similar appearing left-sided irregular nodular airspace disease which could reflect infection o r inflammation.
--- NOTE | 2022-10-15 10:47 | PN ---
Date of Progress Note: 10/15/2022 Mr. Dennison is 81. Came in with COPD and pneumonia. Was noted to have moderate pericardial effusion on CT scan; however, the echocardiogram showed only a small pericardial effusion without any tampona de. He had a normal ejection fraction and a normal heart overall otherwise. He is continuing to hav e outpatient stage IV lung cancer treatment. He is still suffering with some COPD issues as well as elevated white count and CO2 retention. He is on inhalers, antibiotics, and Lovenox. May need a low dose Lasix. I will sign off his case for now. No reason to be invasive with that effusion. SIMEON/ANNIA Voice ID: [id number] Report ID: [id number]
[2022-10-15] MEDS: Levofloxacin 750mg IV 750 MG/150 ML BAG IV SCH (16:12)
[2022-10-15] MEDS: FINASTERIDE 5 MG TAB PO SCH (21:16)
[2022-10-15] MEDS: ZOLPIDEM TARTRATE 5 MG TABLET PO PRN (21:17)
[2022-10-16 03:17] LABS: Absolute Lymphocytes (CBC) 1.6 K/uL (0.7-4.9); Hematocrit 25.8 % (39.6-49.0); Lymphocytes % 8.5 % (15.3-44.8); MPV 7.9 fL (7.6-11.3); RBC Red Blood Cell Count 2.74 M/uL (4.33-5.43)
[2022-10-16 03:28] LABS: Potassium 3.7 mEq/L (3.5-5.1)
[2022-10-16] MEDS: VANCOMYCIN 1 GM in NA CHLORIDE 0.9% 250 ML IVPB SCH ×2 (04:52→15:06)
--- NOTE | 2022-10-16 07:05 | P.PN ---
Date of Service: 10/16/22 Subjective: feels about the same as yesterday; breathing better than it was a few days ago ambulated to restroom, SOB on exertion; +productive cough today leukocytosis slightly worse otherwise no new / worsening problems ROS: 10 point ROS as noted above, otherwise negative Physical Exam: GEN: Alert, oriented, NAD, hard of hearing HEENT: PERRL, Temporal wasting bilaterally, EOMI CV: Regular rate and rhythm, no edema Pulm: Nonlabored respirations on 4L NC, diminished at bases b/l, Expiratory wheezes ABD: Soft, nontender, nondistended Integumentary: no skin breakdown, erythema near sacrum Neuro: Normal speech, normal affect, hard of hearing vitals reviewed Problem List Acute on chronic hypoxemic hypercapnic respiratory failure Pneumonia Acute on chronic COPD exacerbation Acute metabolic encephalopathy BPH Pneumonia Concern for infection, acute on chroninc COPD exacerbation Pneumonia Acute on chronic COPD exacerbation Acute metabolic encephalopathy Steroids, nebs, continue home inhalers for COPD exacerbation Wean oxygen as tolerated concern for component of hypercapnia leading to symptoms mildly elevated pCO2. (58.8) 10/15 likely contributed slightly to acute metabolic encephalopathy CTA chest/thorax (10/13): Improvement of left pleural effusion and left lung aeration, following placement of a left pleural drainage catheter. CXR (10/15): Left-sided tunneled pleural catheter in place with at most a small residual pleural effusion. Similar appearing left-sided irregular nodular airspace disease which could reflect infection or inflammation Site of pleural drain without infectious signs 10/16 - Patient requested to have drain removed during hospitalization if possible. there has not been much drainage in last ~month per patient briefly discussed with patient risks of taking it out and the possibility of needing another one put back in if worsening over next few weeks NPO after midnight for tentative drain removal 10/[address] Hurt Pulmonology consulted Empiric antibiotics with Levaquin and vancomycin, cover for Pseudomonas and MRSA risk, recent hospitalization 2-3 months ago likely DC on p.o. levofloxacin and doxycycline pending final cultures Blood cultures: NGTD sputum culture: pending, sent out this AM WBC 16.3 -> 17.8 (10/15), infectious vs. reactive to steroids leukocytosis uptrending (10/16) -> 18.3 afebrile IVF DCd decreased prednisone 10/16 Cardiology consulted given PAC, PVC troponin negative echo pending - prelim report with small pericardial effusion PT consult BPH confirm home meds, restart as appropriate VTE: hold lovenox for tentative surgery tomorrow Code: DNR Dispo: home, has home health, ~1 day pending improved leukocytosis, afebrile; culture results
[2022-10-16] MEDS: ARFORMOTEROL TARTRATE 15 MCG/2 ML VIAL.NEB NEB SCH ×2 (08:03→19:50)
[2022-10-16] MEDS: acetaZOLAMIDE 250 MG TAB PO SCH (08:45)
[2022-10-16] MEDS: TAMSULOSIN 0.4 MG SR CAP PO SCH ×2 (08:45→20:44)
[2022-10-16] MEDS: predniSONE 20 MG TAB PO SCH (08:45)
[2022-10-16] MEDS: DOCUSATE NA 100 MG CAP PO SCH ×2 (08:45→20:44)
[2022-10-16] MEDS: FAMOTIDINE 20 MG TAB PO SCH ×2 (08:45→20:44)
[2022-10-16] MEDS: ENOXAPARIN 40 MG/0.4 ML SQ SCH (08:46)
[2022-10-16] MEDS: JUVEN PACKET PO SCH ×2 (08:46→20:44)
[2022-10-16] MEDS: TIOTROPIUM IH SCH (08:51)
[2022-10-16] MEDS: ENSURE ENLIVE 237 ML CAN PO SCH ×2 (08:51→20:44)
[2022-10-16] MEDS ORDERED: POTASSIUM 25 MEQ EFFERV TAB PO ONE (09:00)
--- NOTE | 2022-10-16 09:41 | CON ---
Date of Consultation: 10/14/2022 Reason For Consultation: Pericardial effusion on CT scan. History Of Present Illness: Mr. Dennison is 81 years old. Has known stage IV lung cancer. He is sti ll getting immunotherapy. He has a history of COPD. Came into the hospital with COPD, pneumonia. T here was questionable atrial fibrillation, which was not documented. A CT scan of the chest showed m oderate pericardial effusion and I was consulted. By the time I saw him, echocardiogram actually was done showing a small pericardial effusion without any tamponade. The patient denied any syncope. Past Medical History: As stated above. Allergies: NONE. Review of Systems: Positive for being a do not resuscitate. Social History: Negative. Family History: Negative. Medications: Present medications include inhalers, antibiotics, and Lovenox. Physical Examination: Vital Signs: Stable, sinus rhythm. HEENT: Negative. Neck: Supple with no bruit. Chest: Clear to auscultation and percussion. Cardiac: Revealed a regular rhythm and rate. No murmurs, gallops, or rubs. Abdomen: Benign. Extremities: Revealed no clubbing, cyanosis, or edema. Diagnostic Data: He had a pO2 of 60, pCO2 of 58, pH is 7.38. White count was 16,000. His EKG showe d PACs with sinus tach, but no AFib. Echocardiogram showed small pericardial effusion. No tamponade . Impression And Plan: 1.Chronic obstructive pulmonary disease. 2.Possible pneumonia. 3.Sinus tachycardia with PACs. 4.Small pericardial effusion. 5.Stage IV lung cancer, on immunotherapy. The patient does not need pericardiocentesis or any inter vention regarding pericardial effusion. We will continue his treatment as is. I will sign off his c ase. He can go home whenever it is okay with Dr. Ramsay. We will normally see him in the office as a n outpatient. SIMEON/ANNIA Voice ID: [id number] Report ID: [id number]
[2022-10-16] MEDS: Levofloxacin 750mg IV 750 MG/150 ML BAG IV SCH (16:54)
[2022-10-16] MEDS: ZOLPIDEM TARTRATE 5 MG TABLET PO PRN (20:44)
[2022-10-16] MEDS ORDERED: FINASTERIDE 5 MG TAB PO SCH (21:00)
[2022-10-17 03:18] LABS: Absolute Lymphocytes (CBC) 1.3 K/uL (0.7-4.9); Lymphocytes % 8.8 % (15.3-44.8); MCV 95.3 fL (80-100); MPV 7.5 fL (7.6-11.3); RBC Red Blood Cell Count 2.73 M/uL (4.33-5.43)
[2022-10-17 03:25] LABS: C-Reactive Protein 11.2 mg/L (<3.00); Magnesium 1.9 mg/dL (1.6-2.4); Potassium 4.3 mEq/L (3.5-5.1)
[2022-10-17] MEDS: VANCOMYCIN 1 GM in NA CHLORIDE 0.9% 250 ML IVPB SCH (04:00)
--- NOTE | 2022-10-17 07:01 | P.PN ---
Date of Service: 10/17/22 Subjective: feeling better today breathing continues to improve daily afebrile, leukocytosis improving ROS: 10 point ROS as noted above, otherwise negative Physical Exam: GEN: Alert, oriented, NAD, hard of hearing HEENT: PERRL, Temporal wasting bilaterally, EOMI CV: Regular rate and rhythm, no edema Pulm: Nonlabored respirations on 4L NC, diminished at bases b/l, Expiratory wheezes ABD: Soft, nontender, nondistended Integumentary: no skin breakdown, erythema near sacrum Neuro: Normal speech, normal affect, hard of hearing vitals reviewed Problem List Acute on chronic hypoxemic hypercapnic respiratory failure Pneumonia Acute on chronic COPD exacerbation Acute metabolic encephalopathy BPH Pneumonia Concern for infection, acute on chroninc COPD exacerbation Pneumonia Acute on chronic COPD exacerbation Acute metabolic encephalopathy Steroids, nebs, continue home inhalers for COPD exacerbation Wean oxygen as tolerated concern for component of hypercapnia leading to symptoms mildly elevated pCO2. (58.8) 10/15 likely contributed slightly to acute metabolic encephalopathy CTA chest/thorax (10/13): Improvement of left pleural effusion and left lung aeration, following placement of a left pleural drainage catheter. CXR (10/15): Left-sided tunneled pleural catheter in place with at most a small residual pleural effusion. Similar appearing left-sided irregular nodular airspace disease which could reflect infection or inflammation CXR (10/17): ordered Site of pleural drain without infectious signs 10/16 - Patient requested to have drain removed during hospitalization if pos sible. there has not been much drainage in last ~month per patient briefly discussed with patient risks of taking it out and the possibility of needing another one put back in if worsening over next few weeks NPO for drain removal 10/[address] Hurt Pulmonology consulted Empiric antibiotics with Levaquin and vancomycin, cover for Pseudomonas and MRSA risk, recent hospitalization 2-3 months ago likely DC on p.o. levofloxacin and doxycycline pending final cultures Blood cultures: NGTD sputum culture: Gram pos cocci, GPR WBC 16.3 -> 17.8 (10/15), infectious vs. reactive to steroids leukocytosis improving (10/17) 18.3 -> 15.8 afebrile IVF DCd decreased prednisone 10/16 Cardiology consulted given PAC, PVC troponin negative echo pending - small pericardial effusion; LVEF:62% PT consult BPH confirm home meds, restart as appropriate VTE: hold lovenox for tentative surgery today Code: DNR Dispo: home, has home health, ~1 day pending improved leukocytosis, afebrile; culture results
[2022-10-17] MEDS: ARFORMOTEROL TARTRATE 15 MCG/2 ML VIAL.NEB NEB SCH (08:00)
[2022-10-17] MEDS: TIOTROPIUM IH SCH (09:00)
[2022-10-17] MEDS: ENOXAPARIN 40 MG/0.4 ML SQ SCH (09:00)
[2022-10-17] MEDS: DOCUSATE NA 100 MG CAP PO SCH (09:00)
[2022-10-17] MEDS: JUVEN PACKET PO SCH (09:00)
[2022-10-17] MEDS: ENSURE ENLIVE 237 ML CAN PO SCH (09:00)
--- NOTE | 2022-10-17 09:59 | RAD REPORT ---
EXAM DESCRIPTION: RAD - Chest Single View - 10/17/2022 9:47 am CLINICAL HISTORY: increased cough Chest pain. COMPARISON: Chest Single View dated 10/15/2022; Chest Single View dated 10/13/2022; Chest Single View d ated 06/16/2022; Chest Single View dated 05/17/2022 FINDINGS: Portable technique limits examination quality. Poorly defined left-sided interstitial lung opacities superimposed on diffuse emphysema appears uncha nged. Trace left pleural fluid with tunneled pleural catheter in place appears stable. The heart is n ormal in size. No displaced fractures. IMPRESSION: Stable chest since 10/25/2022.
[2022-10-17] MEDS: acetaZOLAMIDE 250 MG TAB PO SCH (10:09)
[2022-10-17] MEDS: TAMSULOSIN 0.4 MG SR CAP PO SCH (10:15)
[2022-10-17] MEDS: predniSONE 20 MG TAB PO SCH (10:15)
[2022-10-17] MEDS: FAMOTIDINE 20 MG TAB PO SCH (10:17)
--- NOTE | 2022-10-17 11:45 | ECHO ---
HEIGHT: 5 ft 9 in WEIGHT: 139 lb 0 oz DATE OF STUDY: 10/14/[address]: Justin Ramsay MD 2-DIMENSIONAL: YES M.MODE: YES DOPPLER: YES COLOR FLOW: YES TDS: PORTABLE: YES DEFINITY: BUBBLE STUDY: DIAGNOSIS: EVALUATE PERICARDIAL EFFUSION CARDIAC HISTORY: CATHERIZATION: YES SURGERY: NO PROSTHETIC VALVE: NO PACEMAKER: NO MEASUREMENTS (cm) DIASTOLIC (NORMALS) SYSTOLIC (NORMALS) IVSd 0.9 (0.6-1.2) LA Diam 1.9 (1.9-4.0) LVEF 62% LVIDd 4.6 (3.5-5.7) LVIDs 3.1 (2.0-3.5) %FS 34% LVPWd 1.0 (0.6-1.2) Ao Diam 2.6 (2.0-3.7) 2 DIMENSIONAL ASSESSMENT: RIGHT ATRIUM: NORMAL LEFT ATRIUM: NORMAL RIGHT VENTRICLE: NORMAL LEFT VENTRICLE: NORMAL TRICUSPID VALVE: NORMAL MITRAL VALVE: MITRAL ANNULAR CALCIFICATION PULMONIC VALVE: NORMAL AORTIC VALVE: NORMAL PERICARDIAL EFFUSION: SMALL AORTIC ROOT: NORMAL LEFT VENTRICULAR WALL MOTION: NORMAL DOPPLER/COLOR FLOW: NORMAL COMMENTS: 1. NORMAL LEFT VENTRICULAR SIZE AND FUNCTION 2. SMALL PERICARDIAL EFFUSION. NO TAMPONADE. 3. MITRAL ANNULAR CALCIFICATION TECHNOLOGIST: SULAIMAN URBANO
[2022-10-17] MEDS ORDERED: VANCOMYCIN 1 GM in NA CHLORIDE 0.9% 250 ML IVPB SCH (12:00)
--- NOTE | 2022-10-17 12:11 | EKG ---
Test Date: 2022-10-14 Test Time: 11:59:32 Egg Buyer: RITCHIE MEASUREMENT RESULTS: Intervals: Rate: 100 SD: 176 QRSD: 70 QT: 316 QTc: 407 [place]: P: 66 SD: 176 QRS: 54 T: 60 INTERPRETIVE STATEMENTS: Normal sinus rhythm Normal ECG Compared to ECG 10/13/2022 17:43:05 Sinus tachycardia no longer present Fusion complex(es) no longer present Ventricular premature complex(es) no longer present Electronically Signed On 10-17-22 12:01:39 CDT by Ko Lea
--- NOTE | 2022-10-17 12:32 | P.DS ---
Admission Date: 10/13/22 Discharge Date: 10/17/22 Reason for Admission: hypoxia, pneumonia, copd Consultations: Pulmonology - Dr. Gtz Cardiology - Dr. Lea General Surgery - Dr. Hurt Brief History of Present Illness: 81yo M, PMH: recent diagnosis of stage IV lung cancer, BPH, COPD, on chronic 4L NC, undergoing chemotherapy and pleurx cath for weekly drainage of left pleural effusion. Presents to ED due to 3-4 days of progressively worsening generalized weakness, shortness of breath, cough, and confusion (forgetful and staring off into space). Denies any fever at home. Last chemo was last monday (~10 days ago). No recent steroid use. Last hospitalized in July, in [facility] for loculated pleural effusion and underwent drain placement. Amount of fluid drained weekly has steadily decreased. No nausea/vomiting , no diarrhea, reports h/o chronic constipation. In the ED, noted to have a leukocytosis of 16,000, afebrile, tachycardic and tachypneic. ED physician reports hypoxia down to lowmid 80s on his usual 4 L nasal cannula. CTA negative for PE, noted a nonspecific left central opacity, possible infection/inflammation ED physician requests admission for further management. Hospital Course: Problem List Acute on chronic hypoxemic hypercapnic respiratory failure Pneumonia Acute on chronic COPD exacerbation Acute metabolic encephalopathy BPH Physical Exam: GEN: Alert, oriented, NAD, hard of hearing HEENT: PERRL, Temporal wasting bilaterally, EOMI CV: Regular rate and rhythm, no edema Pulm: Nonlabored respirations on 4L NC, diminished at bases b/l, Expiratory wheezes ABD: Soft, nontender, nondistended Integumentary: no skin breakdown, erythema near sacrum Neuro: Normal speech, normal affect, hard of hearing Vital Signs/Physical Exam: Temp Pulse Resp BP Pulse Ox 97.7 F 95 H 16 121/61 100 10/17/22 08:00 10/17/22 08:00 10/17/22 08:00 10/17/22 08:00 10/17/22 08:00 Laboratory Data at Discharge: WBC 15.30 thou/uL (4.3-10.9) H 10/17/22 03:00 Hgb 8.2 g/dL (13.6-17.9) L 10/17/22 03:00 Hct 26.0 % (39.6-49.0) L 10/17/22 03:00 Plt Count 296 thou/uL (152-406) D 10/17/22 03:00 PT 11.3 SECONDS (9.5-12.5) 10/13/22 13:00 INR 1.03 10/13/22 13:00 APTT 34.7 SECONDS (24.3-36.9) 10/13/22 13:00 Sodium 140 mEq/L (136-145) 10/17/22 03:00 Potassium 4.3 mEq/L (3.5-5.1) D 10/17/22 03:00 BUN 28 mg/dL (7-18) H 10/17/22 03:00 Creatinine 0.67 mg/dL (0.70-1.30) L 10/17/22 03:00 Glucose 118 mg/dL (74-106) H 10/17/22 03:00 Phosphorus 3.0 mg/dL (2.5-4.9) 10/14/22 02:52 Magnesium 1.9 mg/dL (1.6-2.4) 10/17/22 03:00 Total Bilirubin 0.2 mg/dL (0.2-1.0) 10/14/22 02:52 AST 9 U/L (15-37) L 10/14/22 02:52 ALT 11 U/L (16-61) L 10/14/22 02:52 Alkaline Phosphatase 101 U/L (45-117) 10/14/22 02:52 Home Medications: Finasteride [Proscar*] 5 mg PO BEDTIME 07/11/16 Tamsulosin [Flomax*] 0.4 mg PO DAILY 07/11/16 Tiotropium [place] [Spiriva] 1 inh PO DAILY 05/07/22 acetaZOLAMIDE [Diamox*] 250 mg PO DAILY #30 tab 05/21/22 Folic Acid 1 mg PO DAILY 10/13/22 Loratadine/Pseudoephedrine Sul [Claritin-D 12 Hour Tablet] 1 tab PO Q12H 10/13/22 Tiotropium [Spiriva Handihaler] 18 mcg IH DAILY 10/13/22 Zolpidem Tartrate [Ambien] 5 mg PO BEDTIME PRN 10/13/22 dexAMETHasone [Dexamethasone] 4 mg PO DAILY 10/13/22 Physician Discharge Instructions: Patient presented with generalized weakness, shortness of breath, cough, and confusion. He was found to have an acute on chroninc COPD exacerbation, with concern for infection / pneumonia. He was treated with Steroids, nebs, continue home inhalers. Pulmonology was consulted. He was treated with Empiric antibiotics, Levaquin and vancomycin, to cover for Pseudomonas and MRSA risk given his recent hospitalization. Blood cultures were without growth. Sputum cultures were found to be growing 3+ gram positive cocci and 2+ gram negative rods, however final results pending upon discharge. His breathing improved and remained afebrile, but had a prolonged hospitalization due to worsening leukocytosis which is now improving. He is to complete course of oral antibiotics on discharge. Cardiology was consulted due to pericardial effusion, and episodes of sinus tachycardia with PAC. Troponins were negative x3. Echocardiogram was okay. Dr. Lea did not feel any further testing was warranted and signed off. During his hospitalization, patient requested to have drain removed during hospitalization since there has not been much drainage in last ~month. Discussed with patient risks of taking it out and the possibility of needing another one put back in if worsening over next few weeks. Patient was agreeable. General surgery was consulted and Dr Hurt removed the drain 10/17 without complica tions. New Prescriptions: levofloxacin doxycycline Follow up: PCP 3-5 days Pulmonology within 1-2 weeks Followup: William Young, DO [Primary Care Provider] - Time spent managing pt's care (in minutes): 45
[2022-10-17] MEDS ORDERED: Ringers Lactate 1,000 ML IV ONE (12:33)
[2022-10-17] MEDS ORDERED: NA CHLORIDE 0.9% 250 ML ONE (12:53)
[2022-10-17] MEDS ORDERED: VANCOMYCIN 1 GM/VIAL ONE (12:53)
[2022-10-17] MEDS ORDERED: propofoL 200 MG/20 ML VIAL IV ONE (14:14)
[2022-10-17] MEDS ORDERED: BUPIVACAINE 0.25% PF 10 ML VIAL IJ ONE (14:18)
--- NOTE | 2022-10-17 14:25 | P.OP ---
Preoperative diagnosis: Dysfunction of LEFT PleurX catheter Postoperative diagnosis: Dysfunction of LEFT PleurX catheter Primary procedure: Removal of PleurX catheter Anesthesia: MAC + Local Estimated blood loss: <5cc Specimen: catheter for ID only Findings: no bleeding, well grown in cuff Complications: None Transferred to: Recovery Room Condition: Good
[2022-10-17 15:10] VITALS: O2SAT 97
[2022-10-17 15:57] VITALS: BP 122/63; TEMP 97.9
--- NOTE | 2022-10-17 21:23 | OP ---
Date of Procedure: 10/17/2022 Surgeon: Umair Hurt MD, Preoperative Diagnosis: Dysfunction of the left PleurX thoracic catheter. Postoperative Diagnosis: Dysfunction of the left PleurX thoracic catheter. Procedure Performed: Removal of tunneled PleurX catheter from left thoracic space. Anesthesia: MAC plus local with 0.25% Marcaine. Estimated Blood Loss: Less than 5 cc. Specimen: Catheter for ID only. Findings: No bleeding. Cuff was well grown in. Complications: None. Disposition: The patient was transferred to the recovery room in good condition. Procedure In Detail: After informed consent was obtained, the patient was brought to the operating r oom, prepped and draped in the usual sterile fashion after adequate anesthesia was achieved. I anest hetized the area of the left chest wall where a PleurX catheter was noted to be tracking. I made a s mall rk incision using a 15 blade down to subcutaneous tissues. I then used a combination of sharp and blunt dissection to circumferentially dissect around the cuff, which was in the subcutaneous pos ition. I used electrocautery to remove the catheter, grow-in tissue around the cuff at this point an d held pressure. The catheter was removed and sent off for pathologic examination. The area was coping machine assembler iously irrigated. No additional hemostatic maneuvers were required. I then irrigated the area once again and closed the incision using an interrupted 3-0 nylon suture with good approximation of tissue s. A sterile dressing was placed over top. The patient tolerated the procedure well without evidenc e of complication and transferred to PACU in good condition. All counts were correct at the end of t he case. CASSIUS/ANNIA Voice ID: [id number] Report ID: [id number]
== END 2022-10-17 17:47 | disposition home health service (06) | DRG 193 ==
LOC: ER 10:50 → ERHOLD 15:01 → 2ND 18:24
PROVIDERS: ADMIT Hospitalist; ATTEND Hospitalist
PROC: 0WPB33Z Removal of Infusion Device from Left Pleural Cavity, Percutaneous Approach (ICD-10-PCS; 2022-10-17)
PROC: 0JPT3XZ Removal of Tunneled Vascular Access Device from Trunk Subcutaneous Tissue and Fascia, Percutaneous Approach (ICD-10-PCS; principal; 2022-10-17 16:15)
DX: J18.9 Pneumonia, unspecified organism (principal); G93.41 Metabolic encephalopathy; J96.21 Acute and chronic respiratory failure with hypoxia; J96.22 Acute and chronic respiratory failure with hypercapnia; J44.0 Chronic obstructive pulmonary disease with (acute) lower respiratory infection; C34.90 Malignant neoplasm of unspecified part of unspecified bronchus or lung; J44.1 Chronic obstructive pulmonary disease with (acute) exacerbation; J91.8 Pleural effusion in other conditions classified elsewhere; K59.09 Other constipation; N40.0 Benign prostatic hyperplasia without lower urinary tract symptoms; Z66 Do not resuscitate; Z99.81 Dependence on supplemental oxygen; Z90.49 Acquired absence of other specified parts of digestive tract; Z87.891 Personal history of nicotine dependence; Z79.899 Other long term (current) drug therapy
CPT/HCPCS: 36415; 36600; 71045; 71275; 80048; 80053; 80202; 81003; 82805; 83605; 83735; 84100; 84145; 84439; 84443; 84484; 85025; 85610; 85730; 86140; 87040; 87070; 87205; 88300; 93005; 93306; 94640; 94760; 97110; 97116; 97161; 97530; 99284; J1650; J2704; J3475; J7040; J7050; J7120; J7512; J7605; J7613; J7644; Q9967

== ENCOUNTER 2023-08-07 17:49 | Inpatient (IN) | payer OTHER ==
[2023-08-07 18:55] LABS: Hematocrit 26.6 % (39.6-49.0); Hemoglobin 8.7 g/dL (13.6-17.9); Lymphocytes % 6.7 % (15.3-44.8); MCH 32.2 pg (27.0-35.0); MCHC 32.7 g/dL (32.0-36.0); MCV 98.3 fL (80-100); MPV 6.4 fL (7.6-11.3); Monocytes % 8.6 % (3.3-12.3); Neutrophils % 84.1 % (41.7-73.7); Platelets 477 thou/uL (152-406); RBC Red Blood Cell Count 2.71 M/uL (4.33-5.43); Red Cell Distribution Width 15.2 % (12.1-15.2)
[2023-08-07 18:56] LABS: Absolute Basophils 0.1 K/uL (0-0.5); Absolute Monocytes 1.2 K/uL (0.1-1.3); Absolute Neutrophil 12.2 K/uL (1.8-8.0); Basophils % 0.5 % (0-1.3); Eosinophils % 0.1 % (0-4.4)
[2023-08-07 19:17] LABS: Albumin 2.2 g/dL (3.4-5.0); Albumin/Globulin Ratio 0.5 (1.1-1.8); Bilirubin Total 0.2 mg/dL (0.2-1.0); Globulin 4.1 g/dL (2.3-3.5); Protein, Total 6.3 g/dL (6.4-8.2)
[2023-08-07 19:19] LABS: Troponin High Sensitivity 77.9 pg/mL (<58.9)
--- NOTE | 2023-08-07 19:22 | RAD REPORT ---
EXAM DESCRIPTION: Nikolas Single View08/07/2023 7:03 pm CLINICAL HISTORY: sob COMPARISON: April 2003 FINDINGS: Worsening in left lung opacities Worsening in right basilar opacity Heart is mildly enlarged IMPRESSION: Worsening in bilateral pulmonary opacities. This may represent pneumonia/pneumonitis sup erimposed over metastatic disease
[2023-08-07 20:11] LABS: PT Prothrombin Time 11.7 SECONDS (9.5-12.5); Protime INR 1.07
[2023-08-07] MEDS ORDERED: ALBUMIN HUMAN 25% 50 ML IV ONE (20:34)
[2023-08-07] MEDS ORDERED: NA CHLORIDE 0.9% 250 ML ONE ×2 (20:34→21:10)
[2023-08-07] MEDS ORDERED: WATER FOR INJ,STERILE 10 ML ONE (21:10)
[2023-08-07] MEDS ORDERED: CEFTRIAXONE 1000 MG/VIAL ONE (21:10)
[2023-08-07] MEDS ORDERED: AZITHROMYCIN 500 MG INJ IVPB ONE (21:10)
--- NOTE | 2023-08-07 21:13 | RAD REPORT ---
EXAM DESCRIPTION: CT - Chest For Pe Angio - 08/07/2023 8:48 pm CLINICAL HISTORY: sob COMPARISON: June 2023 TECHNIQUE: Dynamically enhanced axial 3 mm thick images of the chest were obtained during administra tion of 100 mL Isovue 370 IV contrast. Coronal and oblique reconstruction images were generated and r eviewed. Exam utilizes a protocol for optimal evaluation of pulmonary arterial tree. Maximum intensity projections 3D imaging was utilized All CT scans are performed using dose optimization technique as appropriate and may include automated exposure control or mA/KV adjustment according to patient size. FINDINGS: A pulmonary embolus is not seen. A thoracic aortic aneurysm is not noted. Mild progression in the soft tissue nodularity left pleura Development/increase size of multiple left lung nodules Progression in bilateral lower lobe alveolar opacities. No significant change left upper lobe opaciti es. COPD Enlargement in small bilateral loculated pleural effusions. IMPRESSION: Negative for a pulmonary embolism. Progression in soft tissue nodularity left pleura and enlargement/development of left lung pulmonary nodules compatible with worsening metastatic disease Progression in bilateral lower lobe alveolar opacities may represent pneumonitis or pneumonia
--- NOTE | 2023-08-07 21:22 | ER ---
Nurse's Notes [facility] Name: Sebastian Dennison Age: 82 yrs Sex: Male : 1940 Arrival Date: 08/07/2023 Time: 17:49 Bed 3 Private MD: Diagnosis: Pneumonia, unspecified organism;Weakness Presentation: 08/06 18:27 Chief complaint: EMS states: patient is stage 4 lung cancer, was on 6lpm NC at home and ko1 sats were in the high 80's, called EMS, placed on NRBM 10lpm and sats came up to high 90's. Coronavirus screen: At this time, the client does not indicate any symptoms associated with coronavirus-19. Ebola Screen: No symptoms or risks identified at this time. Initial Sepsis Screen: Does the patient meet any 2 criteria? No. Patient's initial sepsis screen is negative. Does the patient have a suspected source of infection? No. Patient's initial sepsis screen is negative. Risk Assessment: Do you want to hurt yourself or someone else? Patient reports no desire to harm self or others. Onset of symptoms was August 07, 2023. Care prior to arrival: IV initiated. 20 GA, in the left antecubital area, Oxygen administered. via a non-rebreather mask. 18:27 Method Of Arrival: EMS: [facility] ko1 18:27 Acuity: TOMAS 3 ko1 Triage Assessment: 18:27 General: Appears in no apparent distress. uncomfortable, Behavior is calm, cooperative, ko1 appropriate for age. Pain: Denies pain. Historical: - Allergies: 18:18 No Known Allergies; ll1 - PMHx: 18:18 COPD; stage 4 lung CA; ll1 - Immunization history:: Adult Immunizations up to date. - Infectious Disease History:: Denies. - Social history:: Smoking status: Patient/guardian denies using tobacco, but has a distant history of tobacco abuse. Screenin:30 [facility] ED Fall Risk Assessment (Adult) History of falling in the last 3 months, ko1 including since admission No falls in past 3 months (0 pts) Confusion or Disorientation No (0 pts) Intoxicated or Sedated No (0 pts) Impaired Gait No (0 pts) Mobility Assist Device Used No (0 pt) Altered Elimination No (0 pt) Score/Fall Risk Level 0 - 2 = Low Risk Oriented to surroundings, Maintained a safe environment, Educated pt \T\ family on fall prevention, incl call for assistance when getting out of bed, Assessed \T\ reinforced patient's understanding of fall precautions, Provided non-skid footwear, Hourly rounding (assess needs \T\ fall precautionary measures) done, Used ambulatory aids as needed (educated on \T\ assisted with), Used gait belt as appropriate. Abuse screen: Denies threats or abuse. Denies injuries from another. Nutritional screening: No deficits noted. Tuberculosis screening: No symptoms or risk factors identified. Assessment: 18:30 Neuro: No deficits noted. Cardiovascular: No deficits noted. Respiratory: Reports ko1 shortness of breath at rest. GI: No deficits noted. : No deficits noted. EENT: No deficits noted. Derm: No deficits noted. Musculoskeletal: No deficits noted. Vital Signs: 18:27 BP 133 / 63; Pulse 89; Resp 19; Temp 98.8; Pulse Ox 100% on 10 lpm Non-rebreather mask; ko1 18:55 BP 136 / 97; Pulse 118; Resp 18; Pulse Ox 99% on 10 lpm Non-rebreather mask; ko1 19:30 BP 125 / 70; Pulse 119; Resp 18; Pulse Ox 100% on 5 lpm NC; rv 20:30 BP 133 / 94; Pulse 120; Resp 22; Pulse Ox 100% on 5 lpm NC; rv 21:30 BP 122 / 56; Pulse 119; Resp 20; Pulse Ox 100% on 5 lpm NC; rv 22:30 BP 149 / 59; Pulse 118; Resp 18; Pulse Ox 95% on 5 lpm NC; rv 23:30 BP 108 / 88; Pulse 110; Resp 20; Temp 98; Pulse Ox 97% on 5 lpm NC; rv ED Course: 18:07 Patient arrived in ED. kb 18:07 Susanna Maria FNP-C is [facility]. kb 18:07 Bart Morin DO is Attending Physician. kb 18:18 Arm band placed on Patient placed in an exam room, on a stretcher. ll1 18:29 Triage completed. ko1 18:30 Patient has correct armband on for positive identification. Bed in low position. Call ko1 light in reach. Side rails up X2. Client placed on continuous cardiac and pulse oximetry monitoring. NIBP monitoring applied. radiation monitor on. Door closed. Noise minimized. Lights dimmed. Warm blanket given. 18:30 Maintain EMS IV. Dressing intact. Good blood return noted. Site clean \T\ dry. Gauge \T\ ko 1 site: 20g left AC. Oxygen administration via non-rebreather mask 10l Response to oxygen therapy: symptoms improved. 18:47 CBC with Diff Sent. ko1 18:47 Magnesium Sent. ko1 18:47 NT PRO-BNP Sent. ko1 18:47 Troponin HS Sent. ko1 18:54 Nathalie Okeefe, RN is Primary Nurse. ko1 18:55 Initial lab(s) drawn, by me, sent to lab. EKG done, by ED staff, reviewed by Susanna MONTES DE OCA. 19:05 XRAY Chest (1 view) In Process Unspecified. EDMS 19:30 First set of blood cultures drawn Second set of blood cultures drawn by me. kmf 20:46 CT Chest For PE Angio In Process Unspecified. EDMS 21:22 Britton Izquierdo MD is Hospitalizing Provider. kb 23:36 No provider procedures requiring assistance completed. Patient admitted, IV remains in rv place. Administered Medications: 21:07 Drug: NS 0.9% IV 250 ml IV at bolus once Route: IV; Rate: bolus; Site: left antecubital;rv 23:38 Follow up: IV Status: Completed infusion; IV Intake: 250ml rv 21:07 Drug: Albumin IVPB 12.5 grams 50 ml IVPB once; (Note: albumin 25% concentration) rv Volume: 50 ml; Route: IVPB; Site: left antecubital; 23:38 Follow up: IV Status: Completed infusion rv 21:34 Drug: Rocephin - Rocephin (cefTRIAXone) IVPB 1 grams IVPB once over 30 mins; (mix in 50 rv mL NS) Route: IVPB; Infused Over: 30 mins; Site: left antecubital; 23:38 Follow up: Response: No adverse reaction; IV Status: Completed infusion rv 21:34 Drug: Zithromax IVPB 500 mg IVPB once over 1 hrs; mix in 250 mL NS Route: IVPB; Infused rv Over: 1 hrs; Site: left antecubital; 23:38 Follow up: IV Status: Completed infusion; IV Intake: 250ml rv Medication: 23:36 VIS not applicable for this client. rv Intake: 23:38 IV: 250ml; Total: 250ml. rv 23:38 IV: 250ml; Total: 500ml. rv Outcome: 21:22 Decision to Hospitalize by Provider. kb 23:38 Admitted to Med/surg accompanied by nurse, via stretcher, room 209, rv 23:38 Condition: good 23:38 Instructed on the need for admit, 23:39 Patient left the ED. rv Signatures: Dispatcher [employer] EDMS Susanna Maria, BRANCH CREDIT COUNSELOR-C BRANCH CREDIT COUNSELOR-CkTayo Montgomery RN RN rv Hakeem Alejandre RN RN ll1 Nathalie Okeefe RN RN koClaire Huang [facility] Corrections: (The following items were deleted from the chart) 19:08 18:47 BASIC METABOLIC PANEL+C.LAB.BRZ drawn and sent. meagan GALLAGHER
--- NOTE | 2023-08-07 21:23 | EDPHYS ---
Physician Documentation [facility] Name: Sebastian Dennison Age: 82 yrs Sex: Male : 1940 Arrival Date: 08/07/2023 Time: 17:49 Bed 3 Private MD: ED Physician Bart Morin HPI: 08/06 18:08 This 82 yrs old Male presents to ER via Unassigned with complaints of shortness of kb breath. 18:08 Pt is an 82 year old male with a history of COPD and lung cancer that presents for kb increased shortness of breath. States he normally just deals with it, but it was worse than normal today. EMS reports O2 sat 86% on 6L O2 at home. Pt also reports swelling to lower extremities that began 3-4 days ago. Denies chest pain. Historical: - Allergies: 18:18 No Known Allergies; ll1 - PMHx: 18:18 COPD; stage 4 lung CA; ll1 - Immunization history:: Adult Immunizations up to date. - Infectious Disease History:: Denies. - Social history:: Smoking status: Patient/guardian denies using tobacco, but has a distant history of tobacco abuse. ROS: 18:18 Constitutional: As per HPI kb Exam: 18:18 Constitutional: This is a well developed, well nourished patient who is awake, alert, kb and in no acute distress. Head/Face: Normocephalic, atraumatic. ENT: Moist Mucous membranes Cardiovascular: Regular rate Abdomen/GI: Soft, non-tender. No distention Skin: Warm, dry with normal turgor. Normal color. MS/ Extremity: Pulses equal, no cyanosis. Neurovascular intact. Full, normal range of motion. Neuro: Awake and alert, GCS 15, oriented to person, place, time, and situation. Moves all extremities. Normal gait. 18:18 Cardiovascular: Edema: 2+ edema to bilateral lower extremities, 18:18 Respiratory: the patient does not display signs of respiratory distress, Respirations: normal, Breath sounds: decreased breath sounds, that are mild, that are moderate, are located in both bases, Vital Signs: 18:27 BP 133 / 63; Pulse 89; Resp 19; Temp 98.8; Pulse Ox 100% on 10 lpm Non-rebreather mask; ko1 18:55 BP 136 / 97; Pulse 118; Resp 18; Pulse Ox 99% on 10 lpm Non-rebreather mask; ko1 19:30 BP 125 / 70; Pulse 119; Resp 18; Pulse Ox 100% on 5 lpm NC; rv 20:30 BP 133 / 94; Pulse 120; Resp 22; Pulse Ox 100% on 5 lpm NC; rv 21:30 BP 122 / 56; Pulse 119; Resp 20; Pulse Ox 100% on 5 lpm NC; rv 22:30 BP 149 / 59; Pulse 118; Resp 18; Pulse Ox 95% on 5 lpm NC; rv 23:30 BP 108 / 88; Pulse 110; Resp 20; Temp 98; Pulse Ox 97% on 5 lpm NC; rv MDM: 18:07 Patient medically screened. kb 18:18 Data reviewed: vital signs, nurses notes. Historians other than the Patient: EMS: [facility]. 21:21 Differential diagnosis: Chronic Obstructive Pulmonary Disease pneumonia, pulmonary kb edema, Pulmonary Embolism. Consideration of Admission/Observation Patient was admitted/placed on observation. Escalation of care including admission/observation considered. Management of patient was discussed with the following: Hospitalist: Dr Izquierdo accepts pt for admission. Counseling: I had a detailed discussion with the patient and/or guardian regarding the historical points, exam findings, and any diagnostic results supporting the discharge/admit diagnosis, lab results, radiology results, the need for further work-up and treatment in the hospital. 21:21 Care significantly affected by the following chronic conditions: Chronic Obstructive kb Pulmonary Disease, Cancer. 08/06 18:08 Order name: CBC with Diff; Complete Time: 19:02 kb 08/06 18:08 Order name: Magnesium; Complete Time: 19:26 kb 08/06 18:08 Order name: NT PRO-BNP; Complete Time: 19:26 kb 08/06 18:08 Order name: Troponin HS; Complete Time: 19:26 kb 08/06 19:03 Order name: Blood Culture Adult (2) kb 08/06 19:03 Order name: Lactate w/ 2H reflex if indic.; Complete Time: 20:12 kb 08/06 19:03 Order name: Protime (+inr); Complete Time: 20:12 kb 08/06 19:03 Order name: Ptt, Activated; Complete Time: 20:12 kb 08/06 19:08 Order name: Comprehensive Metabolic Panel; Complete Time: 19:26 EDMS 08/06 22:06 Order name: Urinalysis w/ reflexes EDMS 08/06 22:06 Order name: CBC with Automated Diff EDMS 08/06 22:06 Order name: CBC with Automated Diff EDMS 08/06 22:06 Order name: Comprehensive Metabolic Panel EDMS 08/06 22:06 Order name: Comprehensive Metabolic Panel EDMS 08/06 22:06 Order name: Sputum Culture EDMS 08/06 22:08 Order name: Troponin High Sensitivity EDMS 08/06 22:08 Order name: Troponin High Sensitivity EDMS 08/06 22:08 Order name: Troponin High Sensitivity EDMS 08/06 22:08 Order name: Troponin High Sensitivity EDMS 08/06 18:08 Order name: XRAY Chest (1 view); Complete Time: 19:26 kb 08/06 20:08 Order name: CT Chest For PE Angio; Complete Time: 21:20 kb 08/06 18:08 Order name: EKG; Complete Time: 18:08 kb 08/06 18:08 Order name: Cardiac monitoring; Complete Time: 18:40 kb 08/06 18:08 Order name: EKG - Nurse/Tech; Complete Time: 18:47 kb 08/06 18:08 Order name: IV Saline Lock; Complete Time: 18:40 kb 08/06 18:08 Order name: Labs collected and sent; Complete Time: 18:47 kb 08/06 18:08 Order name: O2 Per Protocol; Complete Time: 18:40 kb 08/06 18:08 Order name: O2 Sat Monitoring; Complete Time: 18:40 kb Administered Medications: 21:07 Drug: NS 0.9% IV 250 ml IV at bolus once Route: IV; Rate: bolus; Site: left antecubital;rv 23:38 Follow up: IV Status: Completed infusion; IV Intake: 250ml rv 21:07 Drug: Albumin IVPB 12.5 grams 50 ml IVPB once; (Note: albumin 25% concentration) rv Volume: 50 ml; Route: IVPB; Site: left antecubital; 23:38 Follow up: IV Status: Completed infusion rv 21:34 Drug: Rocephin - Rocephin (cefTRIAXone) IVPB 1 grams IVPB once over 30 mins; (mix in 50 rv mL NS) Route: IVPB; Infused Over: 30 mins; Site: left antecubital; 23:38 Follow up: Response: No adverse reaction; IV Status: Completed infusion rv 21:34 Drug: Zithromax IVPB 500 mg IVPB once over 1 hrs; mix in 250 mL NS Route: IVPB; Infused rv Over: 1 hrs; Site: left antecubital; 23:38 Follow up: IV Status: Completed infusion; IV Intake: 250ml rv Disposition: 19:03 I was immediately available on-site in the Emergency Department for consultation in the ms3 care of the patient. Disposition Summary: 08/07/23 21:22 Hospitalization Ordered Notes: Hospitalization Status: Inpatient Admission kb Provider: Britton Izquierdo Location: Telemetry/MedSur (Inpatient) kb Condition: Stable kb Problem: new kb Symptoms: are unchanged kb Bed/Room Type: Standard Room Assignment: 209(08/07/23 22:25) Diagnosis - Pneumonia, unspecified organism kb - Weakness kb Forms: - Medication Reconciliation Form kb - SBAR form kb - Leadership Thank You Letter kb Signatures: Dispatcher [employer] EDMS Susanna Maria, SENIOR GIS ANALYST-C SENIOR GIS ANALYST-CkMartha Vieyra, RN RN cg Tayo Chu RN RN rv Hakeem Alejandre RN RN ll1 Bart Morin DO DO ms3 Nathalie Okeefe, RN RN ko1 Corrections: (The following items were deleted from the chart) 19:04 19:04 BLOOD CULTURE*+BA.LAB.BRZ ordered. EDMS EDMS 19:04 19:04 LACTATE+C.LAB.BRZ ordered. EDMS EDMS 19:04 19:04 PROTIME (+INR)+COAG.LAB.BRZ ordered. EDMS EDMS 19:04 19:04 PTT, ACTIVATED+COAG.LAB.BRZ ordered. EDMS EDMS 19:08 18:08 BASIC METABOLIC PANEL+C.LAB.BRZ ordered. EDMS EDMS 19:13 19:04 COMPREHENSIVE METABOLIC PANEL+C.LAB.BRZ ordered. EDMS EDMS 22:25 21:22 kb cg
[2023-08-07] MEDS ORDERED: ALBUTEROL 2.5 MG/3 ML NEB SOL NEB PRN (22:01)
[2023-08-07] MEDS ORDERED: ONDANSETRON 4 MG/2 ML VIAL IV PRN (22:01)
[2023-08-07] MEDS: AZITHROMYCIN IV 500 MG in NA CHLORIDE 0.9% 250 ML IVPB SCH (22:09)
[2023-08-07] MEDS: CEFTRIAXONE 1,000 MG in NA CHLORIDE 0.9% 50 ML IVPB SCH (22:09)
--- NOTE | 2023-08-07 22:12 | P.HP ---
Certification for Inpatient Patient admitted to: Inpatient With expected LOS: >2 Midnights Practitioner: I am a practitioner with admitting privileges, knowledge of patient current condition, hospital course, and medical plan of care. Services: Services provided to patient in accordance with Admission requirements found in Title 42 Section 412.3 of the Code of Federal Regulations Patient History Date of Service: 08/07/23 Reason for admission: SOB History of Present Illness: 82 yrs old Male past medical history of hypertension, COPD history of lung cancer, chronic hypoxic respiratory failure, BPH, presents with complaints of shortness of breath. Patient is a poor historian hence most of the history is obtained from the family who is at the bedside. Patient started having worsening of shortness of breath progressively worsening. It got so worse today than baseline and was brought to ER. Denies any chest pain.EMS reports O2 sat 86% on 6L O2 at home. Pt also reports swelling to bilateral lower extremities that began 3-4 days ago. No fever or chills.No Sick contacts. Patient was assessed in the ER and was admitted for further management of acute on chronic hypoxic respiratory failure and possible pneumonia Allergies No Known Allergies Allergy (Verified 05/07/22 00:23) Home medications list reviewed: Yes Home Medications: Finasteride [Proscar*] 5 mg PO BEDTIME 07/11/16 Tamsulosin [Flomax*] 0.4 mg PO DAILY 07/11/16 Tiotropium [place] [Spiriva] 1 inh PO DAILY 05/07/22 acetaZOLAMIDE [Diamox*] 250 mg PO DAILY #30 tab 05/21/22 Folic Acid 1 mg PO DAILY 10/13/22 Loratadine/Pseudoephedrine Sul [Claritin-D 12 Hour Tablet] 1 tab PO Q12H 10/13/22 Tiotropium [Spiriva Handihaler*] 18 mcg IH DAILY 10/13/22 Zolpidem Tartrate [Ambien*] 5 mg PO BEDTIME PRN 10/13/22 Doxycycline Monohydrate 100 mg PO BID 7 Days #14 cap 10/17/22 levoFLOXacin [Levaquin] 750 mg PO DAILY 7 Days #7 tab 10/17/22 predniSONE [Prednisone*] 20 mg PO DAILY 4 Days #4 tab 10/17/22 - Past Medical/Surgical History Diabetic: No Past Medical History: Reviewed- Non-Contributory -: COPD -: BPH -: Stage IV lung cancer Past Surgical History: Reviewed- Non-Contributory -: Appendectomy -: tonsillectomy, adenoids removed -: Bilateral cataract surgery Psychosocial/ Personal History: Patient is . - Family History Family History: Reviewed- Non-Contributory - Family History Mother -: Diabetes - Social History Smoking Status: Former smoker Alcohol use: No CD- Drugs: No Caffeine use: No Review of Systems 10-point ROS is otherwise unremarkable Physical Examination - Vital Signs Temperature: 98.3 F Blood Pressure: 112/78 Pulse: 78 Respirations: 19 Pulse Ox (%): 98 - Physical Exam General: Alert, Oriented x2, Cachectic, Moderate distress HEENT: Atraumatic, Normocephalic Neck: Supple Respiratory: Diminished, Crackles/rales, Expiratory wheezes Cardiovascular: Regular rate/rhythm, Normal S1 S2, Edema Capillary refill: <2 Seconds Gastrointestinal: Soft and benign, W/out hepatosplenomegaly Musculoskeletal: No clubbing, No tenderness, Swelling Integumentary: No rashes, No cyanosis, Skin breakdown Neurological: Abnormal gait, Abnormal speech Lymphatics: No axilla or inguinal lymphadenopathy - Studies Laboratory Data (last 24 hrs) 08/07/23 08/07/23 08/07/23 19:30 19:03 18:45 WBC 14.50 H Hgb 8.7 L Hct 26.6 L Plt Count 477 H PT 11.7 INR 1.07 APTT 31.0 Sodium Cancelled Potassium Cancelled BUN Cancelled Creatinine Cancelled Glucose Cancelled Magnesium Total Bilirubin Cancelled AST Cancelled ALT Cancelled Alkaline Phosphatase Cancelled 08/07/23 18:45 WBC Hgb Hct Plt Count PT INR APTT Sodium 138 Potassium 4.0 BUN 21 H Creatinine 0.70 Glucose 131 H Magnesium 2.0 Total Bilirubin 0.2 AST 8 L ALT 14 L Alkaline Phosphatase 111 Imagings Data: IMPRESSION: Negative for a pulmonary embolism. Progression in soft tissue nodularity left pleura and enlargement/development of left lung pulmonary nodules compatible with worsening metastatic disease Progression in bilateral lower lobe alveolar opacities may represent pneumonitis or pneumonia Assessment and Plan - Problems (Diagnosis) (1) Pneumonia Current Visit: No Status: Acute Plan: Started on IV antibiotics Will obtain cultures Will obtain sputum culture suspect Change antibiotic as per sensitivity Monitor closely Qualifiers: Pneumonia type: due to unspecified organism Laterality: left (2) Acute respiratory failure with hypoxia and hypercapnia Current Visit: No Status: Acute Plan: Patient was saturating 86 in 6 L nasal cannula On oxygen supplementation Will titrate oxygen requirement Monitor closely on telemetry Start from bronchodilators (3) COPD exacerbation Onset Date: 07/12/16 Current Visit: No Status: Acute Plan: Monitor closely on telemetry Bronchodilators Started on steroids as well Antitussives as needed (4) Hypertension Current Visit: No Status: Chronic Plan: Continue home medications and titrate as needed Antihypertensives titrated Qualifiers: (5) Lung cancer Current Visit: No Status: Chronic Plan: History of lung cancer Supportive management Follow-up with [facility] oncology as outpatient (6) BPH (benign prostatic hyperplasia) Current Visit: No Status: Chronic Qualifiers: Lower urinary tract symptom presence: unspecified whether lower urinary tract symptoms present (7) CHF (congestive heart failure) Current Visit: Yes Status: Acute Plan: Acute on chronic CHF possibly systolic/diastolic Monitor closely on telemetry Started on aggressive diuresis X-ray findings consistent with CHF Oxygen supplementation Will try to wean down oxygen requirement Continue home medications Titrate as needed Will obtain an echocardiogram Discharge Plan: Home Plan to discharge in: Greater than 2 days - Advance Directives Does patient have a Living Will: Yes Does patient have a Durable POA for Healthcare: Yes - Code Status/Comfort Care Code Status: Full Code Time Spent Managing Pts Care (In Minutes): 54
[2023-08-07] MEDS: LORATADINE/PSEUDO 12HR TAB PO SCH (23:00)
[2023-08-08] MEDS: FUROSEMIDE 20 MG/ 2ML VIAL IV SCH (00:22)
[2023-08-08] MEDS: ASPIRIN EC 81 MG TAB PO SCH (00:22)
[2023-08-08] MEDS: METHYLPREDNISOLONE 40 MG INJ IV SCH (00:22)
[2023-08-08 01:18] VITALS: BMI 19.9
[2023-08-08] MEDS: ZOLPIDEM TARTRATE 5 MG TABLET PO PRN (01:30)
[2023-08-08 03:02] LABS: Arterial Blood Carboxyhemoglob 0.8 % (0-1.5); Blood Gas Oxyhemoglobin 96.3 % (94-97); Blood O2 Saturation 98.4 % (92-98.5)
[2023-08-08 03:03] LABS: Blood Gas THB 9.1 g/dl (12-18)
[2023-08-08 03:03] LABS: Specific Gravity 1.023 (1.005-1.030); Sqamous Epithelial None Seen /HPF (None Seen); Urine Bacteria None Seen /HPF (<20); Urine Bilirubin NEGATIVE (Negative); Urine Blood Negative (Negative); Urine Clarity Clear (Clear); Urine Color Colorless (Yellow); Urine Culture Reflex Order NOT NEEDED; Urine Glucose NEGATIVE (Negative); Urine Ketones 2+ (Negative); Urine Microscopic Reflex YN ORDER UMIC; Urine Mucus Slight /HPF (None Seen); Urine Nitrite NEGATIVE (Negative); Urine Protein TRACE (Negative); Urine RBC <5 /HPF (None Seen); Urine Urobilinogen Normal (Normal); Urine WBC <5 /HPF (<5); Urine pH 6.5 (5.0-7.0)
[2023-08-08 04:41] LABS: Absolute Lymphocytes (CBC) 0.7 K/uL (0.7-4.9); Absolute Monocytes 0.2 K/uL (0.1-1.3); Basophils % 0.2 % (0-1.3); Hematocrit 31.3 % (39.6-49.0); Hemoglobin 9.7 g/dL (13.6-17.9); Lymphocytes % 4.1 % (15.3-44.8); MCH 30.7 pg (27.0-35.0); MCHC 31.1 g/dL (32.0-36.0); MCV 98.9 fL (80-100); MPV 7.1 fL (7.6-11.3); Monocytes % 1.4 % (3.3-12.3); Neutrophils % 94.3 % (41.7-73.7); Platelets 490 thou/uL (152-406); RBC Red Blood Cell Count 3.16 M/uL (4.33-5.43); Red Cell Distribution Width 15.1 % (12.1-15.2)
[2023-08-08 04:51] LABS: Albumin 2.4 g/dL (3.4-5.0); Albumin/Globulin Ratio 0.6 (1.1-1.8); Bilirubin Total 0.2 mg/dL (0.2-1.0); Globulin 4.3 g/dL (2.3-3.5); Protein, Total 6.7 g/dL (6.4-8.2)
[2023-08-08 05:12] LABS: Band Neutrophils 6 % (0-1); Differential Total Cells Count 100; Lymphocytes 4 % (15-42); Segmented Neutrophils 90 % (40-80)
[2023-08-08 05:13] LABS: Blood Morphology Comment NOT SEEN (NOT SEEN); Monocytes 0 % (0-10); Platelet Estimate ADEQ
[2023-08-08 06:30] LABS: Arterial Blood Carboxyhemoglob 0.7 % (0-1.5); Blood Gas Oxyhemoglobin 96.3 % (94-97); Blood O2 Saturation 98.4 % (92-98.5)
[2023-08-08] MEDS: ENOXAPARIN 40 MG/0.4 ML SQ SCH (08:24)
[2023-08-08] MEDS: acetaZOLAMIDE 250 MG TAB PO SCH (08:25)
[2023-08-08] MEDS: FOLIC ACID 1 MG TABLET PO SCH (08:25)
[2023-08-08] MEDS: TAMSULOSIN 0.4 MG SR CAP PO SCH (08:25)
[2023-08-08] MEDS: TIOTROPIUM 5 SPRAYS/INHALER IH SCH (08:26)
[2023-08-08] MEDS: LORATADINE/PSEUDO 12HR TAB PO SCH (08:26)
[2023-08-08] MEDS ORDERED: predniSONE 20 MG TAB PO SCH (09:00)
[2023-08-08 11:26] LABS: Arterial Blood Carboxyhemoglob 0.8 % (0-1.5); Blood Gas Oxyhemoglobin 96.2 % (94-97); Blood O2 Saturation 98.4 % (92-98.5)
[2023-08-08 11:27] LABS: Blood Gas THB 10.3 g/dl (12-18)
[2023-08-08] MEDS: METOPROLOL TARTRATE 5 MG/5 ML INJ IV PRN (13:22)
--- NOTE | 2023-08-08 13:29 | EKG ---
Test Date: 2023-08-07 Test Time: 18:47:18 Agricultural Engineering Technician: ERWIN MEASUREMENT RESULTS: Intervals: Rate: 117 MN: QRSD: 112 QT: 316 QTc: 440 [place]: P: MN: QRS: 40 T: 49 INTERPRETIVE STATEMENTS: Atrial fibrillation Right bundle branch block Abnormal ECG Compared to ECG 10/14/2022 11:59:32 Right bundle-branch block now present Sinus rhythm no longer present Electronically Signed On 08-08-23 13:27:41 CDT by Michael Rogel
--- NOTE | 2023-08-08 14:36 | ECHO ---
HEIGHT: 5 ft 8 in WEIGHT: 131 lb 3.2 oz DATE OF STUDY: 08/08/[address]: Lenny Izquierdo DO 2-DIMENSIONAL: YES M.MODE: YES DOPPLER: YES COLOR FLOW: YES TDS: PORTABLE: YES DEFINITY: BUBBLE STUDY: DIAGNOSIS: CONGESTIVE HEART FAILURE CARDIAC HISTORY: CATHERIZATION: NO SURGERY: NO PROSTHETIC VALVE: NO PACEMAKER: NO MEASUREMENTS (cm) DIASTOLIC (NORMALS) SYSTOLIC (NORMALS) IVSd 0.8 (0.6-1.2) LA Diam 2.7 (1.9-4.0) LVEF 62% LVIDd 4.7 (3.5-5.7) LVIDs 3.1 (2.0-3.5) %FS 33% LVPWd 0.9 (0.6-1.2) Ao Diam 2.5 (2.0-3.7) 2 DIMENSIONAL ASSESSMENT: RIGHT ATRIUM: NORMAL LEFT ATRIUM: NORMAL RIGHT VENTRICLE: NORMAL LEFT VENTRICLE: HYPERDYNAMIC TRICUSPID VALVE: MILD TRICUSPID REGURGITATION MITRAL VALVE: MILD MITRAL REGURGITATION PULMONIC VALVE: NORMAL AORTIC VALVE: CALCIFIED, NO AORTIC STENOSIS PERICARDIAL EFFUSION: TRACE AORTIC ROOT: NORMAL LEFT VENTRICULAR WALL MOTION: HYPERDYNAMIC DOPPLER/COLOR FLOW: SEE BELOW COMMENTS: 1. HYPERDYNAMIC LEFT VENTRICLE WITH NORMAL EJECTION FRACTION GREATER THAN 60% 2. DIASTOLIC DYSFUNCTION 3. MILD MITRAL REGURGITATION 4. MILD TRICUSPID REGURGITATION 5. SMALL PERICARDIAL EFFUSION TECHNOLOGIST: SULAIMAN URBANO
--- NOTE | 2023-08-08 17:29 | P.PN ---
Subjective Date of Service: 08/08/23 Chief Complaint: SOB Found to be lethargic and confused this morning. He cannot provide any subjective complain. He was receiving 6 L of oxygen by nasal cannula and is saturating at 99%. No recorded fever. Physical Examination - Vital Signs Temperature: 99.3 F Blood Pressure: 133/74 Pulse: 118 Respirations: 20 Pulse Ox (%): 90 - Studies Laboratory Data (last 24 hrs) 08/07/23 08/07/23 08/07/23 19:30 19:03 18:45 WBC 14.50 H Hgb 8.7 L Hct 26.6 L Plt Count 477 H PT 11.7 INR 1.07 APTT 31.0 Sodium Cancelled Potassium Cancelled BUN Cancelled Creatinine Cancelled Glucose Cancelled Magnesium Total Bilirubin Cancelled AST Cancelled ALT Cancelled Alkaline Phosphatase Cancelled 08/07/23 18:45 WBC Hgb Hct Plt Count PT INR APTT Sodium 138 Potassium 4.0 BUN 21 H Creatinine 0.70 Glucose 131 H Magnesium 2.0 Total Bilirubin 0.2 AST 8 L ALT 14 L Alkaline Phosphatase 111 Assessment And Plan - Plan Physical Exam General: Alert, Oriented x2, Cachectic, lethargic. HEENT: Atraumatic, Normocephalic Respiratory: Diminished bilateral, Crackles/rales, Expiratory wheezes Cardiovascular: Regular rate/rhythm, Normal S1 S2, Edema Gastrointestinal: Soft and benign, no tenderness, normal bowel sounds. Integumentary: No rashes, No cyanosis, Neurological: Abnormal gait, Abnormal speech CTA thorax IMPRESSION: Negative for a pulmonary embolism. Progression in soft tissue nodularity left pleura and enlargement/development of left lung pulmonary nodules compatible with worsening metastatic disease Progression in bilateral lower lobe alveolar opacities may represent pneumonitis or pneumonia Assessment and plan Pneumonia Continue IV antibiotics Follow cultures Acute on chronic respiratory failure with hypoxia and hypercapnia/Acute metabolic encephalopathy/COPD exacerbation/history of lung cancer Patient was saturating 86 in 6 L nasal cannula on presentation, now saturating at 99%. Arterial blood gas shows CO2 retention, PaO2 of 140. Wean oxygen to oxygen saturation of 88 to 92% to preserve hypoxic drive. BiPAP as needed for hypercapnia On oxygen supplementation Bronchodilators IV steroid Supportive measures with antitussives CTA thorax result reviewed and noting progression of lung cancer. Spouse reports patient has been ambulatory prior to being sick 1 week ago. Follow-up with oncology as outpatient regarding the lung cancer. BPH (benign prostatic hyperplasia) Continue home dose tamsulosin Acute on chronic diastolic heart failure Chest x-ray findings consistent with CHF Continue IV Lasix Titrate as needed Echocardiogram is pending. Discharge Plan: Home Plan to discharge in: Greater than 2 days
[2023-08-08] MEDS: MAGNESIUM HYDROXIDE 8% 30 ML PO PRN (17:56)
--- NOTE | 2023-08-08 17:57 | CON ---
Date of Consultation: 08/08/2023 Reason For Consultation: Elevated troponin. History Of Present Illness: This is an 82-year-old male with advanced lung cancer, metastatic, being already evaluated and treated by the Oncology. Has COPD and the fact his condition was terminal to a point that hospice was offered by Oncology. The patient presented with shortness of breath, progre ssive, and in the ER, he was hypoxic, required BiPAP. Has lower extremity edema. Feels better. Den ies having any chest pain. Past Medical History: Metastatic lung cancer, hypertension, COPD, chronic respiratory failure. Medications: Refer to reconciliation sheet for detailed list. Allergies: NO KNOWN DRUG ALLERGIES. Family History: No premature coronary artery disease or cancer. Social History: He is an ex-smoker. Does not drink or use any drugs. Review of Systems: All systems were reviewed and they were negative except as mentioned in the HPI. Physical Examination: Vital Signs: Reviewed. Head and Neck: Pupils are equal, reactive to light. Intact eye movements. No JVD. No cervical lym phadenopathy. Neck is supple. Thyroid is not enlarged. Lungs: Decreased breathing sounds bilaterally with rhonchi. No accessory muscle use or muscle retra ction. Heart: Irregular. No extra sounds. Abdomen: Soft, nontender. Bowel sounds positive. No organomegaly. No masses or hernia. No rigidi ty or rebound. Extremities: No clubbing or cyanosis. Trace edema bilaterally. Neurologic: Alert, still lethargic, but moving all extremities. Confused. Lymph nodes: No cervical or axillary lymphadenopathy. Investigations: CTA of the lungs had showed progression of soft tissue nodularity in the left pleura with worsening metastatic disease and pneumonia is present. Troponin is 76 and 89. BUN is 18, crea tinine 0.85, and hemoglobin 9.7. Assessment And Recommendations: 1.Elevated troponin. This is demand ischemia. Cardiac workup is not recommended and this patient h as metastatic lung cancer and he is more of a hospice candidate and comfort measures. There could be some component of fluid overload. I agree with Lasix, however, carefully monitor BUN, creatinine, e lectrolytes, in fact, to use with caution and I recommend broad-spectrum antibiotics for sure and DVT prophylaxis. 2.Acute respiratory failure, likely due to pneumonia on top of the metastatic lung disease, terminal condition. I recommend hospice care. 3.Elevated NT-proBNP, probably congestive heart failure. Obtain an echo just to see what his heart function and planned diuretics treatment for comfort care and I discussed with one of the daughters a nd I will discuss with the other daughter who is the next of kin. SR/MODL Voice ID: [id number] Report ID: [id number]
[2023-08-08] MEDS: FINASTERIDE 5 MG TAB PO SCH (20:12)
[2023-08-08] MEDS: JUVEN PACKET PO SCH (20:14)
[2023-08-09 04:03] LABS: Absolute Lymphocytes (CBC) 1.1 K/uL (0.7-4.9); Absolute Neutrophil 12.2 K/uL (1.8-8.0); Basophils % 0.1 % (0-1.3); Hematocrit 27.4 % (39.6-49.0); Hemoglobin 9.3 g/dL (13.6-17.9); Lymphocytes % 7.8 % (15.3-44.8); MCH 32.7 pg (27.0-35.0); MCHC 33.9 g/dL (32.0-36.0); MCV 96.4 fL (80-100); Monocytes % 6.7 % (3.3-12.3); Platelets 555 thou/uL (152-406); RBC Red Blood Cell Count 2.84 M/uL (4.33-5.43); Red Cell Distribution Width 14.6 % (12.1-15.2)
[2023-08-09 04:06] LABS: Neutrophils % 85.4 % (41.7-73.7)
[2023-08-09 04:11] LABS: Albumin 2.6 g/dL (3.4-5.0); Albumin/Globulin Ratio 0.6 (1.1-1.8); Anion Gap 8.6 mEq/L (5.0-15.0); Bilirubin Total 0.3 mg/dL (0.2-1.0); Globulin 4.1 g/dL (2.3-3.5); Potassium 3.6 mEq/L (3.5-5.1); Protein, Total 6.7 g/dL (6.4-8.2)
[2023-08-09] MEDS: POTASSIUM CL SA 10 MEQ TAB PO ONE (05:10)
--- NOTE | 2023-08-09 12:03 | P.CNS ---
Date of Consult: 08/09/23 Reason for Consult: Pneumonia Chief Complaint: SOB History of Present Illness: Patient is 82 years of age with stage IV lung cancer he had a pleural effusion before according to his he was doing well until about 6 days ago and was very active when suddenly became more short of breath of cough congestion x-ray shows a pneumonia on the left side Allergies No Known Allergies Allergy (Verified 05/07/22 00:23) Home Medications: Finasteride [Proscar*] 5 mg PO BEDTIME 07/11/16 Tamsulosin [Flomax*] 0.4 mg PO DAILY 07/11/16 Tiotropium Crary [Spiriva] 1 inh PO DAILY 05/07/22 acetaZOLAMIDE [Diamox*] 250 mg PO DAILY #30 tab 05/21/22 Folic Acid 1 mg PO DAILY 10/13/22 Loratadine/Pseudoephedrine Sul [Claritin-D 12 Hour Tablet] 1 tab PO Q12H 10/13/22 Tiotropium [Spiriva Handihaler*] 18 mcg IH DAILY 10/13/22 Zolpidem Tartrate [Ambien*] 5 mg PO BEDTIME PRN 10/13/22 Hydrocodone/Acetaminophen [Hydrocodon-Acetaminophn 10-325] 1 each PO Q6HP PRN 08/08/23 predniSONE [Deltasone] 10 mg PO DAILY 08/08/23 - Past Medical/Surgical History Diabetic: No -: COPD -: BPH -: Stage IV lung cancer -: Appendectomy -: tonsillectomy, adenoids removed -: Bilateral cataract surgery Psychosocial/ Personal History: Patient is . - Family History Mother Medical History: Diabetes - Social History Smoking Status: Former smoker Alcohol use: No CD- Drugs: No Caffeine use: No Place of Residence: Home Review of Systems 10-point ROS is otherwise unremarkable General: Weakness Respiratory: Cough, Shortness of Breath Physical Examination Temp Pulse Resp BP Pulse Ox 98.0 F 123 H 24 H 152/69 H 94 08/09/23 08:00 08/09/23 08:27 08/09/23 08:00 08/09/23 08:27 08/09/23 04:00 General: Alert, Oriented x3 HEENT: Atraumatic Neck: Supple Respiratory: Crackles/rales (Because on the left side) Cardiovascular: No edema, Regular rate/rhythm Gastrointestinal: Normal bowel sounds, Soft and benign Musculoskeletal: No clubbing, No swelling - Problems (1) Pneumonia Current Visit: No Status: Acute Plan: Patient is 82 years of age of stage IV lung cancer admitted with worsening dyspnea over the past 6 days he has an infiltrate on the left lung all his chemotherapy was stopped labs reviewed white count elevated hypoxic hypercarbic respiratory failure patient does have a history of hypercarbia recommend changed to vancomycin and Zosyn patient is high risk for improving his arms to his underlying debility from lung cancer sputum cultures are pending patient's troponin is elevated Qualifiers: Pneumonia type: due to unspecified organism Laterality: left
[2023-08-09] MEDS: PIPER TAZO 4.5 GM in NA CHLORIDE 0.9% 100 ML IV SCH (12:33)
[2023-08-09] MEDS: VANCOMYCIN 1.25 GM in NA CHLORIDE 0.9% 250 ML IVPB SCH (14:06)
--- NOTE | 2023-08-09 15:05 | P.PN ---
Subjective Date of Service: 08/09/23 Chief Complaint: SOB No major changes from yesterday. Patient used BiPAP last night. He is currently maintained on 2 L oxygen by nasal cannula. Spouse stated patient has been tolerating diet. Physical Examination - Vital Signs Temperature: 99.4 F Blood Pressure: 142/74 Pulse: 125 Respirations: 24 Pulse Ox (%): 91 Assessment And Plan - Plan Physical Exam General: Oriented x2, Cachectic. Respiratory: Diminished bilateral, Crackles/rales. Cardiovascular: Regular rate/rhythm, Normal S1 S2, Edema Gastrointestinal: Soft and benign, no tenderness, normal bowel sounds. Integumentary: No rashes, No cyanosis, Neurological: Patient moves all extremities spontaneously Assessment and plan Sepsis/Pneumonia Bilateral Continue IV Zosyn and vancomycin Follow cultures Acute on chronic respiratory failure with hypoxia and hypercapnia/Acute metabolic encephalopathy/COPD exacerbation/history of lung cancer Patient was saturating 86 in 6 L nasal cannula on presentation, now saturating at 99%. Arterial blood gas shows CO2 retention, PaO2 of 140. Wean oxygen to oxygen saturation of 88 to 92% to preserve hypoxic drive. BiPAP as needed for hypercapnia Pulmonary input appreciated. Bronchodilators IV steroid Antibiotics changed to IV Zosyn and vancomycin. Supportive measures with antitussives CTA thorax result reviewed and noting progression of lung cancer. Spouse reports patient has been ambulatory prior to being sick 1 week ago. PT consult. Follow-up with oncology as outpatient regarding the lung cancer. BPH (benign prostatic hyperplasia) Continue home dose tamsulosin Acute on chronic diastolic heart failure Chest x-ray findings consistent with CHF Continue IV Lasix for 1 more day and reevaluate volume status Titrate as needed Echocardiogram shows hyperdynamic LV but normal EF. Hyperdynamic LV likely related to tachycardia. Discharge Plan: Home Plan to discharge in: Greater than 2 days
[2023-08-09] MEDS: ACETAMINOPHEN 500 MG TAB PO PRN (18:18)
[2023-08-09] MEDS: predniSONE 20 MG TAB PO SCH (20:11)
[2023-08-10 04:03] LABS: Absolute Lymphocytes (CBC) 0.8 K/uL (0.7-4.9); Absolute Monocytes 2.1 K/uL (0.1-1.3); Absolute Neutrophil 23.5 K/uL (1.8-8.0); Hematocrit 28.5 % (39.6-49.0); Hemoglobin 9.6 g/dL (13.6-17.9); MCH 32.6 pg (27.0-35.0); MCHC 33.6 g/dL (32.0-36.0); MCV 96.9 fL (80-100); MPV 7.2 fL (7.6-11.3); Monocytes % 7.8 % (3.3-12.3); Neutrophils % 89.2 % (41.7-73.7); Platelets 522 thou/uL (152-406); RBC Red Blood Cell Count 2.94 M/uL (4.33-5.43); Red Cell Distribution Width 14.7 % (12.1-15.2)
[2023-08-10 04:04] LABS: Anion Gap 7.3 mEq/L (5.0-15.0); Potassium 3.3 mEq/L (3.5-5.1)
[2023-08-10] MEDS: POTASSIUM CL SA 10 MEQ TAB PO ONE (04:11)
[2023-08-10 05:02] LABS: Band Neutrophils 10 % (0-1); Differential Total Cells Count 100; Lymphocytes 2 % (15-42); Monocytes 2 % (0-10); Reactive Lymphocytes 3 %; Segmented Neutrophils 83 % (40-80)
[2023-08-10 05:03] LABS: Blood Morphology Comment NOT SEEN (NOT SEEN); Platelet Estimate ADEQ
--- NOTE | 2023-08-10 12:05 | P.PN ---
Subjective Date of Service: 08/10/23 Chief Complaint: Respiratory failure with pneumonia Subjective: Improving (Is improving a little bit still very weak-at the bedside) Review of Systems General: Weakness Respiratory: Cough, Shortness of Breath Physical Examination - Vital Signs Temperature: 98.6 F Blood Pressure: 110/62 Pulse: 93 Respirations: 20 Pulse Ox (%): 95 - Physical Exam General: Alert, Oriented x3, Mild distress Respiratory: Clear to auscultation bilaterally, Diminished Cardiovascular: No edema, Regular rate/rhythm, Normal S1 S2 Assessment And Plan - Current Problems (Diagnosis) (1) Pneumonia Current Visit: No Status: Acute Plan: Patient is 82 years of age with a history of terminal lung cancer and with worsening shortness of breath he has left lung pneumonia another chest x-ray white count elevated I suspect is from the steroid patient also has chronic respiratory failure I have advised him to try out the BiPAP c repeat chest x-ray reduce dose of prednisone DC vancomycin changed to p.o. doxycycline Qualifiers: Pneumonia type: due to unspecified organism Laterality: left
--- NOTE | 2023-08-10 16:05 | P.PN ---
Subjective Date of Service: 08/10/23 Chief Complaint: Respiratory failure with pneumonia Patient is more awake and alert today and participating meaningfully in a conversation. Spouse also mentioned patient ate better today. No recorded fever He used BiPAP last night. He is currently maintained on 4 L oxygen by nasal cannula. Physical Examination - Vital Signs Temperature: 98.6 F Blood Pressure: 110/62 Pulse: 95 Respirations: 20 Pulse Ox (%): 95 Assessment And Plan - Plan Physical Exam General: Oriented x2, Cachectic. Respiratory: Diminished bilateral, Crackles/rales. Cardiovascular: Regular rate/rhythm, Normal S1 S2, Edema Gastrointestinal: Soft and benign, no tenderness, normal bowel sounds. Integumentary: No rashes, No cyanosis, Neurological: Patient moves all extremities spontaneously Assessment and plan Sepsis/Pneumonia Bilateral Continue IV Zosyn and vancomycin Follow cultures Acute on chronic respiratory failure with hypoxia and hypercapnia/Acute metabolic encephalopathy/COPD exacerbation/history of lung cancer Patient was saturating 86 in 6 L nasal cannula on presentation, now saturating at 99%. Arterial blood gas shows CO2 retention, PaO2 of 140. Oxygen weaned to 4 L. BiPAP as needed for hypercapnia Pulmonary Dr. Gtz is following. Bronchodilators IV steroid Continue IV Zosyn and vancomycin. Supportive measures with antitussives CTA thorax result reviewed and noted progression of lung cancer. Spouse reports patient has been ambulatory prior to being sick 1 week ago. And is receiving PT Follow-up with oncology as outpatient regarding the lung cancer. BPH (benign prostatic hyperplasia) Continue home dose tamsulosin Acute on chronic diastolic heart failure Chest x-ray findings consistent with CHF Status post IV Lasix. Lasix discontinued Echocardiogram shows hyperdynamic LV but normal EF. Hyperdynamic LV likely related to tachycardia from sepsis. Discharge Plan: SNF
[2023-08-10] MEDS: predniSONE 10 MG TAB PO SCH (20:47)
[2023-08-10] MEDS: DOXYCYCLINE 100 MG CAP PO SCH (20:47)
[2023-08-11 03:14] LABS: Absolute Lymphocytes (CBC) 1.3 K/uL (0.7-4.9); Absolute Monocytes 2.2 K/uL (0.1-1.3); Absolute Neutrophil 24.7 K/uL (1.8-8.0); Basophils % 0.1 % (0-1.3); Eosinophils % 0.1 % (0-4.4); Lymphocytes % 4.4 % (15.3-44.8); MCH 31.4 pg (27.0-35.0); MCHC 32.2 g/dL (32.0-36.0); MCV 97.6 fL (80-100); MPV 7.4 fL (7.6-11.3); Monocytes % 7.9 % (3.3-12.3); Neutrophils % 87.5 % (41.7-73.7); Platelets 446 thou/uL (152-406); RBC Red Blood Cell Count 2.87 M/uL (4.33-5.43); Red Cell Distribution Width 14.7 % (12.1-15.2)
[2023-08-11 03:56] LABS: Anion Gap 3.6 mEq/L (5.0-15.0); Potassium 3.6 mEq/L (3.5-5.1)
--- NOTE | 2023-08-11 12:28 | P.PN ---
Subjective Date of Service: 08/11/23 Chief Complaint: Respiratory failure with pneumonia Patient's condition is stable is still very weak and debilitated using BiPAP at night during the day as needed Review of Systems General: Weakness Respiratory: Cough, Shortness of Breath Physical Examination - Vital Signs Temperature: 97.9 F Blood Pressure: 97/51 Pulse: 96 Respirations: 17 Pulse Ox (%): 96 - Physical Exam General: Alert, Mild distress Respiratory: Clear to auscultation bilaterally, Diminished Cardiovascular: No edema, Regular rate/rhythm, Normal S1 S2 Assessment And Plan - Current Problems (Diagnosis) (1) Pneumonia Current Visit: No Status: Acute Plan: Patient admitted with pneumonia he is at risk for resistant organisms 4+ gram- negative rods isolated most likely Pseudomonas Qualifiers: Pneumonia type: due to unspecified organism Laterality: left (2) Chronic respiratory failure Current Visit: Yes Status: Acute Plan: Patient is 82 years of age has chronic respiratory failure with hypercarbia and hypoxemia secondary to COPD he will benefit from a noninvasive ventilator to prevent recurrent hospital admissions Qualifiers: Respiratory failure complication: hypoxia and hypercapnia Qualified Code(s): J96.11 - Chronic respiratory failure with hypoxia; J96.12 - Chronic respiratory failure with hypercapnia
[2023-08-11] MEDS: ARFORMOTEROL TARTRATE 15 MCG/2 ML VIAL.NEB NEB SCH (14:39)
--- NOTE | 2023-08-11 15:13 | RAD REPORT ---
EXAM DESCRIPTION: RAD - Chest Single View - 08/11/2023 2:42 pm CLINICAL HISTORY: Pneumonia COMPARISON: Chest Single View dated 08/07/2023; Chest Single View dated 10/17/2022; Chest Single View d ated 10/15/2022; Chest Single View dated 10/13/2022; Chest For Pe Angio dated 08/07/2023 FINDINGS: Lines: None. Lungs: Diffusely coarsened interstitium with multifocal airspace disease throughout the left lung and at the right lung base. . Pleural: Blunting of the costophrenic angles . Cardiac: The heart size is within normal limits. Mediastinum: Within normal limits. Bones: No acute fractures. Other: None IMPRESSION: No significant change compared with 08/07/2023. Bilateral airspace disease, left greater than right, is similar.
--- NOTE | 2023-08-11 16:29 | P.PN ---
Subjective Date of Service: 08/11/23 Chief Complaint: Respiratory failure with pneumonia Patient's mental status seems to be improving. No recorded fever He has been using BiPAP sometimes at night. Physical Examination - Vital Signs Temperature: 97.9 F Blood Pressure: 97/51 Pulse: 96 Respirations: 17 Pulse Ox (%): 96 Assessment And Plan - Plan Physical Exam General: Oriented x2, Cachectic. Respiratory: Diminished bilateral, Crackles/rales. Cardiovascular: Regular rate/rhythm, Normal S1 S2, Edema Gastrointestinal: Soft and benign, no tenderness, normal bowel sounds. Integumentary: No rashes, No cyanosis, Neurological: Patient moves all extremities spontaneously Assessment and plan Sepsis/Pneumonia Bilateral Continue IV Zosyn and vancomycin Follow cultures Acute on chronic respiratory failure with hypoxia and hypercapnia/Acute metabolic encephalopathy/COPD exacerbation/history of lung cancer Patient was saturating 86 in 6 L nasal cannula on presentation, now saturating at 99%. Arterial blood gas shows CO2 retention, PaO2 of 140. Wean oxygen as tolerated. BiPAP as needed for hypercapnia Pulmonary Dr. Gtz is following. Bronchodilators-Brovana. IV steroid discontinued. Continue IV Zosyn and vancomycin. Supportive measures with antitussives CTA thorax result reviewed and noted progression of lung cancer. Spouse reports patient has been ambulatory prior to being sick 1 week ago. Continue PT Follow-up with oncology as outpatient regarding the lung cancer. BPH (benign prostatic hyperplasia) Continue home dose tamsulosin Acute on chronic diastolic heart failure Chest x-ray findings consistent with CHF Status post IV Lasix. Lasix discontinued Echocardiogram shows hyperdynamic LV but normal EF. Hyperdynamic LV likely related to tachycardia from sepsis. Discharge Plan: SNF versus home health versus hospice.
[2023-08-12 06:31] LABS: Absolute Eosinophils 0.1 K/uL (0-0.5); Absolute Lymphocytes (CBC) 1.6 K/uL (0.7-4.9); Absolute Monocytes 2.5 K/uL (0.1-1.3); Absolute Neutrophil 16.8 K/uL (1.8-8.0); Basophils % 0.2 % (0-1.3); Eosinophils % 0.4 % (0-4.4); Hematocrit 26.9 % (39.6-49.0); Hemoglobin 8.7 g/dL (13.6-17.9); Lymphocytes % 7.7 % (15.3-44.8); MCH 31.8 pg (27.0-35.0); MCHC 32.4 g/dL (32.0-36.0); MCV 98.1 fL (80-100); Monocytes % 11.8 % (3.3-12.3); Neutrophils % 79.9 % (41.7-73.7); Platelets 427 thou/uL (152-406); RBC Red Blood Cell Count 2.75 M/uL (4.33-5.43); Red Cell Distribution Width 14.7 % (12.1-15.2)
[2023-08-12 06:41] LABS: Anion Gap 5.6 mEq/L (5.0-15.0); Potassium 3.6 mEq/L (3.5-5.1)
--- NOTE | 2023-08-12 07:17 | RAD REPORT ---
EXAM DESCRIPTION: RAD - Chest Single View - 08/12/2023 7:02 am CLINICAL HISTORY: Pneumonia COMPARISON: Chest Single View dated 08/11/2023; Chest Single View dated 08/07/2023; Chest Single View da orion 10/17/2022; Chest Single View dated 10/15/2022; Chest For Pe Angio dated 08/07/2023 FINDINGS: Lines: None. Lungs: Volume loss, architectural distortion, and airspace disease throughout the left lung is simila r. Airspace opacities at the right lung base are also similar. Pleural: No significant pleural effusions or pneumothorax. Cardiac: The heart size is within normal limits. Mediastinum: Within normal limits. Bones: No acute fractures. Other: None IMPRESSION: No significant change in bilateral airspace disease representing a combination of acute and chronic finding including pneumonia/pneumonitis. Reference CT from 08/07/2023.
[2023-08-12] MEDS: POTASSIUM CL SA 10 MEQ TAB PO ONE (09:10)
--- NOTE | 2023-08-12 12:25 | P.PN ---
Subjective Date of Service: 08/12/23 Chief Complaint: Respiratory failure with pneumonia Spouse reports patient had a poor sleep last night so he has been sleeping since morning. No recorded fever He used BiPAP last night. Physical Examination - Vital Signs Temperature: 98.6 F Blood Pressure: 93/49 Pulse: 94 Respirations: 14 Pulse Ox (%): 96 Assessment And Plan - Plan Physical Exam General: Oriented x2, Cachectic. Respiratory: Diminished bilateral, Crackles/rales. Cardiovascular: Regular rate/rhythm, Normal S1 S2, Edema Gastrointestinal: Soft and benign, no tenderness, normal bowel sounds. Integumentary: No rashes, No cyanosis, Neurological: Patient moves all extremities spontaneously Assessment and plan Sepsis/Pneumonia Bilateral Continue IV Zosyn and vancomycin Follow cultures Acute on chronic respiratory failure with hypoxia and hypercapnia/Acute metabolic encephalopathy/COPD exacerbation/history of lung cancer Patient was saturating 86 in 6 L nasal cannula on presentation, now saturating at 99%. Arterial blood gas shows CO2 retention, PaO2 of 140. Wean oxygen as tolerated. BiPAP as needed for hypercapnia Pulmonary Dr. Gtz is following. Bronchodilators-Brovana. IV steroid discontinued. IV cefepime. Pulmonary Supportive measures with antitussives CTA thorax result reviewed and noted progression of lung cancer. Repeat chest x-ray shows no significant change in bilateral infiltrates. Spouse reports patient has been ambulatory prior to being sick 1 week ago. Continue PT Follow-up with oncology as outpatient regarding the lung cancer. Spouse mentioned patient was able to get up and use the bedside commode with minimal assistance. Continue PT Anticipating home with home health. BPH (benign prostatic hyperplasia) Continue home dose tamsulosin Acute on chronic diastolic heart failure Chest x-ray findings consistent with CHF Status post IV Lasix. Lasix discontinued Echocardiogram shows hyperdynamic LV but normal EF. Hyperdynamic LV likely related to tachycardia from sepsis. Discharge Plan: Home with home health.
[2023-08-12] MEDS: CEFEPIME 1 GM in NA CHLORIDE 0.9% 100 ML IV SCH (20:43)
[2023-08-13 04:08] LABS: Absolute Basophils 0.1 K/uL (0-0.5); Absolute Eosinophils 0.3 K/uL (0-0.5); Absolute Lymphocytes (CBC) 1.9 K/uL (0.7-4.9); Absolute Monocytes 1.7 K/uL (0.1-1.3); Absolute Neutrophil 16.1 K/uL (1.8-8.0); Basophils % 0.4 % (0-1.3); Eosinophils % 1.5 % (0-4.4); Hematocrit 27.4 % (39.6-49.0); Hemoglobin 8.5 g/dL (13.6-17.9); Lymphocytes % 9.2 % (15.3-44.8); MCH 30.7 pg (27.0-35.0); MCHC 31.1 g/dL (32.0-36.0); MCV 98.7 fL (80-100); MPV 7.1 fL (7.6-11.3); Monocytes % 8.7 % (3.3-12.3); Neutrophils % 80.2 % (41.7-73.7); Platelets 447 thou/uL (152-406); RBC Red Blood Cell Count 2.77 M/uL (4.33-5.43); Red Cell Distribution Width 14.9 % (12.1-15.2)
[2023-08-13 04:25] LABS: Albumin 2.1 g/dL (3.4-5.0); Albumin/Globulin Ratio 0.6 (1.1-1.8); Anion Gap 4.1 mEq/L (5.0-15.0); Bilirubin Total 0.2 mg/dL (0.2-1.0); Globulin 3.4 g/dL (2.3-3.5); Potassium 4.1 mEq/L (3.5-5.1); Protein, Total 5.5 g/dL (6.4-8.2)
--- NOTE | 2023-08-13 14:14 | P.PN ---
Subjective Date of Service: 08/13/23 Chief Complaint: Respiratory failure with pneumonia Patient has no new complaint. Spouse feels patient is getting better, he ate more today and he has been able to use bedside commode with minimal assistance. No recorded fever Physical Examination - Vital Signs Temperature: 97.8 F Blood Pressure: 102/49 Pulse: 100 Respirations: 16 Pulse Ox (%): 96 - Studies Microbiology Data (last 24 hrs): 08/07/23 19:15 Blood - Blood Aerobic Blood Culture - Final No growth in 5 days. 08/07/23 19:15 Blood - Blood Anaerobic Blood Culture - Final No growth in 5 days. 08/07/23 19:30 Blood - Blood Aerobic Blood Culture - Final No growth in 5 days. 08/07/23 19:30 Blood - Blood Anaerobic Blood Culture - Final No growth in 5 days. Assessment And Plan - Plan Physical Exam General: Oriented x2, Cachectic. Respiratory: Diminished bilateral, Crackles/rales. Cardiovascular: Regular rate/rhythm, Normal S1 S2, Edema Gastrointestinal: Soft and benign, no tenderness, normal bowel sounds. Integumentary: No rashes, No cyanosis, Neurological: Patient moves all extremities spontaneously Assessment and plan Sepsis/Pneumonia Bilateral Sputum culture grew Pseudomonas with intermediate sensitivity to Zosyn. IV antibiotics scale down to IV cefepime. Will transition to oral Levaquin on discharge. Acute on chronic respiratory failure with hypoxia and hypercapnia/Acute metabolic encephalopathy/COPD exacerbation/history of lung cancer Patient was saturating 86 in 6 L nasal cannula on presentation, now saturating at 99%. Arterial blood gas shows CO2 retention, PaO2 of 140. Wean oxygen as tolerated. BiPAP as needed for hypercapnia Pulmonary Dr. Gtz is following. Pulmonary is considering NIV therapy at home. Bronchodilators-Brovana. IV steroid discontinued. IV cefepime per Pulmonary CTA thorax result reviewed and noted progression of lung cancer. Repeat chest x-ray shows no significant change in bilateral infiltrates. Continue PT Follow-up with oncology as outpatient regarding the lung cancer. Continue PT Anticipating home with home health. BPH (benign prostatic hyperplasia) Continue home dose tamsulosin Acute on chronic diastolic heart failure Chest x-ray findings consistent with CHF Status post IV Lasix. Lasix discontinued Echocardiogram shows hyperdynamic LV but normal EF. Hyperdynamic LV likely related to tachycardia from sepsis. Clinically improved. Leukocytosis Improving. Secondary to pneumonia. Steroid contributing to leukocytosis. Continue to monitor CBC. Chronic anemia Stable Transfuse as needed for hemoglobin less than 8. Discharge Plan: Home with home health.
[2023-08-13] MEDS: IPRATROPIUM BROM 0.5MG/2.5ML NEB PRN (22:17)
[2023-08-14 04:07] LABS: Absolute Eosinophils 0.2 K/uL (0-0.5); Absolute Lymphocytes (CBC) 2.2 K/uL (0.7-4.9); Absolute Monocytes 1.8 K/uL (0.1-1.3); Absolute Neutrophil 14.1 K/uL (1.8-8.0); Basophils % 0.2 % (0-1.3); Eosinophils % 1.1 % (0-4.4); Hematocrit 27.3 % (39.6-49.0); Lymphocytes % 11.8 % (15.3-44.8); MCH 32.4 pg (27.0-35.0); MCHC 32.9 g/dL (32.0-36.0); MCV 98.5 fL (80-100); MPV 7.4 fL (7.6-11.3); Neutrophils % 76.9 % (41.7-73.7); Platelets 469 thou/uL (152-406); RBC Red Blood Cell Count 2.78 M/uL (4.33-5.43); Red Cell Distribution Width 14.6 % (12.1-15.2)
--- NOTE | 2023-08-14 12:26 | P.PN ---
Subjective Date of Service: 08/14/23 Chief Complaint: Respiratory failure with pneumonia Patient is doing much better today. He is awake, alert and interactive meaningfully today. No recorded fever. He has been tolerating his diet. Physical Examination - Vital Signs Temperature: 99.3 F Blood Pressure: 111/56 Pulse: 96 Respirations: 16 Pulse Ox (%): 98 Assessment And Plan - Plan Physical Exam General: Oriented x2, Cachectic. Respiratory: Diminished bilateral, Crackles/rales. Cardiovascular: Regular rate/rhythm, Normal S1 S2, Edema Gastrointestinal: Soft and benign, no tenderness, normal bowel sounds. Integumentary: No rashes, No cyanosis, Neurological: Patient moves all extremities spontaneously Assessment and plan Sepsis/Pneumonia Bilateral pneumonia Sputum culture grew Pseudomonas with intermediate sensitivity to Zosyn. IV antibiotics scale down to IV cefepime. Patient was clinically improved. Will transition to oral Levaquin on discharge. Acute on chronic respiratory failure with hypoxia and hypercapnia/Acute metabolic encephalopathy/COPD exacerbation/history of lung cancer Patient was saturating 86 in 6 L nasal cannula on presentation. Patient had evidence of CO2 retention in the blood gas Oxygen weaned to 2 to 3 L. BiPAP as needed for hypercapnia Pulmonary Dr. Gtz is following. Pulmonary is considering NIV therapy at home. Bronchodilators-Brovana. IV steroid discontinued. IV cefepime per Pulmonary CTA thorax result reviewed and noted progression of lung cancer. Repeat chest x-ray shows no significant change in bilateral infiltrates but patient appears clinically improved. Continue PT Follow-up with oncology as outpatient regarding the lung cancer. Anticipating home with home health. BPH (benign prostatic hyperplasia) Continue home dose tamsulosin Acute on chronic diastolic heart failure Chest x-ray findings consistent with CHF Status post IV Lasix. Lasix discontinued Echocardiogram shows hyperdynamic LV but normal EF. Hyperdynamic LV likely related to tachycardia from sepsis. Clinically improved. Patient appears compensated for CHF. Leukocytosis Leukocytosis continues to trend down. Secondary to pneumonia. Steroid contributing to leukocytosis. Continue to monitor CBC. Chronic anemia Stable Transfuse as needed for hemoglobin less than 8. Discharge Plan: Home with home health, pending significant improvement in leukocytosis and availability of NIV.
[2023-08-15 03:37] LABS: Absolute Basophils 0.1 K/uL (0-0.5); Absolute Eosinophils 0.4 K/uL (0-0.5); Absolute Lymphocytes (CBC) 1.7 K/uL (0.7-4.9); Absolute Monocytes 2.1 K/uL (0.1-1.3); Absolute Neutrophil 13.7 K/uL (1.8-8.0); Basophils % 0.5 % (0-1.3); Eosinophils % 2.1 % (0-4.4); Hemoglobin 8.4 g/dL (13.6-17.9); Lymphocytes % 9.3 % (15.3-44.8); MCH 30.7 pg (27.0-35.0); MCHC 31.2 g/dL (32.0-36.0); MCV 98.3 fL (80-100); MPV 7.8 fL (7.6-11.3); Monocytes % 11.6 % (3.3-12.3); Neutrophils % 76.5 % (41.7-73.7); Platelets 473 thou/uL (152-406); RBC Red Blood Cell Count 2.75 M/uL (4.33-5.43); Red Cell Distribution Width 14.6 % (12.1-15.2)
[2023-08-15 03:59] LABS: Anion Gap 5.9 mEq/L (5.0-15.0); Magnesium 1.7 mg/dL (1.6-2.4); Potassium 3.9 mEq/L (3.5-5.1)
[2023-08-15] MEDS: MAGNESIUM SULFATE 1 gm IVPB 1 GM/100 ML BAG IV ONE (06:43)
--- NOTE | 2023-08-15 07:08 | P.PN ---
Date of Service: 08/15/23 Subjective: Feeling better compared to how he felt on admission worked with PT yesterday BP low-normal last few days cough and breathing improving no BM in several days ROS: 10 point ROS as noted above, otherwise negative Physical Exam: GEN: Alert, oriented, NAD jat rest HEENT: Normal conjunctiva, sclera anicteric CV: Regular rate and rhythm, no edema Pulm: Nonlabored respirations on 4L NC, diminished at bases bilaterally, mild b/l crackles ABD: Soft, nontender, nondistended Neuro: moves all extremities spontaneously vitals reviewed Problem List: Sepsis secondary to bilateral pneumonia Acute on chronic respiratory failure with hypoxia and hypercapnia secondary to Pneumonia / acute COPD exacerbation Acute metabolic encephalopathy secondary to above hx of Lung cancer Acute on chronic diastolic CHF (HFpEF) NSTEMI BPH Chronic anemia Sepsis secondary to bilateral pneumonia Acute on chronic respiratory failure with hypoxia and hypercapnia secondary to Pneumonia / acute COPD exacerbation Acute metabolic encephalopathy secondary to above hx of Lung cancer CTA chest (08/06): no PE. worsening metastatic disease. Bilateral lower lobe alveolar opacities - pneumonitis vs pneumonia sputum culture (08/09): Pseudomonas Aeruginosa previously on rocephin/zithromax (08/07-08/08) and zosyn (08/08-08/11) continue IV cefepime (08/11-) and PO doxycycline (08/09-) afebrile, leukocytosis improving Pulmonology is following BiPAP as needed for hypercapnia NIV currently being setup per pulm need to discuss with pulm, and see how patient does - if needing NIV prior to discharge, or ok if at least in works to get set up soon, at time of dc Continue diamox, duonebs Repeat CXR without significant change in bilateral infiltrates but patient appears clinically improved. Follow-up with oncology as outpatient regarding worsening lung cancer. Anticipating home with home health. Continue PT Acute on chronic diastolic CHF (HFpEF) NSTEMI Chest x-ray findings consistent with CHF Cardiology is following troponins mildly elevated but trended flat s/p IV lasix, discontinued 08/09 Echo (08/06): hyperdynamic LV but normal EF (62%). Diastolic dysfunction, mild TR /MR. small pericardial effusion Hyperdynamic LV likely related to tachycardia from sepsis. Clinically improved. Currently appears compensated for CHF. BPH continue home tamsulosin Chronic anemia Stable. no bleeding during hospitalization VTE: Lovenox Code: Full Dispo: Home with HH, ~1-2 days Pending improvement of leukocytosis, breathing improves NIV setup - need to confirm with pulm
[2023-08-15] MEDS: POTASSIUM 25 MEQ EFFERV TAB PO ONE (09:03)
[2023-08-15] MEDS: FAMOTIDINE 20 MG TAB PO SCH (20:46)
[2023-08-15] MEDS: ENSURE ENLIVE 237 ML CAN PO SCH (20:49)
[2023-08-16 03:37] LABS: Absolute Basophils 0.1 K/uL (0-0.5); Absolute Eosinophils 0.3 K/uL (0-0.5); Absolute Lymphocytes (CBC) 1.5 K/uL (0.7-4.9); Absolute Monocytes 1.8 K/uL (0.1-1.3); Absolute Neutrophil 11.4 K/uL (1.8-8.0); Basophils % 0.6 % (0-1.3); Eosinophils % 2.2 % (0-4.4); Hematocrit 24.4 % (39.6-49.0); Hemoglobin 7.9 g/dL (13.6-17.9); Lymphocytes % 10.2 % (15.3-44.8); MCH 31.9 pg (27.0-35.0); MCHC 32.6 g/dL (32.0-36.0); MCV 97.9 fL (80-100); MPV 7.4 fL (7.6-11.3); Platelets 493 thou/uL (152-406); RBC Red Blood Cell Count 2.49 M/uL (4.33-5.43); Red Cell Distribution Width 14.3 % (12.1-15.2)
[2023-08-16 03:54] LABS: Magnesium 1.9 mg/dL (1.6-2.4)
--- NOTE | 2023-08-16 08:06 | P.PN ---
Subjective Date of Service: 08/17/23 Chief Complaint: Respiratory failure with pneumonia Patient's condition is improving he still feels very weak ambulating with assistance Review of Systems General: Weakness Respiratory: Shortness of Breath Physical Examination - Vital Signs Temperature: 97.9 F Blood Pressure: 109/53 Pulse: 90 Respirations: 18 Pulse Ox (%): 100 - Physical Exam General: Alert, Oriented x3, Mild distress Respiratory: Clear to auscultation bilaterally, Diminished Cardiovascular: No edema, Normal pulses, Normal S1 S2 Assessment And Plan - Current Problems (Diagnosis) (1) Pneumonia Current Visit: No Status: Acute Plan: Patient admitted with Pseudomonas pneumonia is clinically improving white count declining changed to p.o. levofloxacin white count decreased to 15,000 awaiting an IV patient has severe chronic obstructive pulmonary disease with chronic hypoxemic hypercapnic respiratory failure patient's blood pressure is low decrease the dose of Diamox to 125 mg daily Pseudomonas is sensitive to levofloxacin discharge planning repeat chest x-ray ordered Qualifiers: Pneumonia type: due to unspecified organism Laterality: left (2) Chronic respiratory failure Current Visit: Yes Status: Acute Plan: Patient is 82 years of age has chronic respiratory failure secondary to COPD with hypercarbia and hypoxemia secondary to COPD he will benefit from a noninvasive ventilator to prevent recurrent hospital admissions, prevent CO2 retentions/ BIPAP.CPAP. BIPAP ST ,BIPAP ASV have been rulled out due to them being insufficient in resolvign patients condition. NIV therapy is required to discharge patient home safely to reduce readmisson and mortality Qualifiers: Respiratory failure complication: hypoxia and hypercapnia Qualified Code(s): J96.11 - Chronic respiratory failure with hypoxia; J96.12 - Chronic respiratory failure with hypercapnia
--- NOTE | 2023-08-16 08:14 | P.PN ---
Subjective Date of Service: 08/16/23 Chief Complaint: Respiratory failure with pneumonia Patient's condition is stable is still very weak and debilitated using BiPAP at night during the day as needed Physical Examination - Vital Signs Temperature: 97.9 F Blood Pressure: 109/53 Pulse: 90 Respirations: 18 Pulse Ox (%): 100 Assessment And Plan - Current Problems (Diagnosis) (1) Pneumonia Current Visit: No Status: Acute Plan: Patient admitted with pneumonia he is at risk for resistant organisms 4+ gram- negative rods isolated most likely Pseudomonas Qualifiers: Pneumonia type: due to unspecified organism Laterality: left (2) Chronic respiratory failure Current Visit: Yes Status: Acute Plan: Patient is 82 years of age has chronic respiratory failure with hypercarbia and hypoxemia secondary to COPD he will benefit from a noninvasive ventilator to prevent recurrent hospital admissions Qualifiers: Respiratory failure complication: hypoxia and hypercapnia Qualified Code(s): J96.11 - Chronic respiratory failure with hypoxia; J96.12 - Chronic respiratory failure with hypercapnia
--- NOTE | 2023-08-16 08:19 | RAD REPORT ---
EXAM DESCRIPTION: RAD - Chest Single View - 08/16/2023 8:13 am CLINICAL HISTORY: penumonia Chest pain. COMPARISON: Chest Single View dated 08/12/2023; Chest Single View dated 08/11/2023; Chest Single View da orion 08/07/2023; Chest Single View dated 10/17/2022 FINDINGS: Portable technique limits examination quality. Chronic left hemithorax opacification of the parenchyma pleural space is unchanged. Prominent emphyse ma. There is moderate patchy opacity in the right lung base likely appearing slightly worse relative to prior study. The heart is normal in size. No displaced fractures. IMPRESSION: Right lung base infiltrate appears mildly progressive since 08/12/2023.
[2023-08-16] MEDS: acetaZOLAMIDE 250 MG TAB PO SCH (09:02)
[2023-08-16] MEDS: levoFLOXacin 750 MG TAB PO SCH (09:03)
--- NOTE | 2023-08-16 10:08 | P.PN ---
Date of Service: 08/16/23 Subjective: ambulated with PT yesterday, SPO2 ~92-95% on 6L per patient preference. on 3L NC at rest feeling a little bloated/constipated. +flatus Breathing slightly more comfortable at rest clinically improving afebrile ROS: 10 point ROS as noted above, otherwise negative Physical Exam: GEN: Alert, oriented, NAD at rest HEENT: Normal conjunctiva, sclera anicteric CV: Regular rate and rhythm, no edema Pulm: Nonlabored respirations on 3L NC, diminished at bases bilaterally ABD: Soft, nontender, nondistended Neuro: moves all extremities spontaneously vitals reviewed Problem List: Sepsis secondary to bilateral pneumonia Acute on chronic respiratory failure with hypoxia and hypercapnia secondary to Pneumonia / acute COPD exacerbation Acute metabolic encephalopathy secondary to above hx of Lung cancer Acute on chronic diastolic CHF (HFpEF) NSTEMI BPH Chronic anemia Sepsis secondary to bilateral pneumonia Acute on chronic respiratory failure with hypoxia and hypercapnia secondary to Pneumonia / acute COPD exacerbation Acute metabolic encephalopathy secondary to above hx of Lung cancer CTA chest (08/06): no PE. worsening metastatic disease. Bilateral lower lobe alveo lar opacities - pneumonitis vs pneumonia sputum culture (08/09): Pseudomonas Aeruginosa previously on rocephin/zithromax (08/07-08/08), zosyn (08/08-08/11), cefepime (08/11- 08/14) and PO doxycycline (08/09-08/14) deescalated to PO levaquin 08/15 per pulmonology afebrile, leukocytosis improving Pulmonology is following BiPAP as needed for hypercapnia NIV currently being setup per pulm, needs before dc diamox decreased 08/15 given low-normal BP Continue diamox, duonebs PRN Repeat CXR (08/15) with slightly progressed right lung base infiltrate but patient appears clinically improved. Follow-up with oncology as outpatient regarding worsening lung cancer (appt scheduled for next week 08/[address] Montgomery) states worsened while on chemo, so chemo stopped Anticipating home with home health. Continue PT Acute on chronic diastolic CHF (HFpEF) NSTEMI Chest x-ray findings consistent with CHF Cardiology is following troponins mildly elevated but trended flat s/p IV lasix, discontinued 08/09 Echo (08/06): hyperdynamic LV but normal EF (62%). Diastolic dysfunction, mild TR/MR. small pericardial effusion Hyperdynamic LV likely related to tachycardia from sepsis. Clinically improved. Currently appears compensated for CHF. on diamox BPH continue home tamsulosin Chronic anemia Stable. no bleeding during hospitalization VTE: Lovenox Code: Full Dispo: Home with HH, ~1-2 days Pending NIV setup
[2023-08-16] MEDS ORDERED: ALBUTEROL 2.5 MG/3 ML NEB SOL NEB PRN (12:44)
[2023-08-16] MEDS: GUAIFENESIN 600 MG SA TAB PO SCH ×2 (18:00→18:26)
[2023-08-17 03:35] LABS: Absolute Basophils 0.1 K/uL (0-0.5); Absolute Eosinophils 0.4 K/uL (0-0.5); Absolute Lymphocytes (CBC) 1.8 K/uL (0.7-4.9); Absolute Monocytes 2.1 K/uL (0.1-1.3); Absolute Neutrophil 13.2 K/uL (1.8-8.0); Basophils % 0.7 % (0-1.3); Eosinophils % 2.3 % (0-4.4); Hematocrit 25.1 % (39.6-49.0); Hemoglobin 8.3 g/dL (13.6-17.9); Lymphocytes % 10.1 % (15.3-44.8); MCH 32.3 pg (27.0-35.0); MCHC 33.2 g/dL (32.0-36.0); MCV 97.5 fL (80-100); MPV 7.7 fL (7.6-11.3); Neutrophils % 74.9 % (41.7-73.7); Platelets 529 thou/uL (152-406); RBC Red Blood Cell Count 2.58 M/uL (4.33-5.43); Red Cell Distribution Width 14.8 % (12.1-15.2)
[2023-08-17 03:44] LABS: Magnesium 2.2 mg/dL (1.6-2.4)
--- NOTE | 2023-08-17 10:53 | P.PN ---
Date of Service: 08/17/23 Subjective: slowly improving with PT; tolerated gait training further yesterday didn't sleep well overnight due to noise has not had a good BM in a few days, +flatus, does not feel bloated. reports h/o dealing with constipation and takes laxatives up to twice a day at times afebrile ROS: 10 point ROS as noted above, otherwise negative Physical Exam: GEN: Alert, oriented, NAD at rest HEENT: Normal conjunctiva, sclera anicteric CV: Regular rate and rhythm, no edema Pulm: Nonlabored respirations on 4L NC, diminished at bases bilaterally ABD: Soft, nontender, nondistended, +BS Neuro: moves all extremities spontaneously, normal speech, normal affect vitals reviewed Problem List: Sepsis secondary to bilateral pneumonia Acute on chronic respiratory failure with hypoxia and hypercapnia secondary to Pneumonia / acute COPD exacerbation Acute metabolic encephalopathy secondary to above hx of Lung cancer Acute on chronic diastolic CHF (HFpEF) NSTEMI BPH Chronic anemia Sepsis secondary to bilateral pneumonia Acute on chronic respiratory failure with hypoxia and hypercapnia secondary to Pneumonia / acute COPD exacerbation Acute metabolic encephalopathy secondary to above hx of Lung cancer CTA chest (08/06): no PE. worsening metastatic disease. Bilateral lower lobe alveolar opacities - pneumonitis vs pneumonia sputum culture (08/09): Pseudomonas Aeruginosa previously on rocephin/zithromax (08/07-08/08), zosyn (08/08-08/11), cefepime (08/11- 08/14) and PO doxycycline (08/09-08/14) deescalated to PO levaquin 08/15 per pulmonology afebrile, leukocytosis 15.1 -> 17.7 (08/16) Pulmonology is following BiPAP as needed for hypercapnia NIV currently being setup per pulm - ok to dc as long as NIV in process diamox decreased 08/15 given low-normal BP Continue diamox, duonebs PRN Repeat CXR (08/15) with slightly progressed right lung base infiltrate but patient appears clinically improved. Follow-up with oncology as outpatient regarding worsening lung cancer (appt scheduled for next week 08/[address] Montgomery) states worsened while on chemo, so chemo stopped Anticipating home with home health. Continue PT Acute on chronic diastolic CHF (HFpEF) NSTEMI Chest x-ray findings consistent with CHF Cardiology is following troponins mildly elevated but trended flat s/p IV lasix, discontinued 08/09 Echo (08/06): hyperdynamic LV but normal EF (62%). Diastolic dysfunction, mild TR/MR. small pericardial effusion Hyperdynamic LV likely related to tachycardia from sepsis. Clinically improved. Currently appears compensated for CHF. on diamox BPH continue home tamsulosin Chronic anemia Stable. no bleeding during hospitalization VTE: Lovenox Code: Full Dispo: Home with HH, ~1 day f./u wBC, continued improvement
--- NOTE | 2023-08-17 12:08 | P.PN ---
Subjective Date of Service: 08/17/23 Chief Complaint: Respiratory failure with pneumonia Patient had a rough night last night twice he started eating and drinking still weak ambulating tolerating BiPAP Review of Systems General: Weakness Respiratory: Shortness of Breath Physical Examination - Vital Signs Temperature: 97.9 F Blood Pressure: 109/53 Pulse: 90 Respirations: 18 Pulse Ox (%): 100 - Physical Exam General: Alert, Oriented x3, Mild distress Respiratory: Clear to auscultation bilaterally, Diminished Cardiovascular: No edema, Normal S1 S2 Assessment And Plan - Current Problems (Diagnosis) (1) Pneumonia Current Visit: No Status: Acute Plan: Patient is condition is currently stable continue with treatment with levofloxacin noninvasive ventilator documents have been signed courage to eat ambulate count is mildly elevated again labs reviewed chest x-ray reviewed still with changes in the left upper lobe there is no obvious progression on the chest x-ray charge planning Qualifiers: Pneumonia type: due to unspecified organism Laterality: left (2) Chronic respiratory failure Current Visit: Yes Status: Acute Plan: Patient is 82 years of age has chronic respiratory failure secondary to COPD with hypercarbia and hypoxemia secondary to COPD he will benefit from a noninvasive ventilator to prevent recurrent hospital admissions, prevent CO2 retentions/ BIPAP.CPAP. BIPAP ST ,BIPAP ASV have been rulled out due to them being insufficient in resolvign patients condition. NIV therapy is required to discharge patient home safely to reduce readmisson and mortality Qualifiers: Respiratory failure complication: hypoxia and hypercapnia Qualified Code(s): J96.11 - Chronic respiratory failure with hypoxia; J96.12 - Chronic respiratory failure with hypercapnia
[2023-08-17] MEDS: MAGNESIUM HYDROXIDE 8% 30 ML PO PRN (20:41)
[2023-08-18 03:43] LABS: Absolute Basophils 0.1 K/uL (0-0.5); Absolute Eosinophils 0.5 K/uL (0-0.5); Absolute Lymphocytes (CBC) 1.4 K/uL (0.7-4.9); Absolute Neutrophil 11.5 K/uL (1.8-8.0); Basophils % 0.5 % (0-1.3); Eosinophils % 3.3 % (0-4.4); Hematocrit 24.2 % (39.6-49.0); Hemoglobin 8.1 g/dL (13.6-17.9); Lymphocytes % 9.3 % (15.3-44.8); MCH 32.6 pg (27.0-35.0); MCHC 33.4 g/dL (32.0-36.0); MCV 97.5 fL (80-100); MPV 7.2 fL (7.6-11.3); Neutrophils % 73.9 % (41.7-73.7); Platelets 529 thou/uL (152-406); RBC Red Blood Cell Count 2.49 M/uL (4.33-5.43); Red Cell Distribution Width 14.8 % (12.1-15.2)
[2023-08-18 04:02] LABS: Anion Gap 3.9 mEq/L (5.0-15.0); Magnesium 2.7 mg/dL (1.6-2.4); Potassium 3.9 mEq/L (3.5-5.1)
[2023-08-18] MEDS: NA CHLORIDE 0.9% 500 ML IV ONE (05:10)
[2023-08-18] MEDS ORDERED: IPRATROPIUM BROM 0.5MG/2.5ML NEB PRN (07:11)
--- NOTE | 2023-08-18 08:55 | P.PN ---
Date of Service: 08/18/23 Subjective: now reports taking diamox at home as needed since february 2023. Reports needing to take it for ~3 recurrent episodes since May 2023. Reports taking the diamox for ~4-5 days when he needs it. Feels better for ~2-3 weeks and then has to restart diamox for few days. hypotensive overnight with BP in 70/40s felt more tired yesterday when working with PT. Denies any dizziness appetite improving. eating ~50% baseline afebrile ROS: 10 point ROS as noted above, otherwise negative Physical Exam: GEN: Alert, oriented, NAD at rest HEENT: Normal conjunctiva, sclera anicteric CV: Regular rate and rhythm, no edema Pulm: Nonlabored respirations on 3.5L NC, diminished at bases bilaterally ABD: Soft, nontender, nondistended, +BS Neuro: moves all extremities spontaneously, normal speech, normal affect vitals reviewed Problem List: Sepsis secondary to bilateral pneumonia Acute on chronic respiratory failure with hypoxia and hypercapnia secondary to Pneumonia / acute COPD exacerbation Acute metabolic encephalopathy secondary to above hx of Lung cancer Acute on chronic diastolic CHF (HFpEF) NSTEMI Hypotension BPH Chronic anemia Sepsis secondary to bilateral pneumonia Acute on chronic respiratory failure with hypoxia and hypercapnia secondary to Pneumonia / acute COPD exacerbation Acute metabolic encephalopathy secondary to above hx of Lung cancer CTA chest (08/06): no PE. worsening metastatic disease. Bilateral lower lobe alveolar opacities - pneumonitis vs pneumonia sputum culture (08/09): Pseudomonas Aeruginosa previously on rocephin/zithromax (08/07-08/08), zosyn (08/08-08/11), cefepime (08/11- 08/14) and PO doxycycline (08/09-08/14) deescalated to PO levaquin 08/15 per pulmonology afebrile, leukocytosis improving (08/17) Pulmonology is following BiPAP as needed for hypercapnia NIV currently being setup per pulm - ok to dc as long as NIV in process Continue diamox, duonebs PRN Repeat CXR (08/15) with slightly progressed right lung base infiltrate but spakrle ent appears clinically improved. Follow-up with oncology as outpatient regarding worsening lung cancer (appt scheduled for next week 08/[address] Montgomery) states worsened while on chemo, so chemo stopped Anticipating home with home health. Continue PT Acute on chronic diastolic CHF (HFpEF) NSTEMI Chest x-ray findings consistent with CHF Cardiology is following troponins mildly elevated but trended flat s/p IV lasix, discontinued 08/09 Echo (08/06): hyperdynamic LV but normal EF (62%). Diastolic dysfunction, mild TR/MR. small pericardial effusion Hyperdynamic LV likely related to tachycardia from sepsis. Clinically improved. Currently appears compensated for CHF. dc diamox 08/17 given hypotension now reports taking diamox at home as needed since february 2023. Reports needing to take it for ~3 recurrent episodes since May 2023. Reports taking diamox for ~4-5 days when he needs it. Feels better for ~2-3 weeks and then has to restart diamox for few days. Hypotension BP has been low to low-normal throughout hospitalization overnight BP dropped down to the 70/40s given fluid bolus; recheck BP in 90s Denies any dizziness / lightheadedness diamox dc'd BPH continue home tamsulosin Chronic anemia Stable. no bleeding during hospitalization VTE: Lovenox Code: Full Dispo: Home with HH, ~1 day BP improves and stabilizes
[2023-08-19 03:28] LABS: Absolute Basophils 0.1 K/uL (0-0.5); Absolute Eosinophils 0.5 K/uL (0-0.5); Absolute Lymphocytes (CBC) 1.1 K/uL (0.7-4.9); Absolute Monocytes 1.8 K/uL (0.1-1.3); Absolute Neutrophil 9.5 K/uL (1.8-8.0); Eosinophils % 3.8 % (0-4.4); Hemoglobin 7.8 g/dL (13.6-17.9); Lymphocytes % 8.5 % (15.3-44.8); MCH 32.7 pg (27.0-35.0); MCHC 33.8 g/dL (32.0-36.0); MCV 96.8 fL (80-100); MPV 7.1 fL (7.6-11.3); Neutrophils % 72.7 % (41.7-73.7); Platelets 494 thou/uL (152-406); RBC Red Blood Cell Count 2.38 M/uL (4.33-5.43); Red Cell Distribution Width 14.7 % (12.1-15.2)
--- NOTE | 2023-08-19 08:06 | P.DS ---
Admission Date: 08/07/23 Discharge Date: 08/19/23 Disposition: DC HOME/HOME HEALTH CARE Reason for Admission: Respiratory failure with pneumonia Consultations: Pulmonology - Dr. Gtz Cardiology - Dr. Rogel Brief History of Present Illness: 82 yo M, PMH: hypertension, COPD history of lung cancer, chronic hypoxic respiratory failure, BPH, Patient presents with complaints of shortness of breath. Patient is a poor historian hence most of the history is obtained from the family who is at the bedside. Patient started having worsening of shortness of breath progressively worsening. It got so worse today than baseline and was brought to ER. Denies any chest pain.EMS reports O2 sat 86% on 6L O2 at home. Pt also reports swelling to bilateral lower extremities that began 3-4 days ago. No fever or chills.No Sick contacts. Patient was assessed in the ER and was admitted for further management of acute on chronic hypoxic respiratory failure and possible pneumonia Hospital Course: Problem List: Sepsis secondary to bilateral pneumonia Acute on chronic respiratory failure with hypoxia and hypercapnia secondary to Pneumonia / acute COPD exacerbation Acute metabolic encephalopathy secondary to above; improved hx of Lung cancer Acute on chronic diastolic CHF (HFpEF) NSTEMI Hypotension BPH Chronic anemia Constipation Physician Discharge instructions: Patient presented with worsening dyspnea, confusion and was found to have bilateral pneumonia complicated by acute on chronic CHF/COPD exacerbations and metastatic cancer involving his lungs, seen on CT. Patient was given IV steroids, duonebs, diuretics, BiPAP/oxygen supplementation along with multiple antibiotics and had some improvement of his symptoms. Sputum culture grew Pseudomonas Aeruginosa. Blood cultures were without growth. Antibiotics were switched based on sensitivities on 08/12/23 from partially resistant zosyn to cefepime. IV antibiotics were deescalated to PO levaquin and patient continued to improve throughout hospitalization. Patient is to complete 7 more days of PO levaquin on discharge for total of ~[address] Gtz, trimmer operator, was consulted and recommended NIV therapy to reduce risk factors to minimize recurrent episodes and improve oxygenation at home. NIV setup currently in process and to delivered after discharge. During his hospitalization patient was noted to have some bilateral lower extremity edema. CXR/CTA findings with some pulmonary edema consistent with CHF exacerbation. Patient received lasix and diamox while hospitalized as blood pressure allowed. Patient was noted to hypotensive with low to low-normal readings throughout hospitalization. Echo noted hyperdynamic LV but normal EF (62%), Diastolic dysfunction, mild TR/MR. small pericardial effusion. Suspect hyperdynamic LV likely related to tachycardia from sepsis. On further discussion, patient reports taking diamox at home as needed since February 2023. Reports taking diamox for ~4-5 days when he needs it due to swelling and then feels better for ~2-3 weeks and then has to restart diamox for few days. Patient reports having to do this ~3 times since May 2023. Diamox was held and patient had stable blood pressures, with systolics 90s-110/50-60, ambulating, and without dizziness/lightheadedness. Continue to hold diamox for several days, and resume as needed dosing as previously prescribed at home. Advised to check blood pressure around the same time each day. Keep daily diary of blood pressure readings to take to your follow up appointment in ~1 week with PCP for further adjustments of medications if needed. CTA chest on admission noted progression in soft tissue nodularity left pleura and enlargement/development of left lung pulmonary nodules compatible with worsening metastatic disease. Discussed findings with patient/family and was advised to follow up with oncology as outpatient to further discuss results. Patient reported already having appointment scheduled next week 08/[address] Montgomery. Medications: Levaquin -7 more days, to complete 14 day total antibiotic course daily over the counter stool softener (colace / docusate). If still constipated can consider trying a laxative. Consider enema as a last resort if no relief from stool softener/laxative Follow up: PCP 3-5 days Pulmonology, ~1-2 weeks Please call to confirm / schedule appointments In addition to the levaquin, prescriptions for nebulizer machine and NIV were signed and sent during this admission Physical Exam: GEN: Alert, oriented, NAD at rest HEENT: Normal conjunctiva, sclera anicteric CV: Regular rate and rhythm, no edema Pulm: Nonlabored respirations on 4L NC, clear bilaterally ABD: Soft, nontender, nondistended, Neuro: normal speech, normal affect Vital Signs/Physical Exam: Temp Pulse Resp BP Pulse Ox 97.3 F 86 18 90/47 L 98 08/19/23 04:00 08/19/23 04:00 08/19/23 04:00 08/19/23 04:00 08/19/23 04:00 Laboratory Data at Discharge: WBC 13.00 thou/uL (4.3-10.9) H 08/19/23 03:05 Hgb 7.8 g/dL (13.6-17.9) L 08/19/23 03:05 Hct 23.0 % (39.6-49.0) L 08/19/23 03:05 Plt Count 494 thou/uL (152-406) H 08/19/23 03:05 PT 11.7 SECONDS (9.5-12.5) 08/07/23 19:30 INR 1.07 08/07/23 19:30 APTT 31.0 SECONDS (24.3-36.9) 08/07/23 19:30 Sodium 137 mEq/L (136-145) 08/18/23 03:11 Potassium 3.9 mEq/L (3.5-5.1) 08/18/23 03:11 BUN 30 mg/dL (7-18) H 08/18/23 03:11 Creatinine 0.89 mg/dL (0.70-1.30) 08/18/23 03:11 Glucose 100 mg/dL (74-106) 08/18/23 03:11 Magnesium 2.7 mg/dL (1.6-2.4) H 08/18/23 03:11 Total Bilirubin 0.2 mg/dL (0.2-1.0) 08/13/23 04:01 AST 10 U/L (15-37) L 08/13/23 04:01 ALT 18 U/L (16-61) 08/13/23 04:01 Alkaline Phosphatase 88 U/L (45-117) 08/13/23 04:01 Home Medications: Finasteride [Proscar*] 5 mg PO BEDTIME 07/11/16 Tamsulosin [Flomax*] 0.4 mg PO DAILY 07/11/16 Tiotropium Java [Spiriva] 1 inh PO DAILY 05/07/22 acetaZOLAMIDE [Diamox*] 250 mg PO DAILY #30 tab 05/21/22 Folic Acid 1 mg PO DAILY 10/13/22 Loratadine/Pseudoephedrine Sul [Claritin-D 12 Hour Tablet] 1 tab PO Q12H 10/13/22 Tiotropium [Spiriva Handihaler*] 18 mcg IH DAILY 10/13/22 Zolpidem Tartrate [Ambien*] 5 mg PO BEDTIME PRN 10/13/22 Hydrocodone/Acetaminophen [Hydrocodone-Acetamin 10-325 mg] 1 each PO Q6HP PRN 08/08/23 levoFLOXacin [Levaquin*] 750 mg PO DAILY 7 Days #7 tab 08/19/23 New Medications: levoFLOXacin [Levaquin*] 750 mg PO DAILY 7 Days #7 tab Physician Discharge Instructions: Physician Discharge instructions: Patient presented with worsening dyspnea, confusion and was found to have bilateral pneumonia complicated by acute on chronic CHF/COPD exacerbations and metastatic cancer involving his lungs, seen on CT. Patient was given IV steroids, duonebs, diuretics, BiPAP/oxygen supplementation along with multiple antibiotics and had some improvement of his symptoms. Sputum culture grew Pseudomonas Aeruginosa. Blood cultures were without growth. Antibiotics were switched based on sensitivities on 08/12/23 from partially resistant zosyn to cefepime. IV antibiotics were deescalated to PO levaquin and patient continued to improve throughout hospitalization. Patient is to complete 7 more days of PO levaquin on discharge for total of ~[address] Gtz, trimmer operator, was consulted and recommended NIV therapy to reduce risk factors to minimize recurrent episodes and improve oxygenation at home. N IV setup currently in process and to delivered after discharge. During his hospitalization patient was noted to have some bilateral lower extremity edema. CXR/CTA findings with some pulmonary edema consistent with CHF exacerbation. Patient received lasix and diamox while hospitalized as blood pressure allowed. Patient was noted to hypotensive with low to low-normal readings throughout hospitalization. Echo noted hyperdynamic LV but normal EF (62%), Diastolic dysfunction, mild TR/MR. small pericardial effusion. Suspect hyperdynamic LV likely related to tachycardia from sepsis. On further discussion, patient reports taking diamox at home as needed since February 2023. Reports taking diamox for ~4-5 days when he needs it due to swelling and then feels better for ~2-3 weeks and then has to restart diamox for few days. Patient reports having to do this ~3 times since May 2023. Diamox was held and patient had stable blood pressures, with systolics 90s-110/50-60, ambulating, and without dizziness/lightheadedness. Continue to hold diamox for several days, and resume as needed dosing as previously prescribed at home. Advised to check blood pressure around the same time each day. Keep daily diary of blood pressure readings to take to your follow up appointment in ~1 week with PCP for further adjustments of medications if needed. CTA chest on admission noted progression in soft tissue nodularity left pleura and enlargement/development of left lung pulmonary nodules compatible with worsening metastatic disease. Discussed findings with patient/family and was advised to follow up with oncology as outpatient to further discuss results. Patient reported already having appointment scheduled next week 08/[address] Montgomery. Medications: Levaquin -7 more days, to complete 14 day total antibiotic course daily over the counter stool softener (colace / docusate). If still constipated can consider trying a laxative. Consider enema as a last resort if no relief from stool softener/laxative Follow up: PCP 3-5 days Pulmonology, ~1-2 weeks Please call to confirm / schedule appointments In addition to the levaquin, prescriptions for nebulizer machine and NIV were signed and sent during this admission Followup: William Young DO [Primary Care Provider] - Time spent managing pt's care (in minutes): 45
[2023-08-19 09:06] VITALS: BP 96/51; TEMP 99.3; O2SAT 95
== END 2023-08-19 11:40 | disposition home health service (06) | DRG 871 ==
LOC: ER 17:49 → ERHOLD 22:01 → 2ND 23:20
PROVIDERS: ADMIT Family Medicine; ATTEND Hospitalist
PROC: 4A033R1 Measurement of Arterial Saturation, Peripheral, Percutaneous Approach (ICD-10-PCS; principal; 2023-08-08)
PROC: 5A09557 Assistance with Respiratory Ventilation, Greater than 96 Consecutive Hours, Continuous Positive Airway Pressure (ICD-10-PCS; 2023-08-08)
DX: A41.9 Sepsis, unspecified organism (principal); G93.41 Metabolic encephalopathy; J18.9 Pneumonia, unspecified organism; J96.21 Acute and chronic respiratory failure with hypoxia; J96.22 Acute and chronic respiratory failure with hypercapnia; I50.33 Acute on chronic diastolic (congestive) heart failure; I21.4 Non-ST elevation (NSTEMI) myocardial infarction; J44.0 Chronic obstructive pulmonary disease with (acute) lower respiratory infection; Z68.1 Body mass index [BMI] 19.9 or less, adult; R64 Cachexia; J44.1 Chronic obstructive pulmonary disease with (acute) exacerbation; C34.90 Malignant neoplasm of unspecified part of unspecified bronchus or lung; Z16.29 Resistance to other single specified antibiotic; I11.0 Hypertensive heart disease with heart failure; D64.9 Anemia, unspecified; K59.00 Constipation, unspecified; N40.0 Benign prostatic hyperplasia without lower urinary tract symptoms; Z99.81 Dependence on supplemental oxygen; Z79.52 Long term (current) use of systemic steroids; Z90.49 Acquired absence of other specified parts of digestive tract; Z87.891 Personal history of nicotine dependence; Z79.899 Other long term (current) drug therapy
CPT/HCPCS: 36415; 36600; 71045; 71275; 80048; 80053; 81001; 82805; 82947; 83605; 83735; 83880; 84132; 84484; 85025; 85610; 85730; 87040; 87070; 87077; 87186; 87205; 93005; 93306; 94640; 94660; 94760; 96365; 96367; 96368; 97110; 97116; 97161; 97530; 99285; J0692; J0696; J1650; J1940; J2920; J3475; J7040; J7050; J7512; J7605; J7644; P9047; Q9967